=== PATIENT | female | born 1965 ===

== ENCOUNTER 2021-01-02 09:29 | Outpatient (REF) | payer OTHER, SELFPAY | END 2021-01-02 09:30 | disposition home or self-care (01) | LOC: HO.LAB 09:29 | PROVIDERS: Visit Provider Internal Medicine | DX: Z20.822 Contact with and (suspected) exposure to COVID-19 (principal) | CPT/HCPCS: C9803; U0003; U0005 ==

== ENCOUNTER 2021-01-15 16:17 | Emergency (ER) | payer OTHER, SELFPAY ==
--- NOTE | ~2021-01-15 | US_ITS ---
EXAMINATION: RIGHT LOWER EXTREMITY DEEP VENOUS ULTRASOUND CLINICAL INFORMATION: Right leg pain. History of Covid. COMPARISON: None. TECHNIQUE: Duplex Doppler imaging with compression maneuvers were performed of the right lower extremity deep venous system. FINDINGS: The visualized common femoral, femoral and popliteal veins demonstrate normal compressibility and color flow without evidence of venous thrombosis. Visualized portions of the calf veins demonstrate normal color fill-in suggesting patency. There is no evidence of a Baca's cyst. US/US venous duplex LE RT IMPRESSION: No evidence of deep venous thrombosis involving the right lower extremity.
[2021-01-15 17:09] VITALS: BP 140/71; PULSE 87; RESP 18; TEMP 37.5; O2SAT 100; BMI 26.2
[2021-01-15] MEDS: Ibuprofen 600 MG TABLET PO (18:35)
--- NOTE | 2021-01-15 19:45 | ED.GENADULT ---
HPI - General Adult General Chief complaint: General Medical Stated complaint: R/O blood clot Time Seen by Provider: 01/15/21 19:44 Source: patient Mode of arrival: ambulatory Limitations: language barrier History of Present Illness HPI narrative: 55 y/o female with recent COVID-19 infection on 01/02/21 presents to the ED from PCP's office with right knee pain and swelling. She states she was walking up and down stairs frequently to take care of her ill when she woke up with swelling and some pain today. She denies any specific incident of twisting or hearing any pops. No giving out sensation. She states the pain is mostly on the outside portion of the knee and behind the knee. She went to the PCP's today who advised her to come to the ED to r/o DVT given her recent COVID diagnosis. She denies calf pain, tenderness, erythema. No chest pain or SOB. MD complaint: right knee pain Onset (ago): day(s) (2) Location: right and lower extremity Radiation: non-radiation Severity: moderate Quality: aching Pain Consistency: intermittent Relieving factors: rest Exacerbating factors: movement Associated symptoms: denies other symptoms Treatments prior to arrival: none Related Data Previous Rx's Medication Instructions Recorded fluticasone 250 mcg-salmeterol 50 1 ea PO BID #180 cap 09/12/20 mcg/dose blistr powdr for inhalation ibuprofen 600 mg PO Q8H PRN #20 tab 01/15/21 Allergies Allergy/AdvReac Type Severity Reaction Status Date / Time amoxicillin [AMOXICILLIN] Allergy Intermediate DIZZINESS Unverified 06/13/20 16:59 morphine [MORPHINE] Allergy Unknown RASH Unverified 06/13/20 16:59 baclofen [BACLOFEN] AdvReac Intermediate NAUSEA & Unverified 06/13/20 16:59 VOMITING Review of Systems Review of Systems: Constitutional: No Fever, No Chills Cardiovascular: No Chest Pain, No SOB Respiratory: No Cough, No Sputum Gastrointestinal: No Nausea, No Vomiting, No Diarrhea, No abdominal Pain Genitourinary: No Dysuria, No Urinary Frequency, No Hematuria Musculoskeletal: + joint pain, No Myalgias Skin: No Skin Lesions, No rash Neuro: No Weakness, No Numbness Heme/Lymph: No Bruising PMFSH Past Medical History Attestation statement: The following information was validated with the patient. Medical History Asthma COVID-19 Migraines Social History Social History Alcohol intake: never Smoked in Last 30 Days: No Use of substances other than those prescribed or required for medical reasons: No Any prior treatment program specific to substance use: No Advance Directives: No Advance Directives Information Provided: Yes Physical Exam Vital Signs: Vital Signs: Last Vital Signs Temp 99.5 F 01/15/21 17:09 Pulse 87 01/15/21 17:09 Resp 18 01/15/21 17:09 BP 140/71 H 01/15/21 17:09 Pulse Ox 100 01/15/21 17:09 Body Mass Index 26.2 Appearance: Alert. Oriented X3. No acute distress. HEENT: normal inspection CVS: Normal heart rate and rhythm. Pulses normal. Respiratory: No respiratory distress. Skin: Skin warm and dry. Normal skin color. Normal skin turgor. No rashes. Extremities: right knee with mild swelling to lateral aspect, no erythema or warmth, normal ROM with some discomfort on full flexion. no joint laxity. tenderness along lateral joint line. no palpable mass in popliteal fossa. no lower extremity skin changes. NV intact distally. Neuro: Oriented X 3. No motor deficit. No sensory deficit. Ambulates with very slight limp. Course Course Course Narrative: 55 y/o female presenting with right knee pain after going up and down stairs. U/S negative for DVT. Pain is likely due to overuse vs sprain/strain. Will treat with supportive care - MAUREEN wrap and NSAIDs for now. LBAT and plan to follow up with PCP and Ortho if no improvement in 1 week. Patient agrees with plan. Stable for discharge. Critical Care Time Critical Care Time Critical Care Time: No Discharge Plan Discharge Clinical Impression: Knee sprain Qualifiers: Encounter type: initial encounter Involved ligament of knee: unspecified ligament Laterality: right Qualified Code(s): S83.91XA - Sprain of unspecified site of right knee, initial encounter Patient Disposition: Home, Self-Care Instructions: Knee Sprain (ED) Additional Instructions: Your ultrasound showed NO evidence of clot. Your swelling and pain is likely due to sprain or strain of ligaments in the knee. Recommend rest, elevation when possible and ice several times per day. Wear MAUREEN wrap to help with swelling and provide support. Take the prescribed medication as needed for pain and swelling. Take with food. If no improvement in 1 week recommend following up with Orthopedics for further evaluation. Follow up with your doctor this week. If you have worsening pain or swelling or develop any new or concerning symptoms come back to the ER for further evaluation. Wright ultrasonido NO mostr? evidencia de co?gulo. Es probable que wright hinchaz?n y dolor se deban a un esguince o distensi?n de los ligamentos de la rodilla. Recomiende reposo, elevaci?n cuando sea posible y hielo varias veces al d?a. Use angelito envoltura MAUREEN para ayudar con la hinchaz?n y brindar apoyo. [place] el medicamento recetado seg?n sea necesario para el dolor y la hinchaz?n. Casi con la comida. Si no mejora en 1 semana, recomiende hacer un seguimiento con [facility] para angelito evaluaci?n adicional. Naeem un seguimiento con wright m?dico esta semana. Si el dolor o la hinchaz?n empeoran o si presenta alg?n s?ntoma nuevo o preocupante, regrese a la molly de emergencias para angelito evaluaci?n adicional. Prescriptions: New ibuprofen 600 mg tablet 600 mg PO Q8H PRN (Reason: pain) Qty: 20 RF: 0 No Action fluticasone propion-salmeterol [Wixela Inhub] 250-50 mcg/dose blister with device 1 ea PO BID Qty: 180 RF: 2 Referrals: Harpal Bob MD [Physician] - 1 week (right knee pain)
== END 2021-01-15 21:08 | disposition home or self-care (01) ==
PROVIDERS: Emergency Provider Internal Medicine; PCP Internal Medicine Geriatric Medicine
DX: S83.91XA Sprain of unspecified site of right knee, initial encounter (principal); R60.0 Localized edema; M25.561 Pain in right knee; W10.9XXA Fall (on) (from) unspecified stairs and steps, initial encounter; Y93.9 Activity, unspecified; Y92.9 Unspecified place or not applicable; Y99.9 Unspecified external cause status; Z79.899 Other long term (current) drug therapy; Z86.16 Personal history of COVID-19
CPT/HCPCS: 93971; 99284

== ENCOUNTER 2021-01-24 07:35 | Outpatient (REF) | payer OTHER, SELFPAY ==
--- NOTE | ~2021-01-24 | XR_ITS ---
EXAMINATION: XR KNEE, RIGHT CLINICAL INFORMATION: Pain. COMPARISON: None TECHNIQUE: Two views of the right knee. AP bilateral knees one view. FINDINGS: RIGHT KNEE: Normal alignment. Joint spaces are maintained. No acute fracture or dislocation. Small effusion. LEFT KNEE: Normal alignment. Maintained joint space. XR/XR knee RT 3V IMPRESSION: Right knee: No acute findings. Small effusion.
== END 2021-01-24 07:36 | disposition home or self-care (01) ==
LOC: HO.HOSX 07:35
PROVIDERS: Visit Provider Physician Assistant
DX: M17.11 Unilateral primary osteoarthritis, right knee (principal); M17.10 Unilateral primary osteoarthritis, unspecified knee
CPT/HCPCS: 73562

== ENCOUNTER 2021-03-17 13:00 | Outpatient (RCR) | payer OTHER, SELFPAY ==
--- NOTE | 2021-02-12 09:21 | MHC.PT.EP ---
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 UPON EXAM IMPAIRMENTS INCLUDE DECREASED HIP AND KNEE STRENGTH, ALTERED GAIT PATTERN, INCREASED SOFT TISSUE CONGESTION AND PAIN. FUNCTIONAL LIMITATIONS INCLUDE DECREASED TOLERANCE TO STATIC STANDING, WALKING GREATER THAN 30 MINS AND STAIR NAVIGATION. SHE REPORTS SLIGHT IMPACT ON HOMEMAKING TASKS AND DISRUPTED SLEEP. Frequency and Duration: The patient will be seen 2 X WEEK FOR 5 WEEKS Short Term Goals: INITATE HEP AND PROMOTE SELF MANAGEMENT OF SYMPTOMS WITH EVIDENCE OF LEARNING IN 2 VISITS Penitentiary Goals: IN 5 WEEKS: TO DEMONSTRATE INDEPENDENT HEP AND SELF MANAGEMENT OF RESIDUAL SYMPTOMS TO DEMONSTRATE FULL LE STRENGTH, EQUAL FAITH TO ASCEND AND DESCEND STAIRS WITHOUT PAIN GREATER THAN 2/10 TO AMBULATE AB HAKAN ON LEVEL AND UNEVEN SURFACES FOR FITNESS WITHOUT PAIN GREATER THAN 2/10 TO PERFORM FULL FUNCTIONAL SQUAT WITHOUT SUBSTITUTION Treatment Plan: Modalities to reduce pain, spasms and effusion. Manual therapy to restore motion and function. Therapeutic exercise to improve strength and flexibility. Neuromuscular re-education for posture and balance. Therapeutic activities to return to functional activities of daily living. Electronically signed by: PRETTY SAL PT, DPT Please sign and return to therapist. Thank you for your referral.
--- NOTE | 2021-04-30 12:06 | MHC.PT.DC ---
[facility] [place] Office [place] Office [place] Office [address] Misael Lundberg [address] [phone] F: [phone] F: [phone] F: [phone] F: [phone] Physical Therapy Discharge Report Diagnosis: (KP) RIGHT KNEE PAIN Date of Surgery: NA Date of Evaluation: 02/11/21 Date of Discharge: 03/18/21 Treatments to Date: 9 Cancellations to Date: 0 No Shows to Date: 1 Discharge Status: Discharge Summary: Taryn progressed well in PT, she missed last scheduled visit so exact status is unknown. She had demonstrated improved ROM and strength and is independent with her current HEP. Electronically signed by: Denise Arciniega PT, DPT Please sign and return to therapist. Thank you for your referral.
--- NOTE | 2021-04-30 12:09 | MHC.PT.DC ---
[facility] [place] Office [place] Office [place] Office [address] Misael Lundberg [address] [phone] F: [phone] F: [phone] F: [phone] F: [phone] Physical Therapy Discharge Report Diagnosis: (KP) RIGHT KNEE PAIN Date of Surgery: NA Date of Evaluation: 02/11/21 Date of Discharge: 03/18/21 Treatments to Date: 9 Cancellations to Date: 0 No Shows to Date: 1 Discharge Status: Discharge Summary: Taryn progressed well in PT, she missed last scheduled visit so exact status is unknown. She had demonstrated improved ROM and strength and is independent with her current HEP. Electronically signed by: Denise Arciniega PT, DPT Please sign and return to therapist. Thank you for your referral.
== END 2021-04-30 12:10 | disposition home or self-care (01) ==
LOC: HO.PT 13:00
PROVIDERS: Visit Provider Physician Assistant
DX: M17.10 Unilateral primary osteoarthritis, unspecified knee (principal); M17.11 Unilateral primary osteoarthritis, right knee; M25.569 Pain in unspecified knee
CPT/HCPCS: 97110; 97140; 97161; 97530; 97535

== ENCOUNTER → 2021-05-27 09:13 | Outpatient (BNVA) | payer OTHER, SELFPAY | PROVIDERS: PCP Internal Medicine Geriatric Medicine; Visit Provider Internal Medicine | DX: R00.2 Palpitations (principal); B94.8 Sequelae of other specified infectious and parasitic diseases | CPT/HCPCS: 93005 ==

== ENCOUNTER → 2021-07-08 14:09 | Outpatient (REF) | payer OTHER, SELFPAY ==
--- NOTE | 2021-07-08 14:13 | CA_ITS ---
Transthoracic Echocardiogram Patient (Last, First, Middle): Taryn Thomas, Gender: Female Date of : 1965 Age: 55 Procedure Date: 07/08/2021 Procedure Type: Transthoracic Echocardiogram Location: OP Height: 154.94 cm Weight: 63.05 kg BSA: 1.62 m2 Heart Rate: bpm BP: 120 / 70 mmHg Blow Molder: AYE Referring MD: Alfred Serrato MD Symptoms: R00.2 - Palpitations Conclusions: - Essentially normal study Findings Left Ventricle Normal left ventricular size, thickness, and systolic function. The visually estimated ejection fraction is between 60-65%. Spectral Doppler is indicative of a normal filling pattern. Measured peak global longitudinal endocardial strain is -17.4%, within normal limits Right Ventricle Normal right ventricular cavity size and systolic function. Atria Both atria are normal in size. There is a mobile atrial septum noted. Interatrial shunt cannot be excluded. Aortic Valve Normal aortic valve structure and function. There is no aortic valve stenosis. There is no aortic valve regurgitation. Mitral Valve Normal mitral valve structure and function. There is trace mitral valve regurgitation. There is no mitral valve stenosis. Pulmonic Valve The pulmonic valve is likely normal. Tricuspid Valve Normal tricuspid valve structure. There is trace tricuspid valve regurgitation. The right ventricular systolic pressure is normal. The right ventricular systolic pressure is 20 mmHg. Normal right atrial pressure. There is no evidence of pulmonary hypertension. Great Vessels All visible segments of the aorta are normal in size. The pulmonary artery was not well visualized. Venous The inferior vena cava is normal in size and collapses greater than 50% with inspiration. Pericardium/Pleural There is no evidence of pericardial effusion. Prior Study Comparison No prior study available for comparison. Measurements 2D Linear Measurements IVSd: 0.78 0.6-0.9/0.6-1.0 cm LVIDd: 4.72 3.9-5.3/4.2-5.9 cm LVIDd Index: 2.91 2.4-3.2/2.2-3.1 cm/m2 LVIDs: 2.97 2.0-3.6 cm LVPWd: 0.56 0.7-1.1 cm Ao Root: 2.90 2.1-3.5 cm LA Diam: 3.10 2.7-3.8/3.0-4.0 cm LAIDs Index: 1.91 1.5-2.3 cm/m2 LV Mass: 121.74 67-162/88-224 g LV Mass Index: 75.15 43-95/49-115 g/m2 LVOT Diam: 1.80 3.0+(-)1.3 cm 2D Systolic Function EF 4C: 65.80 >55% EF 2C: 60.30 >55% EF BiP: 63.70 >55% Mitral Valve MV Pk E: 0.93 MV PK A: 0.77 MV Decel Time: 169.00 E/A: 1.20 E'Lateral: 12.50 E'Medial: 8.59 E/E' Med: 10.80 E/E' Lat: 7.40 PHT: 49.00 MVA PHT: 4.49 Decel [place]: 5.52 Aortic Valve AoV Pk Yoel: 1.22 AoV Pk Grad: 6.00 LVOT LVOT Pk Yoel: 0.92 LVOT Mn Yoel: 0.66 LVOT VTI: 0.21 LVOT Pk Grad: 3.00 LVOT Mn Grad: 2.00 LVOT Diam: 1.80 LVOT Area: 2.54 Diastolic Function MV Pk E: 0.93 MV Pk A: 0.77 E/A: 1.20 E'Medial: 8.59 E/E' Med: 10.80 E' Laterial: 12.50 E/E' Lat: 7.40 Right Ventricle TAPSE (mm): 2.20 Tricuspid Valve TR Pk Yoel: 2.04 TR Pk Grad: 17.00 RA Press: 3.00 RVSP: 20.00 Great Vessels Aorta Ao Root-2D: 2.90 2.0-3.7 cm Ao Asc: 3.20 2.1-3.4 cm Updated in Other Vendor System with Status of Final Bright Montenegro MD electronically signed on 07/10/2021 9:02:03 AM with status of Final
--- NOTE | 2021-07-08 14:13 | HM_ITS ---
Conclusion: 1. Patient was monitored for total period of 2 days and 19 hours 2. Baseline was normal sinus rhythm with average heart rate of 83 beats per minute 3. No significant pauses or bradycardia noted 4. No significant ectopy is noted 5. No patient reported symptoms MTDD
== END ==
LOC: HO.CARD 14:09
PROVIDERS: Visit Provider Internal Medicine
DX: R00.2 Palpitations (principal)
CPT/HCPCS: 93242; 93306

== ENCOUNTER 2021-08-26 14:10 | Outpatient (REF) | payer OTHER, SELFPAY ==
--- NOTE | ~2021-08-26 | CT_ITS ---
EXAMINATION: CT ABDOMEN AND PELVIS WITHOUT AND WITH CONTRAST CLINICAL INFORMATION: Cyst of kidney. Hematuria COMPARISON: Abdominal ultrasound 10/06/2019 TECHNIQUE: Noncontrast CT of the abdomen and pelvis is performed followed by split bolus contrast-enhanced images using 85mL Omnipaque 350 contrast.? Postcontrast imaging is performed during the combined nephrogram and excretion phase. Sagittal and coronal reformatted images were obtained on the technologist's workstation for both the precontrast and postcontrast phases. This CT examination was performed using dose optimization techniques as appropriate, variously including the following: *Automated exposure control *Adjustment of mA and/or kV according to patient size (this includes techniques or standardized protocols for targeted exams where dose is matched to indication/reason for exam; i.e. extremities or head) *Use of iterative reconstruction technique DLP: 1524 mGy-cm FINDINGS: LUNG BASES: The visualized lung bases are unremarkable. LIVER, GALLBLADDER, AND BILIARY TREE: The liver is normal in size but demonstrates decreased attenuation consistent with hepatic steatosis. No focal hepatic lesion or biliary ductal dilatation is present. The previously seen hypoechoic mass adjacent to the gallbladder on 10/06/2019 ultrasound is not identified. This probably represented focal fatty sparing, some of which can be appreciated on this study. The gallbladder is unremarkable with no evidence of radiopaque gallstones, gallbladder wall thickening, or obvious pericholecystic inflammatory changes. PANCREAS: Unremarkable. SPLEEN: Unremarkable. ADRENAL GLANDS: Unremarkable. KIDNEYS AND URETERS: The kidneys are normal in size, shape, and attenuation. No hydronephrosis, hydroureter, or calculi seen. No perinephric stranding. There is a 5 mm hypodensity seen in the mid left kidney along with an additional 3 mm hypodensity seen at the left lower pole. At least one of these most likely represents the cyst that was seen at the time of the prior ultrasound. BLADDER: Unremarkable. GASTROINTESTINAL TRACT: The small and large bowel are unremarkable. The appendix is unremarkable. ABDOMINAL WALL: No significant hernia is appreciated. Tiny periumbilical hernia seen containing only fat. LYMPH NODES: No retroperitoneal lymphadenopathy. VASCULAR: Unremarkable. PELVIC VISCERA: An anteverted uterus is present. An abnormal adnexal mass is not seen. No free intraperitoneal fluid is present. OSSEUS STRUCTURES: Unremarkable. CT/CT urogram IMPRESSION: 1. A cause for the patient's hematuria has not been found. 2. No worrisome pathologic mass is seen. Two small cysts noted in the left kidney. 3. Incidentally noted hepatic steatosis.
[2021-08-26] MEDS: iohexoL 350 MG/ML 100 ML INFUS..BTL IV (16:07)
== END 2021-08-26 14:11 | disposition home or self-care (01) ==
LOC: HO.CT 14:10
PROVIDERS: Visit Provider Emergency Medicine
DX: N28.1 Cyst of kidney, acquired (principal); R31.9 Hematuria, unspecified
CPT/HCPCS: 74178; Q9967

== ENCOUNTER 2021-09-09 08:41 | Outpatient (REF) | payer OTHER, SELFPAY ==
[2021-09-09 16:48] LABS: Urine Cytology See Pathology rpt
== END 2021-09-09 08:42 | disposition home or self-care (01) ==
LOC: HO.LAB 08:41
PROVIDERS: PCP Emergency Medicine
DX: R31.9 Hematuria, unspecified (principal); N28.1 Cyst of kidney, acquired
CPT/HCPCS: 88112

== ENCOUNTER → 2021-09-11 13:31 | Outpatient (BNVA) | payer OTHER, SELFPAY | PROVIDERS: PCP Internal Medicine Geriatric Medicine; Visit Provider Internal Medicine Pulmonary Disease ==

== ENCOUNTER 2022-02-19 16:19 | Outpatient (REF) | payer OTHER, SELFPAY ==
[2022-02-19 16:55] LABS: Appearance Urine HAZY; Glucose Urine UA NEG (NEG); PH 5.5 (5.0-8.0); Specific Gravity - Urine <= 1.005 (1.005-1.025); Urine Blood 3+ (NEG); Urine Protein 1+ MG/DL (NEG-TRACE)
[2022-02-19 16:56] LABS: Leukocyte Esterase Urine TRACE (NEG); Nitrite Urine NEG (NEG); Urine Ketones NEG (NEG)
[2022-02-19 16:57] LABS: Color Urine PINK
[2022-02-19 17:01] LABS: Squamous Epithelial Cell Urine 1+ /LPF
== END 2022-02-19 16:20 | disposition home or self-care (01) ==
LOC: HO.LAB 16:19
PROVIDERS: PCP Internal Medicine Geriatric Medicine
DX: R31.9 Hematuria, unspecified (principal)
CPT/HCPCS: 81001; 87086

== ENCOUNTER 2022-02-25 15:14 | Outpatient (REF) | payer OTHER, SELFPAY ==
[2022-02-25 15:45] LABS: COVID-19 Test Positive (Negative); IDNOW Serial# 55D5AD1C
== END 2022-02-25 15:15 | disposition home or self-care (01) ==
LOC: HO.LAB 15:14
PROVIDERS: Visit Provider Internal Medicine
DX: Z20.822 Contact with and (suspected) exposure to COVID-19 (principal)
CPT/HCPCS: 87635; C9803

== ENCOUNTER 2022-03-11 15:20 | Outpatient (REF) | payer OTHER, SELFPAY ==
[2022-03-11 15:57] LABS: Appearance Urine CLEAR; Color Urine STRAW; Glucose Urine UA NEG (NEG); Leukocyte Esterase Urine 1+ (NEG); Nitrite Urine NEG (NEG); PH 5.5 (5.0-8.0); Specific Gravity - Urine <= 1.005 (1.005-1.025); Urine Blood 3+ (NEG); Urine Ketones NEG (NEG); Urine Protein TRACE MG/DL (NEG-TRACE)
[2022-03-11 16:20] LABS: Bacteria Urine TRACE /LPF; Squamous Epithelial Cell Urine TRACE /LPF; WBC Clumps Urine NOTED
== END 2022-03-11 15:21 | disposition home or self-care (01) ==
LOC: HO.LAB 15:20
PROVIDERS: PCP Internal Medicine Geriatric Medicine; Visit Provider Urology
DX: R31.9 Hematuria, unspecified (principal)
CPT/HCPCS: 81001; 87086

== ENCOUNTER 2022-04-07 15:21 | Outpatient (REF) | payer OTHER, SELFPAY ==
--- NOTE | ~2022-04-07 | US_ITS ---
EXAMINATION: US RETROPERITONEAL LIMITED (RENAL ONLY) CLINICAL INFORMATION: Cyst of kidney, acquired. COMPARISON: CT urogram 08/26/2021. Ultrasound abdomen complete 10/06/2019. US retroperitoneal limited (renal only) 02/24/2018. TECHNIQUE: Real-time imaging of the kidneys. FINDINGS: RIGHT KIDNEY: 9.9 x 4.9 x 4.3 cm (SAG x AP x TRV). The kidney is normal in size, contour, and echogenicity. Renal cortical thickness is normal. No hydronephrosis. Echogenic foci likely nonobstructing stones measuring up to 3 mm, 3 mm and 3 mm. There is mildly complex hypoechoic cystic structure middle pole measures 1.2 cm. LEFT KIDNEY: 10.8 x 4.7 x 4.8 cm (SAG x AP x TRV). The kidney is normal in size, contour, and echogenicity. Renal cortical thickness is normal. No hydronephrosis. There are mildly complex hypoechoic cystic middle pole 1.2 cm, and 1.1 cm. Echogenic focus probably nonobstructing stone upper calyx 3 mm. US/US renal BI IMPRESSION: *Bilateral mildly complex hypoechoic cystic structures found probably complex cysts, one on the right and 2 on the left. One year follow-up recommended. *Nonobstructing stone left kidney. *No hydronephrosis.
== END 2022-04-07 15:22 | disposition home or self-care (01) ==
LOC: HO.US 15:21
DX: N28.1 Cyst of kidney, acquired (principal)
CPT/HCPCS: 76775

== ENCOUNTER 2022-08-24 12:58 | Outpatient (REF) | payer OTHER, SELFPAY | END 2022-08-24 12:59 | disposition home or self-care (01) | LOC: HO.US 12:58 | PROVIDERS: PCP Internal Medicine Geriatric Medicine; Visit Provider Advanced Practice Midwife | DX: Z13.89 Encounter for screening for other disorder (principal) ==

== ENCOUNTER 2022-09-14 14:41 | Outpatient (REF) | payer OTHER, SELFPAY ==
--- NOTE | ~2022-09-14 | US_ITS ---
EXAMINATION: US RETROPERITONEAL LIMITED (RENAL ONLY) CLINICAL INFORMATION: Hematuria, unspecified. COMPARISON: Renal ultrasound 04/07/2022 and 02/24/2018. CT urogram 08/26/2021. TECHNIQUE: Real-time imaging of the kidneys. FINDINGS: RIGHT KIDNEY: 9.5 x 5.0 x 5.2 cm (SAG x AP x TRV). The kidney is normal in size, contour, and echogenicity. Renal cortical thickness is normal. No calculi or focal parenchymal lesions. No hydronephrosis. Mild hydroureter. Echogenic appearance of the medullary pyramids. LEFT KIDNEY: 10.0 x 5.0 x 4.2 cm (SAG x AP x TRV). The kidney is normal in size, contour, and echogenicity. Renal cortical thickness is normal. No calculi or focal parenchymal lesions. No hydronephrosis. Echogenic appearance of the medullary pyramids. BLADDER: Bilateral ureteral jets are demonstrated. US/US renal BI IMPRESSION: 1. Mild right hydroureter. Ureteral jet is visualized. No definite calculi are seen. 2. Echogenic appearance of the medullary pyramids can be seen with medullary nephrocalcinosis. This appearance is a change from prior.
== END 2022-09-14 14:42 | disposition home or self-care (01) ==
LOC: HO.US 14:41
DX: R31.9 Hematuria, unspecified (principal)
CPT/HCPCS: 76775

== ENCOUNTER 2022-09-16 14:52 | Outpatient (REF) | payer OTHER, SELFPAY | END 2022-09-16 14:53 | disposition home or self-care (01) | LOC: HO.MAMMO 14:52 | PROVIDERS: Visit Provider Internal Medicine Geriatric Medicine | DX: Z12.31 Encounter for screening mammogram for malignant neoplasm of breast (principal) | CPT/HCPCS: 77063; 77067 ==

== ENCOUNTER 2022-09-23 15:09 | Outpatient (REF) | payer OTHER, SELFPAY ==
--- NOTE | ~2022-09-23 | US_ITS ---
EXAMINATION: US PELVIS CLINICAL INFORMATION: Pelvic pain. COMPARISON: CT urogram 08/26/2021, pelvic ultrasound 10/05/2018. TECHNIQUE: Ultrasound of the pelvis is performed using both transabdominal and transvaginal transducers along with Doppler. Transvaginal imaging is performed due to inadequate visualization transabdominally. FINDINGS: UTERUS: The uterus is anteverted and measures 9.0 x 3.3 x 4.7 cm. The double wall endometrial thickness is 0.5 mm. Three uterine fibroids are present with a fundal fibroid measuring 1.8 x 2.1 x 1.8 cm and two fibroids just to the left of this measuring 1.4 x 1.0 x 1.2 cm and 1.3 x 0.9 x 0.9 cm. The largest fundal fibroid appears to have decreased in size since the prior study. Nabothian cysts are present in the cervix. ADNEXA: Both ovaries are visualized. There is normal color flow to the adnexa. There is no ovarian torsion. There is no pelvic ascites or fluid collection. RIGHT OVARY MEASURES: 1.1 x 1.8 x 1.3 cm for a volume of 1.4 mL LEFT OVARY MEASURES: 1.5 x 1.3 x 1.3 cm for a volume of 1.3 mL. US/US pelvic and transvaginal IMPRESSION: Uterine fibroids.
== END 2022-09-23 15:10 | disposition home or self-care (01) ==
LOC: HO.US 15:09
PROVIDERS: PCP Internal Medicine Geriatric Medicine; Visit Provider Advanced Practice Midwife
DX: R10.2 Pelvic and perineal pain (principal)
CPT/HCPCS: 76830; 76856

== ENCOUNTER 2022-10-02 13:42 | Outpatient (REF) | payer OTHER, SELFPAY ==
--- NOTE | ~2022-10-02 | MM_ITS ---
EXAMINATION: MM DIAGNOSTIC DIGITAL BREAST TOMOSYNTHESIS, RIGHT US DIAGNOSTIC ULTRASOUND BREAST, RIGHT CLINICAL INFORMATION: Recall from screening for nodular asymmetric density medial right breast. TC score 6%. COMPARISON: Mammography: 09/16/2022, 07/21/2018, 05/25/2017 TECHNIQUE: Digital breast tomosynthesis is performed. 2D images are generated from the tomosynthesis. The following views are obtained: Spot CC, spot LM. Ultrasound right breast is targeted to the medial breast using grayscale imaging and color Doppler without and with harmonics. FINDINGS: There are scattered areas of fibroglandular density (ACR BI-RADS breast composition Category b). The additional views show a circumscribed nodule medial right breast corresponding to recent imaging. No architectural abnormality. Ultrasound demonstrates a circumscribed cyst 2:00-3:00 position 4 cm from nipple measuring approximately 0.7 x 0.4 cm. There is increased through-transmission of sound and no associated color flow. Ultrasound finding corresponds to the mammography. Results are discussed with the patient at time of visit, with assistance of an educational sign language interpreter. MM/MM tomosynthesis added views R IMPRESSION: Circumscribed simple cyst medial right breast corresponding to recent mammography. ASSESSMENT: BI-RADS 2: Benign RECOMMENDATION: Routine annual mammography screening. This patient's information was entered into a reminder system with a target due date for their next mammogram.
== END 2022-10-02 13:43 | disposition home or self-care (01) ==
LOC: HO.MAMMO 13:42
PROVIDERS: PCP Internal Medicine Geriatric Medicine; Visit Provider Internal Medicine Geriatric Medicine
DX: R92.2 Inconclusive mammogram (principal)
CPT/HCPCS: 76642; 77061; 77065

== ENCOUNTER → 2022-10-12 08:37 | Outpatient (BNVA) | payer OTHER, SELFPAY | PROVIDERS: PCP Internal Medicine Geriatric Medicine; Visit Provider Nurse Practitioner Family | DX: Z13.89 Encounter for screening for other disorder (principal) ==

== ENCOUNTER 2023-02-23 12:01 | Outpatient (REF) | payer OTHER, SELFPAY ==
[2023-02-23 13:09] LABS: MANUAL DIFF FLAG NO
[2023-02-23 14:06] LABS: Basophils Absolute Auto 0.1 X10*3/uL (0.0-0.2); Basophils Percent Auto 0.8 % (0-2); Eosinophils Absolute Auto 0.2 X10*3/uL (0.0-0.4); Eosinophils Percent Auto 2.6 % (0-4); Hematocrit 43.3 % (37.0-47.0); Hemoglobin 14.4 g/dl (12.0-16.0); Imm Gran Abs Auto 0.02 X10*3/uL (0.00-0.03); Imm Gran Pct Auto 0.3 % (0.0-0.4); Lymphocytes Absolute Auto 1.5 X10*3/uL (1.2-4.9); Lymphocytes Percent Auto 18.3 % (20-40); Mean Corpuscular HGB Conc 33.3 g/dl (31.0-35.0); Mean Corpuscular Hemoglobin 28.4 pg (27.0-33.0); Mean Corpuscular Volume 85.4 fL (80.0-98.0); Mean Platelet Volume 10.4 fL (9.4-12.3); Monocytes Absolute Auto 0.5 X10*3/uL (0.1-1.2); Monocytes Percent Auto 6.4 % (2-11); Neutrophils Absolute Auto 5.7 x10*3/uL (2.0-8.3); Neutrophils Percent Auto 71.6 % (45-73); Platelet Count 277 X10*3/uL (160-400); Red Blood Count 5.07 X10*6/uL (4.20-5.50); Red Cell Distribution Width 13.1 % (11.0-16.0)
[2023-02-23 14:34] LABS: Alanine Aminotransferase 21 U/L (0-31); Albumin Level 4.5 g/dL (3.5-5.0); Alkaline Phosphatase 101 U/L (39-117); Anion Gap 12 (12-20); Aspartate Amino Transferase 20 U/L (5-31); Bilirubin Total 0.6 mg/dL (0.0-1.0); Blood Urea Nitrogen 11 mg/dL (9-16); Calcium 9.9 mg/dL (8.4-10.2); Carbon Dioxide 30 mmol/L (22-29); Chloride 104 mmol/L (96-108); Estimated Glomerular Filt Rate > 60; Glucose Random 91 mg/dL (60-115); Potassium 4.4 mmol/L (3.3-5.1); Sodium 142 mmol/L (135-145); Total Protein 7.2 g/dL (6.5-8.0)
== END 2023-02-23 12:02 | disposition home or self-care (01) ==
LOC: HO.LAB 12:01
PROVIDERS: PCP Internal Medicine Geriatric Medicine; Referring Provider Internal Medicine Geriatric Medicine; Visit Provider Nurse Practitioner
DX: Z01.818 Encounter for other preprocedural examination (principal); R10.10 Upper abdominal pain, unspecified; R13.10 Dysphagia, unspecified; Z80.0 Family history of malignant neoplasm of digestive organs
CPT/HCPCS: 36415; 80053; 85025

== ENCOUNTER 2023-03-05 07:51 | Outpatient (REF) | payer OTHER, SELFPAY ==
--- NOTE | ~2023-03-05 | US_ITS ---
EXAMINATION: US ABDOMEN COMPLETE CLINICAL INFORMATION: Upper abdominal pain, unspecified. COMPARISON: Renal ultrasound 06/15/2022. CT urogram 08/26/2021. TECHNIQUE: Real-time imaging of the abdominal viscera.. FINDINGS: PANCREAS:Normal.. ABDOMINAL AORTA:The proximal, mid, and distal segments are normal in caliber.. INFERIOR VENA CAVA:Visualized portions are normal.. LIVER:Normal..The liver is normal in size..The liver contour is normal..Parenchymal echogenicity is normal..No focal hepatic lesion..There is no intrahepatic biliary duct dilatation seen.. GALLBLADDER:Normal..The gallbladder is physiologically distended without evidence of stones, sludge, polyps, wall thickening or pericholecystic fluid.. COMMON BILE DUCT: Normal in caliber measuring 0.3 cm in diameter. RIGHT KIDNEY: No hydronephrosis. No renal calculi or focal parenchymal lesions. The kidney measures 10.0 cm in maximum dimension. Few echogenic foci without shadowing or twinkle artifact may reflect vascular reflectors. LEFT KIDNEY: No hydronephrosis. No renal calculi or focal parenchymal lesions. The kidney measures 9.8 cm in maximum dimension. Few echogenic foci without shadowing or twinkle artifact may reflect vascular reflectors. SPLEEN:Normal.. The spleen measures 9.8 cm in maximum dimension. FREE FLUID:None.. US/US abdomen complete IMPRESSION: No acute findings to explain symptoms of abdominal pain.
== END 2023-03-05 07:52 | disposition home or self-care (01) ==
LOC: HO.US 07:51
PROVIDERS: PCP Internal Medicine Geriatric Medicine; Visit Provider Nurse Practitioner
DX: R10.10 Upper abdominal pain, unspecified (principal); R13.10 Dysphagia, unspecified
CPT/HCPCS: 76700

== ENCOUNTER → 2023-03-10 10:04 | Outpatient (BNVA) | payer OTHER, SELFPAY | PROVIDERS: PCP Internal Medicine Geriatric Medicine; Visit Provider Surgery ==

== ENCOUNTER 2023-03-31 14:36 | Outpatient (REF) | payer OTHER, SELFPAY | END 2023-03-31 14:37 | disposition home or self-care (01) | LOC: HO.LNP 14:36 | PROVIDERS: PCP Internal Medicine Geriatric Medicine; Visit Provider Surgery | DX: L72.0 Epidermal cyst (principal) | CPT/HCPCS: 11401; 11402; 88304 ==

== ENCOUNTER 2023-04-07 13:27 | Outpatient (AMB) | payer OTHER, SELFPAY ==
[2023-04-07 13:35] VITALS: BP 112/76; PULSE 66; O2SAT 98; BMI 23.7
--- NOTE | 2023-04-07 13:35 | A.OFFVIS_ITS ---
Intake Vital Signs 04/07/23 13:35 Height 5 ft 1 in Weight 125 lb 10.616 oz BMI 23.7 BP 112/76 Pulse 66 Pulse Oximetry (%) 98 Intake Visit Reasons: asthma Intake Note: pt needs refill on wixela. she is noticing that if he lays down flat on her bed she get short of breath with and without pillows. Allergies amoxicillin [AMOXICILLIN] Allergy (Intermediate, Verified 03/31/23 15:05) DIZZINESS morphine [MORPHINE] Allergy (Unknown, Verified 03/31/23 15:05) RASH baclofen [BACLOFEN] Adverse Reaction (Intermediate, Verified 03/31/23 15:05) NAUSEA & VOMITING HPI asthma HPI Details 57-year-old lady, former 10 pack year smoker, quit 2009, followed for?environmental allergies, mild persistent asthma.? She has been using Wixela 250 with good control of her underlying symptoms.? However, recently she has ran out of Wixela and her symptoms are not well controlled at this time. Patient also states that Claritin has not been controlling her environmental allergy symptoms and she switched to Zyrtec with improved control, but also with increased somnolence. [facility] Medical History (Updated 03/10/23 @ 10:33 by Cruz Lopez MD) Asthma COVID-19 Epidermal cyst Headache, migraine Hematuria Microscopic hematuria Migraines Renal cyst Surgical History (Updated 03/31/23 @ 15:06 by THERON Lyn) History of removal of cyst (~03/31/23) History of tubal ligation Family History Mother Colon cancer, Onset Age: 56 Social History Alcohol intake: never Patient Tobacco Use Status: Never used Tobacco Review of Systems Const Denies daytime sleepiness, Denies excessive sweating, Denies fatigue, Denies fever(s), Denies lethargy, Denies malaise, Denies night sweats, Denies snoring and Denies weight loss Eyes Denies blurry vision and Denies itchy eyes ENT Denies nasal congestion, Denies post nasal drip, Denies sinus pain, Denies sinus pressure and Denies other ( Thrush) Card Denies chest pain, Denies pedal edema, Denies dyspnea, Reports dyspnea on exertion, Denies orthopnea and Denies paroxysmal nocturnal dyspnea Resp Denies cough, Denies hemoptysis, Denies excessive phlegm production, Denies dyspnea, Reports dyspnea on exertion, Denies snoring and Denies wheezing GI Denies abdominal pain and Denies heartburn Musc Denies myalgias, Denies arthralgias and Denies joint swelling Skin/Breast Denies rash Neuro Denies memory loss and Denies seizure-like activity Psych Denies abnormal sleep pattern, Denies anxiety and Denies memory loss Endo Denies excessive sweating, Denies fatigue and Denies heat intolerance Andrew/Lymph Denies easy bruising Aller/Immun Denies itchy eyes, Denies seasonal rhinorrhea and Denies wheezing Physical Exam Vital Signs: Last Vital Signs Pulse 66 04/07/23 13:35 BP 112/76 04/07/23 13:35 Pulse Ox 98 04/07/23 13:35 BMI result Body Mass Index 23.7 Const General: no acute distress and alert Nutritional Appearance: not obese Orientation/consciousness: Other orientation findings ( oriented) HEENT Head: Yes atraumatic Eyes General: appearance normal, both eyes and all related structures Sclerae: sclerae normal EOM: EOMs intact bilaterally Neck Neck: Yes supple Lymphatic: no lymphadenopathy noted Resp Effort & Inspection: normal respiratory effort and no use of accessory muscles Auscultation: clear to auscultation bilaterally Cardio Rate: regular rate Rhythm: regular rhythm Heart sounds: no gallops, no murmurs and no rubs Skin General skin exam: other ( warm) Extrem General: No clubbing, No cyanosis and No edema Assessment & Plan Assessment & Plan (1) Asthma: Code(s): J45.909 - Unspecified asthma, uncomplicated Plan: Symptoms not as well controlled off Wixela. Restart Wixela. Continue albuterol MDI. (2) Environmental allergies: Code(s): Z91.09 - Other allergy status, other than to drugs and biological substances Plan: Better controlled on Zyrtec, however with significantly most somnolence. Patient has been advised to half her dose. Medications: Refilled Wixela Inhub 250-50 mcg/dose (fluticasone propion-salmeterol) 1 ea inhalation BID 180 ea 4RF NS Coding Level of Care Code Est Pt Level 4 (54824) Diagnoses Asthma J45.909 Environmental allergies Z91.09
== END 2023-04-07 14:06 | disposition home or self-care (01) ==
PROVIDERS: PCP Internal Medicine Geriatric Medicine; Visit Provider Internal Medicine Pulmonary Disease
DX: J45.909 Unspecified asthma, uncomplicated (principal); Z91.09 Other allergy status, other than to drugs and biological substances
CPT/HCPCS: 99214

== ENCOUNTER → 2023-04-07 13:27 | Outpatient (BNVA) | payer OTHER, SELFPAY | PROVIDERS: PCP Internal Medicine Geriatric Medicine; Visit Provider Internal Medicine Pulmonary Disease ==

== ENCOUNTER 2023-04-12 14:27 | Outpatient (AMB) | payer OTHER, SELFPAY ==
[2023-04-12 14:31] VITALS: BMI 23.8
--- NOTE | 2023-04-12 14:31 | A.OFFVIS_ITS ---
Intake Vital Signs 04/12/23 14:31 Height 5 ft 1 in Weight 126 lb BMI 23.8 Intake Visit Reasons: s/p excision of back cyst Intake Note: This patient presents for a post-op assessment status post excision of back cyst. Patient denies complaints at this time. Nuclear Criticality Safety Engineer Required: Yes Nuclear Criticality Safety Engineer Language: Lift Supervisor Name: Jorge Information Interpreted: non-clinical & clinical Accompanied by: Self / Same As Patient Allergies amoxicillin [AMOXICILLIN] Allergy (Intermediate, Verified 04/12/23 14:32) DIZZINESS morphine [MORPHINE] Allergy (Unknown, Verified 04/12/23 14:32) RASH baclofen [BACLOFEN] Adverse Reaction (Intermediate, Verified 04/12/23 14:32) NAUSEA & VOMITING HPI s/p excision of back cyst HPI Details She underwent excision and excision of an epidermal cyst from the back last March 31 under local anesthesia. She tolerated procedure well. She c urrently denies significant complaints. [facility] Medical History Asthma COVID-19 Epidermal cyst Headache, migraine Hematuria Microscopic hematuria Migraines Renal cyst Surgical History History of removal of cyst (~03/31/23) History of tubal ligation Family History Mother Colon cancer, Onset Age: 56 Social History Alcohol intake: never Patient Tobacco Use Status: Never used Tobacco Review of Systems Const Denies chills and Denies fever(s) Physical Exam Vital Signs: BMI result Body Mass Index 23.8 Const General: comfortable and no acute distress Back/Spine/Pelvis Other: Excision site is well healed, sutures intact, no redness or induration, no discharge or fluctuance Assessment & Plan Assessment & Plan (1) Epidermal cyst: Code(s): L72.0 - Epidermal cyst Plan: Status post excision. Her incision is well healed. Her sutures were removed. Her path report shows a benign epidermal cyst. She can follow up on a p.r.n. basis. Coding Level of Care Code Global (82078) Diagnoses Epidermal cyst L72.0
== END 2023-04-12 15:12 | disposition home or self-care (01) ==
PROVIDERS: PCP Internal Medicine Geriatric Medicine; Visit Provider Surgery
DX: L72.0 Epidermal cyst (principal)
CPT/HCPCS: 99024

== ENCOUNTER → 2023-04-12 14:27 | Outpatient (BNVA) | payer OTHER, SELFPAY | PROVIDERS: PCP Internal Medicine Geriatric Medicine; Visit Provider Surgery ==

== ENCOUNTER 2023-05-05 18:12 | Outpatient (REF) | payer OTHER, SELFPAY ==
[2023-05-06 05:30] LABS: CT PCR NOT DETECTED (Not Detect.); NG PCR NOT DETECTED (Not Detect.)
[2023-05-06 15:21] LABS: BV Int Neg Control Negative (Negative); BV Int Pos Control Positive (Positive)
== END 2023-05-05 18:13 | disposition home or self-care (01) ==
LOC: HO.HHCLNP 18:12
PROVIDERS: Visit Provider Registered Nurse
DX: Z20.2 Contact with and (suspected) exposure to infections with a predominantly sexual mode of transmission (principal); R30.0 Dysuria
CPT/HCPCS: 0353U; 87086; 87480; 87510; 87660

== ENCOUNTER 2023-07-24 06:40 | Emergency (ER) | payer OTHER, SELFPAY ==
--- NOTE | 2023-07-24 | ECG_ITS ---
Test Reason : CHEST PAIN Blood Pressure : / mmHG Vent. Rate : 084 BPM Atrial Rate : 084 BPM P-R Int : 130 ms QRS Dur : 100 ms QT Int : 386 ms P-R-T Axes : 071 062 062 degrees QTc Int : 456 ms Normal sinus rhythm Nonspecific ST abnormality Abnormal ECG No significant changes seen Referred By: Generic ED Physician Electronically Signed By:KAVON ORTEGA MD
[2023-07-24 06:45] VITALS: BP 133/62; PULSE 80; RESP 16; TEMP 37.2; O2SAT 97; BMI 23.2
[2023-07-24 07:25] LABS: MANUAL DIFF FLAG NO
--- NOTE | 2023-07-24 07:26 | ED_ITS ---
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 Patient denies any recent fever, chills, nausea, vomiting, GI or symptoms. Patient also has complaints about a posterior headache that radiates down bilateral paraspinal into the shoulder area and is not associated with any visual or speech difficulty and has a diagnosis of migraines at baseline. Related Data Home Medications Medication Instructions Recorded Confirmed albuterol sulfate 90 mcg/actuation 2 puff inhalation Q6H PRN 05/27/21 03/10/23 aerosol inhaler (ProAir HFA) ergocalciferol (vitamin D2) 1,250 1,250 mcg PO QWEEK 09/09/21 03/10/23 mcg (50,000 unit) capsule naproxen 500 mg tablet 500 mg PO BID PRN pain 04/10/22 03/10/23 loratadine 10 mg tablet (Claritin) 10 mg PO DAILY 02/23/23 03/10/23 cetirizine 10 mg tablet (Zyrtec) 10 mg PO DAILY PRN 03/10/23 03/10/23 Previous Rx's Medication Instructions Recorded ibuprofen 600 mg tablet 600 mg PO Q8H PRN pain #20 tabs 01/15/21 peg 3350-electrolytes 236 240 ml PO Q10M 1 day #4,000 mL 02/23/23 gram-22.74 gram-6.74 gram-5.86 gram solution (Golytely) Wixela Inhub 250 mcg-50 mcg/dose 1 ea inhalation BID #180 ea 04/07/23 powder for inhalation (fluticasone propion-salmeterol) Allergies Allergy/AdvReac Type Severity Reaction Status Date / Time amoxicillin [AMOXICILLIN] Allergy Intermediate DIZZINESS Verified 04/12/23 14:32 morphine [MORPHINE] Allergy Unknown RASH Verified 04/12/23 14:32 baclofen [BACLOFEN] AdvReac Intermediate NAUSEA & Verified 04/12/23 14:32 VOMITING Review of Systems 2 Review of Systems: Pertinent positives and negatives as stated in HPI PMFSH Past Medical History Source: nursing notes reviewed Medical History Epidermal cyst Renal cyst Hematuria Microscopic hematuria Headache, migraine Asthma Migraines COVID-19 Surgical History History of removal of cyst (~03/31/23) History of tubal ligation Family History Family History Mother Colon cancer, Onset Age: 56 Social History Social History Alcohol intake: never Patient Tobacco Use Status: Never used Tobacco Smoked in Last 30 Days: No Use of substances other than those prescribed or required for medical reasons: No Advance Directives: No Advance Directives Information Provided: No Patient : No Physical Exam 2 Vital Signs: Vital Signs: Last Vital Signs Temp 98.9 F 07/24/23 06:45 Pulse 80 07/24/23 06:45 Resp 16 07/24/23 06:45 BP 133/62 07/24/23 06:45 Pulse Ox 97 07/24/23 06:45 O2 Del Method Room Air 07/24/23 06:45 BMI result Body Mass Index 23.2 VITAL SIGNS: Reviewed. GENERAL: Well developed, well nourished, in no acute distress. HEAD: Normocephalic/atraumatic EYES: PERRLA, EOMI EARS: Ext canals without abnormality, TMs non-bulging and non-erythematous NOSE: Nares patent bilateral OROPHARYNX: no oral lesions noted, posterior pharynx clear and non-erythematous without noted tonsillar enlargement/erythema/exudates NECK: Supple, no adenopathy, pain on palpation bilaterally over the muscular area of the paraspinal region radiating on to bilateral trapezius out to the shoulders LUNGS: Normal breath sounds. No adventitious sounds or accessory muscle use. SpO2<97> CARDIOVASCULAR: Regular rate and rhythm without noted murmurs ABDOMEN: Soft, non-tender, non-distended with bowel sounds. MUSCULOSKELETAL: No tenderness, deformities, or effusions noted on gross inspection. EXTREMITIES: No cyanosis, clubbing or edema. SKIN: Inspection of the skin reveals no rashes NEUROLOGIC: Alert and oriented x 4. Strength and sensation to light touch were grossly intact x 4. Medications Administered Discontinued Medications Generic Name Dose Route Start Last Admin Trade Name Anne Marie PRN Reason Stop Dose Admin Acetaminophen 975 mg 07/24/23 08:35 07/24/23 08:43 Acetaminophen 325 Mg Tablet PO 07/24/23 08:36 975 mg ONCE ONE Administration Al Hydroxide/Mg Hydroxide 30 ml 07/24/23 08:18 07/24/23 08:43 Magnesium Hydrox/Alum Hydrox 30 Ml Oral.Susp PO 07/24/23 08:19 30 ml ONCE ONE Administration Lidocaine 1 patch 07/24/23 08:18 07/24/23 08:43 Lidocaine 4 % Patch Adh..Patch TRANSDERMA 07/24/23 08:19 1 patch ONCE ONE Administration Protocol Lidocaine HCl 10 ml 07/24/23 08:18 07/24/23 08:43 Lidocaine Hcl Viscous 2 % 15 Ml Solution MUCOUS MEM 07/24/23 08:19 10 ml ONCE ONE Administration Medical Decision Making Medical Decision Making MDM Narrative: 57-year-old female with history and clinical presentation, DDX: Musculoskeletal, tension headache, acid reflux, no clinical suspicion for meningitis or viral infection, no clinical suspicion for ACS or pneumonia. History and clinical presentation are inconsistent with a pancreatitis or cholecystitis. I reviewed all investigations and hematologic indices are grossly within normal limits without leukocytosis or left shift, no anemia or thrombocytopenia. Chemistry indices are grossly within normal limits without JESUS and there is no electrolyte or liver enzyme abnormalities and high sensitivity troponin is undetectable. Urinalysis negative UTI or hematuria. Patient was provided with lidocaine patch for the musculoskeletal pain, also given GI cocktail for high suspicion of acid reflux. Differential Diagnosis Differential Diagnoses: The differential diagnosis associated with the presentation includes Please see the discussion above Admission/Observation Consideration of admission/observation: Escalation of care including admission/observation considered Please see the discussion above Lab Data [facility] Lab Attestation statement: I reviewed the patient's lab results. Please see the discussion above 07/24/23 07:19 07/24/23 07:19 Labs: Lab Results 07/24/23 07/24/23 07/24/23 Range/Units 07:19 07:36 09:03 WBC 4.6 L (4.8-10.8) X10*3/uL RBC 4.83 (4.20-5.50) X10*6/uL Hgb 13.6 (12.0-16.0) g/dl Hct 39.3 (37.0-47.0) % MCV 81.4 (80.0-98.0) fL MCH 28.2 (27.0-33.0) pg MCHC 34.6 (31.0-35.0) g/dl RDW 12.4 (11.0-16.0) % Plt Count 216 (160-400) X10*3/uL MPV 9.9 (9.4-12.3) fL Immature Gran % (Auto) 0.2 (0.0-0.4) % Neut % (Auto) 59.2 (45-73) % Lymph % (Auto) 27.6 (20-40) % Person % (Auto) 8.8 (2-11) % Eos % (Auto) 3.1 (0-4) % Baso % (Auto) 1.1 (0-2) % Lymph # (Auto) 1.3 (1.2-4.9) X10*3/uL Person # (Auto) 0.4 (0.1-1.2) X10*3/uL Eos # (Auto) 0.1 (0.0-0.4) X10*3/uL Baso # (Auto) 0.1 (0.0-0.2) X10*3/uL Abs Immat Gran (auto) 0.01 (0.00-0.03) X10*3/uL Absolute Neuts (auto) 2.7 (2.0-8.3) x10*3/uL Absolute Nucleated RBC 0.000 (0.0-0.012) X10*3/uL Nucleated RBC % (auto) 0.0 (0.0-0.2) /100WBC Sodium 140 (135-145) mmol/L Potassium 3.4 D (3.3-5.1) mmol/L Chloride 107 (96-108) mmol/L Carbon Dioxide 23 (22-29) mmol/L Anion Gap 13 (12-20) BUN 16 (9-16) mg/dL Creatinine 0.73 (0.5-1.4) mg/dL Estim Creat Clear Calc 64.1 Estimated GFR > 60 Random Glucose 110 (60-115) mg/dL Calcium 9.5 (8.4-10.2) mg/dL Total Bilirubin 0.7 (0.0-1.0) mg/dL AST 16 (5-31) U/L ALT 15 (0-31) U/L Alkaline Phosphatase 85 (39-117) U/L Troponin I High Sens < 2.7 (<3.5-17.0) ng/L Total Protein 6.7 (6.5-8.0) g/dL Albumin 3.9 (3.5-5.0) g/dL Urine Color Yellow Urine Appearance Clear Urine pH 6.0 (5.0-9.0) Ur Specific [place] <= 1.005 (1.005-1.025) Urine Protein Negative (Neg-Trace) mg/dL Urine Glucose (UA) Negative (Negative) mg/dL Urine Ketones Negative (Negative) mg/dL Urine Blood Negative (Negative) Urine Nitrite Negative (Negative) Ur Leukocyte Esterase Negative (Negative) COVID-19 (ANN) Negative (Negative) COVID-19 Clin Com See Note Independent Interpretation I performed an independent interpretation of an: EKG Interpretation: Normal sinus rhythm, HR-84, no STEMI, NC/QRS/QTC is within normal limits. External Record Review External record reviewed: Outpatient record, Prior outpatient labs and Prior outpatient radiology Discharge Plan Discharge Clinical Impression: Tension headache, Acid reflux, Musculoskeletal pain Patient Disposition: Home, Self-Care Instructions: Tension Headache (ED), Diet for Stomach Ulcers and Gastritis (ED), Indigestion (ED), Musculoskeletal Pain (ED) Additional Instructions: 1. Reanudar todos los medicamentos caseros seg?n lo recetado. Recomiendo limitar la cantidad de ibuprofeno/Motrin/Naprosyn ya que esto puede irritar a?n m?s el est?gurdeep. 2. Recomiendo Pepcid/Zantac de venta judy para el reflujo ?cido. Recomiendo parches de Tylenol y lidoca?na para el dolor de wild y hombros. 3. Seguimiento con el proveedor de atenci?n primaria el lunes por la ma?daniel seg?n lo programado. Regrese a la molly de emergencias si los s?ntomas empeoran. 1. Resume all home medications as prescribed. I recommend limiting the amount of ibuprofen/Motrin/Naprosyn as this can further irritate your stomach. 2. I recommend [id number] Pepcid/Zantac for acid reflux. I recommend Tylenol and lidocaine patches for your neck and shoulder pain. 3. Follow-up with primary care provider on Wednesday morning as scheduled. Return to the ER for any worsening symptoms. Prescriptions: No Action ibuprofen 600 mg tablet 600 mg PO Q8H PRN (Reason: pain) Qty: 20 0RF albuterol sulfate [ProAir HFA] 90 mcg/actuation HFA aerosol inhaler 2 puff inhalation Q6H PRN ergocalciferol (vitamin D2) 1,250 mcg (50,000 unit) capsule 1,250 mcg PO QWEEK naproxen 500 mg tablet 500 mg PO BID PRN (Reason: pain) peg 3350-electrolytes [Golytely] 236-22.74-6.74 -5.86 gram recon soln 240 ml PO Q10M 1 Days Qty: 4000 0RF Rx Instructions: until fecal effluent is clear; do not exceed a total volume of 2,000 mL loratadine [Claritin] 10 mg tablet 10 mg PO DAILY cetirizine [Zyrtec] 10 mg tablet 10 mg PO DAILY PRN fluticasone propion-salmeterol [Wixela Inhub] 250-50 mcg/dose blister with device 1 ea inhalation BID Qty: 180 4RF Referrals: Name,MD Kevon [Primary Care Provider] - Print Language: Uzbek
[2023-07-24 07:30] LABS: Basophils Absolute Auto 0.1 X10*3/uL (0.0-0.2); Basophils Percent Auto 1.1 % (0-2); Eosinophils Absolute Auto 0.1 X10*3/uL (0.0-0.4); Eosinophils Percent Auto 3.1 % (0-4); Hematocrit 39.3 % (37.0-47.0); Hemoglobin 13.6 g/dl (12.0-16.0); Imm Gran Abs Auto 0.01 X10*3/uL (0.00-0.03); Imm Gran Pct Auto 0.2 % (0.0-0.4); Lymphocytes Absolute Auto 1.3 X10*3/uL (1.2-4.9); Lymphocytes Percent Auto 27.6 % (20-40); Mean Corpuscular HGB Conc 34.6 g/dl (31.0-35.0); Mean Corpuscular Hemoglobin 28.2 pg (27.0-33.0); Mean Corpuscular Volume 81.4 fL (80.0-98.0); Mean Platelet Volume 9.9 fL (9.4-12.3); Monocytes Absolute Auto 0.4 X10*3/uL (0.1-1.2); Monocytes Percent Auto 8.8 % (2-11); Neutrophils Absolute Auto 2.7 x10*3/uL (2.0-8.3); Neutrophils Percent Auto 59.2 % (45-73); Platelet Count 216 X10*3/uL (160-400); Red Blood Count 4.83 X10*6/uL (4.20-5.50); Red Cell Distribution Width 12.4 % (11.0-16.0); White Blood Count 4.6 X10*3/uL (4.8-10.8)
[2023-07-24 07:41] LABS: Alanine Aminotransferase 15 U/L (0-31); Albumin Level 3.9 g/dL (3.5-5.0); Alkaline Phosphatase 85 U/L (39-117); Anion Gap 13 (12-20); Aspartate Amino Transferase 16 U/L (5-31); Bilirubin Total 0.7 mg/dL (0.0-1.0); Blood Urea Nitrogen 16 mg/dL (9-16); Calcium 9.5 mg/dL (8.4-10.2); Carbon Dioxide 23 mmol/L (22-29); Chloride 107 mmol/L (96-108); Creatinine Clr Calc Pharmacy 64.1; Estimated Glomerular Filt Rate > 60; Glucose Random 110 mg/dL (60-115); Potassium 3.4 mmol/L (3.3-5.1); Sodium 140 mmol/L (135-145); Total Protein 6.7 g/dL (6.5-8.0)
[2023-07-24 07:48] LABS: Troponin-I High Sensitivity < 2.7 ng/L (<3.5-17.0)
[2023-07-24 07:57] LABS: COVID-19 Test Negative (Negative); IDNOW Serial# BCCEAD1C
[2023-07-24] MEDS: Lidocaine HCl Viscous 2 % 15 ML SOLUTION 10 ML MUCOUS MEM (08:43)
[2023-07-24] MEDS: Lidocaine 4 % Patch ADH..PATCH 1 PATCH TRANSDERMA (08:43)
[2023-07-24] MEDS: Magnesium Hydrox/Alum Hydrox 30 ML ORAL.SUSP PO (08:43)
[2023-07-24] MEDS: Acetaminophen 325 MG TABLET 975 MG PO (08:43)
[2023-07-24 09:09] LABS: Appearance Urine Clear; Color Urine Yellow; Glucose Urine UA Negative (Negative); Leukocyte Esterase Urine Negative (Negative); Nitrite Urine Negative (Negative); Specific Gravity - Urine <= 1.005 (1.005-1.025); Urine Blood Negative (Negative); Urine Ketones Negative (Negative); Urine Protein Negative (Neg-Trace)
== END 2023-07-24 09:47 | disposition home or self-care (01) ==
PROVIDERS: Emergency Provider Student in an Organized Health Care Education/Training Program; PCP Internal Medicine Geriatric Medicine
DX: G44.209 Tension-type headache, unspecified, not intractable (principal); K21.9 Gastro-esophageal reflux disease without esophagitis; M79.18 Myalgia, other site; Z11.52 Encounter for screening for COVID-19; Z87.891 Personal history of nicotine dependence; Z79.899 Other long term (current) drug therapy
CPT/HCPCS: 36415; 80053; 81003; 84484; 85025; 87635; 93005; 99283; 99284

== ENCOUNTER 2023-07-29 06:06 | Day surgery (SDC) | payer OTHER, SELFPAY ==
[2023-07-27 15:51] VITALS: BMI 23.6
--- NOTE | 2023-07-28 12:22 | HO.ANESPROP2 ---
Documented by User: Harriet Douglas NP 07/28/23 12:23 HPI - Anesthesia Eval Consult details Narrative: 57yo F for Upper Endoscopy and Colonoscopy PMF Active Problems Active Problems: All Active Problems (Updated 07/25/23 @ 00:01 by Stephania Krishnan) Epidermal cyst (Acute) Odynophagia (Acute) Upper abdominal pain (Acute) Pre-op examination (Acute) Family history of colon cancer (Acute) Environmental allergies (Acute) Asthma (Acute) Renal cyst (Acute) Hematuria (Acute) [id number] condition (Acute) Heart palpitations (Acute) Knee osteoarthritis (Acute) Patellofemoral arthritis of right knee (Acute) Knee pain (Acute) Past Medical History Medical History Thyroid nodule Epidermal cyst Renal cyst Hematuria Microscopic hematuria Headache, migraine Asthma Migraines COVID-19 Family History Family History Mother Colon cancer, Onset Age: 56 Surgical History Surgical History H/O colonoscopy History of surgery of uterus History of removal of cyst (~03/31/23) History of tubal ligation Social History Social History Alcohol intake: never Patient Tobacco Use Status: Former Tobacco user Quit Date: 2001 Tobacco use type: Cigarette Smoked in Last 30 Days: No Use of substances other than those prescribed or required for medical reasons: No Are you DNR?: No Advance Directives: No Advance Directives Information Provided: Yes Meds Allergies Allergy/AdvReac Type Severity Reaction Status Date / Time amoxicillin [AMOXICILLIN] Allergy Intermediate DIZZINESS Verified 07/29/23 06:27 morphine [MORPHINE] Allergy Unknown RASH Verified 07/29/23 06:27 baclofen [BACLOFEN] AdvReac Intermediate NAUSEA & Verified 07/29/23 06:27 VOMITING Home Medications Medication Instructions Recorded Confirmed Last Taken Type albuterol sulfate 90 mcg/actuation 2 puff inhalation Q6H PRN asthma 05/27/21 07/29/23 Unknown History aerosol inhaler (ProAir HFA) ergocalciferol (vitamin D2) 1,250 1,250 mcg PO QWEEK 09/09/21 07/29/23 Unknown History mcg (50,000 unit) capsule naproxen 500 mg tablet 500 mg PO BID PRN pain 04/10/22 07/29/23 04/28/23 History cetirizine 10 mg tablet (Zyrtec) 10 mg PO DAILY PRN allergies 03/10/23 07/29/23 Unknown History escitalopram oxalate 5 mg tablet 5 mg PO DAILY 07/29/23 07/29/23 Unknown History Exam Exam Date and Time: July 28, 2023 1222 Height,Weight and Vital Signs: Height 5 ft 1 in Weight 56.699 kg Pertinent Lab Results Pertinent Lab Results: Laboratory Tests 07/24/23 07:19 WBC 4.6 L Hgb 13.6 Hct 39.3 Plt Count 216 Sodium 140 Potassium 3.4 D Chloride 107 Carbon Dioxide 23 BUN 16 Creatinine 0.73 Narrative Narrative: EKG 06/2023 Vent. Rate : 084 BPM Atrial Rate : 084 BPM P-R Int : 130 ms QRS Dur : 100 ms QT Int : 386 ms P-R-T Axes : 071 062 062 degrees QTc Int : 456 ms Normal sinus rhythm Nonspecific ST abnormality Abnormal ECG No significant changes seen Assessment and Plan Assessment Anesthesia Assessment: Chart Reviewed Documented by User: Marsha Chou MD 07/29/23 07:36 [facility] Past Medical History Medical History Thyroid nodule Epidermal cyst Renal cyst Hematuria Microscopic hematuria Headache, migraine Asthma Migraines COVID-19 Family History Family History Mother Colon cancer, Onset Age: 56 Surgical History Surgical History H/O colonoscopy History of surgery of uterus History of removal of cyst (~03/31/23) History of tubal ligation History of Problems with Anesthesia: No Social History Social History Alcohol intake: never Patient Tobacco Use Status: Former Tobacco user Quit Date: 2001 Tobacco use type: Cigarette Smoked in Last 30 Days: No Use of substances other than those prescribed or required for medical reasons: No Are you DNR?: No Advance Directives: No Advance Directives Information Provided: Yes Meds Allergies Allergy/AdvReac Type Severity Reaction Status Date / Time amoxicillin [AMOXICILLIN] Allergy Intermediate DIZZINESS Verified 07/29/23 06:27 morphine [MORPHINE] Allergy Unknown RASH Verified 07/29/23 06:27 baclofen [BACLOFEN] AdvReac Intermediate NAUSEA & Verified 07/29/23 06:27 VOMITING Home Medications Medication Instructions Recorded Confirmed Last Taken Type albuterol sulfate 90 mcg/actuation 2 puff inhalation Q6H PRN asthma 05/27/21 07/29/23 Unknown History aerosol inhaler (ProAir HFA) ergocalciferol (vitamin D2) 1,250 1,250 mcg PO QWEEK 09/09/21 07/29/23 Unknown History mcg (50,000 unit) capsule naproxen 500 mg tablet 500 mg PO BID PRN pain 04/10/22 07/29/23 04/28/23 History cetirizine 10 mg tablet (Zyrtec) 10 mg PO DAILY PRN allergies 03/10/23 07/29/23 Unknown History escitalopram oxalate 5 mg tablet 5 mg PO DAILY 07/29/23 07/29/23 Unknown History Exam Airway Mallampati Class: II TM Dist: >3cm Neck ROM: Full Loose/Missing/Broken Teeth: No Heart: RRR Lungs: CTA Assessment and Plan Assessment Anesthesia Assessment: Anesthesia Plan Discussed Final Anesthetic Review History of Problems with Anesthesia: No NPO: Yes ASA Class: II Final Preanesthetic Review: Meds/Allgs Chart Reviewed, Consent Obtained/Reviewed and Anes Risks/Benef Reviewed Patient Risk: Low Procedure Risk: Intermediate Anesthetic Plan Anesthetic Plan: MAC: Disposition: Standard PACU
[2023-07-29 06:30] VITALS: BMI 23.0
[2023-07-29 06:40] VITALS: BP 150/69; PULSE 80; RESP 16; TEMP 36.9; O2SAT 98
[2023-07-29] MEDS: Lactated Ringers 1,000 ML 100 ML IVCONT (06:53)
--- NOTE | 2023-07-29 06:53 | MHC.SHP ---
Documented by User: Albert Perdue MD 07/29/23 08:44 Pre-Procedural Eval Section A Date of Service: 07/29/23 Section B Chief Complaint: Family history of malignant neoplasm of digestive Relevant Family History (Specify if Yes): No Relevant Social History: None Present Medications: see Short Stay Collaborative assessment Medical History: Significant History (Asthma/COPD Migraines Chronic low back pain Fatty liver Anxiety Multinodular goiter ) History of Previous Operations: Relevant previous surgery/procedure and date(s) (Tubal ligation COLONOSCOPY-2018 P[facility]AT) Allergies: Allergies Allergy/AdvReac Type Severity Reaction Status Date / Time amoxicillin [AMOXICILLIN] Allergy Intermediate DIZZINESS Verified 07/29/23 06:27 morphine [MORPHINE] Allergy Unknown RASH Verified 07/29/23 06:27 baclofen [BACLOFEN] AdvReac Intermediate NAUSEA & Verified 07/29/23 06:27 VOMITING Review of Systems Sugical H&P ROS: Negative: Constitution, Cardiovascular, Respiratory, Neurological, Psychiatric, Hem-Onc, Allergic/Immunologic, Gastrointestinal, Genitourinary, Musculoskeletal, Integumentary, Endocrine and Eyes/Ears/Nose/Throat Exam Surgical H&P Exam: Normal: HEENT, Normal: Heart, Normal: Lungs, Normal: Extremities, Normal: Abdomen, Normal: Skin and Normal: Neurological Plan Diagnosis/Plan: Unchanged I have reviewed the history and physical and performed a pertinent physical examination on my patient. No changes have occurred unless specified. Time Spent With Patient Time: Total time managing care of this patient today ____ minutes. Documented by User: Marsha Chou MD 07/29/23 07:39 Pre-Procedural Eval Section A Date of Service: 07/29/23 Section B Chief Complaint: Family history of malignant neoplasm of digestive
--- NOTE | 2023-07-29 08:10 | P.OP_ITS ---
Operative Note Operative Note Date of Service: 07/29/23 Narrative: Operative Information Procedure Description: EGD, Colonoscopy Indication: FH of CRC Anesthesia: MAC FLEXIBLE TRANSORAL UPPER GASTROINTESTINAL ENDOSCOPY AND COLONOSCOPY PROCEDURE NOTE UPPER ENDOSCOPY Consent: Indications for the procedure and potential complications of bleeding, perforation, reaction to medications and missed diagnosis were discussed with the patient and informed consent was obtained. Instrument: Olympus GIF H 190 J mid size upper endoscope Monitoring: Vital signs and clinical assessment, continuous EKG monitoring, Pulse oximetry, Carbon Dioxide monitoring and blood pressure monitoring were done throughout the procedure. Procedure: The patient was placed in the left lateral decubitis position and pre-procedure medications were administered and a bite block was placed. The endoscope was inserted into the mouth and advanced under direct vision to the third part of duodenum. A careful inspection was made as the upper endoscope was withdrawn including a retroflexed examination of the proximal stomach; Findings and interventions are described below. Findings: Larynx:normal Esophagus: GE junction at 32 cm, diaphragm hiatus at 34 cm, consistent with 2 cm sliding hiatal hernia, mild esophagitis noted, bx taken from GEJ , schatzki ring noted Stomach: patchy erythema. Biopsies were obtained. Grade 2 flap valve on retroflexed examination of the cardia. Duodenum: Normal bulb and descending duodenum, Intervention: Biopsies as noted above COLONOSCOPY Instrument: Olympus variable stiffness pediatric scope 190L Colonoscopy Monitoring: Vital signs and clinical assessment, continuous EKG monitoring, Pulse oximetry, Carbon Dioxide monitoring and blood pressure monitoring were done throughout the procedure. Colon withdrawal time was 8 minutes. Procedure: The patient was placed in the left lateral decubitis position and pre-procedure medications were administered. After a digital rectal examination of the ano-rectum, the video colonoscope was inserted into the rectum and advanced through the colon to the cecum/TI. The colonoscope was slowly withdrawn in a retrograde panoramic fashion and the colon mucosa was carefully examined including a retroflexed view of the rectum. Findings and interventions are described below. Procedure Difficulty:easy Findings: Terminal Ileum-normal Cecum:normal Ascending Colon: scattered tics Transverse Colon -normal Descending Colon:normal Sigmoid Colon: midl diverticulosis noted Rectum: Retroflexion with small internal hemorrhoids, grade I, 4-5 mm sessile polyp removed with cold forceps Anorectum - normal Colon preparation: [place] Bowel Preparation Scale Right colon; 3 Transverse colon: 3 Left colon; 3 (0 = Unprepared colon segment with mucosa not seen due to solid stool that cannot be cleared. 1 = Portion of mucosa of the colon segment seen, but other areas of the colon segment not well seen due to staining, residual stool and/or opaque liquid. 2 = Minor amount of residual staining, small fragments of stool and/or opaque liquid, but mucosa of colon segment seen well. 3 = Entire mucosa of colon segment seen well with no residual staining, small fragments of stool or opaque liquid) Impression and Post Procedure Diagnosis: Endoscopy Findings: hiatal hernia schatzki ring gastritis esophagitis Colonoscopy Findings: polyp internal hemorrhoids diverticular disease Plan: Await Pathology results Repeat Colonoscopy in 5 years due to FH of CRC or earlier if clinically indicated High fiber diet leaflet avoid straining at stool, epsom salts and sitz bath, anusol supps or cream GERD precautions Above findings were reviewed with the patient and relevant handouts were provided if indicated.
[2023-07-29 08:47] VITALS: BP 95/31; PULSE 105; RESP 16; TEMP 36.2; O2SAT 98
[2023-07-29 09:03] VITALS: BP 113/67; PULSE 85; RESP 18; TEMP 36.1; O2SAT 98
== END 2023-07-29 10:11 | disposition home or self-care (01) ==
PROVIDERS: PCP Internal Medicine Geriatric Medicine; Visit Provider Internal Medicine Gastroenterology
PROC: (CPT 43239; principal; 2023-07-29 08:20)
DX: K20.90 Esophagitis, unspecified without bleeding (principal); K29.70 Gastritis, unspecified, without bleeding; K22.2 Esophageal obstruction; K63.89 Other specified diseases of intestine; K44.9 Diaphragmatic hernia without obstruction or gangrene; Z12.11 Encounter for screening for malignant neoplasm of colon; K62.1 Rectal polyp; K57.30 Diverticulosis of large intestine without perforation or abscess without bleeding; K64.8 Other hemorrhoids; Z80.0 Family history of malignant neoplasm of digestive organs; J44.9 Chronic obstructive pulmonary disease, unspecified; K76.0 Fatty (change of) liver, not elsewhere classified; E04.2 Nontoxic multinodular goiter; Z79.899 Other long term (current) drug therapy
CPT/HCPCS: 43239; 45380; 88305; 88342

== ENCOUNTER → 2023-07-29 06:06 | Outpatient (BNV) | payer OTHER, SELFPAY | PROVIDERS: PCP Internal Medicine Geriatric Medicine; Visit Provider Internal Medicine Gastroenterology | DX: Z12.11 Encounter for screening for malignant neoplasm of colon (principal); Z80.0 Family history of malignant neoplasm of digestive organs; K22.2 Esophageal obstruction; K20.90 Esophagitis, unspecified without bleeding; K57.30 Diverticulosis of large intestine without perforation or abscess without bleeding; K64.0 First degree hemorrhoids; D12.8 Benign neoplasm of rectum | CPT/HCPCS: 43239; 45380 ==

== ENCOUNTER 2023-08-03 06:05 | Outpatient (REF) | payer OTHER, SELFPAY ==
[2023-08-03 08:05] LABS: Cholesterol 183 mg/dL (<200); HDL Cholesterol 55 mg/dL (>40); LDL Cholesterol Calculated 112 mg/dL (<100); Triglycerides 81 mg/dL (<150)
[2023-08-03 08:22] LABS: TSH reflex Free T4 3.84 uIU/mL (0.32-4.0)
== END 2023-08-03 06:06 | disposition home or self-care (01) ==
LOC: HO.LAB 06:05
PROVIDERS: PCP Internal Medicine Geriatric Medicine; Visit Provider Internal Medicine Geriatric Medicine
DX: Z13.220 Encounter for screening for lipoid disorders (principal); R63.4 Abnormal weight loss
CPT/HCPCS: 36415; 80061; 84443

== ENCOUNTER 2023-08-05 19:04 | Emergency (ER) | payer OTHER, SELFPAY ==
[2023-08-05 19:17] VITALS: BP 141/58; BP 143/72; PULSE 69; PULSE 77; RESP 18; TEMP 36.6; O2SAT 100; O2SAT 99; BMI 23.0
--- NOTE | 2023-08-05 19:25 | ECG_ITS ---
Test Reason : CHEST PAIN Blood Pressure : / mmHG Vent. Rate : 074 BPM Atrial Rate : 074 BPM P-R Int : 136 ms QRS Dur : 094 ms QT Int : 400 ms P-R-T Axes : 076 059 062 degrees QTc Int : 444 ms Normal sinus rhythm Normal ECG When compared with ECG of 24-JUL-2023 06:57, No significant change was found Referred By: Florentino Dee Electronically Signed By:KAVON ORTEGA MD
--- NOTE | 2023-08-05 19:27 | ED_ITS ---
HPI - General Adult General Chief complaint: Abdominal Pain Stated complaint: ABD PAIN Time Seen by Provider: 08/05/23 21:39 Related Data Home Medications Medication Instructions Recorded Confirmed albuterol sulfate 90 mcg/actuation 2 puff inhalation Q6H PRN asthma 05/27/21 07/29/23 aerosol inhaler (ProAir HFA) ergocalciferol (vitamin D2) 1,250 1,250 mcg PO QWEEK 09/09/21 07/29/23 mcg (50,000 unit) capsule naproxen 500 mg tablet 500 mg PO BID PRN pain 04/10/22 07/29/23 cetirizine 10 mg tablet (Zyrtec) 10 mg PO DAILY PRN allergies 03/10/23 07/29/23 escitalopram oxalate 5 mg tablet 5 mg PO DAILY 07/29/23 07/29/23 Previous Rx's Medication Instructions Recorded ibuprofen 600 mg tablet 600 mg PO Q8H PRN pain #20 tabs 01/15/21 Wixela Inhub 250 mcg-50 mcg/dose 1 ea inhalation BID #180 ea 04/07/23 powder for inhalation (fluticasone propion-salmeterol) pantoprazole 40 mg tablet,delayed 40 mg PO DAILY #14 tabs 08/05/23 release (Protonix) Allergies Allergy/AdvReac Type Severity Reaction Status Date / Time amoxicillin [AMOXICILLIN] Allergy Intermediate DIZZINESS Verified 08/05/23 19:17 morphine [MORPHINE] Allergy Unknown RASH Verified 08/05/23 19:17 baclofen [BACLOFEN] AdvReac Intermediate NAUSEA & Verified 08/05/23 19:17 VOMITING PMFSH Past Medical History Medical History Thyroid nodule Epidermal cyst Renal cyst Hematuria Microscopic hematuria Headache, migraine Asthma Migraines COVID-19 Surgical History H/O colonoscopy History of surgery of uterus History of removal of cyst (~03/31/23) History of tubal ligation Family History Family History Mother Colon cancer, Onset Age: 56 Social History Social History Alcohol intake: never Patient Tobacco Use Status: Former Tobacco user Quit Date: 2001 Tobacco use type: Cigarette Smoked in Last 30 Days: No Use of substances other than those prescribed or required for medical reasons: No Advance Directives: No Advance Directives Information Provided: Yes Patient : No Physical Exam ED Vital Signs: Vital Signs - 24 hr 08/05/23 19:17 08/05/23 21:43 Temperature 97.9 F 97.9 F Pulse Rate 69 72 Respiratory Rate 18 16 Blood Pressure 141/58 H 141/53 H Pulse Oximetry 99 99 Oxygen Delivery Method Room Air Room Air BMI result Body Mass Index 23.0 Course Course Course Narrative: RME: 57 yold female presents to the ED for epigastric pain acid burning sensation that occurred 7:00pm and than resolved. Due to age patient will have a cardiac evaluation. EKG and labs ordered. Medications Administered Discontinued Medications Generic Name Dose Route Start Last Admin Trade Name Freq PRN Reason Stop Dose Admin Al Hydroxide/Mg Hydroxide 30 ml 08/05/23 19:25 08/05/23 21:36 Magnesium Hydrox/Alum Hydrox 30 Ml Oral.Susp PO 08/05/23 19:26 30 ml ONCE ONE Administration Belladonna Alkaloids/Phenobarbital 10 ml 08/05/23 19:25 08/05/23 21:36 Phenobarb/Hyoscy/Atropine/Scop 10 Ml Elixir PO 08/05/23 19:26 10 ml ONCE ONE Administration Famotidine 20 mg 08/05/23 19:25 08/05/23 21:36 Famotidine 20 Mg Tablet PO 08/05/23 19:26 20 mg ONCE ONE Administration Omeprazole 40 mg 08/05/23 21:56 08/05/23 22:30 Omeprazole 40 Mg Capsule. PO 08/05/23 21:57 Not Given ONCE ONE Medical Decision Making Lab Data 08/05/23 19:44 08/05/23 19:44 Labs: Lab Results 08/05/23 Range/Units 19:44 WBC 9.5 (4.8-10.8) X10*3/uL RBC 5.02 (4.20-5.50) X10*6/uL Hgb 14.2 (12.0-16.0) g/dl Hct 41.5 (37.0-47.0) % MCV 82.7 (80.0-98.0) fL MCH 28.3 (27.0-33.0) pg MCHC 34.2 (31.0-35.0) g/dl RDW 12.5 (11.0-16.0) % Plt Count 255 (160-400) X10*3/uL MPV 10.0 (9.4-12.3) fL Immature Gran % (Auto) 0.3 (0.0-0.4) % Neut % (Auto) 73.1 H (45-73) % Lymph % (Auto) 18.7 L (20-40) % [place] % (Auto) 6.0 (2-11) % Eos % (Auto) 1.3 (0-4) % Baso % (Auto) 0.6 (0-2) % Lymph # (Auto) 1.8 (1.2-4.9) X10*3/uL [place] # (Auto) 0.6 (0.1-1.2) X10*3/uL Eos # (Auto) 0.1 (0.0-0.4) X10*3/uL Baso # (Auto) 0.1 (0.0-0.2) X10*3/uL Abs Immat Gran (auto) 0.03 (0.00-0.03) X10*3/uL Absolute Neuts (auto) 7.0 (2.0-8.3) x10*3/uL Absolute Nucleated RBC 0.000 (0.0-0.012) X10*3/uL Nucleated RBC % (auto) 0.0 (0.0-0.2) /100WBC PT 11.3 (11.1-13.3) SEC INR 0.9 (0.9-1.1) APTT 26.8 (26.0-36.4) SEC Sodium 141 (135-145) mmol/L Potassium 3.8 (3.3-5.1) mmol/L Chloride 107 (96-108) mmol/L Carbon Dioxide 24 (22-29) mmol/L Anion Gap 14 (12-20) BUN 15 (9-16) mg/dL Creatinine 0.74 (0.5-1.4) mg/dL Estim Creat Clear Calc 63.2 Estimated GFR > 60 Random Glucose 118 H (60-115) mg/dL Calcium 9.7 (8.4-10.2) mg/dL Total Bilirubin 0.4 (0.0-1.0) mg/dL AST 15 (5-31) U/L ALT 12 (0-31) U/L Alkaline Phosphatase 97 (39-117) U/L Total Protein 7.7 (6.5-8.0) g/dL Albumin 4.4 (3.5-5.0) g/dL Lipase 37 (8-78) U/L Discharge Plan Discharge Clinical Impression: Gastritis Patient Disposition: Home, Self-Care Instructions: Gastritis (ED) Prescriptions: New pantoprazole [Protonix] 40 mg tablet,delayed release (DR/EC) 40 mg PO DAILY Qty: 14 0RF No Action ibuprofen 600 mg tablet 600 mg PO Q8H PRN (Reason: pain) Qty: 20 0RF escitalopram oxalate 5 mg tablet 5 mg PO DAILY albuterol sulfate [ProAir HFA] 90 mcg/actuation HFA aerosol inhaler 2 puff inhalation Q6H PRN (Reason: asthma) ergocalciferol (vitamin D2) 1,250 mcg (50,000 unit) capsule 1,250 mcg PO QWEEK naproxen 500 mg tablet 500 mg PO BID PRN (Reason: pain) cetirizine [Zyrtec] 10 mg tablet 10 mg PO DAILY PRN (Reason: allergies) fluticasone propion-salmeterol [Wixela Inhub] 250-50 mcg/dose blister with device 1 ea inhalation BID Qty: 180 4RF Referrals: Albert Perdue MD [Physician] - 08/09/23 Interventions: ED Discharge Assessment Last Done: 08/05/23 22:30 Discharge Date/Time: 08/05/23 22:31
[2023-08-05 19:51] LABS: MANUAL DIFF FLAG NO
[2023-08-05 19:52] LABS: Basophils Absolute Auto 0.1 X10*3/uL (0.0-0.2); Basophils Percent Auto 0.6 % (0-2); Eosinophils Absolute Auto 0.1 X10*3/uL (0.0-0.4); Eosinophils Percent Auto 1.3 % (0-4); Hematocrit 41.5 % (37.0-47.0); Hemoglobin 14.2 g/dl (12.0-16.0); Imm Gran Abs Auto 0.03 X10*3/uL (0.00-0.03); Imm Gran Pct Auto 0.3 % (0.0-0.4); Lymphocytes Absolute Auto 1.8 X10*3/uL (1.2-4.9); Lymphocytes Percent Auto 18.7 % (20-40); Mean Corpuscular HGB Conc 34.2 g/dl (31.0-35.0); Mean Corpuscular Hemoglobin 28.3 pg (27.0-33.0); Mean Corpuscular Volume 82.7 fL (80.0-98.0); Monocytes Absolute Auto 0.6 X10*3/uL (0.1-1.2); Neutrophils Percent Auto 73.1 % (45-73); Platelet Count 255 X10*3/uL (160-400); Red Blood Count 5.02 X10*6/uL (4.20-5.50); Red Cell Distribution Width 12.5 % (11.0-16.0); White Blood Count 9.5 X10*3/uL (4.8-10.8)
[2023-08-05 20:03] LABS: INTERNATIONAL NORM RATIO 0.9 (0.9-1.1); Prothrombin Time 11.3 SEC (11.1-13.3)
[2023-08-05 20:06] LABS: Partial Thromboplastin Time 26.8 SEC (26.0-36.4)
[2023-08-05 20:08] LABS: Alanine Aminotransferase 12 U/L (0-31); Albumin Level 4.4 g/dL (3.5-5.0); Alkaline Phosphatase 97 U/L (39-117); Anion Gap 14 (12-20); Aspartate Amino Transferase 15 U/L (5-31); Bilirubin Total 0.4 mg/dL (0.0-1.0); Blood Urea Nitrogen 15 mg/dL (9-16); Calcium 9.7 mg/dL (8.4-10.2); Carbon Dioxide 24 mmol/L (22-29); Chloride 107 mmol/L (96-108); Creatinine Clr Calc Pharmacy 63.2; Estimated Glomerular Filt Rate > 60; Glucose Random 118 mg/dL (60-115); Lipase 37 U/L (8-78); Potassium 3.8 mmol/L (3.3-5.1); Sodium 141 mmol/L (135-145); Total Protein 7.7 g/dL (6.5-8.0)
[2023-08-05] MEDS: Famotidine 20 MG TABLET PO (21:36)
[2023-08-05] MEDS: PHENobarb/Hyoscy/Atropine/Scop 10 ML ELIXIR PO (21:36)
[2023-08-05] MEDS: Magnesium Hydrox/Alum Hydrox 30 ML ORAL.SUSP PO (21:36)
[2023-08-05 21:43] VITALS: BP 141/53; PULSE 72; RESP 16; TEMP 36.6; O2SAT 99
--- NOTE | 2023-08-05 21:57 | ED_ITS ---
HPI - Abdominal Pain General Chief Complaint: Abdominal Pain Stated Complaint: ABD PAIN Time Seen by Provider: 08/05/23 21:39 History of Present Illness HPI narrative: Patient is a 57-year-old female presents today with having abdominal pain in the epigastric area lasting approximately 15 minutes and then a gone away. Had had extensive workup for her abdomen in the past. She had an ultrasound done in February. Also had a colonoscopy and an endoscopy done last week. Patient denies any fever chills. No pain on urination. He is 57 years old postmenopausal no related issue no vaginal bleeding. Denies any constipation. She is from home. The pain has gone away. It is not related with fatty foods. She does not have any history of aneurysm. No history of hypertension. Patient from home. No recent travel. No bloody stool. Pain is Epigastric Related Data Home Medications Medication Instructions Recorded Confirmed albuterol sulfate 90 mcg/actuation 2 puff inhalation Q6H PRN asthma 05/27/21 07/29/23 aerosol inhaler (ProAir HFA) ergocalciferol (vitamin D2) 1,250 1,250 mcg PO QWEEK 09/09/21 07/29/23 mcg (50,000 unit) capsule naproxen 500 mg tablet 500 mg PO BID PRN pain 04/10/22 07/29/23 cetirizine 10 mg tablet (Zyrtec) 10 mg PO DAILY PRN allergies 03/10/23 07/29/23 escitalopram oxalate 5 mg tablet 5 mg PO DAILY 07/29/23 07/29/23 Previous Rx's Medication Instructions Recorded ibuprofen 600 mg tablet 600 mg PO Q8H PRN pain #20 tabs 01/15/21 Wixela Inhub 250 mcg-50 mcg/dose 1 ea inhalation BID #180 ea 04/07/23 powder for inhalation (fluticasone propion-salmeterol) pantoprazole 40 mg tablet,delayed 40 mg PO DAILY #14 tabs 08/05/23 release (Protonix) Allergies Allergy/AdvReac Type Severity Reaction Status Date / Time amoxicillin [AMOXICILLIN] Allergy Intermediate DIZZINESS Verified 08/05/23 19:17 morphine [MORPHINE] Allergy Unknown RASH Verified 08/05/23 19:17 baclofen [BACLOFEN] AdvReac Intermediate NAUSEA & Verified 08/05/23 19:17 VOMITING Review of Systems Review of Systems positive abdominal pain Yes all other systems are reviewed and are negative [facility] Past Medical History Attestation statement: The following information was validated with the patient. Medical History Thyroid nodule Epidermal cyst Renal cyst Hematuria Microscopic hematuria Headache, migraine Asthma Migraines COVID-19 Surgical History H/O colonoscopy History of surgery of uterus History of removal of cyst (~03/31/23) History of tubal ligation Family History Family History Mother Colon cancer, Onset Age: 56 Social History Social History Alcohol intake: never Patient Tobacco Use Status: Former Tobacco user Quit Date: 2001 Tobacco use type: Cigarette Smoked in Last 30 Days: No Use of substances other than those prescribed or required for medical reasons: No Advance Directives: No Advance Directives Information Provided: Yes Patient : No Physical Exam ED Vital Signs: Vital Signs - 24 hr 08/05/23 19:17 08/05/23 21:43 Temperature 97.9 F 97.9 F Pulse Rate 69 72 Respiratory Rate 18 16 Blood Pressure 141/58 H 141/53 H Pulse Oximetry 99 99 Oxygen Delivery Method Room Air Room Air BMI result Body Mass Index 23.0 Appearance: Alert. Oriented X3. No acute distress. Eyes: Pupils equal, round and reactive to light. ENT: Pharynx normal. Neck: Normal inspection. Neck supple. No lymph nodes noted. No crepitus CVS: Normal heart rate and rhythm. Pulses normal. Normal S1 and S2 Respiratory: No respiratory distress. Breath sounds normal. No Wheezing. No rales Abdomen: Soft and nontender. No rigidity. No distention. good BS x4 Skin: Skin warm and dry. Normal skin color. Normal skin turgor. Extremities: No lower extremity edema. Neurovascular intact to all extremities. No Lacerations. No Rash Neuro: Oriented X 3. No motor deficit. No sensory deficit. Moving all extermities. No slurred speech Medical Decision Making Medical Decision Making MDM Narrative: patient is a 57-year-old female presents today with having abdominal pain in the epigastric area. She denies having any chest pain no shortness of breath no diaphoresis. Does not have any significant cardiac risk factor. She had an endoscopy done last week along with a colonoscopy. I reviewed patient's old record including the report from colonoscopy and endoscopy. Patient endoscopy report shows gastritis. Colonoscopy has polyps and diverticulosis. Patient is not on any PPI or H2 blockers. Question if pain is secondary to gastritis. Her LFTs are normal her lipase is normal there is no evidence for any biliary disease. Patient had an ultrasound of the abdomen in February. At that time patient had a normal aorta normal gallbladder normal pancreas unlikely secondary to abdominal aortic aneurysm. Patient's urine showed no signs of infection. Differential Diagnosis Differential Diagnoses: The differential diagnosis associated with the presentation includes UTI, gallstones, ACS, gastritis, constipation, obstruction, abscess, perforation Admission/Observation Consideration of admission/observation: Escalation of care including admission/observation considered considered admission but patient's symptom has resolved normal white count well appearing patient does not need admission Lab Data MDM Lab Attestation statement: I reviewed the patient's lab results. 08/05/23 19:44 08/05/23 19:44 Labs: Lab Results 08/05/23 Range/Units 19:44 WBC 9.5 (4.8-10.8) X10*3/uL RBC 5.02 (4.20-5.50) X10*6/uL Hgb 14.2 (12.0-16.0) g/dl Hct 41.5 (37.0-47.0) % MCV 82.7 (80.0-98.0) fL MCH 28.3 (27.0-33.0) pg MCHC 34.2 (31.0-35.0) g/dl RDW 12.5 (11.0-16.0) % Plt Count 255 (160-400) X10*3/uL MPV 10.0 (9.4-12.3) fL Immature Gran % (Auto) 0.3 (0.0-0.4) % Neut % (Auto) 73.1 H (45-73) % Lymph % (Auto) 18.7 L (20-40) % Curry % (Auto) 6.0 (2-11) % Eos % (Auto) 1.3 (0-4) % Baso % (Auto) 0.6 (0-2) % Lymph # (Auto) 1.8 (1.2-4.9) X10*3/uL [place] # (Auto) 0.6 (0.1-1.2) X10*3/uL Eos # (Auto) 0.1 (0.0-0.4) X10*3/uL Baso # (Auto) 0.1 (0.0-0.2) X10*3/uL Abs Immat Gran (auto) 0.03 (0.00-0.03) X10*3/uL Absolute Neuts (auto) 7.0 (2.0-8.3) x10*3/uL Absolute Nucleated RBC 0.000 (0.0-0.012) X10*3/uL Nucleated RBC % (auto) 0.0 (0.0-0.2) /100WBC PT 11.3 (11.1-13.3) SEC INR 0.9 (0.9-1.1) APTT 26.8 (26.0-36.4) SEC Sodium 141 (135-145) mmol/L Potassium 3.8 (3.3-5.1) mmol/L Chloride 107 (96-108) mmol/L Carbon Dioxide 24 (22-29) mmol/L Anion Gap 14 (12-20) BUN 15 (9-16) mg/dL Creatinine 0.74 (0.5-1.4) mg/dL Estim Creat Clear Calc 63.2 Estimated GFR > 60 Random Glucose 118 H (60-115) mg/dL Calcium 9.7 (8.4-10.2) mg/dL Total Bilirubin 0.4 (0.0-1.0) mg/dL AST 15 (5-31) U/L ALT 12 (0-31) U/L Alkaline Phosphatase 97 (39-117) U/L Total Protein 7.7 (6.5-8.0) g/dL Albumin 4.4 (3.5-5.0) g/dL Lipase 37 (8-78) U/L Independent Interpretation I performed an independent interpretation of an: EKG Interpretation: patient's EKG showed a sinus rhythm heart rate is 75 MN QRS QTC within normal limits is no acute ST segment elevation noted. When compared to a previous EKG about a week and a half ago it is approximately the same. Independent Historian Clinical information obtained from an independent historian. History obtained from or confirmed by: Spouse External Record Review I reviewed patient's ultrasound done outpatient. I reviewed patient's GI record including previous colonoscopy endoscopy record Tests considered The following testing was considered but not selected: no need for CT scan of the abdomen as patient's labs are negative had recent ultrasound and had recent colonoscopy and endoscopy. The colonoscopy endoscopy was over 1week ago. There is no wrist for perforation Prescription Management will ask patient to stop taking Motrin NSAIDs. Will have patient start on PPI Chronic Conditions gastritis Medications Administered Discontinued Medications Generic Name Dose Route Start Last Admin Trade Name Freq PRN Reason Stop Dose Admin Al Hydroxide/Mg Hydroxide 30 ml 08/05/23 19:25 08/05/23 21:36 Magnesium Hydrox/Alum Hydrox 30 Ml Oral.Susp PO 08/05/23 19:26 30 ml ONCE ONE Administration Belladonna Alkaloids/Phenobarbital 10 ml 08/05/23 19:25 08/05/23 21:36 Phenobarb/Hyoscy/Atropine/Scop 10 Ml Elixir PO 08/05/23 19:26 10 ml ONCE ONE Administration Famotidine 20 mg 08/05/23 19:25 08/05/23 21:36 Famotidine 20 Mg Tablet PO 08/05/23 19:26 20 mg ONCE ONE Administration Discharge Plan Discharge Clinical Impression: Gastritis Patient Disposition: Home, Self-Care Instructions: Gastritis (ED) Prescriptions: New pantoprazole [Protonix] 40 mg tablet,delayed release (DR/EC) 40 mg PO DAILY Qty: 14 0RF No Action ibuprofen 600 mg tablet 600 mg PO Q8H PRN (Reason: pain) Qty: 20 0RF escitalopram oxalate 5 mg tablet 5 mg PO DAILY albuterol sulfate [ProAir HFA] 90 mcg/actuation HFA aerosol inhaler 2 puff inhalation Q6H PRN (Reason: asthma) ergocalciferol (vitamin D2) 1,250 mcg (50,000 unit) capsule 1,250 mcg PO QWEEK naproxen 500 mg tablet 500 mg PO BID PRN (Reason: pain) cetirizine [Zyrtec] 10 mg tablet 10 mg PO DAILY PRN (Reason: allergies) fluticasone propion-salmeterol [Wixela Inhub] 250-50 mcg/dose blister with device 1 ea inhalation BID Qty: 180 4RF Referrals: Albert Perdue MD [Physician] - 08/09/23
== END 2023-08-05 22:31 | disposition home or self-care (01) ==
PROVIDERS: Physician Assistant; Emergency Provider Emergency Medicine Emergency Medical Services; PCP Internal Medicine Geriatric Medicine
DX: K29.70 Gastritis, unspecified, without bleeding (principal); R10.13 Epigastric pain; J45.909 Unspecified asthma, uncomplicated; Z87.891 Personal history of nicotine dependence; Z79.899 Other long term (current) drug therapy
CPT/HCPCS: 36415; 80053; 83690; 85025; 85610; 85730; 93005; 99283; 99285

== ENCOUNTER 2023-08-12 09:44 | Outpatient (AMB) | payer OTHER, SELFPAY ==
--- NOTE | 2023-08-12 09:57 | A.OFFVIS_ITS ---
Intake Vital Signs 08/12/23 10:17 Height 5 ft 1 in Weight 120 lb 13.013 oz BMI 22.8 BP 140/63 H Blood Pressure Location Lt brachial Position Sitting Pulse 77 Pulse Source Pulse Oximeter Intake Visit Reasons: s/p DBL Perdue Intake Note: Patient presents to in office visit today in follow up of colonoscopy and EGD. Pt states she is overall feeling well. Pt states she does have nausea sometimes which comes and goes. Allergies amoxicillin [AMOXICILLIN] Allergy (Intermediate, Verified 08/12/23 10:20) DIZZINESS morphine [MORPHINE] Allergy (Unknown, Verified 08/12/23 10:20) RASH baclofen [BACLOFEN] Adverse Reaction (Intermediate, Verified 08/12/23 10:20) NAUSEA & VOMITING HPI s/p DBL Perdue HPI Details Assessment & Plan (1) Family history of colon cancer: Code(s): Z80.0 - Family history of malignant neoplasm of digestive organs Plan: [place] [employer] She had some nausea from the taste of the last prep. We discuss strategies to make it easier to drink. She was dx'ed with fatty liver and went on a diet and started taking care of herself and has lost weight. She has lost approximately 20 lbs over the past year. She is also c/o odyophagia in the am w/o dysphagia and upper abd pain. She has no known HX of GB disease int he family. She is requesting an EGD which is ok. I will add this and get and US. She denies any GERD or HB, and can not ID exacerbating or remitting factors or timing of the sx I have not been paying attention. She has occasional CIC but this usually resolved with diet. She had a problem with anesthesia in the past at age 25 after a miscarriage that triggered asthma. She has not had trouble with sedation in the past for her colonoscopies. Her asthma is well controlled and she denies cardiac problems. No ID problems. Her mother had CRC at age 56 and survived. He I will see her after the EGD and colonoscopy ordered today (2) Pre-op examination: Code(s): Z01.818 - Encounter for other preprocedural examination (3) Upper abdominal pain: Code(s): R10.10 - Upper abdominal pain, unspecified (4) Odynophagia: Code(s): R13.10 - Dysphagia, unspecified Orders: Orders Comprehensive Met. Panel 02/23/23 Z01.818 - Encounte r for other prepro cedural examinatio n, Z80.0 - Family history of maligna nt neoplasm of dig estive organs Complete Blood Cou nt Auto Diff 02/23/23 Z01.818 - Encounte r for other prepro cedural examinatio n, Z80.0 - Family history of maligna nt neoplasm of dig estive organs US abdomen complet e 02/23/23 R10.10 - Upper abd ominal pain, unspe cified, R13.10 - D ysphagia, unspecif ied Medications: New peg 3350-electroly ruy 236-22.74-6.74 -5.86 gram (Golyt naty) until feca l effluent is jacob r; do not exceed a total volume of 2 ,000 mL 240 mL PO Q10M 1 day 4,000 mL 0RF Z12.11 - Encounter for screening for malignant neoplas m of colon LABS Laboratory Tests 08/03/23 08/05/23 06:16 19:44 WBC 9.5 Hgb 14.2 Hct 41.5 Plt Count 255 Estimated GFR > 60 Total Bilirubin 0.4 AST 15 ALT 12 Alkaline Phosphata se 97 TSH 3.84 US ABD 03/08/23 FINDINGS: PANCREAS:Normal.. ABDOMINAL AORTA:The proximal, mid, and distal segments are normal in caliber.. INFERIOR VENA CAVA:Visualized portions are normal.. LIVER:Normal..The liver is normal in size..The liver contour is normal..Parenchymal echogenicity is normal..No focal hepatic lesion..There is no intrahepatic biliary duct dilatation seen.. GALLBLADDER:Normal..The gallbladder is physiologically distended without evidence of stones, sludge, polyps, wall thickening or pericholecystic fluid.. COMMON BILE DUCT: Normal in caliber measuring 0.3 cm in diameter. RIGHT KIDNEY: No hydronephrosis. No renal calculi or focal parenchymal lesions. The kidney measures 10.0 cm in maximum dimension. Few echogenic foci without shadowing or twinkle artifact may reflect vascular reflectors. LEFT KIDNEY: No hydronephrosis. No renal calculi or focal parenchymal lesions. The kidney measures 9.8 cm in maximum dimension. Few echogenic foci without shadowing or twinkle artifact may reflect vascular reflectors. SPLEEN:Normal.. The spleen measures 9.8 cm in maximum dimension. FREE FLUID:None.. US/US abdomen complete IMPRESSION: No acute findings to explain symptoms of abdominal pain. EGD/COLONOSCOPY 07/29/23 Findings: Larynx:normal Esophagus: GE junction at 32 cm, diaphragm hiatus at 34 cm, consistent with 2 cm sliding hiatal hernia, mild esophagitis noted, bx taken from GEJ , schatzki ring noted Stomach: patchy erythema. Biopsies were obtained. Grade 2 flap valve on retroflexed examination of the cardia. Duodenum: Normal bulb and descending duodenum, Findings: Terminal Ileum-normal Cecum:normal Ascending Colon: scattered tics Transverse Colon -normal Descending Colon:normal Sigmoid Colon: midl diverticulosis noted Rectum: Retroflexion with small internal hemorrhoids, grade I, 4-5 mm sessile polyp removed with cold forceps Anorectum - normal Impression and Post Procedure Diagnosis: Endoscopy Findings: hiatal hernia schatzki ring gastritis esophagitis Colonoscopy Findings: polyp internal hemorrhoids diverticular disease Plan: Await Pathology results Repeat Colonoscopy in 5 years due to FH of CRC or earlier if clinically indicated High fiber diet leaflet avoid straining at stool, epsom salts and sitz bath, anusol supps or cream BIOPSY Received: 07/29/23 Diagnosis A. Stomach, biopsy: Gastric body mucosa within normal limits; negative for Helicobacter pylori, intestinal metaplasia and dysplasia. B. Gastroesophageal junction, biopsy: Squamous and columnar junctional mucosa with mild chronic inflammation; negative for intestinal metaplasia and dysplasia. C. Rectum, polypectomy: Clinically polypoid colonic mucosa noted; negative for a hyperplastic or neoplastic process. TODAY'S VISIT Her mother had a history of colon cancer so the colonoscopy should be repeated in 5 years. The procedure was well tolerated. The results were explained and the patient is agreeable to the follow-up interval as stated. The bowel pattern has returned to normal. Education was provided to tell any 1st degree relatives about their findings to be sure that they are screened by age 45. Educated that they will be put on a recall list when it is time for their repeat scope but should they move out of state or away from the hospital they will need to remember along with their primary to repeat the procedure in a timely fashion to avoid any adverse complications. She presented to the ER and it appears she was put on an NSAID and they tried to rx protonix and famotidine.....but she never received these. She continues on o2o 40mg qd only, since this does not seem to be doing enough, will try to get bid dosing and in the interim add famotidine qhs. Her epigastric pain and nausea continues, so we need to do better. She is moving her bowels well. ROV 6 weeks to eval meds, GERD diet list printed. [facility] Medical History Thyroid nodule Epidermal cyst Renal cyst Hematuria Microscopic hematuria Headache, migraine Asthma Migraines COVID-19 Surgical History H/O colonoscopy History of surgery of uterus History of removal of cyst (~03/31/23) History of tubal ligation Family History Mother Colon cancer, Onset Age: 56 Social History Alcohol intake: never Patient Tobacco Use Status: Former Tobacco user Quit Date: 2001 Tobacco use type: Cigarette Review of Systems Const Denies fatigue, Denies fever(s), Denies night sweats, Denies poor appetite and Denies weight loss ENT Reports Normal hearing present, Denies dental pain, Denies dysphagia, Denies hearing loss, Denies mouth pain, Denies odynophagia, Denies throat swelling, Denies tongue swelling and Reports other (Dentition adequate) Card Reports no additional complaints Resp Reports no additional complaints GI Denies abdominal pain, Denies melena, Denies bloating, Denies hematochezia, Denies constipation, Denies GI cramping, Denies dysphagia, Denies excessive flatus, Denies early satiety, Reports heartburn, Denies diarrhea, Reports nausea, Denies odynophagia, Denies vomiting and Denies hematemesis Skin/Breast Denies pruritus, Denies lesions, Denies rash and Denies jaundice Neuro Reports Normal hearing present and Denies Abnormal speech present Endo Denies fatigue Aller/Immun Denies throat swelling and Denies tongue swelling Physical Exam Vital Signs: Last Vital Signs Pulse 77 08/12/23 10:17 BP 140/63 H 08/12/23 10:17 BMI result Body Mass Index 22.8 Const General: cooperative, no acute distress, well developed and well groomed Nutritional Appearance: average body habitus and well nourished Orientation/consciousness: oriented to person, oriented to place and oriented to time Limitations: language barrier HEENT Head: Yes normocephalic and Yes atraumatic Eyes General: appearance normal, both eyes and all related structures Pupils: Equal, round and reactive pupils present Neck Neck: Yes normal visual inspection and Yes no lymphadenopathy Thyroid: Thyroid normal Resp Effort & Inspection: normal respiratory effort and able to speak in complete sentences Auscultation: clear to auscultation bilaterally Cardio Rate: regular rate Rhythm: regular rhythm Heart sounds: Normal, physiologic split S2 sound present Peripheral pulses: radial pulses present and posterior tibial pulses present GI Inspection: No distended and No Abdominal panniculus present Palpation (GI): Soft to palpation, nontender, no guarding, not rigid and No hepatosplenomegaly present Percussion: Yes normal to percussion Auscultation: normal bowel sounds Rectal Exam - Female: deferred Skin General skin exam: no rashes or lesions noted, turgor normal, skin not dry, no jaundice, No spider nevi and no striae Rashes: no rashes Nails: normal Neuro General: oriented to person, oriented to place and oriented to time Cranial nerves: Yes Equal, round and reactive pupils present and Yes Normal hearing present Speech: No Abnormal speech present Extrem General: Yes normal to inspection, No clubbing, No cyanosis and No edema Psych Appearance: grossly normal and well kempt Mental Status: mental status grossly normal Speech and movement: Normal speech and movement present Affect: normal affect Attitude: cooperative Thought process: Normal thought process present and not confabulating Thought content: Normal thought content present Insight: Limited insight present (Psych) Judgement: Limited judgement present (Psych) Assessment & Plan Assessment & Plan (1) Family history of colon cancer: Comment: 2022 scope= hyperplastic polyp repeat in 5 years Code(s): Z80.0 - Family history of malignant neoplasm of digestive organs Plan: Her mother had a history of colon cancer so the colonoscopy should be repeated in 5 years. The procedure was well tolerated. The results were explained and the patient is agreeable to the follow-up interval as stated. The bowel pattern has returned to normal. Education was provided to tell any 1st degree relatives about their findings to be sure that they are screened by age 45. Educated that they will be put on a recall list when it is time for their repeat scope but should they move out of state or away from the hospital they will need to remember along with their primary to repeat the procedure in a timely fashion to avoid any adverse complications. She presented to the ER and it appears she was put on an NSAID and they tried to rx protonix and famotidine.....but she never received these. She continues on o2o 40mg qd only, since this does not seem to be doing enough, will try to get bid dosing and in the interim add famotidine qhs. Her epigastric pain and nausea continues, so we need to do better. She is moving her bowels well. ROV 6 weeks to [employer], GERD diet list printed. Medications: New omeprazole 40 mg PO BID 30 days 60 caps 6RF famotidine (Pepcid) 40 mg PO BEDTIME 30 tabs 0RF Discontinued pantoprazole (Protonix) Discontinued Reason: Insurance Denied 40 mg PO DAILY 14 tabs 0RF Coding Level of Care Code Est Pt Level 3 (20835) Diagnoses Family history of colon cancer Z80.0
[2023-08-12 10:17] VITALS: BP 140/63; PULSE 77; BMI 22.8
== END 2023-08-12 10:50 | disposition home or self-care (01) ==
PROVIDERS: PCP Internal Medicine Geriatric Medicine; Visit Provider Nurse Practitioner
DX: Z80.0 Family history of malignant neoplasm of digestive organs (principal)
CPT/HCPCS: 99213

== ENCOUNTER 2023-08-12 13:09 | Outpatient (REF) | payer OTHER, SELFPAY ==
--- NOTE | ~2023-08-12 | US_ITS ---
EXAMINATION: US THYROID CLINICAL INFORMATION: Thyroid nodule. COMPARISON: Ultrasound-guided thyroid biopsy dated 01/13/2018. Ultrasound soft tissue head/neck thyroid dated 11/04/2017. TECHNIQUE: Linear transducer grayscale and color Doppler examination with attention to the region of the thyroid. FINDINGS: SIZE: Measurements of the thyroid lobes and nodules are given in sagittal, anteroposterior and transverse dimensions respectively. Right Thyroid Lobe: 5.3 x 2.54 x 3.46 cm, volume 25.0 mL. Previously 4.8 x 2.5 x 2.9 cm, volume 19.0 mL. Parenchyma: The gland echotexture is heterogeneous. Thyroid vascularity is increased. Left Thyroid Lobe: 3.6 x 1.3 x 1.3 cm, volume 3.2 mL. Previously 3.5 x 1.4 x 1.4 cm, volume 3.6 mL. Parenchyma: The gland echotexture is homogeneous. Thyroid vascularity is normal. Isthmus: 0.3 cm in maximum AP dimension. Previously 0.3 cm. Estimated total number of nodules greater than or equal to 1 cm: 2. Tool Mechanic nodules are described as follows: 1. Location: Right. Size: 5.3 x 3.1 x 2.7 cm, volume 23.2 mL. Previously: 3.2 x 1.8 x 2.5 cm, volume 7.5 mL. Nodule characteristics: Composition: Solid (2). Echogenicity: Isoechoic (1). Shape: Not taller than wide (0). Margins: Smooth (0). Echogenic Foci: None (0). ACR TI-RADS total points: 3 ACR TI-RADS category: 3 Significant change in size (>/= 20% in 2 dimensions and minimal increase of 2 mm or 50% or greater increase in volume): Yes Change in features: No Change in ACR TI-RADS risk category: No 2. Location: Left mid. Size: 1.3 x 0.7 x 0.7 cm, volume 0.3 mL. Previously: 1.4 x 0.8 x 0.9 cm, volume 0.5 mL. Nodule characteristics: Composition: Solid (2). Echogenicity: Isoechoic (1). Shape: Not taller than wide (0). Margins: Smooth (0). Echogenic Foci: None (0). ACR TI-RADS total points: 4 ACR TI-RADS category: 4 Significant change in size (>/= 20% in 2 dimensions and minimal increase of 2 mm or 50% or greater increase in volume): No Change in features: No Change in ACR TI-RADS risk category: No 3. Location: Left superior. Size: 0.6 x 0.4 x 0.4 cm, volume 0.05 mL. Previously: 0.7 x 0.4 x 0.4 cm, volume 0.06 mL. Nodule characteristics: Composition: Solid (2). Echogenicity: Hypoechoic (2). Shape: Not taller than wide (0). Margins: Smooth (0). Echogenic Foci: None (0). ACR TI-RADS total points: 4 ACR TI-RADS category: 4 Significant change in size (>/= 20% in 2 dimensions and minimal increase of 2 mm or 50% or greater increase in volume): No Change in features: No Change in ACR TI-RADS risk category: No 4. Location: Left mid inferior. Size: 0.9 x 0.4 x 0.4 cm, volume 0.08 mL. Previously: 0.4 x 0.3 x 0.4 cm, volume 0.03 mL. Nodule characteristics: Composition: Solid (2). Echogenicity: Isoechoic (1). Shape: Not taller than wide (0). Margins: Smooth (0). Echogenic Foci: None (0). ACR TI-RADS total points: 3 ACR TI-RADS category: 3 Significant change in size (>/= 20% in 2 dimensions and minimal increase of 2 mm or 50% or greater increase in volume): Yes Change in features: No Change in ACR TI-RADS risk category: No 5. Location: Left inferior. Size: 0.9 x 0.6 x 0.7 cm, volume 0.2 mL. Previously: 0.5 x 0.5 x 0.4 cm, volume 0.05 mL. Nodule characteristics: Composition: Solid (2). Echogenicity: Hypoechoic (2). Shape: Not taller than wide (0). Margins: Smooth (0). Echogenic Foci: None (0). ACR TI-RADS total points: 4 ACR TI-RADS category: 4 Significant change in size (>/= 20% in 2 dimensions and minimal increase of 2 mm or 50% or greater increase in volume): Yes Change in features: No Change in ACR TI-RADS risk category: No NODES: No lymphadenopathy is seen in the tissue surrounding the thyroid gland. US/US thyroid IMPRESSION: 1. An increased 5.3 cm in maximal diameter right thyroid lobe TR 3 nodule, which occupies the majority of the right thyroid lobe, meets ACR biopsy criteria and is amenable to ultrasound-guided biopsy, if clinically indicated and not already performed. 2. There is an asymmetric goiter, right lobe greater than left. 3. There is heterogeneous thyroid echotexture and increase in vascularity, which can be associated with thyroiditis. ACR TI-RADS RECOMMENDATION REFERENCE: Ultrasound-guided fine-needle aspiration, follow up ultrasound, no further followup. * TR1 (0 point) and TR2 (2 points): No FNA or followup * TR3 (3 points): FNA if more than or equal to 2.5 cm in maximum dimension, follow up ultrasound in 1, 3 and 5 years if 1.5 to 2.4 cm in maximum dimension. * TR4 (4-6 points): FNA if more than or equal to 1.5 cm in maximum dimension, follow up ultrasound in 1, 2, 3 and 5 years if 1 to 1.4 cm in maximum dimension. * TR5 (more than or equal to 7 points): FNA if more than or equal to 1 cm in maximum dimension, follow up ultrasound every year for 5 years if 0.5 to 0.9 cm in maximum dimension. * TR3, TR4 or TR5 nodules that are below the size threshold for follow up receive no followup.
--- NOTE | ~2023-08-12 | US_ITS ---
EXAMINATION: US RETROPERITONEAL LIMITED (RENAL ONLY) CLINICAL INFORMATION: Cyst of kidney, acquired. COMPARISON: Ultrasound abdomen complete 03/05/2023. Ultrasound kidneys 09/14/2022. CT of abdomen and pelvis 07/02/2016. TECHNIQUE: Real-time imaging of the kidneys. Limited visualization due to bowel gas. FINDINGS: RIGHT KIDNEY: 9.5 x 4.1 x 5.4 cm (SAG x AP x TRV). Renal cortical thickness is normal. No renal calculi. Limited visualization. Mild prominence of the renal pyramids. Right renal medial 0.7 x 0.6 cm anechoic lesion may represent mild focal pelviectasis/prominence of renal pyramid versus less likely parapelvic cyst. LEFT KIDNEY: 9.1 x 4.8 x 6.0 cm (SAG x AP x TRV). Mild prominence of the renal pyramids. No hydronephrosis. No renal calculi. Renal cortical thickness is normal. Limited visualization. BLADDER: Partially distended. Bilateral ureteral jets are demonstrated. Prevoid bladder volume is 88 mL. Postvoid bladder volume was not obtained. US/US renal BI IMPRESSION: 1. No hydronephrosis. No renal calculi. Limited visualization. 2. Mild prominence of the bilateral renal pyramids. Right renal medial 0.7 x 0.6 cm anechoic lesion may represent mild focal pelviectasis/prominence of renal pyramid versus less likely parapelvic cyst. CT scan with intravenous contrast should be considered for further evaluation.
== END 2023-08-12 13:10 | disposition home or self-care (01) ==
LOC: HO.US 13:09
PROVIDERS: PCP Internal Medicine Geriatric Medicine; Visit Provider Nurse Practitioner Family
DX: N28.1 Cyst of kidney, acquired (principal)
CPT/HCPCS: 76536; 76775

== ENCOUNTER 2023-09-08 12:38 | Outpatient (REF) | payer OTHER, SELFPAY ==
--- NOTE | ~2023-09-08 | US_ITS ---
Ultrasound-guided thyroid nodule fine needle aspiration Indication: Right lobe thyroid nodule Procedure: Informed consent was obtained from the patient prior to the procedure. During this process, the procedure and potential alternatives were explained, along with the intended outcome and benefits. The risks of the procedure, as well as the risks of not doing the procedure, were discussed. The patient was given the opportunity to ask questions regarding the procedure and appeared competent to make medical decisions. A signed consent form which documents this discussion was placed in the medical record. A timeout was performed in the room. The patient was placed in a supine position with the neck extended. The right side of the neck and chest was prepped and draped in routine sterile fashion. 1% lidocaine was used as anesthetic. Under real-time ultrasound guidance, a 25-gauge needle was placed into the nodule and aspiration was performed. A total of 4 aspirations were performed. The specimens were placed in CytoLyt and and the Affirm bottle. Postprocedure images showed no hematoma. A Band-Aid was applied to the access site. The patient tolerated the procedure well with no immediate complications. Permanent ultrasound images were archived to the procedure. US/US guided fine needle asp Impression: Right thyroid nodule fine-needle aspiration This procedure was performed by Jah Cueva PA-C, and directly supervised by Dr. Rose
== END 2023-09-08 12:39 | disposition home or self-care (01) ==
LOC: HO.US 12:38
PROVIDERS: PCP Internal Medicine Geriatric Medicine; Visit Provider Internal Medicine Geriatric Medicine
DX: E04.1 Nontoxic single thyroid nodule (principal)
CPT/HCPCS: 10005; 88173; 88305

== ENCOUNTER → 2023-09-08 12:41 | Outpatient (BNV) | payer OTHER, SELFPAY | PROVIDERS: PCP Internal Medicine Geriatric Medicine; Visit Provider Student in an Organized Health Care Education/Training Program | DX: E04.1 Nontoxic single thyroid nodule (principal) | CPT/HCPCS: 10005 ==

== ENCOUNTER 2023-10-12 14:23 | Outpatient (REF) | payer OTHER, SELFPAY ==
[2023-10-12 16:49] LABS: Urine Cytology See Pathology rpt
== END 2023-10-12 14:24 | disposition home or self-care (01) ==
LOC: HO.LNP 14:23
PROVIDERS: Visit Provider Nurse Practitioner Family
DX: R31.29 Other microscopic hematuria (principal); N28.1 Cyst of kidney, acquired
CPT/HCPCS: 81003; 88112

== ENCOUNTER 2023-10-12 14:23 | Outpatient (AMB) | payer OTHER, SELFPAY ==
--- NOTE | 2023-10-12 14:31 | MHC.OFFVIS ---
Intake Intake Visit Reasons: 1yr follow up/US Intake Note: Patient presents for an anual visit follow up and u/s results Allergies : Amoxicillin Blood thinners: none Urologic medications: none Typing Bookkeeper Required: Yes Information Interpreted: non-clinical & clinical Accompanied by: Self / Same As Patient Allergies amoxicillin [AMOXICILLIN] Allergy (Intermediate, Verified 10/12/23 16:08) DIZZINESS morphine [MORPHINE] Allergy (Unknown, Verified 10/12/23 16:08) RASH baclofen [BACLOFEN] Adverse Reaction (Intermediate, Verified 10/12/23 16:08) NAUSEA & VOMITING Medication List - Last Reconciled 10/12/23 by ROGELIO Bahena-KOBI albuterol sulfate 90 mcg/actuation (ProAir HFA) 2 puffs inhalation Q6H PRN cetirizine (Zyrtec) 10 mg PO DAILY PRN ergocalciferol (vitamin D2) 1,250 mcg PO QWEEK escitalopram oxalate 5 mg PO DAILY famotidine (Pepcid) 40 mg PO BEDTIME ibuprofen 600 mg PO Q8H PRN omeprazole 40 mg PO BID 30 days Wixela Inhub 250-50 mcg/dose (fluticasone propion-salmeterol) 1 ea inhalation BID NS HPI HPI Comments History of Present Illness Details Taryn is a pleasant Romanian-speaking 57-year-old female patient of Dr. Sheffield. She has a past medical history of thyroid nodule, renal cysts, microscopic hematuria, and migraines, asthma, She presents to the office today for follow-up regarding her history of microscopic hematuria and bilateral renal cyst. Patient reports to be doing well. She denies any urological issues at this time. Recent ultrasound results reviewed with the patient today. Right renal medial 0.7 x 0.6 cm anechoic lesion may represent mild focal pelviectasis/prominence of renal pyramid versus less likely parapelvic cyst. Left kidney with no hydronephrosis or renal calculi. The bladder is partially distended. Discussed obtaining CT urogram for further assessment evaluation. In office urinalysis with microscopic hematuria. Discussed at length importance of drinking plenty of water daily as pH is low Discussed at length potential causes of microscopic hematuria as well as findings on retroperitoneal ultrasound. Discussed obtaining CT urogram for further assessment evaluation. When asked she denies any previous smoking history and or known chemical exposure. When asked she denies urinary urgency, urinary frequency, incontinence, nocturia, hematuria, dysuria, foul smelling urine, changes to urinary stream, flank pain, fever, and or chills. She is happy with her current voiding parameters. [facility] Medical History (Updated 10/12/23 @ 14:49 by JOSE [facility]LOC[facility]IN [facility] Thyroid nodule Epidermal cyst Renal cyst Hematuria Microscopic hematuria Headache, migraine Asthma Migraines COVID-19 Surgical History H/O colonoscopy History of surgery of uterus History of removal of cyst (~03/31/23) History of tubal ligation Family History Mother Colon cancer, Onset Age: 56 Social History Alcohol intake: never Patient Tobacco Use Status: Former Tobacco user Quit Date: 2001 Tobacco use type: Cigarette Review of Systems Const Reports no additional complaints Eyes Reports as per HPI ENT Reports no additional complaints Card Reports no additional complaints Resp Reports as per HPI GI Reports no additional complaints Reports as per HPI Musc Reports no additional complaints Neuro Reports as per HPI Psych Reports no additional complaints Endo Reports as per HPI Andrew/Lymph Reports no additional complaints Aller/Immun Reports no additional complaints Physical Exam Const General: cooperative, healthy appearing, comfortable, no acute distress, well developed, alert and awake Orientation/consciousness: patient oriented x3 Limitations: no limitations HEENT Head: Yes normal to inspection, Yes normocephalic and Yes atraumatic Ears: hearing grossly normal bilaterally Eyes General: appearance normal, both eyes and all related structures Neck Neck: Yes normal visual inspection and Yes trachea midline Chest Chest palpation & inspection: normal inspection of the chest Resp Effort & Inspection: normal respiratory effort and able to speak in complete sentences Cardio Rate: regular rate GI Inspection: Yes normal to inspection General: Yes no CVA tenderness Back/Spine/Pelvis Back: no CVA tenderness Skin General skin exam: no rashes or lesions noted Neuro General: patient oriented x3 Extrem General: Yes normal to inspection Psych Appearance: grossly normal and well kempt Mental Status: mental status grossly normal Speech and movement: Normal speech and movement present and Clear speech present Affect: normal affect Attitude: cooperative Thought process: Normal thought process present Thought content: Normal thought content present Insight: Fair insight present (Psych) Judgement: Fair judgement present (Psych) Results AMB Urinalysis, Automated UA Leukoctes 0 Rigo/uL Last Edit by Lyn Little [facility] on 10/12/23 14:44 UA Nitrite Negative [facility], [facility] on 10/12/23 14:44 UA Urobilinogen 0.2 mg/dL Last Edit by Lyn Littleanthony Little, [facility] on 10/12/23 14:44 UA Protein 15 mg/dL [facility], [facility] on 10/12/23 14:44 UA pH 5.5 Last Edit by [facility], [facility] on 10/12/23 14:44 UA Blood 80 Jossue/uL Last Edit by Lyn Littleanthony Little, [facility] on 10/12/23 14:44 UA Specific Ethridge 1.030 Last Edit by Lyn Littleanthony Lathama, [facility] on 10/12/23 14:44 UA Ketone Negative Last Edit by Lyn Littleanthony Little, [facility] on 10/12/23 14:44 UA Bilirubin 1 mg/dL [facility] Edit [facility], [facility] on 10/12/23 14:44 UA Glucose 0 mg/dL Last Edit by [facility], [facility] on 10/12/23 14:44 Results Reviewed Results Reviewed: Laboratory Last Values Urine pH (Auto) 5.5 10/12/23 14:31 Specific Ethridge (Auto) 1.030 10/12/23 14:31 Urine Protein (Auto) 15 mg/dL 10/12/23 14:31 Glucose (UA)(Auto) 0 mg/dL 10/12/23 14:31 Urine Ketones (Auto) Negative 10/12/23 14:31 Urine Blood (Auto) 80 Jossue/uL 10/12/23 14:31 Urine Nitrite (Auto) Negative 10/12/23 14:31 Urine Bilirubin (Auto) 1 mg/dL 10/12/23 14:31 Urine Urobilinogen (Auto) 0.2 mg/dL 10/12/23 14:31 Leukocyte Esterase (Auto) 0 Rigo/uL 10/12/23 14:31 Date of Service: 08/12/23 EXAMINATION: US RETROPERITONEAL LIMITED (RENAL ONLY) FINDINGS: RIGHT KIDNEY: 9.5 x 4.1 x 5.4 cm (SAG x AP x TRV). Renal cortical thickness is normal. No renal calculi. Limited visualization. Mild prominence of the renal pyramids. Right renal medial 0.7 x 0.6 cm anechoic lesion may represent mild focal pelviectasis/prominence of renal pyramid versus less likely parapelvic cyst. LEFT KIDNEY: 9.1 x 4.8 x 6.0 cm (SAG x AP x TRV). Mild prominence of the renal pyramids. No hydronephrosis. No renal calculi. Renal cortical thickness is normal. Limited visualization. BLADDER: Partially distended. Bilateral ureteral jets are demonstrated. Prevoid bladder volume is 88 mL. Postvoid bladder volume was not obtained. IMPRESSION: 1. No hydronephrosis. No renal calculi. Limited visualization. 2. Mild prominence of the bilateral renal pyramids. Right renal medial 0.7 x 0.6 cm anechoic lesion may represent mild focal pelviectasis/prominence of renal pyramid versus less likely parapelvic cyst. CT scan with intravenous contrast should be considered for further evaluation. Assessment & Plan Assessment & Plan (1) Renal cyst: Code(s): N28.1 - Cyst of kidney, acquired (2) Microscopic hematuria: Code(s): R31.29 - Other microscopic hematuria Plan In office urinalysis results reviewed with the patient today; as noted above; will send for urine cytology. Discussed at length potential causes for microscopic hematuria. Discussed further microscopic hematuria workup with urine cytology, CT urogram, and in office cystoscopy; discussed risks and benefits of further workup versus surveillance monitoring Recent retroperitoneal ultrasound results reviewed with the patient today; as noted above. Will obtain CT urogram for further assessment evaluation. BUN current ordered for imaging. Patient denies any bothersome urinary issues or concerns at this time. She reports be happy with current voiding parameters. Discussed, educated, and stressed the importance of drinking plenty of water daily. Follow-up in 1 year with imaging to be completed prior; or sooner with any issues, concerns, and or questions. Orders: Orders AMB Urinalysis Automated Today R33.9 - Retention of urine, unspecified Creatinine 364 Days N28.1 - Cyst of kidney, acquired, R31.29 - Other microscopic hematuria CT urogram 364 Days N28.1 - Cyst of kidney, acquired, R31.29 - Other microscopic hematuria Urine Cytology Today R31.29 - Other microscopic hematuria Blood Urea Nitrogen 364 Days N28.1 - Cyst of kidney, acquired, R31.29 - Other microscopic hematuria Patient Instructions: The patient had an opportunity to ask questions regarding the treatment plan. All questions were answered. Physical exam, labs, and imaging were discussed and reviewed in detail. As well as risks, benefits, and discussion of treatment choices. No major barriers to understanding were identified. The patient expressed understanding and agreement with the above treatment plan. The patient was made aware they should contact our office by phone for worsening of their current condition, the appearance of new symptoms, or with any questions or concerns. Compliance is encouraged with any medications and follow up testing that is ordered. It is a privilege to be allowed the opportunity to participate in? your urological care.? Again, if you have any questions or concerns If you have any questions or concerns please do not hesitate to contact me. The office is [phone]. This note is constructed using voice recognition software. While every effort has been made to ensure accuracy bakery worker conveyor line errors may have been included. Yours sincerely, OSMAN Bahena Coding Level of Care Code Est Pt Level 3 (43733) Diagnoses Renal cyst N28.1 Microscopic hematuria R31.29
== END 2023-10-12 14:52 | disposition home or self-care (01) ==
PROVIDERS: Visit Provider Nurse Practitioner Family
DX: N28.1 Cyst of kidney, acquired (principal); R31.29 Other microscopic hematuria
CPT/HCPCS: 99213

== ENCOUNTER 2023-10-22 14:06 | Outpatient (REF) | payer OTHER, SELFPAY | END 2023-10-22 14:07 | disposition home or self-care (01) | LOC: HO.MAMMO 14:06 | PROVIDERS: PCP Internal Medicine Geriatric Medicine; Visit Provider Internal Medicine Geriatric Medicine | DX: Z12.31 Encounter for screening mammogram for malignant neoplasm of breast (principal) | CPT/HCPCS: 77063; 77067 ==

== ENCOUNTER → 2023-10-22 14:15 | Outpatient (BNV) | payer OTHER, SELFPAY | PROVIDERS: PCP Internal Medicine Geriatric Medicine; Visit Provider Radiology Diagnostic Radiology | DX: Z12.31 Encounter for screening mammogram for malignant neoplasm of breast (principal) | CPT/HCPCS: 77063; 77067 ==

== ENCOUNTER 2023-11-22 15:58 | Outpatient (REF) | payer OTHER, SELFPAY ==
[2023-11-22 18:17] LABS: Vitamin D 25-OH Total 24.1 ng/mL (>30)
== END 2023-11-22 15:59 | disposition home or self-care (01) ==
LOC: HO.HHCL 15:58
PROVIDERS: Visit Provider Internal Medicine Geriatric Medicine
DX: E55.9 Vitamin D deficiency, unspecified (principal)
CPT/HCPCS: 36415; 82306

== ENCOUNTER 2023-11-23 08:07 | Outpatient (AMB) | payer OTHER, SELFPAY ==
--- NOTE | 2023-11-23 08:07 | A.OFFVIS_ITS ---
Intake Vital Signs 11/23/23 08:22 Height 5 ft 1 in Weight 119 lb 0.794 oz BMI 22.5 BP 116/59 L Blood Pressure Location Lt brachial Position Sitting Pulse 78 Intake Visit Reasons: 6 week follow up Intake Note: Taryn presents in the office as a 6 week follow up. CC: She states she stopped taking omeprazole and the pepcid due to constipation. Home Lighting Adviser Required: Yes Home Lighting Adviser Name: [id number] Shabelle Allergies amoxicillin [AMOXICILLIN] Allergy (Intermediate, Verified 11/23/23 08:23) DIZZINESS morphine [MORPHINE] Allergy (Unknown, Verified 11/23/23 08:23) RASH baclofen [BACLOFEN] Adverse Reaction (Intermediate, Verified 11/23/23 08:23) NAUSEA & VOMITING Medication List - Last Reconciled 11/23/23 by MARIA DEL ROSARIO Mckeon albuterol sulfate 90 mcg/actuation (ProAir HFA) 2 puffs inhalation Q6H PRN celecoxib (Celebrex) 100 mg PO BID cetirizine (Zyrtec) 10 mg PO DAILY PRN ergocalciferol (vitamin D2) 1,250 mcg PO QWEEK escitalopram oxalate 5 mg PO DAILY ibuprofen 600 mg PO Q8H PRN omeprazole 40 mg PO BID 30 days Wixela Inhub 250-50 mcg/dose (fluticasone propion-salmeterol) 1 ea inhalation BID NS HPI 6 week follow up HPI Details Assessment & Plan (1) Family history of colon cancer: Comment: 2022 scope= hyperplastic polyp repeat in 5 years Code(s): Z80.0 - Family history of malignant neoplasm of digestive organs Plan: Her mother had a history of colon cancer so the colonoscopy should be repeated in 5 years. The procedure was well tolerated. The results were explained and the patient is agreeable to the follow-up interval as stated. The bowel pattern has returned to normal. Education was provided to tell any 1st degree relatives about their findings to be sure that they are screened by age 45. Educated that they will be put on a recall list when it is time for their repeat scope but should they move out of state or away from the hospital they will need to remember along with their primary to repeat the procedure in a timely fashion to avoid any adverse complications. She presented to the ER and it appears she was put on an NSAID and they tried to rx protonix and famotidine.....but she never received these. She continues on o2o 40mg qd only, since this does not seem to be doing enough, will try to get bid dosing and in the interim add famotidine qhs. Her epigastric pain and nausea continues, so we need to do better. She is moving her bowels well. [facility] [address] [facility], GERD diet list printed. Medications: New omeprazole 40 mg PO BID 30 d ays 60 caps 6RF famotidine (Pepcid ) 40 mg PO BEDTIME 30 tabs 0RF Discontinued pantoprazole (Prot abdiaziz) Discontin ued Reason: Insur ance Denied 40 mg PO DAILY 14 tabs 0RF TODAY'S VISIT American #Chelsy Baumann She did have relief from the epi pain and nausea with the o2o bid and famotidine , but she had given up coffee which helped move her bowels and she became constipated so she stopped both. She asks which pill may cause this, but certainly not hte o2o as it usually is associated with diarrhea. I advise that she go back on her coffee and take o2o bid. Stop the famotidine. She also says that her urologist told her that her urine was a low pH. She asks if this is r/t the o2o. I do not think so, This could pre dispose her to renal stones and I recommend that she try to squeeze a small ambler into her water to offset this (I believe this would be ok with her GERD). She asks how long she needs to take the pills, and given that she is not obese and she is good with her diet, this is likely genetic and she would likely have trouble controlling this w/o medicines. SHe has a brother who has SSBE, so that confirms the genetic component. 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 She was just started on Celebrex for sciatica by her PCP, another good reason to protect her stomach. She has an appointment to see a air conditioner installer helper soon because she continues to lose too much weight. She seems to be uncertain whether the weight loss was from her nausea and epigastric pain, but this likely is a good idea overall. ROV 3 mos. [facility] Medical History (Updated 11/23/23 @ 08:57 by MARIA DEL ROSARIO Mckeon) Thyroid nodule Epidermal cyst Renal cyst Hematuria Microscopic hematuria Headache, migraine Asthma Migraines COVID-19 Surgical History H/O colonoscopy History of surgery of uterus History of removal of cyst (~03/31/23) History of tubal ligation Family History Mother Colon cancer, Onset Age: 56 Social History Alcohol intake: never Patient Tobacco Use Status: Former Tobacco user Quit Date: 2001 Tobacco use type: Cigarette Review of Systems Const Denies fatigue, Denies fever(s), Denies night sweats, Denies poor appetite and Reports weight loss ENT Reports Normal hearing present, Denies dental pain, Denies dysphagia, Denies hearing loss, Denies mouth pain, Denies odynophagia, Denies throat swelling, Denies tongue swelling and Reports other (Dentition adequate) Card Reports no additional complaints Resp Reports no additional complaints GI Details: Denies abdominal pain, Denies melena, Denies bloating, Denies hematochezia, Reports constipation, Denies GI cramping, Denies dysphagia, Denies excessive flatus, Denies early satiety, Reports heartburn, Denies diarrhea, Denies nausea, Denies odynophagia, Denies vomiting and Denies hematemesis Skin/Breast Denies pruritus, Denies lesions, Denies rash and Denies jaundice Neuro Reports Normal hearing present and Denies Abnormal speech present Endo Denies fatigue Aller/Immun Denies throat swelling and Denies tongue swelling Physical Exam Vital Signs: Last Vital Signs Pulse 78 11/23/23 08:22 BP 116/59 L 11/23/23 08:22 BMI result Body Mass Index 22.5 Const General: cooperative, no acute distress, well developed and well groomed Nutritional Appearance: average body habitus and well nourished Orientation/consciousness: oriented to person, oriented to place and oriented to time Limitations: language barrier HEENT Head: Yes normocephalic and Yes atraumatic Eyes General: appearance normal, both eyes and all related structures Pupils: Equal, round and reactive pupils present Neck Neck: Yes normal visual inspection and Yes no lymphadenopathy Thyroid: Thyroid normal Resp Effort & Inspection: normal respiratory effort and able to speak in complete sentences Auscultation: clear to auscultation bilaterally Cardio Rate: regular rate Rhythm: regular rhythm Heart sounds: Normal, physiologic split S2 sound present Peripheral pulses: radial pulses present and posterior tibial pulses present GI Inspection: No distended and No Abdominal panniculus present Palpation (GI): Soft to palpation, nontender, no guarding, not rigid and No hepatosplenomegaly present Percussion: Yes normal to percussion Auscultation: normal bowel sounds Rectal Exam - Female: deferred Skin General skin exam: no rashes or lesions noted, turgor normal, skin not dry, no jaundice, No spider nevi and no striae Rashes: no rashes Nails: normal Neuro General: oriented to person, oriented to place and oriented to time Cranial nerves: Yes Equal, round and reactive pupils present and Yes Normal hearing present Speech: No Abnormal speech present Extrem General: Yes normal to inspection, No clubbing, No cyanosis and No edema Psych Appearance: grossly normal and well kempt Mental Status: mental status grossly normal Speech and movement: Normal speech and movement present Affect: normal affect Attitude: cooperative Thought process: Normal thought process present and not confabulating Thought content: Normal thought content present Insight: Limited insight present (Psych) Judgement: Limited judgement present (Psych) Assessment & Plan Assessment & Plan (1) Upper abdominal pain: Code(s): R10.10 - Upper abdominal pain, unspecified (2) Family history of Hernandez's esophagus: Comment: Brother Code(s): Z83.79 - Family history of other diseases of the digestive system Plan American #Chelsy Live She did have relief from the epi pain and nausea with the o2o bid and famotidine, but she had given up coffee which helped move her bowels and she became constipated so she stopped both. She asks which pill may cause this, but certainly not hte o2o as it usually is associated with diarrhea. I advise that she go back on her coffee and take o2o bid. Stop the famotidine. She also says that her urologist told her that her urine was a low pH. She asks if this is r/t the o2o. I do not think so, This could pre dispose her to renal stones and I recommend that she try to squeeze a small ambler into her water to offset this (I believe this would be ok with her GERD). She asks how long she needs to take the pills, and given that she is not obese and she is good with her diet, this is likely genetic and she would likely have trouble controlling this w/o medicines. SHe has a brother who has SSBE, so that confirms the genetic component. 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 She was just started on Celebrex for sciatica by her PCP, another good reason to protect her stomach. She has an appointment to see a air conditioner installer helper soon because she continues to lose too much weight. She seems to be uncertain whether the weight loss was from her nausea and epigastric pain, but this likely is a good idea overall. ROV 3 mos. Medications: Refilled omeprazole 40 mg PO BID 30 days 60 caps 6RF Discontinued famotidine (Pepcid) Discontinued Reason: Doctor's Order 40 mg PO BEDTIME 30 tabs 0RF Coding Level of Care Code Est Pt Level 3 (02771) Diagnoses Upper abdominal pain R10.10 Family history of Hernandez's esophagus Z83.79
[2023-11-23 08:22] VITALS: BP 116/59; PULSE 78; BMI 22.5
== END 2023-11-23 09:30 | disposition home or self-care (01) ==
PROVIDERS: PCP Internal Medicine Geriatric Medicine; Visit Provider Nurse Practitioner
DX: R10.10 Upper abdominal pain, unspecified (principal); Z83.79 Family history of other diseases of the digestive system
CPT/HCPCS: 99213

== ENCOUNTER → 2023-11-23 08:07 | Outpatient (BNVA) | payer OTHER, SELFPAY | PROVIDERS: PCP Internal Medicine Geriatric Medicine; Visit Provider Nurse Practitioner ==

== ENCOUNTER 2024-01-21 15:57 | Outpatient (REF) | payer OTHER, SELFPAY ==
[2024-01-21 18:16] LABS: Alanine Aminotransferase 13 U/L (0-31); Albumin Level 4.2 g/dL (3.5-5.0); Alkaline Phosphatase 93 U/L (39-117); Anion Gap 11 (12-20); Aspartate Amino Transferase 16 U/L (5-31); Bilirubin Total 0.4 mg/dL (0.0-1.0); Blood Urea Nitrogen 19 mg/dL (9-16); Calcium 9.4 mg/dL (8.4-10.2); Carbon Dioxide 28 mmol/L (22-29); Chloride 103 mmol/L (96-108); Estimated Glomerular Filt Rate 52; Glucose Random 140 mg/dL (60-115); Potassium 3.7 mmol/L (3.3-5.1); Sodium 138 mmol/L (135-145); Total Protein 7.1 g/dL (6.5-8.0)
== END 2024-01-21 15:58 | disposition home or self-care (01) ==
LOC: HO.HHCL 15:57
PROVIDERS: Visit Provider Internal Medicine Geriatric Medicine
DX: K76.0 Fatty (change of) liver, not elsewhere classified (principal)
CPT/HCPCS: 36415; 80053

== ENCOUNTER 2024-02-03 07:33 | Outpatient (REF) | payer OTHER, SELFPAY ==
--- NOTE | ~2024-02-03 | US_ITS ---
EXAMINATION: US COMPLETE ABDOMEN WITH LIVER ELASTOGRAPHY CLINICAL INFORMATION: Fatty liver and right upper quadrant pain. COMPARISON: Abdominal ultrasound dated 03/05/2023. TECHNIQUE: Real-time imaging of the abdominal viscera. Noninvasive ultrasound liver fibrosis assessment is performed using Sury ElastPQ point quantification shear wave elastography (2D-SWE) with a C5-2 MHz transducer. Multiple elastography samples are obtained. FINDINGS: PANCREAS: Normal. The visualized pancreatic head and body are normal in appearance. The remainder of the pancreas is obscured from visualization by the overlying bowel gas. ABDOMINAL AORTA: The proximal, middle, and distal aortic segments are normal in caliber. INFERIOR VENA CAVA: Visualized portions are normal. LIVER: Normal. The liver demonstrates normal size, contour and echogenicity. No focal lesion or intrahepatic biliary duct dilatation. The right lobe measures 15.1 cm in length. The left lobe measures 11.2 cm in length. Portal flow is towards the liver (hepatopetal). Shear wave liver elastography median stiffness is 1.26 m/s (reference: normal median stiffness is 1.3 m/s or less). IQR/median stiffness to assess sampling precision is 0.21 (reference: good quality data set is IQR/median stiffness of 0.15 or less). GALLBLADDER: Normal. The gallbladder is physiologically distended without evidence of stones, sludge, polyps, wall thickening or pericholecystic fluid. COMMON BILE DUCT: Normal in caliber measuring 0.2 cm in diameter. RIGHT KIDNEY: Normal. No hydronephrosis. No renal calculi or focal parenchymal lesions. The kidney measures 9.5 cm in maximum dimension. LEFT KIDNEY: Normal. No hydronephrosis. No renal calculi or focal parenchymal lesions. The kidney measures 10.5 cm in maximum dimension. SPLEEN: Normal. The spleen measures 10.0 cm in maximum dimension. FREE FLUID: None. US/US abdomen comp w elastography IMPRESSION: Liver elastography: In the absence of other known clinical signs, measurements rule out compensated advanced chronic liver disease. If there are known clinical signs, further testing may be needed for confirmation. REFERENCE: Society of Radiologists in Ultrasound Liver Stiffness Thresholds (2020): LIVER STIFFNESS THRESHOLDS: *Liver Stiffness equal or less than 1.3 m/s: High probability of being normal. *Liver Stiffness less than 1.7 m/s: In the absence of other known clinical signs, rules out compensated advanced chronic liver disease. *Liver Stiffness 1.7-2.1 m/s: Suggestive of compensated advanced chronic liver disease but need further test for confirmation. *Liver Stiffness over 2.1 m/s: Rules in compensated advanced chronic liver disease. *Liver Stiffness over 2.4 m/s: Suggestive of clinically significant portal hypertension. QUALITY OF DATA SET: *IQR/Median value equal or less than 0.15 implies a quality data set. *IQR/Median value over 0.15 implies a poor quality data set. SIGNIFICANT CHANGE FROM PRIOR EXAM: Significant change if liver stiffness measurement is 10% or greater from prior exam. OTHER CONSIDERATIONS: The stage of liver fibrosis may be overestimated in the setting of acute hepatitis, liver inflammation, elevated liver function tests, hepatic vascular congestion, obstructive cholestasis, non-fasting state, and infiltrative diseases such as amyloidosis and lymphoma. In some patients with NAFLD, the liver stiffness thresholds for compensated advanced chronic liver disease may be lower. In causes other than viral hepatitis and NAFLD, liver stiffness thresholds are not well established.
== END 2024-02-03 07:34 | disposition home or self-care (01) ==
LOC: HO.US 07:33
PROVIDERS: PCP Internal Medicine Geriatric Medicine; Visit Provider Internal Medicine Geriatric Medicine
DX: K76.0 Fatty (change of) liver, not elsewhere classified (principal)
CPT/HCPCS: 76700; 76981

== ENCOUNTER 2024-02-15 09:50 | Outpatient (AMB) | payer OTHER, SELFPAY ==
[2024-02-15 09:52] VITALS: BP 120/66; PULSE 75; BMI 22.2
--- NOTE | 2024-02-15 09:52 | A.OFFVIS_ITS ---
Vital Signs 02/15/24 09:52 Height 5 ft 1 in Weight 117 lb 4.575 oz BMI 22.2 BP 120/66 Blood Pressure Location Rt brachial Position Sitting Pulse 75 Intake Visit Reasons: 3 month follow up Intake Note: Taryn returns to in office 3 months follow up of abdominal pain. CC: Patient c/o upper abdominal pain, and nausea sometimes usually in the morning. Manager Winter Required: Yes Accompanied by: Self / Same As Patient Allergies amoxicillin [AMOXICILLIN] Allergy (Intermediate, Verified 02/15/24 09:57) DIZZINESS morphine [MORPHINE] Allergy (Unknown, Verified 02/15/24 09:57) RASH baclofen [BACLOFEN] Adverse Reaction (Intermediate, Verified 02/15/24 09:57) NAUSEA & VOMITING HPI HPI 3 month follow up: Details: Assessment & Plan (1) Upper abdominal pain: Code(s): R10.10 - Upper abdominal pain, unspecified (2) Family history of Hernandez's esophagus: Comment: Brother Code(s): Z83.79 - Family history of other diseases of the digestive system Plan [place] #Chelsy Live She did have relief from the epi pain and nausea with the o2o bid and famotidine, but she had given up coffee which helped move her bowels and she became constipated so she stopped both. She asks which pill may cause this, but certainly not hte o2o as it usually is associated with diarrhea. I advise that she go back on her coffee and take o2o bid. Stop the famotidine. She also says that her urologist told her that her urine was a low pH. She asks if this is r/t the o2o. I do not think so, This could pre dispose her to renal stones and I recommend that she try to squeeze a small yurok into her water to offset this (I believe this would be ok with her GERD). She asks how long she needs to take the pills, and given that she is not obese and she is good with her diet, this is likely genetic and she would likely have trouble controlling this w/o medicines. SHe has a brother who has SSBE, so that confirms the genetic component. 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 She was just started on Celebrex for sciatica by her PCP, another good reason to protect her stomach. She has an appointment to see a certified detention deputy soon because she continues to lose too much weight. She seems to be uncertain whether the weight loss was from her nausea and epigastric pain, but this likely is a good idea overall. ROV 3 mos. Medications: Refilled omeprazole 40 mg PO BID 30 days 60 caps 6RF Discontinued famotidine (Pepcid) Discontinued Reason: Doctor's Order 40 mg PO BEDTIME 30 tabs 0RF TODAY'S VISIT [place] # Chelsy Live Her mother had a history of colon cancer She received the omeprazole and is taking it consistently in the am but frequently forgets the pm dose. She has intermittent pain not r/t eating or BM's occurring 2 fingers above the belly button and to the left of the BB. It is described as intense and stabbing that lasts for minutes, sometimes it will last for 20 minutes. It is not colicky but steady. She can not describe and remitting or exacerbating factors. IT happens almost every day, no specific time of day, about twice a day. She feels her nausea is somewhat improved (this may take time). The epigastric pain was occurring only 1-2 times a week, so she is unsure if it is improved with the omeprazole. She restarted her coffee and it tolerating it and her CIC has resolved. At this point, she wants to keep a log of her pain when it happens and what it might be set off by. I think this is a good idea and I think it is also good idea to continue the omeprazole and try to take it consistently twice a day to promote healing. We could consider something like dicyclomine or Creon depending on her response going forward. Remember she also has chronic back problems that could be radiating to the belly. Return office visit in 6 weeks. [facility] Medical History Thyroid nodule Epidermal cyst Renal cyst Hematuria Microscopic hematuria Headache, migraine Asthma Migraines COVID-19 Surgical History H/O colonoscopy History of surgery of uterus History of removal of cyst (~03/31/23) History of tubal ligation Family History Mother Colon cancer, Onset Age: 56 Social History Alcohol intake: never Patient Tobacco Use Status: Former Tobacco user Quit Date: 2001 Tobacco use type: Cigarette Review of Systems Const Denies fatigue, Denies fever(s), Denies night sweats, Denies poor appetite and Denies weight loss ENT Reports Normal hearing present, Denies dental pain, Denies dysphagia, Denies hearing loss, Denies mouth pain, Denies odynophagia, Denies throat swelling, Denies tongue swelling and Reports other (Dentition adequate) Card Reports no additional complaints Resp Reports no additional complaints GI Details: Reports abdominal pain, Denies melena, Denies bloating, Denies hematochezia, Denies constipation, Denies GI cramping, Denies dysphagia, Denies excessive flatus, Denies early satiety, Reports heartburn, Denies diarrhea, Denies nausea, Denies odynophagia, Denies vomiting and Denies hematemesis Skin/Breast Denies pruritus, Denies lesions, Denies rash and Denies jaundice Neuro Reports Normal hearing present and Denies Abnormal speech present Endo Denies fatigue Aller/Immun Denies throat swelling and Denies tongue swelling Physical Exam Vital Signs: Last Vital Signs Pulse 75 02/15/24 09:52 BP 120/66 02/15/24 09:52 BMI result Body Mass Index 22.2 Const General: cooperative, no acute distress, well developed and well groomed Nutritional Appearance: average body habitus and well nourished Orientation/consciousness: oriented to person, oriented to place and oriented to time Limitations: language barrier HEENT Head: Yes normocephalic and Yes atraumatic Eyes General: appearance normal, both eyes and all related structures Pupils: Equal, round and reactive pupils present Neck Neck: Yes normal visual inspection and Yes no lymphadenopathy Thyroid: Thyroid normal Resp Effort & Inspection: normal respiratory effort and able to speak in complete sentences Auscultation: clear to auscultation bilaterally Cardio Rate: regular rate Rhythm: regular rhythm Heart sounds: Normal, physiologic split S2 sound present Peripheral pulses: radial pulses present and posterior tibial pulses present GI Inspection: No distended and No Abdominal panniculus present Palpation (GI): Soft to palpation, nontender, no guarding, not rigid and No hepatosplenomegaly present Percussion: Yes normal to percussion Auscultation: normal bowel sounds Rectal Exam - Female: deferred Skin General skin exam: no rashes or lesions noted, turgor normal, skin not dry, no jaundice, No spider nevi and no striae Rashes: no rashes Nails: normal Neuro General: oriented to person, oriented to place and oriented to time Cranial nerves: Yes Equal, round and reactive pupils present and Yes Normal hearing present Speech: No Abnormal speech present Extrem General: Yes normal to inspection, No clubbing, No cyanosis and No edema Psych Appearance: grossly normal and well kempt Mental Status: mental status grossly normal Speech and movement: Normal speech and movement present Affect: normal affect Attitude: cooperative Thought process: Normal thought process present and not confabulating Thought content: Normal thought content present Insight: Limited insight present (Psych) Judgement: Limited judgement present (Psych) Assessment & Plan Assessment & Plan (1) Family history of Hernandez's esophagus: Comment: Brother Code(s): Z83.79 - Family history of other diseases of the digestive system Category: Medical (2) Upper abdominal pain: Code(s): R10.10 - Upper abdominal pain, unspecified Category: Medical (3) Odynophagia: Code(s): R13.10 - Dysphagia, unspecified Category: Medical Plan [place] # Chelsy Live Her mother had a history of colon cancer She received the omeprazole and is taking it consistently in the am but frequently forgets the pm dose. She has intermittent pain not r/t eating or BM's occurring 2 fingers above the belly button and to the left of the BB. It is described as intense and stabbing that lasts for minutes, sometimes it will last for 20 minutes. It is not colicky but steady. She can not describe and remitting or exacerbating factors. IT happens almost every day, no specific time of day, about twice a day. She feels her nausea is somewhat improved (this may take time). The epigastric pain was occurring only 1-2 times a week, so she is unsure if it is improved with the omeprazole. She restarted her coffee and it tolerating it and her CIC has resolved. At this point, she wants to keep a log of her pain when it happens and what it might be set off by. I think this is a good idea and I think it is also good idea to continue the omeprazole and try to take it consistently twice a day to promote healing. We could consider something like dicyclomine or Creon depending on her response going forward. (? Consider dicyclomine) Remember she also has chronic back problems that could be radiating to the belly. Return office visit in 6 weeks. Medications: Refilled omeprazole 40 mg PO BID 60 caps 6RF 30 days Coding Level of Care Code Est Pt Level 3 (79846) Diagnoses Family history of Hernandez's esophagus Z83.79 Upper abdominal pain R10.10 Odynophagia R13.10
== END 2024-02-15 10:19 | disposition home or self-care (01) ==
PROVIDERS: PCP Internal Medicine Geriatric Medicine; Visit Provider Nurse Practitioner
DX: Z83.79 Family history of other diseases of the digestive system (principal); R10.10 Upper abdominal pain, unspecified; R13.10 Dysphagia, unspecified
CPT/HCPCS: 99213

== ENCOUNTER → 2024-02-15 09:50 | Outpatient (BNVA) | payer OTHER, SELFPAY | PROVIDERS: PCP Internal Medicine Geriatric Medicine; Visit Provider Nurse Practitioner ==

== ENCOUNTER 2024-03-22 13:06 | Outpatient (AMB) | payer MEDICAID, SELFPAY ==
--- NOTE | 2024-03-22 13:09 | A.OFFVIS_ITS ---
Vital Signs 03/22/24 13:10 Height 5 ft 1 in Weight 119 lb 0.794 oz BMI 22.5 BP 122/64 Blood Pressure Location Rt brachial Position Sitting Pulse 85 Pulse Source Doppler Pulse Oximetry (%) 97 Oxygen Delivery Method Room Air Intake Visit Reasons: asthma Dairy Inspector Required: Yes Dairy Inspector Name: Deedee Rafa Waite Allergies amoxicillin [AMOXICILLIN] Allergy (Intermediate, Verified 03/22/24 13:15) DIZZINESS morphine [MORPHINE] Allergy (Unknown, Verified 03/22/24 13:15) RASH baclofen [BACLOFEN] Adverse Reaction (Intermediate, Verified 03/22/24 13:15) NAUSEA & VOMITING HPI HPI asthma: Details: 58-year-old lady, former 10 pack year smoker, quit 2009, followed for?environmental allergies and asthma.? She has been using Wixela 250 infrequently with good baseline control of her underlying symptoms.? She has been using Zyrtec more often as her allergy symptoms are getting worse. She denies acute exacerbations. COUNT INCLUDES THE [facility] Medical History Thyroid nodule Epidermal cyst Renal cyst Hematuria Microscopic hematuria Headache, migraine Asthma Migraines COVID-19 Surgical History H/O colonoscopy History of surgery of uterus History of removal of cyst (~03/31/23) History of tubal ligation Family History Mother Colon cancer, Onset Age: 56 Social History Alcohol intake: never Patient Tobacco Use Status: Former Tobacco user Tobacco use type: Cigarette Review of Systems Const Denies daytime sleepiness, Denies excessive sweating, Denies fatigue, Denies fever(s), Denies lethargy, Denies malaise, Denies night sweats, Denies snoring and Denies weight loss Eyes Denies blurry vision and Denies itchy eyes ENT Denies nasal congestion, Denies post nasal drip, Denies sinus pain, Denies sinus pressure and Denies other ( Thrush) Card Denies chest pain, Denies pedal edema, Denies dyspnea, Denies orthopnea and Denies paroxysmal nocturnal dyspnea Resp Denies cough, Denies hemoptysis, Denies excessive phlegm production, Denies dyspnea, Denies snoring and Denies wheezing GI Denies abdominal pain and Denies heartburn Musc Denies myalgias, Denies arthralgias and Denies joint swelling Skin/Breast Denies rash Neuro Denies memory loss and Denies seizure-like activity Psych Denies abnormal sleep pattern, Denies anxiety and Denies memory loss Endo Denies excessive sweating, Denies fatigue and Denies heat intolerance Andrew/Lymph Denies easy bruising Aller/Immun Denies itchy eyes, Denies seasonal rhinorrhea and Denies wheezing Physical Exam Vital Signs: Last Vital Signs Pulse 85 03/22/24 13:10 BP 122/64 03/22/24 13:10 Pulse Ox 97 03/22/24 13:10 Oxygen Delivery Method Room Air 03/22/24 13:10 BMI result Body Mass Index 22.5 Const General: no acute distress and alert Nutritional Appearance: not obese Orientation/consciousness: Other orientation findings ( oriented) HEENT Head: Yes atraumatic Eyes General: appearance normal, both eyes and all related structures Sclerae: sclerae normal EOM: EOMs intact bilaterally Neck Neck: Yes supple Lymphatic: no lymphadenopathy noted Resp Effort & Inspection: normal respiratory effort and no use of accessory muscles Auscultation: clear to auscultation bilaterally Cardio Rate: regular rate Rhythm: regular rhythm Heart sounds: no gallops, no murmurs and no rubs Skin General skin exam: other ( warm) Extrem General: No clubbing, No cyanosis and No edema Assessment & Plan Assessment & Plan (1) Asthma: Code(s): J45.909 - Unspecified asthma, uncomplicated Category: Medical Plan: Baseline controlled on Wixela and albuterol MDI. Patient advised on using her Wixela twice a day consistent for better symptomatic control. (2) Environmental allergies: Code(s): Z91.09 - Other allergy status, other than to drugs and biological substances Category: Medical Plan: And now with worsening symptoms. Patient continues on Zyrtec. Patient is not interested in immunologic therapy at this time. Coding Level of Care Code Est Pt Level 4 (83090) Diagnoses Asthma J45.909 Environmental allergies Z91.09
[2024-03-22 13:10] VITALS: BP 122/64; PULSE 85; O2SAT 97; BMI 22.5
== END 2024-03-22 13:30 | disposition home or self-care (01) ==
PROVIDERS: PCP Internal Medicine Geriatric Medicine; Visit Provider Internal Medicine Pulmonary Disease
DX: J45.909 Unspecified asthma, uncomplicated (principal); Z91.09 Other allergy status, other than to drugs and biological substances
CPT/HCPCS: 99214

== ENCOUNTER → 2024-03-22 13:06 | Outpatient (BNVA) | payer MEDICAID, SELFPAY | PROVIDERS: PCP Internal Medicine Geriatric Medicine; Visit Provider Internal Medicine Pulmonary Disease | DX: J45.909 Unspecified asthma, uncomplicated (principal); Z91.09 Other allergy status, other than to drugs and biological substances | CPT/HCPCS: 99212 ==

== ENCOUNTER 2024-03-28 09:13 | Outpatient (AMB) | payer OTHER, SELFPAY ==
--- NOTE | 2024-03-28 09:17 | A.OFFVIS_ITS ---
Vital Signs 03/28/24 09:18 Height 5 ft 1 in Weight 120 lb 13.013 oz BMI 22.8 BP 111/55 L Blood Pressure Location Lt brachial Position Sitting Pulse 75 Intake Visit Reasons: 6 month follow up Intake Note: Taryn presents to in office visit in 6 months follow up of abdominal pain. CC: Patient states that she is doing very well and she stopped taking the medications. She reports 2 episodes of nausea, weakness, feeling faint, and cold. Per patient she was told that it was vasovagal . Aesthetics Instructor Required: Yes Accompanied by: Self / Same As Patient Allergies amoxicillin [AMOXICILLIN] Allergy (Intermediate, Verified 03/28/24 09:19) DIZZINESS morphine [MORPHINE] Allergy (Unknown, Verified 03/28/24 09:19) RASH baclofen [BACLOFEN] Adverse Reaction (Intermediate, Verified 03/28/24 09:19) NAUSEA & VOMITING HPI HPI 6 month follow up: Details: Assessment & Plan (1) Family history of Hernandez's esophagus: Comment: Brother Code(s): Z83.79 - Family history of other diseases of the digestive system Category: Medical (2) Upper abdominal pain: Code(s): R10.10 - Upper abdominal pain, unspecified Category: Medical (3) Odynophagia: Code(s): R13.10 - Dysphagia, unspecified Category: Medical Plan [place] # Chelsy Live Her mother had a history of colon cancer She received the omeprazole and is taking it consistently in the am but frequently forgets the pm dose. She has intermittent pain not r/t eating or BM's occurring 2 fingers above the belly button and to the left of the BB. It is described as intense and stabbing that lasts for minutes, sometimes it will last for 20 minutes. It is not colicky but steady. She can not describe and remitting or exacerbating factors. IT happens almost every day, no specific time of day, about twice a day. She feels her nausea is somewhat improved (this may take time). The epigastric pain was occurring only 1-2 times a week, so she is unsure if it is improved with the omeprazole. She restarted her coffee and it tolerating it and her CIC has resolved. At this point, she wants to keep a log of her pain when it happens and what it might be set off by. I think this is a good idea and I think it is also good idea to continue the omeprazole and try to take it consistently twice a day to promote healing. We could consider something like dicyclomine or Creon depending on her response going forward. (? Consider dicyclomine) Remember she also has chronic back problems that could be radiating to the belly. Return office visit in 6 weeks. Medications: Refilled omeprazole 40 mg PO BID 60 caps 6RF 30 days TODAY'S VISIT [place] #[id number], Moe Her mother had a history of colon cancer She says her sx have resolved, her PCP said is was r/t vasovagal episodes. She has simply been advised to drink more water to help keep this at [place]. Since no longer treating her since she has not taking the omeprazole I tell her she is welcome to return to our service if she feels she needs our help. ABE mujican. [facility] Medical History Thyroid nodule Epidermal cyst Renal cyst Hematuria Microscopic hematuria Headache, migraine Asthma Migraines COVID-19 Surgical History H/O colonoscopy History of surgery of uterus History of removal of cyst (~03/31/23) History of tubal ligation Family History Mother Colon cancer, Onset Age: 56 Social History Alcohol intake: never Patient Tobacco Use Status: Former Tobacco user Tobacco use type: Cigarette Review of Systems Const Denies fatigue, Denies fever(s), Denies night sweats, Denies poor appetite and Denies weight loss ENT Reports Normal hearing present, Denies dental pain, Denies dysphagia, Reports dizziness, Denies hearing loss, Denies mouth pain, Denies odynophagia, Denies throat swelling, Denies tongue swelling and Reports other (Dentition adequate) Card Reports syncope Resp Reports no additional complaints GI Details: Reports abdominal pain, Denies melena, Denies bloating, Denies hematochezia, Denies constipation, Denies GI cramping, Denies dysphagia, Denies excessive flatus, Denies early satiety, Denies heartburn, Denies diarrhea, Reports nausea, Denies odynophagia, Reports vomiting and Denies hematemesis Skin/Breast Denies pruritus, Denies lesions, Denies rash and Denies jaundice Neuro Reports Normal hearing present, Denies Abnormal speech present, Reports dizziness and Reports syncope Endo Denies fatigue Aller/Immun Denies throat swelling and Denies tongue swelling Physical Exam Vital Signs: Last Vital Signs Pulse 75 03/28/24 09:18 BP 111/55 L 03/28/24 09:18 BMI result Body Mass Index 22.8 Const General: cooperative, no acute distress, well developed and well groomed Nutritional Appearance: average body habitus and well nourished Orientation/consciousness: oriented to person, oriented to place and oriented to time Limitations: language barrier HEENT Head: Yes normocephalic and Yes atraumatic Eyes General: appearance normal, both eyes and all related structures Pupils: Equal, round and reactive pupils present Neck Neck: Yes normal visual inspection and Yes no lymphadenopathy Thyroid: Thyroid normal Resp Effort & Inspection: normal respiratory effort and able to speak in complete sentences Auscultation: clear to auscultation bilaterally Cardio Rate: regular rate Rhythm: regular rhythm Heart sounds: Normal, physiologic split S2 sound present Peripheral pulses: radial pulses present and posterior tibial pulses present GI Inspection: No distended and No Abdominal panniculus present Palpation (GI): Soft to palpation, nontender, no guarding, not rigid and No hepatosplenomegaly present Percussion: Yes normal to percussion Auscultation: normal bowel sounds Rectal Exam - Female: deferred Skin General skin exam: no rashes or lesions noted, turgor normal, skin not dry, no jaundice, No spider nevi and no striae Rashes: no rashes Nails: normal Neuro General: oriented to person, oriented to place and oriented to time Cranial nerves: Yes Equal, round and reactive pupils present and Yes Normal hearing present Speech: No Abnormal speech present Extrem General: Yes normal to inspection, No clubbing, No cyanosis and No edema Psych Appearance: grossly normal and well kempt Mental Status: mental status grossly normal Speech and movement: Normal speech and movement present Affect: normal affect Attitude: cooperative Thought process: Normal thought process present and not confabulating Thought content: Normal thought content present Insight: Limited insight present (Psych) Judgement: Limited judgement present (Psych) Assessment & Plan Assessment & Plan (1) Family history of colon cancer: Comment: 2022 scope= hyperplastic polyp repeat in 5 years Code(s): Z80.0 - Family history of malignant neoplasm of digestive organs Category: Medical (2) Pre-op examination: Code(s): Z01.818 - Encounter for other preprocedural examination Category: Medical (3) Upper abdominal pain: Code(s): R10.10 - Upper abdominal pain, unspecified Category: Medical (4) Odynophagia: Code(s): R13.10 - Dysphagia, unspecified Category: Medical Plan [place] #[id number], Moe Her mother had a history of colon cancer She says her sx have resolved, her PCP said is was r/t vasovagal episodes. She has simply been advised to drink more water to help keep this at [place]. Since no longer treating her since she has not taking the omeprazole I tell her she is welcome to return to our service if she feels she needs our help. ABE mujican. Coding Level of Care Code Est Pt Level 3 (10626) Diagnoses Family history of colon cancer Z80.0 Pre-op examination Z01.818 Upper abdominal pain R10.10 Odynophagia R13.10
[2024-03-28 09:18] VITALS: BP 111/55; PULSE 75; BMI 22.8
== END 2024-03-28 10:09 | disposition home or self-care (01) ==
PROVIDERS: PCP Internal Medicine Geriatric Medicine; Visit Provider Nurse Practitioner
DX: Z80.0 Family history of malignant neoplasm of digestive organs (principal); Z01.818 Encounter for other preprocedural examination; R10.10 Upper abdominal pain, unspecified; R13.10 Dysphagia, unspecified
CPT/HCPCS: 99213

== ENCOUNTER → 2024-03-28 09:13 | Outpatient (BNVA) | payer OTHER, SELFPAY | PROVIDERS: PCP Internal Medicine Geriatric Medicine; Visit Provider Nurse Practitioner | DX: Z01.818 Encounter for other preprocedural examination (principal); R10.10 Upper abdominal pain, unspecified; R13.10 Dysphagia, unspecified; Z80.0 Family history of malignant neoplasm of digestive organs | CPT/HCPCS: 99212 ==

== ENCOUNTER 2024-05-24 14:48 | Outpatient (REF) | payer MEDICAID, SELFPAY ==
[2024-05-24 16:30] LABS: Anion Gap 11 (12-20); Blood Urea Nitrogen 16 mg/dL (9-16); Calcium 9.7 mg/dL (8.4-10.2); Carbon Dioxide 29 mmol/L (22-29); Chloride 105 mmol/L (96-108); Estimated Glomerular Filt Rate > 60; Glucose Random 87 mg/dL (60-115); Magnesium 2.2 mg/dL (1.6-2.6); Sodium 141 mmol/L (135-145)
== END 2024-05-24 14:49 | disposition home or self-care (01) ==
LOC: HO.HHCL 14:48
PROVIDERS: Visit Provider Nurse Practitioner
DX: M79.605 Pain in left leg (principal)
CPT/HCPCS: 36415; 80048; 83735

== ENCOUNTER 2024-07-25 14:50 | Outpatient (REF) | payer MEDICAID, SELFPAY ==
[2024-07-25 16:34] LABS: MANUAL DIFF FLAG NO
[2024-07-25 16:48] LABS: Basophils Absolute Auto 0.1 X10*3/uL (0.0-0.2); Basophils Percent Auto 0.8 % (0-2); Eosinophils Absolute Auto 0.2 X10*3/uL (0.0-0.4); Hematocrit 42.1 % (37.0-47.0); Hemoglobin 14.3 g/dl (12.0-16.0); Imm Gran Abs Auto 0.01 X10*3/uL (0.00-0.03); Imm Gran Pct Auto 0.1 % (0.0-0.4); Lymphocytes Absolute Auto 1.6 X10*3/uL (1.2-4.9); Mean Corpuscular Hemoglobin 28.3 pg (27.0-33.0); Mean Corpuscular Volume 83.2 fL (80.0-98.0); Mean Platelet Volume 10.4 fL (9.4-12.3); Monocytes Absolute Auto 0.5 X10*3/uL (0.1-1.2); Monocytes Percent Auto 6.7 % (2-11); Neutrophils Absolute Auto 5.3 x10*3/uL (2.0-8.3); Neutrophils Percent Auto 69.4 % (45-73); Platelet Count 287 X10*3/uL (160-400); Red Blood Count 5.06 X10*6/uL (4.20-5.50); White Blood Count 7.7 X10*3/uL (4.8-10.8)
[2024-07-25 17:10] LABS: Alanine Aminotransferase 18 U/L (0-31); Albumin Level 4.3 g/dL (3.5-5.0); Alkaline Phosphatase 95 U/L (39-117); Anion Gap 13 (12-20); Aspartate Amino Transferase 23 U/L (5-31); Bilirubin Total 0.4 mg/dL (0.0-1.0); Blood Urea Nitrogen 14 mg/dL (9-16); C Reactive Protein < 0.10 mg/dL (< or = 0.50); Calcium 9.7 mg/dL (8.4-10.2); Carbon Dioxide 25 mmol/L (22-29); Chloride 106 mmol/L (96-108); Estimated Glomerular Filt Rate > 60; Glucose Random 85 mg/dL (60-115); Potassium 4.1 mmol/L (3.3-5.1); Sodium 140 mmol/L (135-145); Total Protein 7.2 g/dL (6.5-8.0)
[2024-07-25 17:12] LABS: Rheumatoid Factor < 13.0 IU/mL (<15.0)
[2024-07-25 17:30] LABS: TSH reflex Free T4 1.83 uIU/mL (0.32-4.0); Vitamin D 25-OH Total 41.1 ng/mL (>30)
[2024-07-25 20:19] LABS: Erythrocyte Sedimentation Rate 9 MM/HR (0-20)
[2024-07-27 01:27] LABS: Follicle Stimulating Hormone 128.4 mIU/mL; Lutenizing Hormone 50.8 mIU/mL
[2024-07-31 14:13] LABS: Anti Nuclear Antibody Screen NEGATIVE (NEGATIVE)
== END 2024-07-25 14:51 | disposition home or self-care (01) ==
LOC: HO.HHCL 14:50
PROVIDERS: Visit Provider Internal Medicine Geriatric Medicine
DX: N95.1 Menopausal and female climacteric states (principal); R23.2 Flushing; R52 Pain, unspecified; R25.1 Tremor, unspecified
CPT/HCPCS: 36415; 80053; 82306; 83001; 83002; 84443; 85025; 85652; 86038; 86140; 86431

== ENCOUNTER 2024-08-13 12:57 | Emergency (ER) | payer OTHER, SELFPAY ==
--- NOTE | ~2024-08-13 | CT_ITS ---
EXAMINATION: CT HEAD WITHOUT CONTRAST CLINICAL INFORMATION: Headache. COMPARISON: None available. TECHNIQUE: Contiguous axial imaging was performed from the skull base to vertex without intravenous administration of contrast. This CT examination was performed using dose optimization techniques as appropriate, variously including the following: *Automated exposure control *Adjustment of mA and/or kV according to patient size (this includes techniques or standardized protocols for targeted exams where dose is matched to indication/reason for exam; i.e. extremities or head) *Use of iterative reconstruction technique DLP: 560 mGy-cm FINDINGS: No acute intracranial hemorrhage. No mass effect or midline shift. No parenchymal lesion. The arriaga-white differentiation is maintained. No extra-axial fluid collection. The ventricles and sulci are unremarkable. The basal cisterns are patent. The calvarium is intact. The visualized paranasal sinuses and mastoid air cells are clear. CT/CT head/brain wo IV con IMPRESSION: No acute intracranial hemorrhage or mass effect. Electronically signed by: Emile Verduzco MD 08/13/2024 02:47 PM [facility]
[2024-08-13 13:15] VITALS: BP 116/78; PULSE 90; RESP 19; TEMP 37; O2SAT 98; BMI 23.4
--- NOTE | 2024-08-13 13:18 | ED.GENADULT ---
HPI - General Adult General Chief complaint: Headache Stated complaint: Headache 2 weeks Time Seen by Provider: 08/13/24 15:13 Source: patient, RN notes reviewed and old records reviewed Mode of arrival: ambulatory Limitations: no limitations History of Present Illness ED Provider: TERRY JOHNSON PA-C HPI narrative: 58 year old female with pmhx significant for migraines and asthma presents to the ED today for evaluation of headache x2 weeks. Reports headache is primarily located to occipital region. She has trialed naproxen, Excedrin and Tylenol which seem to temporarily relief her headache however it returns. Reports associated photophobia. Denies dizziness, vision changes, N/V, scalp tenderness, jaw claudication. Denies head trauma/ injury. Denies any red flag symptoms. Also reports left flank pain which began today. No urinary symptoms however reports chills. No fever. Related Data Home Medications ?Medication ?Instructions ?Recorded ?Confirmed albuterol sulfate 90 mcg/actuation 2 puff inhalation Q6H PRN asthma 05/27/21 11/23/23 aerosol inhaler (ProAir HFA) cetirizine 10 mg tablet (Zyrtec) 10 mg PO DAILY PRN allergies 03/10/23 11/23/23 cholecalciferol (vitamin D3) 50 50 mcg PO QAM 02/15/24 mcg (2,000 unit) capsule (Vitamin D3) escitalopram oxalate 10 mg tablet 10 mg PO DAILY 02/15/24 Previous Rx's ?Medication ?Instructions ?Recorded Wixela Inhub 250 mcg-50 mcg/dose 1 ea inhalation BID #180 ea 04/07/23 powder for inhalation (fluticasone propion-salmeterol) omeprazole 40 mg capsule,delayed 40 mg PO BID 30 days #60 caps 02/15/24 release vqyebkpcxo-eibpwnjhqwarq-euxyrdyr 1 cap PO Q4-6H PRN pain (scale 08/13/24 50 mg-300 mg-40 mg capsule score 4-6) #10 caps (Fioricet) Allergies Allergy/AdvReac Type Severity Reaction Status Date / Time amoxicillin [AMOXICILLIN] Allergy Intermediate DIZZINESS Verified 08/13/24 13:18 morphine [MORPHINE] Allergy Unknown RASH Verified 08/13/24 13:18 baclofen [BACLOFEN] AdvReac Intermediate NAUSEA & Verified 08/13/24 13:18 VOMITING Review of Systems Review of Systems: Constitutional: No fever, chills, fatigue, night sweats, weight changes ENT/Mouth: No ear pain, hearing loss, nasal congestion, sinus pain, rhinorrhea, sore throat Eyes: No eye pain, swelling, redness, vision changes, discharge, photophobia Cardio: No chest pain, palpitations, BLACK, orthopnea, peripheral edema Pulm: No SOB, cough, sputum, wheezing, dyspnea, hemoptysis GI: No nausea, vomiting, hematemesis, abdominal pain, diarrhea, constipation, hematochezia, melena : No irregular bleeding, dysuria, frequency, urgency, hesitancy, hematuria, flank pain, urinary flow changes, urinary incontinence or retention MSK: No back pain, neck pain, joint pain, myalgias Skin: No lesions, rashes Neuro: No weakness, numbness, paresthesias, LOC, dizziness, +headache Psych: No anxiety/panic, depression, SI/HI, AH/VH All other systems reviewed and are negative. [facility] [place] Past Medical History Attestation statement: The following information was validated with the patient. Source: old records reviewed and nursing notes reviewed Medical History Thyroid nodule Epidermal cyst Renal cyst Hematuria Microscopic hematuria Headache, migraine Asthma Migraines COVID-19 Surgical History H/O colonoscopy History of surgery of uterus History of removal of cyst (~03/31/23) History of tubal ligation Family History Family History Mother Colon cancer, Onset Age: 56 Social History Social History Alcohol intake: never Patient Tobacco Use Status: Former Tobacco user Tobacco use type: Cigarette Advance Directives: No Advance Directives Information Provided: Yes Do you have a plan to hurt others: No Plan Physical Exam ED Vital Signs: Vital Signs - 24 hr 08/13/24 13:15 08/13/24 16:02 08/13/24 17:04 Temperature 98.6 F 97.4 F 97.4 F Pulse Rate 90 110 H 88 Respiratory Rate 19 16 16 Blood Pressure 116/78 148/86 H 137/74 Pulse Oximetry 98 100 100 Oxygen Delivery Method Room Air Room Air BMI result Body Mass Index 23.4 vital signs stable General: Well appearing, in no acute distress. Skin: Warm, dry, intact. No rashes or lesions. Head: Normocephalic, atraumatic. No scalp tenderness. No palpable temporal artery. EENT: Hearing is intact b/l. Conjunctiva clear. Sclera is anicteric. PERRLA. EOM intact. Moist mucous membranes.? Neck: Supple without LAD Cardiac: Chest wall symmetric. RRR. Lungs: Normal respiratory effort without accessory muscle use. CTA bilaterally Abd: soft, ND/NT. no rebound or guarding. no cvat. Ext: Upper and lower extremities atraumatic, without tenderness, deformity, swelling or erythema. Full ROM throughout. Neuro: AOx3. Normal speech. No focal neuro deficits. Normal muvduw-tf-qmci, heel to dumont. Ambulating with steady gait. Psych: Appropriate mood and affect. Responds appropriately to questions. Course Course Course Narrative: RME: 58 yold female with pmh of migraines presents to the ED for headache for the past two weeks. Patient denies any new trauma. Patient denies any chest pain or shortness of breath. Negative for any neuro deficits. NIH score is 0. Patient states headache relieved with Excedrin but then returns. Reevaluation(s) Reevaluation #1: Dione Sims PA-C have accepted care of the patient and signed out pending reassessment. Patient was receiving medication for a headache, which included Reglan, she became subtly tachycardic, . Likely dystonic reaction. Time: 16:00 Reevaluation #2: Patient improved, feels well eager for discharge Time: 17:00 Medications Administered Discontinued Medications Generic Name Dose Route Start Last Admin Trade Name Freq PRN Reason Stop Dose Admin Diphenhydramine HCl 50 mg 08/13/24 15:26 08/13/24 15:39 Diphenhydramine Hcl 50 Mg/Ml Vial IVPUSH 08/13/24 15:27 50 mg ONCE ONE Administration Ketorolac Tromethamine 30 mg 08/13/24 15:26 08/13/24 15:38 Ketorolac Tromethamine 30 Mg/Ml Vial IVPUSH 08/13/24 15:27 30 mg ONCE ONE Administration Metoclopramide HCl 10 mg 08/13/24 15:26 08/13/24 15:38 Metoclopramide Hcl 10 Mg/2 Ml Vial IVPUSH 08/13/24 15:27 10 mg ONCE ONE Administration Medical Decision Making Medical Decision Making [facility] Narrative: 58 year old female with pmhx significant for migraines and asthma presents to the ED today for evaluation of headache x2 weeks. Vital signs stable. Afebrile. Not hypoxic. Not tachycardic. She is nontoxic appearing in no acute distress. Lying comfortably on exam bed, lights dimmed. No scalp tenderness. No palpable temporal artery. Noted photophobia. PERRLA. Exam nonfocal. Cerebellum intact. Ambulating with steady gait. NIH 0. Differential diagnosis includes viral syndrome, migraine vs tension type headache. No headache red flags. Neurologic exam without evidence of meningismus. No focal neurologic findings. Presentation not consistent with acute intracranial bleed including SAH (lack of risk factors, headache history). Presentation not consistent with acute SHOCHET infection including meningitis or brain abscess. Temporal arteritis unlikely, as is acute angle closure glaucoma given history and physical findings. Presentation not consistent with other acute, emergent causes of headache at this time. Plan for imaging, viral serology, UA, pain control, re-evaluation. Differential Diagnosis Differential Diagnoses: The differential diagnosis associated with the presentation includes As above Admission/Observation Not indicated Lab Data [facility] Lab Attestation statement: I reviewed the patient's lab results. As above Labs: Lab Results 08/13/24 08/13/24 Range/Units 13:35 15:41 Urine Color Yellow Urine Appearance Clear Urine pH 5.5 (5.0-9.0) Ur Specific [place] 1.010 (1.005-1.025) Urine Protein Negative (Neg-Trace) mg/dL Urine Glucose (UA) Negative (Negative) mg/dL Urine Ketones Negative (Negative) mg/dL Urine Blood Negative (Negative) Urine Nitrite Negative (Negative) Ur Leukocyte Esterase Negative (Negative) Influenza Type A (PCR) NEGATIVE (Negative) Influenza Type B (PCR) NEGATIVE (Negative) RSV RNA Qual (PCR) NEGATIVE (Negative) SARS-CoV-2 RNA (RT-PCR) NEGATIVE (Negative) S. pyogenes GrpA [place] Negative (Negative) Independent Interpretation I performed an independent interpretation of an: CT Scan Interpretation: CT head/ brain without bleed or mass. Radiology Impression Discussion of test interpretation with radiology: I have reviewed the radiologist's reading. Radiologist Impression: EXAMINATION: CT HEAD WITHOUT CONTRAST CLINICAL INFORMATION: Headache. COMPARISON: None available. TECHNIQUE: Contiguous axial imaging was performed from the skull base to vertex without intravenous administration of contrast. This CT examination was performed using dose optimization techniques as appropriate, variously including the following: *Automated exposure control *Adjustment of mA and/or kV according to patient size (this includes techniques or standardized protocols for targeted exams where dose is matched to indication/reason for exam; i.e. extremities or head) *Use of iterative reconstruction technique DLP: 560 mGy-cm FINDINGS: No acute intracranial hemorrhage. No mass effect or midline shift. No parenchymal lesion. The arriaga-white differentiation is maintained. No extra-axial fluid collection. The ventricles and sulci are unremarkable. The basal cisterns are patent. The calvarium is intact. The visualized paranasal sinuses and mastoid air cells are clear. CT/CT head/brain wo IV con IMPRESSION: No acute intracranial hemorrhage or mass effect. Electronically signed by: Emile Verduzco MD 08/13/2024 02:47 PM [facility] External Record Review External record reviewed: Inpatient record, Office record, Outpatient record, Prior outpatient labs, Prior outpatient radiology, Primary care record and Outside ED record Prescription Management I considered prescription management with: Pain Medication (fioricet) Chronic Conditions Patient?s care impacted by: Other (migraines) Social Determinants Patient?s care significantly limited by Social Determinants of Health including: Other Social Determinant of Health Critical Care Time Critical Care Time Critical Care Time: No Discharge Plan Discharge Clinical Impression: Headache Patient Disposition: Home, Self-Care Instructions: General Headache (ED) Additional Instructions: You have been evaluated in the Emergency Department today for headache. Your evaluation did not show evidence of medical conditions requiring emergent intervention at this time, and your pain improved with medication in the ED. Your blood work, viral swabs, urine, and head imaging are all normal. Sometimes it is difficult to explain the cause of headache but the negative workup today is reassuring. Fioricet has been sent to your pharmacy for you to take as needed for headache. Do not use this more than 3 days in a row as this can cause rebound headache. After you take this medication lie down in a dark quiet room and try to fall asleep. Please follow up with your primary care physician within two days. Return to the Emergency Department if you experience worsening or uncontrolled pain, vision changes, recurrent vomiting, difficulty with normal activities, abnormal behavior, difficulty walking, numbness, weakness, or any other concerning symptoms. Prescriptions: New cqrkalmmtq-pracmeuhsxadb-hvjj [Fioricet] 50-300-40 mg capsule 1 cap PO Q4-6H PRN (Reason: pain (scale score 4-6)) Qty: 10 0RF No Action albuterol sulfate [ProAir HFA] 90 mcg/actuation HFA aerosol inhaler 2 puff inhalation Q6H PRN (Reason: asthma) cetirizine [Zyrtec] 10 mg tablet 10 mg PO DAILY PRN (Reason: allergies) fluticasone propion-salmeterol [Wixela Inhub] 250-50 mcg/dose blister with device 1 ea inhalation BID Qty: 180 4RF cholecalciferol (vitamin D3) [Vitamin D3] 50 mcg (2,000 unit) capsule 50 mcg PO QAM escitalopram oxalate 10 mg tablet 10 mg PO DAILY omeprazole 40 mg capsule,delayed release(DR/EC) 40 mg PO BID 30 Days Qty: 60 6RF Referrals: Name,MD Kevon [Primary Care Provider] - Stand Alone Forms: Work/School Release Interventions: ED Discharge Assessment Last Done: 08/13/24 17:04 Discharge Date/Time: 08/13/24 17:10 Print Language: Singaporean
[2024-08-13 13:51] LABS: IDNOW Serial# 08D9AD1C; Strep A Nucleic Acid Negative (Negative)
[2024-08-13 15:00] LABS: Influenza A PCR NEGATIVE (Negative); Influenza B PCR NEGATIVE (Negative); Resp Syncy Virus RNA Qual PCR NEGATIVE (Negative); SARS COV2 PCR INHOUSE NEGATIVE (Negative)
[2024-08-13] MEDS: Metoclopramide HCl 10 MG/2 ML VIAL IVPUSH (15:38)
[2024-08-13] MEDS: Ketorolac Tromethamine 30 MG/ML VIAL IVPUSH (15:38)
[2024-08-13] MEDS: diphenhydrAMINE HCL 50 MG/ML VIAL IVPUSH (15:39)
[2024-08-13 15:49] LABS: Appearance Urine Clear; Color Urine Yellow; Glucose Urine UA Negative (Negative); Leukocyte Esterase Urine Negative (Negative); Nitrite Urine Negative (Negative); PH 5.5 (5.0-9.0); Urine Blood Negative (Negative); Urine Ketones Negative (Negative); Urine Protein Negative (Neg-Trace)
[2024-08-13 16:02] VITALS: BP 148/86; PULSE 110; RESP 16; TEMP 36.3; O2SAT 100
[2024-08-13 17:04] VITALS: BP 137/74; PULSE 88; RESP 16; TEMP 36.3; O2SAT 100
== END 2024-08-13 17:10 | disposition home or self-care (01) ==
PROVIDERS: Physician Assistant; Physician Assistant Medical; Emergency Provider Emergency Medicine; PCP Internal Medicine Geriatric Medicine
DX: R51.9 Headache, unspecified (principal); Z87.891 Personal history of nicotine dependence; Z79.899 Other long term (current) drug therapy; Z03.818 Encounter for observation for suspected exposure to other biological agents ruled out
CPT/HCPCS: 0241U; 70450; 81003; 87651; 96374; 96375; 99283; 99284; J1200; J1885; J2765

== ENCOUNTER 2024-10-02 10:41 | Outpatient (REF) | payer OTHER, SELFPAY ==
--- NOTE | ~2024-10-02 | CT_ITS ---
EXAMINATION: CT ABDOMEN AND PELVIS WITHOUT AND WITH CONTRAST CLINICAL INFORMATION: Microscopic hematuria. COMPARISON: None available. TECHNIQUE: Noncontrast CT of the abdomen and pelvis is performed followed by split bolus contrast-enhanced images using 85 mL Omnipaque 350 contrast. Postcontrast imaging is performed during the combined nephrogram and excretion phase. Sagittal and coronal reformatted images were obtained on the technologist's workstation for both the precontrast and postcontrast phases. This CT examination was performed using dose optimization techniques as appropriate, variously including the following: *Automated exposure control *Adjustment of mA and/or kV according to patient size (this includes techniques or standardized protocols for targeted exams where dose is matched to indication/reason for exam; i.e. extremities or head) *Use of iterative reconstruction technique. Total dose: 470 mGy centimeters. FINDINGS: LIVER, GALLBLADDER, AND BILIARY TREE: Liver measures 15 cm. No focal mass. Portal veins and hepatic veins are patent. Intrahepatic portion of the IVC is patent. No pericholecystic fluid collection or gallbladder wall thickening. No intrahepatic or extrahepatic biliary ductal dilatation. PANCREAS: No focal mass. No peripancreatic fluid collection. No main pancreatic ductal dilatation. SPLEEN: 9 cm. No focal mass. ADRENAL GLANDS: No nodular lesions. KIDNEYS AND URETERS: No hydronephrosis. No nephrolithiasis. No renal mass. Normal enhancement pattern and urinary excretion of the IV contrast by the kidneys. BLADDER: Fluid-filled. GASTROINTESTINAL TRACT: Numerous diverticula, throughout the large intestine. Abundant stool. No intestinal obstruction pattern. Appendix is normal. No pneumatosis intestinalis. No ascites. No pneumoperitoneum. ABDOMINAL WALL: Small fat-containing umbilical hernia and diastases abdominal rectus muscles. LYMPH NODES: No gross lymphadenopathy. Mild mesenteric edema pattern. VASCULAR: No aneurysm or dissection, abdominal aorta. PELVIC VISCERA: 2 cm partially calcified nodular lesion and in the anterior body of the uterus. OSSEUS STRUCTURES: Multilevel spondylosis. Broad-based disc bulging versus broad-based disc herniation at L4-5. CT/CT urogram IMPRESSION: No renal mass. No nephrolithiasis. Electronically signed by: Leon Marquez MD 10/03/2024 11:28 AM EST
[2024-10-02] MEDS: iohexoL 350 MG/ML 75 ML INFUS..BTL 85 ML IV (11:25)
[2024-10-03 16:18] LABS: Creatinine POC 0.8 mg/dL (0.5-1.4); GFR POC > 60
== END 2024-10-02 10:42 | disposition home or self-care (01) ==
LOC: HO.CT 10:41
PROVIDERS: PCP Internal Medicine Geriatric Medicine; Visit Provider Nurse Practitioner Family
DX: R31.29 Other microscopic hematuria (principal); N28.1 Cyst of kidney, acquired
CPT/HCPCS: 74178; 82565; Q9967

== ENCOUNTER → 2024-10-02 10:44 | Outpatient (BNV) | payer OTHER, SELFPAY | PROVIDERS: PCP Internal Medicine Geriatric Medicine; Visit Provider Radiology Diagnostic Radiology | DX: R31.29 Other microscopic hematuria (principal) | CPT/HCPCS: 74178 ==

== ENCOUNTER 2024-10-12 14:07 | Outpatient (AMB) | payer OTHER, MEDICAID, SELFPAY ==
--- NOTE | 2024-10-12 14:38 | MHC.OFFVIS ---
Intake Visit Reasons: 1y/CT/labs(set) Intake Note: Patient is Present for Follow Up Urogram Urology Medication: None Antibiotic Allergies: Amoxicillin Blood Thinners: None Biodiesel Product Development Manager Required: Yes Biodiesel Product Development Manager Language: Design Transferrer Services: Biodiesel Product Development Manager Present Biodiesel Product Development Manager Name: [id number] BRYAN Allergies amoxicillin [AMOXICILLIN] Allergy (Intermediate, Verified 10/12/24 15:13) DIZZINESS morphine [MORPHINE] Allergy (Unknown, Verified 10/12/24 15:13) RASH baclofen [BACLOFEN] Adverse Reaction (Intermediate, Verified 10/12/24 15:13) NAUSEA & VOMITING Medication List - Last Reconciled 10/12/24 by JOSE BahenaP-BC albuterol sulfate 90 mcg/actuation (ProAir HFA) 2 puffs inhalation Q6H PRN bnwjohaduf-oblmwjoqrlsez-qgbc 50-300-40 mg (Fioricet) 1 cap PO Q4-6H PRN cetirizine (Zyrtec) 10 mg PO DAILY PRN cholecalciferol (vitamin D3) (Vitamin D3) 50 mcg PO QAM escitalopram oxalate 10 mg PO DAILY omeprazole 40 mg PO BID 30 days Wixela Inhub 250-50 mcg/dose (fluticasone propion-salmeterol) 1 ea inhalation BID NS HPI Comments Details: Taryn is a Macedonian-speaking 58-year-old female patient of Dr. Sheffield who was accompanied by his significant other at today's office visit. She has a past medical history of thyroid nodule, renal cysts, microscopic hematuria, and migraines, asthma, She presents to the office today for follow-up regarding her history of microscopic hematuria and bilateral renal cyst. Patient reports to be doing well. She denies any urological issues at this time. Recent CT results reviewed with the patient today. 10/21 bilateral kidneys with no hydronephrosis, nephrolithiasis, and or renal masses. Normal enhancement pattern in urinary excretion of the IV contrast by the kidneys. The bladder is fluid-filled. Urine cytologies 09/16 and 10/20 Negative for high grade urothelial carcinoma. Patient with a previous history of in office cystoscopy that noted no abnormalities per patient. In office urinalysis results reviewed with the patient today. Microscopic hematuria noted. We discussed at length potential causes of microscopic hematuria and further workup to include repeat in office cystoscopy. She denies any previous history of workplace chemical exposure and or nicotine dependence. She currently denies any bothersome lower urinary tract symptoms. She denies urinary urgency, urinary frequency, incontinence, nocturia, hematuria, dysuria, foul smelling urine, changes to urinary stream, flank pain, fever, and or chills. She is happy with her current voiding parameters. [facility] Medical History Thyroid nodule Epidermal cyst Renal cyst Hematuria Microscopic hematuria Headache, migraine Asthma Migraines COVID-19 Surgical History H/O colonoscopy History of surgery of uterus History of removal of cyst (~03/31/23) History of tubal ligation Family History Mother Colon cancer, Onset Age: 56 Social History Alcohol intake: never Patient Tobacco Use Status: Former Tobacco user Tobacco use type: Cigarette Review of Systems Const All systems reviewed & are unremarkable except as noted in HPI and below Physical Exam Const General: cooperative, healthy appearing, comfortable, no acute distress, well developed, alert and awake Orientation/consciousness: patient oriented x3 Limitations: no limitations HEENT Head: Yes normal to inspection, Yes normocephalic and Yes atraumatic Ears: hearing grossly normal bilaterally Eyes General: appearance normal, both eyes and all related structures Neck Neck: Yes normal visual inspection and Yes trachea midline Chest Chest palpation & inspection: normal inspection of the chest Resp Effort & Inspection: normal respiratory effort and able to speak in complete sentences Cardio Rate: regular rate GI Inspection: Yes normal to inspection General: Yes no CVA tenderness Back/Spine/Pelvis Back: no CVA tenderness Skin General skin exam: no rashes or lesions noted Neuro General: patient oriented x3 Extrem General: Yes normal to inspection Psych Appearance: grossly normal and well kempt Mental Status: mental status grossly normal Speech and movement: Normal speech and movement present and Clear speech present Affect: normal affect Attitude: cooperative Thought process: Normal thought process present Thought content: Normal thought content present Insight: Fair insight present (Psych) Judgement: Fair judgement present (Psych) Results AMB Urinalysis, Automated UA Leukoctes 0 Rigo/uL Last Edit by Deedee Turpin, A on 10/12/24 14:50 UA Nitrite Negative Last Edit by Deedee Turpin, A on 10/12/24 14:50 UA Urobilinogen 0.2 mg/dL Last Edit by Deedee Turpin, RMA on 10/12/24 14:50 UA Protein 0 mg/dL Last Edit by Deedee Turpin, A on 10/12/24 14:50 UA pH 5.0 Last Edit by Deedee Turpin, RMA on 10/12/24 14:50 UA Blood 80 Jossue/uL Last Edit by Deedee Turpin, RMA on 10/12/24 14:50 UA Specific [place] 1.020 Last Edit by Deedee Turpin, A on 10/12/24 14:50 UA Ketone Negative Last Edit by Deedee Turpin, A on 10/12/24 14:50 UA Bilirubin 0 mg/dL Last Edit by Deedee Turpin, A on 10/12/24 14:50 UA Glucose 0 mg/dL Last Edit by Deedee Turpin, A on 10/12/24 14:50 Results Reviewed Results Reviewed: Laboratory Last Values Urine pH (Auto) 5.0 10/12/24 14:41 Specific [place] (Auto) 1.020 10/12/24 14:41 Urine Protein (Auto) 0 mg/dL 10/12/24 14:41 Glucose (UA)(Auto) 0 mg/dL 10/12/24 14:41 Urine Ketones (Auto) Negative 10/12/24 14:41 Urine Blood (Auto) 80 Jossue/uL 10/12/24 14:41 Urine Nitrite (Auto) Negative 10/12/24 14:41 Urine Bilirubin (Auto) 0 mg/dL 10/12/24 14:41 Urine Urobilinogen (Auto) 0.2 mg/dL 10/12/24 14:41 Leukocyte Esterase (Auto) 0 Rigo/uL 10/12/24 14:41 Date of Service: 10/02/24 Procedure(s): CT urogram FINDINGS: LIVER, GALLBLADDER, AND BILIARY TREE: Liver measures 15 cm. No focal mass. Portal veins and hepatic veins are patent. Intrahepatic portion of the IVC is patent. No pericholecystic fluid collection or gallbladder wall thickening. No intrahepatic or extrahepatic biliary ductal dilatation. PANCREAS: No focal mass. No peripancreatic fluid collection. No main pancreatic ductal dilatation. SPLEEN: 9 cm. No focal mass. ADRENAL GLANDS: No nodular lesions. KIDNEYS AND URETERS: No hydronephrosis. No nephrolithiasis. No renal mass. Normal enhancement pattern and urinary excretion of the IV contrast by the kidneys. BLADDER: Fluid-filled. GASTROINTESTINAL TRACT: Numerous diverticula, throughout the large intestine. Abundant stool. No intestinal obstruction pattern. Appendix is normal. No pneumatosis intestinalis. No ascites. No pneumoperitoneum. ABDOMINAL WALL: Small fat-containing umbilical hernia and diastases abdominal rectus muscles. LYMPH NODES: No gross lymphadenopathy. Mild mesenteric edema pattern. VASCULAR: No aneurysm or dissection, abdominal aorta. PELVIC VISCERA: 2 cm partially calcified nodular lesion and in the anterior body of the uterus. OSSEUS STRUCTURES: Multilevel spondylosis. Broad-based disc bulging versus broad-based disc herniation at L4-5. IMPRESSION: No renal mass. No nephrolithiasis. Assessment & Plan Assessment & Plan (1) Microscopic hematuria: Code(s): R31.29 - Other microscopic hematuria Category: Medical Plan In office urinalysis results reviewed with the patient today; as noted above; will send for urine cytology. We discussed at length potential causes persistent microscopic hematuria. Recent CT results reviewed with the patient today; as noted above. We discussed further workup to include repeat in office cystoscopy; however patient would like to continue with surveillance monitoring. She currently denies any bothersome urinary issues or concerns. She reports be happy with current voiding parameters. Discussed follow up with [facility] regarding; 2 cm partially calcified nodular lesion and in the anterior body of the uterus. Follow-up in 1 year; or sooner with any issues, concerns, and or questions. Orders: Orders AMB Urinalysis Automated 10/12/24 Z13.9 - Encounter for screening, unspecified Urine Cytology 10/12/24 R31.9 - Hematuria, unspecified Patient Instructions: The patient had an opportunity to ask questions regarding the treatment plan. All questions were answered. Physical exam, labs, and imaging were discussed and reviewed in detail. As well as risks, benefits, and discussion of treatment choices. No major barriers to understanding were identified. The patient expressed understanding and agreement with the above treatment plan. The patient was made aware they should contact our office by phone for worsening of their current condition, the appearance of new symptoms, or with any questions or concerns. Compliance is encouraged with any medications and follow up testing that is ordered. It is a privilege to be allowed the opportunity to participate in? your urological care.? Again, if you have any questions or concerns If you have any questions or concerns please do not hesitate to contact me. The office is [phone]. This note is constructed using voice recognition software. While every effort has been made to ensure accuracy guillotine trimmer errors may have been included. Yours sincerely, OSMAN Bahena Coding Level of Care Code Est Pt Level 3 (93871) Diagnoses Microscopic hematuria R31.29
== END 2024-10-12 15:13 | disposition home or self-care (01) ==
PROVIDERS: PCP Internal Medicine Geriatric Medicine; Visit Provider Nurse Practitioner Family
DX: Z13.9 Encounter for screening, unspecified (principal)

== ENCOUNTER 2024-10-27 13:59 | Outpatient (REF) | payer OTHER, MEDICAID, SELFPAY ==
--- OUTSIDE RECORDS SUMMARY | 2024-10-27 14:02 | XMS_ITS | Encounter Summary ---
Author Organization [employer] Address [address] [place] [address] [address] [place] [address] Care Team Providers Care Contract Implementation Analyst Name Role Phone Name, Kevon MICHAELS Primary Care Provider [phone] Maurizio Roberts Unavailable Unavailable Encounter Details Date Type Department Care Team (Late st Contact Info) Description 05/26/2023 Telephone [facility] [address] [place] [address] [phone] Kevon Sheffield MD [address] [place] [address] [phone] Social History Tobacco Use Types Packs/Day Years Used Date Smoking Tobacco: Former Cigarettes Q uit: 09/27/2002 Passive Smoke Exposure: Past Smokeless Tobacco: Never Comments Unknown Sex and Gender Information Value Date Recorded Sex Assigned at Female 07/27/2022 10:29 AM EDT Legal Sex Female 10:29 AM EDT Gender Identity Female 07/27/2022 10:29 AM EDT Sexual Orientation Straight 07/27/2022 10 :29 AM EDT documented as of this encounter Plan of Treatment Upcoming Encounters Date Type Department Care Team (Late st Contact Info) Description 12/22/2024 3:15 PM EDT Office Visit [facility] [address] [place] [address] [phone] Kevon Sheffield MD [address] [place] [address] [phone] documented as of this encounter Visit Diagnoses Not on filedocumented in this encounter Care Teams Contract Implementation Analyst Relationship Specialty Start Date End Date Kevon Sheffield MD [address] [place] [address] PCP - General Family Medicine 09/27/18 Maurizio Roberts FNP [address] [place] [address] Nurse Practitioner Family Medicine 08/31/23 documented as of this encounter
--- OUTSIDE RECORDS SUMMARY | 2024-10-27 14:02 | XMS_ITS | Clinical Summary ---
Author Organization [employer] Address [address] [place] [address] 7 [place] [address] Care Team Providers Care Feature Writer Name Role Phone Name, Kevon MICHAELS Primary Care Provider Maurizio Roberts Unavailable Unavailable Allergies Active Allergy Reactions Criticality Noted Date Comments Amoxicillin Rash Low 09/08/2016 Morphine Rash Low 03/20/2016 Medications * This document contains information received from the source organization and may not represent a complete record from that organization. albuterol (ProAir HFA) 108 (90 Base) MCG/ACT inhaler Inhale 2 puffs every 4 (four) hours. 12/30/2020 Active Fluticasone-Salm eterol (Advair Diskus) 250-50 MCG/ACT aerosol powder Inhale 1 puff every 12 (twelve) hours. Active loratadine (Claritin) 10 MG tablet Take 1 tablet by mouth 1 (one) time each day. 03/18/2020 Active fluticasone (Flonase) 50 MCG/ACT nasal sprayIndications :Seasonal allergic rhinitis due to other allergic trigger TAKE 1 SPRAY IN EACH NOSTRIL TWICE A DAY NEEDED 48 g 12/04/2022 Active omeprazole (PriLOSEC) [address] capsuleIndicatio ns:Nausea Take 1 capsule (20 mg) by mouth before evening meal. 30 capsule 1 07/02/2023 Active escitalopram (Lexapro) 10 MG tablet Take 1 tablet (10 mg) by mouth Once daily. 90 tablet 3 02/24/2024 Active fexofenadine ([place]) 180 MG tabletIndication s:Rhinitis, unspecified type,Non-seasona l allergic rhinitis due to other allergic trigger Take 1 tablet (180 mg) by mouth if needed each day (Allergies). 90 tablet 03/13/2024 Active Active Problems Problem Noted Date Diagnosed Date Family history of colon cancer 07/27/2023 Overview (07/27/2023): Mother Mild chronic obstructive pulmonary disease 09/23 Mild intermittent asthma 09/23/2022 Photophobia 09/23/2022 Pleuritic pain 09/23/2022 Renal cyst 09/23/2022 Steatosis of liver 09/23/2022 Upper abdominal pain 09/23/2022 Anxiety 12/20/2018 Assessment & Plan (02/24/2024 3:02 PM EDT): Lifetime history of anxiety, especially social anxiety but also worry about safety of her family. No depressive symptoms, mood swings, hallucinations. No substance use, no alcohol. Former cigarette smoker, quit >20 yrs ago. Lives with , supportive relationship and has other social supports. Doing very well with Lexapro 10 mg daily. Not interested in counseling at this time. Since this provider will be retiring, patient is now transitioned back to her PCP for further medication management. Any issues or concerns, contact [facility]. All her questions were answered and I have wished her well. She agrees with the plan. Assessment & Plan (11/29/2023 10:01 AM EST): Lifetime history of anxiety, especially social anxiety but also worry about safety of her family. No depressive symptoms, mood swings, hallucinations. No substance use, no alcohol. Former cigarette smoker, quit >20 yrs ago. Lives with , supportive relationship and has other social supports. Doing very well with Lexapro 10 mg daily. Not interested in counseling at this time. On 07/19/2023 provider informed pt that I would be retiring within the next year, but we would make every effort to ensure smooth transition of care. F/U with me in 2-3 months. She agrees with the plan. Assessment & Plan (09/13/2023 9:46 AM EST): Lifetime history of anxiety, especially social anxiety but also worry about safety of her family. No depressive symptoms, mood swings, hallucinations. No substance use, no alcohol. Former cigarette smoker, quit >20 yrs ago. Lives with , supportive relationship and has other social supports. Doing very well with Lexapro 10 mg daily. Not interested in counseling at this time. On 07/19/2023 provider informed pt that I would be retiring within the next year, but we would make every effort to ensure smooth transition of care. F/U with me in 2-3 months. She agrees with the plan. Assessment & Plan (07/19/2023 10:31 AM EDT): Lifetime history of anxiety, especially social anxiety but also worry about safety of her family. No depressive symptoms, mood swings, hallucinations. No substance use, no alcohol. Former cigarette smoker, quit >20 yrs ago. Lives with , supportive relationship and has other social supports. Not interested in counseling at this time. Will increase to Lexapro 10 mg daily. Today 07/19/2023 provider informed pt that I would be retiring within the next year, but we would make every effort to ensure smooth transition of care. F/U with me in 6-8 weeks. She agrees with the plan. Assessment & Plan (06/07/2023 10:55 AM EDT): Lifetime history of anxiety, especially social anxiety but also worry about safety of her family. No depressive symptoms, mood swings, hallucinations. No substance use, no alcohol. Former cigarette smoker, quit >20 yrs ago. Lives with , supportive relationship and has other social supports. Not interested in counseling at this time. Prefers to avoid medications when possible, and limit to low milligrams. Would like to try medication for anxiety. Will start Lexapro 5 mg once daily. Reviewed possible S/E's including sexual dysfunction. Explained that effect would be gradual and not noticed immediately so be patient and take every day. F/U with me in 4-6 weeks. She agrees with the plan. Assessment & Plan (02/09/2023 8:38 AM EDT): Progress Note: Taryn is a 57-year-old, Romansh speaking female that was referred for a behavioral health consult by his PCP Dr Sheffield due to anxiety sxs. Taryn reported sxs such as sweaty hands and feet, chest tight, racing thoughts, avoidance of going out by herself, feeling timid, forgetfulness, migraine exacerbated when feeling anxious. She denies SI, HI, LATIF or self-harm. Symptoms do not appear to be due to substance use. Per DSM-5 diagnostic criteria, and given the above information,Taryn has been provisionally diagnosed with Anxiety Disorder due to report of experiencing the above mentioned sxs. Assessment and Plan: Taryn was engaged with active reflective listening and open-ended questions. Assessed symptoms, risks, and social supports with direct questions. Discussed current symptoms intensity and frequency. Emotions were normalized and validated. Taryn identified drinking chamomile tea as coping mechanisms. Provided psychoeducation around relaxation techniques to manage sxs. Discussed OP therapy and medication management, Taryn reported that she has no interest in engaging with a therapist, but she agreed to referral for medication Management. Provided education around integrated medicine and the options of follow up BE's as needed. Provided contact information should questions or concerns arise. Plan: Taryn will continue to engage in effective coping mechanisms that better fit her. She will be referred to [facility] psychopharmacology Clinic for Med. Management. I provide her my contact information and encouraged her to reach out for support as needed, she agreed. Microscopic hematuria 09/08/2018 Overview (05/05/2023): ?? History of hematuria and bilateral renal cyst followed by [facility]. Last consult appt Sep 2022, with plan for follow up in 1 year Assessment & Plan (05/05/2023 5:50 PM EDT): -UA in office +hematuria +trace leuks. Negative for nitrites -Given pt description of similar to previous UTI, will tx empirically with Bactrim BID x 3 days -Send out urine culture. Plan to DC abx if UC WNL -Include testing for BV panel and chlamydia/gonorrhea. Call with results Suprapubic pain 09/08/2018 Vitamin D deficiency 07/13/2018 Acute low back pain 11/12/2017 Thyroid nodule 11/08/2017 Multinodular goiter 10/28/2017 Asthma 03/20/2016 Migraine 03/20/2016 Seasonal allergic rhinitis 03/20/2016 Resolved Problems Problem Noted Date Diagnosed Date Resolved Date Blood in urine 04/07/2016 05/05/2023 Encounters Date Type Department Care Team Description 10/12/2024 Orders Only GENERIC EXTERNAL DATA DEPARTMENT Provider, Generic External Data 10/02/2024 Orders Only [facility] External Provider, [facility] 08/13/2024 Orders Only GENERIC EXTERNAL DATA DEPARTMENT Provider, Generic External Data 08/10/2024 10:00 AM EST Office Visit [facility] [address] [address] Jason Ly MD Acute nonintractable headache, unspecified headache type (Primary Dx) from Last 3 Months Immunizations Name Administration Dates Next Due Hep B, adult 09/22/2018,05/31/2009,05/03/2009 Influenza injectable quadriv alent preservative free 07/20/2022,07/09/2021 Tdap 09/08/2016 Social History Tobacco Use Types Packs/Day Years Used Date Smoking Tobacco: Former Cigarettes Q uit: 09/27/2002 Passive Smoke Exposure: Past Smokeless Tobacco: Never Tobacco Cessation:Counseling Given: Not Answered Alcohol Use Standard Drinks/Week Comments Never 0 (1 standard drink = 0.6 oz pur e alcohol) Alcohol Answer Date Recorded Frequency of Alcohol Consumption Not on file 03/21/2024 Average Number of Drinks Not on file 024 Frequency of Binge Drinking Not on file 02/26 Score 0 03/21/2024 Depression Answer Date Recorded Patient Health Questionnaire-9 Score 2 02/24/2024 Patient Health Questionnaire-9 Score 2 02/24/2024 Last PHQ-9: Questionnaire Data Not on file 0 02/24/2024 Housing Stability Answer Date Recorded What is your housing situation today? I have juliettemaxi jose 07/26/[address] you li ve. Do you have problems with any of the following? None of the above 07/26/2023 Food Insecurity Answer Date Recorded Within the past 12 months, y ou worried that your food would run out before you got money to buy more: Never True 07/26/2023 Within the past 12 months,th e food you bought just didn't last and you didn't have enough money to get more: Never True Transportation Answer Date Recorded In the past 12 months, has l ack of transportation kept you from medical appts, meetings, work or from getting things needed for daily living? No 07/26/2023 Utilities Answer Date Recorded In the past 12 months, has t he electric, gas, oil or water company threatened to shut off services in your home? No 07/26/2023 Depression Answer Date Recorded Patient Health Questionnaire-2 Score 0 02/24/2024 Internet Access Answer Date Recorded Internet Access Q1 Yes 07/18/2024 Internet Access Q2 Not on file 07/18/2024 Comments Unknown Sex and Gender Information Value Date Recorded Sex Assigned at Female 07/27/2022 10:29 AM EDT Legal Sex Female 10:29 AM EDT Gender Identity Female 07/27/2022 10:29 AM EDT Sexual Orientation Straight 07/27/2022 10 :29 AM EDT Last Filed Vital Signs Vital Sign Reading Time Taken Comments Blood Pressure 122/72 08/10/2024 9:58 AM EST Pulse 75 08/10/2024 9:58 AM EST Temperature 36.9 ??C (98.5 ??F) 08/10/2024 9:58 AM ES T Respiratory Rate 17 08/10/2024 9:58 AM EST Oxygen Saturation 98% 08/10/2024 9:58 AM EST Inhaled Oxygen Concentration - - Weight 58.7 kg (129 lb 6.4 oz) 08/10/2024 9:58 A M EST Height 154.9 cm (5' 1 ) 07/25/2024 2:14 PM EDT Body Mass Index 24.45 07/25/2024 2:14 PM EDT Plan of Treatment Upcoming Encounters Date Type Department Care Team (Late st Contact Info) Description 12/22/2024 3:15 PM EDT Office Visit [facility] [address] [place] [address] Name, MD Kevon [address] [place] [address] Health Maintenance Due Date Last Done Comments CT Colonography 1965 FIT DNA/Cologuard 1965 FIT 1965 FOBT 1965 HIV Screening 1965 Sigmoidoscopy 1965 Pneumococcal Vaccine: Pediatrics (0 to 5 Years) and At-Risk Patients (6 to 49) Years) (1 of 2 - PCV) 12/18/1971 Hepatitis A Vaccines (1 of 2 - Risk 2-dose series) 1984 Pneumococcal Vaccine: 50+ Years (1 of 2 - PCV) 1984 Zoster Vaccines (1 of 2) 12/18/2015 COVID-19 Vaccine ( - season) 2024 Influenza Vaccine (#1) 2024 07/20/2022, 2020 Pap Smear 07/09/2024 07/09/2021 Mammogram 10/22/2024 10/22/2023, 09/28, 10/02/2022, Additional history exists Depression Screening 02/23/2025 02/24/2024, 02/24/20 Alcohol/Substance Use Screening 03/21/2025 03/21/2024 SDOH Screening 07/18/2025 07/18/2024 Tobacco Screening 07/25/2025 07/25/2024 Cervical Cancer Screening 07/09/2026 HPV/Cotest 07/09/2026 07/09/2021, 09/22/2018 DTaP/Tdap/Td Vaccines (2 - Td or Tdap) 09/08/2026 09/08/2016 Colonoscopy 07/29/2028 07/29/2023 Colorectal Cancer Screening 07/29/2028 RSV Patients and Patients Aged 60 years or older (1 - 1-dose 75+ series) 2040 Hepatitis B Vaccines Completed 09/22/2018, 05/31/2009, 05/03/2009 Hepatitis C Screening Completed 05/01/2022 , 12/22/2021, 10/31/2019 HIB Vaccines Aged Out No longer eligi ble based on patient's age to complete this topic HPV Vaccines Aged Out No longer eligi ble based on patient's age to complete this topic IPV Vaccines Aged Out No longer eligi ble based on patient's age to complete this topic Meningococcal Vaccine Aged Out No chuy tanya eligible based on patient's age to complete this topic RSV under 20 months Aged Out No longe r eligible based on patient's age to complete this topic Rotavirus Vaccines Aged Out No longer eligible based on patient's age to complete this topic Procedures Procedure Name Priority Date/Time Associated Diagnosis Comments CYTOPATH-CELL ENHANCED Routine 4:24 PM EST POCT CREATININE GFR Routine 10/02/2024 1 0:[address] UROGRAM WO CONTRAST Routine 10:48 AM EST URINALYSIS WITH REFLEX MICROSCOPIC Routine 08/13/2024 3:[address] HEAD WO CONTRAST Routine 08/13/2024 1 :45 PM EST SARS COV2/INFLUENZA A/B AND RSV RNA QL NAAT Routine 08/13/2024 1:35 PM EST STREP A NUCLEIC ACID Routine 08/13/2024 1:35 PM EST BI MAMMOGRAM SCREENING TOMOSYNTHESIS BILATERAL Routine 10/22/2023 2:25 PM EST HM COLONOSCOPY Routine 07/29/2023 ZZZ HISTORICAL HEPATITIS C AB W/REFL TO HCV RNA, QN, PCR Routine 05/01/2022 10:36 AM EDT HPV MRNA E6/E7 Routine 07/09/2021 10:08 AM EDT THINPREP PAP Routine 07/09/2021 10:08 AM EDT from Last 3 Months or Most Recently Relevant to Health Maintenance Results * Cytopath-cell enhanced (10/12/2024 4:24 PM EST) 10/12/2024 4:24 PM EST 10/13/2024 10:20 AM EST [facility] - 10/17/2024 2:34 PM EST ----- ------- Name: William HernándezTaryn ?Age/Sex: 58/F ? : 1965 Unit#: [id number] ?? Attend Dr: Jannette Cantu ?Re10/12/24 ?Status: DEP REF ? Location: .LAB ?Disch: ? ----- ------- SPEC : [id number] ?RECD: 10/13/24-1020 ? STATUS: ??SOUT ? REQ NUM: [id number] ? DOUG: 10/12/24-1624 ? SUBM DR: Jannette Cantu ? ENTERED: ??10/13/24-1105 ?SP TYPE: Cytology ? OTHR DR: Name,Kevon MICHAELS ? ORDERED: ??Cyto-enhanced ? Diagnosis ?? Urine, cytology: ??Negative for high-grade urothelial carcinoma. ? COMMENT: ??Review of the cytology preparation demonstrates a cellular specimen composed of ?? benign squames and urothelial cells. There is no significant atypia seen. ?Clinical History Hematuria, unspecified ? Material Received ?? Urine ? Gross Description Received is 40 cc of clear yellow fluid from which a ThinPrep slide is prepared. Copies To: ?? Jannette Cantu FLY FRAME TENDER-BC ?? [facility] ?? [address] [place] [address] Dr. Kang [address] ?? [place] [address] ?? [phone] ?? [email or web address] ?? Name,Kevon MICHAELS ?? [address] [facility] ?? [place] [address] ?? [phone] ----- ------- Signed (signature on file) Lizzie Whitaker MD 10/17/24 7794 ? ----- ------- ? END OF REPORT ? Generic External Data Provider LAB CYTOLOGY ORDE RABLES Final Result Performing Organization Address [facility] de Phone Number [facility] [address] [place] [address] [phone] * POCT Creatinine GFR (10/02/2024 10:51 AM EST) POCT Creatinine 0.8 0.5 - 1.4 mg/dL [facility] GFR POC >60 [facility] Comment:Chronic Kidney Disea se: Estimated GFR < 60 mL/min/1.33u1Ctokfe Kidney Disease: Estimated GFR < 15 mL/min/1.73m2 10/02/2024 10:5 1 AM EST 10/03/2024 4:16 PM EST Narrative [facility] - 10/03/2024 4:18 PM EST [id number] Generic External Data Provider LAB POINT OF CARE TEST DOCKED DEVICE ORDERABLES Final Result Performing Organization Address [facility] Phone Number [facility] [address] [place] [address] [phone] * CT Urogram w/o Contrast (10/02/2024 10:48 AM EST) Anatomical Region Laterality Modality Ureter, Upper urinary tract Comp uted Tomography 10/02/2024 10:4 8 AM EST Narrative 10/03/2024 11:31 AM EST ? [facility] ?[address] ?[place] [address] ? CT Scan Report ? Signed ? Patient: Thomas Edgar,Taryn ?MR#: [id number] ?? [id number] ? : 1965 ?Acct:[id number] ? Age/Sex: 58 / F ?ADM Date: 10/02/ ? Loc: HO.CT ? Attending Dr: Jannette BREWER ? Ordering Physician: Jannette Cantu ?? Date of Service: 10/02/24 ?? Procedure(s): CT urogram ?? Accession Number(s): [id number] ? cc: Jannette Cantu; Name,Kevon MICHAELS ? Report Number: ?? [id number]: Total DLP = ??470.00 mGy-cm ?? EXAMINATION: ?? CT ABDOMEN AND PELVIS WITHOUT AND WITH CONTRAST ? CLINICAL INFORMATION: ?? Microscopic hematuria. ? COMPARISON: ?? None available. ? TECHNIQUE: ?? Noncontrast CT of the abdomen and pelvis is performed followed by split ?? bolus contrast-enhanced images using 85 mL Omnipaque 350 contrast. ? Postcontrast imaging is performed during the combined nephrogram and ?? excretion phase. Sagittal and coronal reformatted images were obtained ?? on the technologist's workstation for both the precontrast and ?? postcontrast phases. ? This CT examination was performed using dose optimization techniques as ?? appropriate, variously including the following: ?? *Automated exposure control ?? *Adjustment of mA and/or kV according to patient size (this includes ?? techniques or standardized protocols for targeted exams where dose is ?? matched to indication/reason for exam; i.e. extremities or head) ?? *Use of iterative reconstruction technique. ? Total dose: 470 mGy centimeters. ? FINDINGS: ? LIVER, GALLBLADDER, AND BILIARY TREE: ?? Liver measures 15 cm. No focal mass. Portal veins and hepatic veins are ?? patent. Intrahepatic portion of the IVC is patent. ?? No pericholecystic fluid collection or gallbladder wall thickening. ?? No intrahepatic or extrahepatic biliary ductal dilatation. ? PANCREAS: No focal mass. No peripancreatic fluid collection. No main ?? pancreatic ductal dilatation. ? SPLEEN: 9 cm. No focal mass. ? ADRENAL GLANDS: No nodular lesions. ? KIDNEYS AND URETERS: ? No hydronephrosis. ?? No nephrolithiasis. ?? No renal mass. ?? Normal enhancement pattern and urinary excretion of the IV contrast by ?? the kidneys. ? BLADDER: Fluid-filled. ? GASTROINTESTINAL TRACT: ? Numerous diverticula, throughout the large intestine. ?? Abundant stool. ?? No intestinal obstruction pattern. ?? Appendix is normal. ?? No pneumatosis intestinalis. ?? No ascites. ?? No pneumoperitoneum. ? ABDOMINAL WALL: Small fat-containing umbilical hernia and diastases ?? abdominal rectus muscles. ? LYMPH NODES: No gross lymphadenopathy. Mild mesenteric edema pattern. ? VASCULAR: No aneurysm or dissection, abdominal aorta. ? PELVIC VISCERA: 2 cm partially calcified nodular lesion and in the ?? anterior body of the uterus. ? OSSEUS STRUCTURES: Multilevel spondylosis. Broad-based disc bulging ?? versus broad-based disc herniation at L4-5. ? CT/CT urogram ?? IMPRESSION: ?? No renal mass. ?? No nephrolithiasis. ? Electronically signed by: ??Leon Marquez MD ??10/03/2024 11:28 AM ?? EST RP ? Dictated By: ?Leon Lim MD ? Signed By: ?<Electronically signed by Leon Garrett MD in OV> ? 10/03/24 1128 ? DD/ 1048 ? TD/TT: 10/02/24 1100 ? Assurance Associate: ? Procedure Note Aly, Aileen - 10/03/[address] [address] [address] Scan Report Signed Patient: Vangie PetitnMMarya#: [id number] : 1965Acct:[id number] Age/Sex: 58 / FADM Date: 10/02/24 Loc: HO.CT Attending Dr: Jannette BREWER Ordering Physician: Jannette Cantu Date of Service: 10/02/24 Procedure(s): CT urogram Accession Number(s): [id number] cc: Jannette Cantu; Name,Kevon MICHAELS Report Number: [id number]: Total DLP = 470.00 mGy-cm EXAMINATION: CT ABDOMEN AND PELVIS WITHOUT AND WITH CONTRAST CLINICAL INFORMATION: Microscopic hematuria. COMPARISON: None available. TECHNIQUE: Noncontrast CT of the abdomen and pelvis is performed followed by split bolus contrast-enhanced images using 85 mL Omnipaque 350 contrast. Postcontrast imaging is performed during the combined nephrogram and excretion phase. Sagittal and coronal reformatted images were obtained on the technologist's workstation for both the precontrast and postcontrast phases. This CT examination was performed using dose optimization techniques as appropriate, variously including the following: *Automated exposure control *Adjustment of mA and/or kV according to patient size (this includes techniques or standardized protocols for targeted exams where dose is matched to indication/reason for exam; i.e. extremities or head) *Use of iterative reconstruction technique. Total dose: 470 mGy centimeters. FINDINGS: LIVER, GALLBLADDER, AND BILIARY TREE: Liver measures 15 cm. No focal mass. Portal veins and hepatic veins are patent. Intrahepatic portion of the IVC is patent. No pericholecystic fluid collection or gallbladder wall thickening. No intrahepatic or extrahepatic biliary ductal dilatation. PANCREAS: No focal mass. No peripancreatic fluid collection. No main pancreatic ductal dilatation. SPLEEN: 9 cm. No focal mass. ADRENAL GLANDS: No nodular lesions. KIDNEYS AND URETERS: No hydronephrosis. No nephrolithiasis. No renal mass. Normal enhancement pattern and urinary excretion of the IV contrast by the kidneys. BLADDER: Fluid-filled. GASTROINTESTINAL TRACT: Numerous diverticula, throughout the large intestine. Abundant stool. No intestinal obstruction pattern. Appendix is normal. No pneumatosis intestinalis. No ascites. No pneumoperitoneum. ABDOMINAL WALL: Small fat-containing umbilical hernia and diastases abdominal rectus muscles. LYMPH NODES: No gross lymphadenopathy. Mild mesenteric edema pattern. VASCULAR: No aneurysm or dissection, abdominal aorta. PELVIC VISCERA: 2 cm partially calcified nodular lesion and in the anterior body of the uterus. OSSEUS STRUCTURES: Multilevel spondylosis. Broad-based disc bulging versus broad-based disc herniation at L4-5. CT/CT urogram IMPRESSION: No renal mass. No nephrolithiasis. Electronically signed by: Leon Marquez MD 10/03/2024 11:28 AM EST RP Dictated By: Leon Lim MD Signed By: <Electronically signed by Leon Garrett MDin OV> 10/03/24 1128 DD/ 1048 TD/TT: 10/02/24 1100 Assurance Associate: us [facility] External Provider IMG CT PROCEDURES Edited Result - Final * Urinalysis w/reflex microscopic (08/13/2024 3:41 PM EST) Color Urine Yellow [facility] Appearance Urine Clear [facility] PH 5.5 5.0 - 9.0 [facility] Glucose Urine UA Negative Negative mg/dL [facility] Urine Blood Negative Negative [facility] Specific [place] - Urine 1.010 1.005 - 1.025 [facility] Urine Protein Negative Neg-Trace mg/dL [facility] Urine Ketones Negative Negative mg/dL [facility] Nitrite Urine Negative Negative [facility] Leukocyte Esterase Urine Negative Negative [facility] 08/13/2024 3:41 PM EST 08/13/2024 3:44 PM EST Narrative [facility] - 08/13/2024 3:50 PM EST Urine, Clean Catch Generic External Data Provider LAB URINE ORDERAB LES Final Result Performing Organization Address [facility] de Phone Number [facility] [address] [place] [phone] * CT Head w/o Contrast (08/13/2024 1:45 PM EST) Anatomical Region Laterality Modality Head, Neck Computed Tomogra phy 08/13/2024 1:45 PM EST Narrative 08/13/2024 2:51 PM EST ? [facility] ?[address] ?[place] [address] ? CT Scan Report ? Signed ? Patient: Thomas Edgar,Taryn ?MR#: [id number] ?? [id number] ? : 1965 ?Acct:[id number] ? Age/Sex: 58 / F ?ADM Date: 08/13/24 ? Loc: HO.ED ? Attending Dr: ? Ordering Physician: Florentino Dee ?? Date of Service: 08/13/24 ?? Procedure(s): CT head/brain wo IV con ?? Accession Number(s): [id number] ? cc: Florentino Dee; Name,Kevon MICHAELS ? EXAMINATION: ?? CT HEAD WITHOUT CONTRAST ? CLINICAL INFORMATION: ?? Headache. ? COMPARISON: ?? None available. ? TECHNIQUE: ?? Contiguous axial imaging was performed from the skull base to vertex ?? without intravenous administration of contrast. ? This CT examination was performed using dose optimization techniques as ?? appropriate, variously including the following: ?? *Automated exposure control ?? *Adjustment of mA and/or kV according to patient size (this includes ?? techniques or standardized protocols for targeted exams where dose is ?? matched to indication/reason for exam; i.e. extremities or head) ?? *Use of iterative reconstruction technique ? DLP: ?? 560 mGy-cm ? FINDINGS: ?? No acute intracranial hemorrhage. No mass effect or midline shift. No ?? parenchymal lesion. The arriaga-white differentiation is maintained. No ?? extra-axial fluid collection. ? The ventricles and sulci are unremarkable. The basal cisterns are ?? patent. ? The calvarium is intact. The visualized paranasal sinuses and mastoid ?? air cells are clear. ? CT/CT head/brain wo IV con ?? IMPRESSION: ?? No acute intracranial hemorrhage or mass effect. ? Electronically signed by: ??Emile Verduzco MD ??08/13/2024 02:47 PM EST ?? RP ? Dictated By: ?Emile Verduzco MD ? Signed By: ?<Electronically signed by Emile Verduzco MD in OV> ?08/13/24 1447 ? DD/ 1345 ? TD/TT: 08/13/24 1402 ? Assurance Associate: SR ? Procedure Note Aly, Aileen - 08/13/[address] [address] [address] Scan Report Signed Patient: Giselle Petit#: [id number] : 1965Acct:[id number] Age/Sex: 58 / FADM Date: 08/13/24 Loc: HO.ED Attending Dr: Ordering Physician: Florentino Dee Date of Service: 08/13/24 Procedure(s): CT head/brain wo IV con Accession Number(s): [id number] cc: Florentino Dee; Name,Kevon MICHAELS EXAMINATION: CT HEAD WITHOUT CONTRAST CLINICAL INFORMATION: Headache. COMPARISON: None available. TECHNIQUE: Contiguous axial imaging was performed from the skull base to vertex without intravenous administration of contrast. This CT examination was performed using dose optimization techniques as appropriate, variously including the following: *Automated exposure control *Adjustment of mA and/or kV according to patient size (this includes techniques or standardized protocols for targeted exams where dose is matched to indication/reason for exam; i.e. extremities or head) *Use of iterative reconstruction technique DLP: 560 mGy-cm FINDINGS: No acute intracranial hemorrhage. No mass effect or midline shift. No parenchymal lesion. The arriaga-white differentiation is maintained. No extra-axial fluid collection. The ventricles and sulci are unremarkable. The basal cisterns are patent. The calvarium is intact. The visualized paranasal sinuses and mastoid air cells are clear. CT/CT head/brain wo IV con IMPRESSION: No acute intracranial hemorrhage or mass effect. Electronically signed by: Emile Verduzco MD 08/13/2024 02:47 PM EST Dictated By: Emile Verduzco MD Signed By: <Electronically signed by Emile Verduzco MD in OV> 08/13/24 1447 DD/ 1345 TD/TT: 08/13/24 1402 Assurance Associate: [facility] External Provider IMG CT PROCEDURES Edited Result - Final * Strep A Nucleic Acid (08/13/2024 1:35 PM EST) IDNOW SERIAL# [id number] [facility] Strep A Nucleic Acid Negative Negative [facility] Comment:All test results mus t be correlated with clinical findings.This test has not been evaluated for monitoring treatment ofinfection.Additional follow-up testing using the culture method isrequired if the result is negative and clinical symptomspersist, or in the event of an acute rheumatic feveroutbreak. 08/13/2024 1:35 PM EST 08/13/2024 1:37 PM EST Generic External Data Provider LAB MICROBIOLOGY - GENERAL ORDERABLES Final Result Performing Organization Address [facility] Co de Phone Number [facility] [address] [place] [phone] * SARS-CoV-2 RNA, Influenza A/B, and RSV RNA, Ql NAAT (08/13/2024 1:35 PM EST) Influenza A PCR NEGATIVE Negative [facility] Influenza B PCR NEGATIVE Negative [facility] Resp Syncy Virus RNA Qual PCR NEGATIVE Negative [facility] SARS COV2 PCR NEGATIVE Negative [facility] Comment:All test results mus t be correlated with clinical findings.Negative results do not preclude SARS-CoV2, influenza Avirus, influenza B virus and/or RSV infectionand should not be used as the sole basis for treatment orother patient management decisions. Negative results must becombined with clinical observations, patient history, andepidemiological information.This test has not been evaluated for monitoring treatment ofinfection.This test has been authorized by the FDA under an EmergencyUse Authorization (EUA) for use by authorized laboratories.Testing performed on the [facility] GeneXpert utilizingreal-time RT-PCR.All SARS CoV2 and positive influenza A/B results arereported to [facility]. 08/13/2024 1:35 PM EST 08/13/2024 1:37 PM EST Generic External Data Provider LAB MICROBIOLOGY - GENERAL ORDERABLES Final Result Performing Organization Address [facility] Co de Phone Number [facility] [address] [place] [phone] * BI Mammogram Screening Tomosynthesis Bilateral (10/22/2023 2:25 PM EST) Anatomical Region Laterality Modality Breast Bilateral Mammography 10/22/2023 2:25 PM EST Narrative 11/02/2023 6:09 AM EST ? [facility] ? [address] [place] [address] ? Mammography Report ? Signed ? Patient: William Hernández,Taryn ?MR#: [id number] ?? [id number] ? : 1965 ?Acct:[id number] ? Age/Sex: 57 / F ?ADM Date: 10/22/23 ? Loc: HO.MAMMO ? Attending Dr: Kevon Name MD ? Ordering Physician: Name,Kevon MD ?Results: 1Negative ? Date of Service: 10/22/23 ?Follow Up: 1 Year From Orig ?? inal Mammogram ? Procedure(s): MM tomosynthesis screening BI ?? Accession Number(s): [id number] ? cc: Name,Kevon MICHAELS ? EXAMINATION: ?? MM SCREENING DIGITAL BREAST TOMOSYNTHESIS, BILATERAL ? CLINICAL INFORMATION: ? Screening. Asymptomatic. ? COMPARISON: ?? Mammography: This study is compared with prior exams dating back to ?? 2018. ? TECHNIQUE: ?? Digital breast tomosynthesis is performed in both the craniocaudal and ?? mediolateral oblique views along with computer-aided detection (CAD). ?? Synthesized 2D images are generated from the tomosynthesis. ? FINDINGS: ?? There are scattered areas of fibroglandular density (ACR BI-RADS breast ?? composition Category b). ? There are no significant masses, abnormal calcifications, or other ?? abnormalities. ? MM/MM tomosynthesis screening BI ?? IMPRESSION: ?? No mammographic evidence of malignancy. ? ASSESSMENT: ? BI-RADS BI-RADS 1 - Negative ? RECOMMENDATION: ?? Routine annual mammography screening. ? 1 year F/U ? This examination should not preclude the clinical evaluation of a ?? suspicious palpable abnormality. ? This patient's information was entered into a reminder system with a ?? target due date for their next mammogram. ? Dictated By: ?Betty Garcia MD ? Signed By: ?<Electronically signed by Betty Garcia MD in OV> ? 11/02/23 06 ? DD/ 1425 ? TD/TT: ? Assurance Associate: ? Procedure Note Aly, Image - 11/02/2023 [facility] [address] [place] [address] Mammography Report Signed Patient: Giselle Petit#: [id number] : 1965Acct:[id number] Age/Sex: 57 / FADM Date: 10/22/23 Loc: KELLY Attending Dr: Kevon Sheffield MD Ordering Physician: Kevon Sheffieldesults: 1Negative Date of Service: 10/22/23Follow Up: 1 Year From Orig inal Mammogram Procedure(s): MM tomosynthesis screening BI Accession Number(s): [id number] cc: Kevon Sheffield MD EXAMINATION: MM SCREENING DIGITAL BREAST TOMOSYNTHESIS, BILATERAL CLINICAL INFORMATION: Screening. Asymptomatic. COMPARISON: Mammography: This study is compared with prior exams dating back to 2018. TECHNIQUE: Digital breast tomosynthesis is performed in both the craniocaudal and mediolateral oblique views along with computer-aided detection (CAD). Synthesized 2D images are generated from the tomosynthesis. FINDINGS: There are scattered areas of fibroglandular density (ACR BI-RADS breast composition Category b). There are no significant masses, abnormal calcifications, or other abnormalities. MM/MM tomosynthesis screening BI IMPRESSION: No mammographic evidence of malignancy. ASSESSMENT: BI-RADS BI-RADS 1 - Negative RECOMMENDATION: Routine annual mammography screening. 1 year F/U This examination should not preclude the clinical evaluation of a suspicious palpable abnormality. This patient's information was entered into a reminder system with a target due date for their next mammogram. Dictated By: Betty Garcia MD Signed By: <Electronically signed by Betty Garcia MD in OV> 11/02/23 0605 DD/ 1425 TD/TT: Assurance Associate: us Kevon Sheffield MD IMG BI PROCEDURES Edited Result - Final * (ABNORMAL) Hm Colonoscopy (07/29/2023) Colonoscopy Abnormal(A ) Normal us Kevon Sheffield MD HEALTH MAINTENANCE Final Result * HEPATITIS C AB W/REFL TO HCV RNA, QN, PCR (05/01/2022 10:36 AM EDT) HEPATITIS C ANTIBODY NON-REACT OSIEL NON-REACT OSIEL [facility] INDEX 0.10 <1.00 [facility] Comment: ?? HCV antibody was non-reactive. There is no laboratory ?? evidence of HCV infection. ?? In most cases, no further action is required. However, if recent HCV exposure is suspected, a test for HCV RNA (test code 82861) is suggested. ?? For additional information please refer to http://education.NICE/faq/BZK50h9 (This link is being provided for informational/ educational purposes only.) ?? 05/01/2022 10:3 6 AM EDT us Rossy [facility] HISTORICAL/NON ORDERABLE LABS Final Result [facility] [address] * THINPREP PAP (07/09/2021 10:08 AM EDT) Clinical Information: Postmenopausal [facility] COMMENT SEE COMMENT [facility] Comment: EXPLANATORY NOTE: ? The Pap is a screening test for cervical cancer. It is ?? not a diagnostic test and is subject to false negative ?? and false positive results. It is most reliable when a ?? satisfactory sample, regularly obtained, is submitted ?? with relevant clinical findings and history, and when ?? the Pap result is evaluated along with historic and ?? current clinical information. ?? Hr Payroll Coordinator : SEE COMMENT [facility] Comment: KF, CT(ASCP) CT screening location: [address] ??[address] Interpretation/R esult: Negative for intraepithelial lesion or malignancy. [facility] LMP: NONE GIVEN [facility] Prev. BX: NONE GIVEN [facility] Prev. PAP: NIL/NEG 08/2018 [facility] SOURCE: None given [facility] Statement Of Adequacy: SEE COMMENT [facility] Comment: Satisfactory for evaluation. Endocervical/transformation zone component present. 07/09/2021 10:0 8 AM EDT Cher Gannon [facility] LAB PATHOLOGY ORDERABLES Final Result [facility] [address] [place] [address], * HPV mRNA E6/E7 (07/09/2021 10:08 AM EDT) HPV nRNA E6/E7 Not Detected Not Detected [facility] Comment: Methodology: Tripe Washer-Mediated Amplification This assay detects E6/E7 viral messenger RNA (mRNA) from 14 high-risk HPV types (16,18,31,33,35,39,45,51,52,56,58,59,66,68). ? The analytical performance characteristics of this assay have been determined by [employer]. The modifications have not been cleared or approved by the FDA. This assay has been validated pursuant to the CLIA regulations and is used for clinical purposes. ?? For additional information, please refer to http://education.Twyxt.[employer]/faq/LFS288w9 (This link if provided for information/ educational purposes only.) 07/09/2021 10:0 8 AM EDT us Cher Jagdeep CNM LAB BLOOD ORDERABLES Ava l Result [facility] [address] from Last 3 Months or Most Recently Relevant to Health Maintenance Insurance , [facility] [address] [address] Care Teams Feature Writer Relationship Specialty Start Date End Date Name, MD Kevon [address] [place], [place] [phone] PCP - General Family Medicine 09/27/18 Maurizio Roberts FNP [address] [place] [address] Nurse Practitioner Family Medicine 08/31/23
--- OUTSIDE RECORDS SUMMARY | 2024-10-27 14:02 | XMS_ITS | Encounter Summary ---
Author Organization [employer] Address [address] [facility] 7t [place] [address] Care Team Providers Care Customer Energy Specialist Name Role Phone Name, Kevon MICHAELS Primary Care Provider [phone] Maurizio Roberts Unavailable Unavailable Encounter Details Date Type Department Care Team ([facility] st Contact Info) Description 11/02/[address] [facility] [address] [place], [place] [phone] Name, MD Kevon [address] [place] [address] Social History Tobacco Use Types Packs/Day Years Used Date Smoking Tobacco: Former Cigarettes Q uit: 09/27/2002 Passive Smoke Exposure: Past Smokeless Tobacco: Never Alcohol Use Standard Drinks/Week Comments Never 0 (1 standard drink = 0.6 oz pur e alcohol) Depression Answer Date Recorded Patient Health Questionnaire-9 Score 1 09/13/2023 Patient Health Questionnaire-9 Score 1 09/13/2023 Last PHQ-9: Questionnaire Data Not on file 1 11/14/2022 Housing Stability Answer Date Recorded What is your housing situation today? I have juliette jose 07/26/[address] you [...] Date Recorded Patient Health Questionnaire-2 Score 0 09/13/2023 Comments Unknown Sex and Gender Information Value [...] Description 12/22/2024 3:15 PM EDT Office Visit [facility] [address] [place] [address] Name, MD Kevon [address] [place] [address] documented as of this encounter Procedures Procedure Name Priority Date/Time Associated Diagnosis Comments MAMMOGRAPHY Routine 10/22/2023 documented in this encounter Results * Mammography (10/22/2023) Mammogram Negative Comment:Bi-rads 1 Negative Anatomical Region Laterality Modality Other Kevon Sheffield MD HEALTH MAINTENANCE Final Result documented in this encounter Visit Diagnoses Not on filedocumented in this encounter Additional Health Concerns Assessment Noted Time PHQ-9 Depression Total Score: 1 09/13/20 23 9:19 AM EST documented as of this encounter Care Teams Customer Energy Specialist Relationship Specialty Start Date End Date Name, MD Kevon [address] [place] [address] PCP - General Family Medicine 09/27/18 Maurizio Roberts FNP [address] [place] [address] Nurse Practitioner Family Medicine 08/31/23 documented as of this encounter
--- OUTSIDE RECORDS SUMMARY | 2024-10-27 14:02 | XMS_ITS | Encounter Summary ---
Author Organization [employer] Address [address] [facility] 7t [place] [address] Care Team Providers Care Blood Bank Specialist Name Role Phone Name, Kevon MICHAELS Primary Care Provider [phone] Maurizio Roberts Unavailable Unavailable Encounter Details Date Type Department Care Team (Late st Contact Info) Description 10/02/2024 Orders Only [facility] External Provider, [facility] Social History Tobacco Use Types Packs/Day Years [...] Description 12/22/2024 3:15 PM EDT Office Visit [facility] [address] [place] [phone] Name, MD Kevon [address] [place] [address] documented as of this encounter Procedures Procedure Name Priority Date/Time Associated Diagnosis Comments POCT CREATININE GFR Routine 10/02/2024 1 0:[address] UROGRAM WO CONTRAST Routine 10/02/2024 10:48 AM EST documented in this encounter Results * POCT Creatinine GFR (10/02/2024 10:51 AM EST) POCT Creatinine 0.8 0.5 - 1.4 mg/dL [facility] GFR POC >60 [facility] Comment:Chronic Kidney Disea se: Estimated GFR < 60 mL/min/1.77v0Rsdbhl Kidney Disease: Estimated GFR < 15 mL/min/1.73m2 10/02/2024 10:5 1 AM EST 10/03/2024 4:16 PM EST Narrative [facility] - 10/03/2024 4:18 PM EST [id number] us Generic External Data Provider LAB POINT OF CARE TEST DOCKED DEVICE ORDERABLES Final Result [facility] [address] [place] [place] [address] [phone] * CT Urogram w/o Contrast (10/02/2024 10:48 AM EST) Anatomical Region Laterality Modality Ureter, Upper urinary tract Comp uted Tomography 10/02/2024 10:4 8 AM EST Narrative 10/03/2024 11:31 AM EST ? [facility] ?[address] ?[place] [address] ? CT Scan Report ? Signed ? Patient: Taryn Petit ?MR#: [id number] ?? [id number] ? : 1965 ?Acct:[id number] ? Age/Sex: 58 / F ?ADM Date: 10/02/24 ? Loc: HO.CT ? Attending Dr: Jannette BREWER ? Ordering Physician: Jannette Cantu ?? Date of Service: 10/02/24 ?? Procedure(s): CT urogram ?? Accession Number(s): [id number] ? cc: Jannette Cantu; Name,Kevon MICHAELS ? Report Number: ?? [id number]: Total DLP = ??470.00 mGy-cm ?? EXAMINATION: [...] DD/ 1048 ? TD/TT: 10/02/24 1100 ? Medical Biller: ? Procedure Note Donderrick, Image - 10/03/[address] [address] [address] Scan Report Signed Patient: Vangie PetitnMR#: [id number] : 1965Acct:[id number] Age/Sex: 58 / FADM Date: 10/02/24 Loc: HO.CT Attending Dr: Jannette BREWER Ordering Physician: Jannette Cantu Date of Service: 10/02/24 Procedure(s): CT urogram Accession Number(s): [id number] cc: Jannette Cantu; Name,Kevon MICHAELS Report Number: [id number]: Total DLP = 470.00 mGy-cm EXAMINATION: CT [...] Leon Marquez MD 10/03/2024 11:28 AM EST Dictated By: Leon Lim MD Signed By: <Electronically signed by Leon Garrett MDin OV> 10/03/24 1128 DD/ 1048 TD/TT: 10/02/24 1100 Medical Biller: [facility] External Provider IMG CT PROCEDURES Edited Result - Final documented in this encounter Visit Diagnoses Not on filedocumented in this encounter Additional Health Concerns Assessment Noted Time PHQ-9 Depression Total Score: 2 02/24/20 24 2:32 PM EDT documented as of this encounter Care Teams Blood Bank Specialist Relationship Specialty Start Date End Date Name, MD Kevon [address] [place] [address] PCP - General Family Medicine 09/27/18 Maurizio Roberts FNP [address] [place] [address] Nurse Practitioner Family Medicine 08/31/23 documented as of this encounter
--- OUTSIDE RECORDS SUMMARY | 2024-10-27 14:02 | XMS_ITS | Encounter Summary ---
Author Organization [employer] [facility] Address [address] [place] [address] [address] [address] Care Team Providers Care Milk House Worker Name Role Phone NameKevon MD Primary Care Provider [phone] Maurizio Roberts Unavailable Unavailable Encounter Details Date Type Department Care Team (Late st Contact Info) Description 10/01/2022 Orders Only [facility] [address] [place] [address] Kevon Sheffield MD [address] [place] [address] Social History Tobacco Use Types Packs/Day Years Used Date Smoking Tobacco: Never Assessed Comments Unknown Sex and Gender Information Value [...] Description 12/22/2024 3:15 PM EDT Office Visit [facility] [address] [place] [address] Kevon Sheffield MD [address] [place], [place] [phone] documented as of this encounter Visit Diagnoses Not on filedocumented in this encounter Care Teams Milk House Worker Relationship Specialty Start Date End Date Kevon Sheffield MD [address] [place] [phone] PCP - General Family Medicine 09/27/18 Maurizio Roberts FNP [address] [place] [address] [place] [address] Nurse Practitioner Family Medicine 08/31/23 documented as of this encounter
--- OUTSIDE RECORDS SUMMARY | 2024-10-27 14:02 | XMS_ITS | Encounter Summary ---
Author Organization [employer] Address [address] [facility] 7t [place] [address] Care Team Providers Care Barrel Maker Name Role Phone Name, Kevon MICHAELS Primary Care Provider [phone] Maurizio Roberts Unavailable Unavailable Encounter Details Date Type Department Care Team (Late st Contact Info) Description 10/12/2024 Orders Only GENERIC EXTERNAL DATA DEPARTMENT Provider, Generic External Data Social History Tobacco Use Types Packs/Day Years [...] Description 12/22/2024 3:15 PM EDT Office Visit [facility] [address] [place] [phone] Name, MD Kevon [address] [place] [address] documented as of this encounter Procedures Procedure Name Priority Date/Time Associated Diagnosis Comments CYTOPATH-CELL ENHANCED Routine 10/12/2024 4:24 PM EST documented in this encounter Results * Cytopath-cell enhanced (10/12/2024 4:24 PM EST) 10/12/2024 4:24 PM EST 10/13/2024 10:20 AM EST [facility] - 10/17/2024 2:34 PM EST ----- ------- Name: William HernándezTaryn ?Age/Sex: 58/F ? : 1965 Unit#: [id number] ?? Attend Dr: Jannette CantuP-BC ?Re10/12/24 ?Status: DEP REF ? Location: HO.LAB ?Disch: ? ----- ------- SPEC : [id number] ?RECD: 10/13/24-1020 ? STATUS: ??SOUT ? REQ NUM: [id number] ? DOUG: 10/12/24-4 ? SUBM DR: Jannette Cantu [facility] ? ENTERED: ??10/13/24-6 ?SP TYPE: Cytology ? OTHR DR: Name,Kevon [...] is prepared. Copies To: ?? Jannette Cantu [facility] ?? [facility] ?? [address] ?? [place] [address] ?? [phone] ?? [email or web address] ?? Name,Kevon MICHAELS ?? [address] [facility] ?? [place] [address] ?? [phone] ----- ------- Signed (signature on file) Lizzie Whitaker MD 10/17/24 0824 ? ----- ------- ? END OF REPORT ? us Generic External Data Provider LAB CYTOLOGY DORIAN DIETRICH Final Result [facility] [address] [place] [address] [phone] documented in this encounter Visit Diagnoses Not on filedocumented in this encounter Additional Health Concerns Assessment Noted Time PHQ-9 Depression Total Score: 2 02/24/20 24 2:32 PM EDT documented as of this encounter Care Teams Barrel Maker Relationship Specialty Start Date End Date Name, MD Kevon [address] [place] [address] PCP - General Family Medicine 09/27/18 Maurizio Roberts FNP [address] [place] [address] Nurse Practitioner Family Medicine 08/31/23 documented as of this encounter
--- OUTSIDE RECORDS SUMMARY | 2024-10-27 14:02 | XMS_ITS | Encounter Summary ---
Author Organization [employer] Address [address] [place] [address] 7 [place] [address] Care Team Providers Care Residential Builder Name Role Phone Name, Kevon MICHAELS Primary Care Provider [phone] Maurizio Roberts Unavailable Unavailable Reason for Visit * Reason Onset Date Comments Nurse Triage 02/16/2024 Encounter Details Date Type Department Care Team ([facility] st Contact Info) Description 02/16/2024 Telephone [facility] MED[facility] [address] [place] [address] Name, MD Kevon [address] [place] [address] Nurse Triage Social History Tobacco Use Types Packs/Day Years Used Date Smoking Tobacco: Former Cigarettes Q uit: 09/27/2002 Passive Smoke Exposure: Past Smokeless Tobacco: Never Alcohol Use Standard Drinks/Week Comments Never 0 (1 standard drink = 0.6 oz pur e alcohol) Depression Answer Date Recorded Patient Health Questionnaire-9 Score 2 11/29/2023 Patient Health Questionnaire-9 Score 2 11/29/2023 Last PHQ-9: Questionnaire Data Not on file 0 11/29/2023 Housing Stability Answer Date Recorded What is your housing situation today? I have ujliette jose 07/26/[address] you [...] Date Recorded Patient Health Questionnaire-2 Score 0 11/29/2023 Comments Unknown Sex and Gender Information Value Date Recorded Sex Assigned at Female 07/27/2022 10:29 AM EDT Legal Sex Female 10:29 AM EDT Gender Identity Female 07/27/2022 10:29 AM EDT Sexual Orientation Straight 07/27/2022 10 :29 AM EDT documented as of this encounter Miscellaneous Notes * Telephone Encounter - Yady Johnson RN - 02/16/2024 11:23 AM EDT See previous triage note . Will route to the Provider for review as the pt was given a new medication at GI yesterday . * Telephone Encounter - Tiffanie Andrade LPN - 02/16/2024 11:04 AM EDT Triage call to patient with [employer] [phone]. Patient reporting onset of nausea yesterdayafternoon and then again at 330am today. patient without vomiting no fever. Had BM today no blood noted. Reports cramping pain that is worse laying down 2 fingers above umbilicus and to the left. No acid reflux. Seen yesterday by GI specialist. Advised to restart Omeprazole that she had stopped dueto concerns with constipation. Did not take anything for nausea. Encouraged light diet clear liquids at time of call. Per report never has been on any medication in the past for nausea. Disposition reviewed and patient in agreement with plan.Team tasked to update PCP and follow with patient as indic ated. Protocol Used: Nausea (Adult) Protocol-Based Disposition: See in Office or Video Visit Today or Tomorrow Override (Final) Disposition: Discuss with PCP and Callback by Nurse Today Override Reason: Already seen and questions Override Notes: Patient seen by GI yesterday and restarted on Omeprazole after stopping it independently. Note in chart Video visit not offered Positive Triage Question: * Patient wants to be seen * All higher-acuity triage questions were negative Care Advice Discussed: * Clear Fluids * Solid Foods * Reasons To Call Back - Nausea lasts over 1 week - You become worse * Telephone Encounter - Rula Huang - 02/16/2024 10:26 AM EDT Symptom: Abdominal Pain - Female - Not Outcome: Schedule an urgent appointment (within 4 hours) or talk to a nurse or provider soon Reason: Getting worse The caller accepted this outcome Please contact pt at [phone] (educational sign language interpreter) documented in this encounter Plan of Treatment Upcoming Encounters Date Type Department Care Team (Late st Contact Info) Description 12/22/2024 3:15 PM EDT Office Visit [facility] MED[facility]INE [address] [place] [address] Name, MD Kevon [address] [place] [address] documented as of this encounter Visit Diagnoses Not on filedocumented in this encounter Additional Health Concerns Assessment Noted Time PHQ-9 Depression Total Score: 2 11/29/19 24 9:37 AM EST documented as of this encounter Care Teams Residential Builder Relationship Specialty Start Date End Date Name, MD Kevon [address] [place] [address] PCP - General Family Medicine 09/27/18 Maurizio Roberts FNP [address] [place] [address] Nurse Practitioner Family Medicine 08/31/23 documented as of this encounter
--- OUTSIDE RECORDS SUMMARY | 2024-10-27 14:02 | XMS_ITS | Encounter Summary ---
Author Organization [employer] Address [address] [place] [address] 7 [place] [address] Care Team Providers Care Informix Developer Name Role Phone Name, Kevon MICHAELS Primary Care Provider [phone] Maurizio Roberts Unavailable Unavailable Reason for Visit * Reason Onset Date Comments Appointment Request 03/17/2024 Encounter Details Date Type Department Care Team ([facility] st Contact Info) Description 03/17/2024 Telephone [facility] MEDICINE [address] [place] [address] Name, MD Kevon [address] [place] [address] Appointment Request Social History Tobacco Use Types Packs/Day Years [...] the past 12 months, has t he [email or web address], gas, oil or water [employer] threatened to shut off services in your home? No 07/26/2023 Depression Answer Date Recorded Patient Health Questionnaire-2 Score 0 02/24/2024 Comments Unknown Sex and Gender Information Value Date Recorded Sex Assigned at Female 07/27/2022 10:29 AM EDT Legal Sex Female 10:29 AM EDT Gender Identity Female 07/27/2022 10:29 AM EDT Sexual Orientation Straight 07/27/2022 10 :29 AM EDT documented as of this encounter Miscellaneous Notes * Telephone Encounter - Rula Huang - 03/17/2024 9:37 AM EDT Tc from pt requesting a follow up with PCP in regards to 03/13 walk in. Pt states was advised will receive a call from [place] to schedule a f/u with PCP. Please contact pt at [phone] documented in this encounter Plan of Treatment Upcoming Encounters Date Type Department Care Team (Late st Contact Info) Description 12/22/2024 3:15 PM EDT Office Visit [facility] MED[facility] [address] [place] [address] Name, MD Kevon [address] [place] [address] documented as of this encounter Visit Diagnoses Not on filedocumented in this encounter Additional Health Concerns Assessment Noted Time PHQ-9 Depression Total Score: 2 02/24/20 24 2:32 PM EDT documented as of this encounter Care Teams Informix Developer Relationship Specialty Start Date End Date Name, MD Kevon [address] [place] [address] PCP - General Family Medicine 09/27/18 Maurizio Roberts FNP [address] [place] [address] Nurse Practitioner Family Medicine 08/31/23 documented as of this encounter
== END 2024-10-27 14:00 | disposition home or self-care (01) ==
LOC: HO.MAMMO 13:59
PROVIDERS: PCP Internal Medicine Geriatric Medicine; Visit Provider Internal Medicine Geriatric Medicine
DX: Z12.31 Encounter for screening mammogram for malignant neoplasm of breast (principal)
CPT/HCPCS: 77063; 77067

== ENCOUNTER → 2024-10-27 14:15 | Outpatient (BNV) | payer OTHER, MEDICAID, SELFPAY | PROVIDERS: PCP Internal Medicine Geriatric Medicine; Visit Provider Internal Medicine | DX: Z12.31 Encounter for screening mammogram for malignant neoplasm of breast (principal) | CPT/HCPCS: 77063; 77067 ==

== ENCOUNTER 2025-02-13 11:50 | Outpatient (REF) | payer BC, MEDICAID, SELFPAY ==
--- NOTE | ~2025-02-13 | MM_ITS ---
EXAMINATION: MM DIAGNOSTIC DIGITAL BREAST TOMOSYNTHESIS, LEFT Limited left breast ultrasound. CLINICAL INFORMATION: Left breast pain. COMPARISON: Mammography: Priors on PACS. TECHNIQUE: Digital breast tomosynthesis is performed in both the craniocaudal and mediolateral oblique views along with computer-aided detection (CAD). Synthesized 2D images are generated from the tomosynthesis. FINDINGS: There are scattered areas of fibroglandular density (ACR BI-RADS breast composition Category b). [place] marker in the upper central left breast anterior depth without underlying abnormality at the site of patient's pain. There are no significant masses, abnormal calcifications, or other abnormalities. Targeted color Doppler ultrasound scanning in the area the patient's pain in the left breast from 90 3:00 demonstrates normal fibronodular breast tissue. There is no sonographic abnormality. MM/MM tomosynthesis diagnostic LT IMPRESSION: No mammographic or sonographic abnormality to account for the patient's left breast pain. Recommend clinical evaluation and follow-up. ASSESSMENT: BI-RADS BI-RADS 1 - Negative RECOMMENDATION: 1 year F/U Results were provided to the patient at time of visit by the technologist. This patient's information was entered into a reminder system with a target due date for their next mammogram. Electronically signed by: Leyda Bailey DO 02/13/2025 12:57 PM EDT
--- OUTSIDE RECORDS SUMMARY | 2025-02-13 13:02 | XMS_ITS | Encounter Summary ---
Author Organization [employer] Address [address] [place] [address] 7 [place] [address] Care Team Providers Care Vice President Network Development Name Role Phone Name, Kevon MICHAELS Primary Care Provider [phone] Maurizio Roberts Unavailable Unavailable Reason for Visit * Reason Onset Date Comments Appointment Request 03/17/2024 Encounter Details Date Type Department Care Team ([facility] st Contact Info) Description 03/17/2024 Telephone [facility] MEDICINE [address] [place] [address] Name, MD Kevon [address] [place] [address] Appointment Request Social History Tobacco Use Types [...] the past 12 months, has t he [employer], gas, oil or water [employer] threatened to shut off services in your [...] was advised will receive a call from [place] to schedule a f/u with PCP. Please contact pt at [phone] documented in this encounter Plan of Treatment Not on file documented as of this encounter Visit Diagnoses Not on filedocumented in this encounter Additional Health Concerns Assessment Noted Time PHQ-9 Depression Total Score: 2 02/24/20 24 2:32 PM EDT documented as of this encounter Care Teams Vice President Network Development Relationship Specialty Start Date End Date Name, MD Kevno [address] [place] [address] PCP - General Family Medicine 09/27/18 aMurizio Roberts FNP [address] [place] [address] Nurse Practitioner Family Medicine 08/31/23 documented as of this encounter
--- OUTSIDE RECORDS SUMMARY | 2025-02-13 13:02 | XMS_ITS | Encounter Summary ---
Author Organization [email or web address] Address [address] [place] [address] 7 [place] [address] Care Team Providers Care Supervisor Vegetable Farming Name Role Phone Name, Kevon MICHAELS Primary Care Provider [phone] Maurizio Roberts Unavailable Unavailable Reason for Visit * Reason Onset Date Comments Nurse Triage 02/16/2024 Encounter Details Date Type Department Care Team ([facility] st Contact Info) Description 02/16/2024 Telephone [facility] MEDICINE [address] [place] [address] Name, MD Kevon [address] [place] [address] Nurse Triage Social History Tobacco Use Types [...] AM EDT Triage call to patient with [facility] [id number]. Patient reporting onset of nausea yesterdayafternoon and [...] accepted this outcome Please contact pt at [phone] (supervisor tubing) documented in this encounter Plan of Treatment Not on file documented as of this encounter Visit Diagnoses Not on filedocumented in this encounter Additional Health Concerns Assessment Noted Time PHQ-9 Depression Total Score: 2 11/29/19 24 9:37 AM EST documented as of this encounter Care Teams Supervisor Vegetable Farming Relationship Specialty Start Date End Date Name, MD Kevon [address] [place] [address] PCP - General Family Medicine 09/27/18 Maurizio Roberts FNP [address] [place] [address] Nurse Practitioner Family Medicine 08/31/23 documented as of this encounter
--- OUTSIDE RECORDS SUMMARY | 2025-02-13 13:02 | XMS_ITS | Encounter Summary ---
Author Organization [employer] Address [address] [place] [address] [place] [address] Care Team Providers Care Digital Commentator Name Role Phone Name, Kevon MICHAELS Primary Care Provider [phone] Maurizio Roberts Unavailable Unavailable Encounter Details Date Type Department Care Team (Late st Contact Info) Description 10/01/2022 Orders Only [facility] [address] [place] [address] Name, MD Kevon [address] [place] [address] Social History Tobacco Use Types Packs/Day Years Used Date Smoking Tobacco: Never Assessed Comments Unknown Sex and Gender Information Value Date Recorded Sex Assigned at Female 07/27/2022 10:29 AM EDT Legal Sex Female 10:29 AM EDT Gender Identity Female 07/27/2022 10:29 AM EDT Sexual Orientation Straight 07/27/2022 10 :29 AM EDT documented as of this encounter Plan of Treatment Not on file documented as of this encounter Visit Diagnoses Not on filedocumented in this encounter Care Teams Digital Commentator Relationship Specialty Start Date End Date Name, MD Kevon [address] [place] [address] PCP - General Family Medicine 09/27/18 Maurizio Roberts FNP [address] [place] [address] Nurse Practitioner Family Medicine 08/31/23 documented as of this encounter
--- OUTSIDE RECORDS SUMMARY | 2025-02-13 13:02 | XMS_ITS | Encounter Summary ---
Author Organization [employer] Address [address] [place] [address] [address], [place] [address] Care Team Providers Care Marketing Analytics Manager Name Role Phone Name, Kevon MICHAELS Primary Care Provider [phone] Maurizio Roberts Unavailable Unavailable Encounter Details Date Type Department Care Team ([facility] st Contact Info) Description 05/26/2023 Telephone [facility] MEDICINE [address] [place] [address] Name, MD Kevon [address] [place] [address] Social History Tobacco Use Types Packs/Day Years [...] on filedocumented in this encounter Care Teams Marketing Analytics Manager Relationship Specialty Start Date End Date NameKevon MD [address] [place] [address] PCP - General Family Medicine 09/27/18 Maurizio Roberts FNP [address] [place] [address] Nurse Practitioner Family Medicine 08/31/23 documented as of this encounter
--- OUTSIDE RECORDS SUMMARY | 2025-02-13 13:02 | XMS_ITS | Encounter Summary ---
Author Organization [employer] Address [address] [facility] [address] [place] [address] Care Team Providers Care Recoil Spring Winder Name Role Phone Name, Kevon MICHAELS Primary Care Provider [phone] Maurizio Roberts Unavailable Unavailable Encounter Details Date Type Department Care Team ([facility] st Contact Info) Description 11/02/2023 Abstract [facility] [address] [place] [address] Name, MD Kevon [address] [place] [address] Social History Tobacco Use Types Packs/Day Years [...] on file documented as of this encounter Procedures Procedure [...] documented as of this encounter Care Teams Recoil Spring Winder Relationship Specialty Start Date End Date Name, MD Kevon [address] [place] [address] PCP - General Family Medicine 09/27/18 Maurizio Roberts FNP [address] [place] [address] Nurse Practitioner Family Medicine 08/31/23 documented as of this encounter
--- OUTSIDE RECORDS SUMMARY | 2025-02-13 13:02 | XMS_ITS | Clinical Summary ---
Author Organization [employer] Address [address] [place] [address] 7 [place] [address] Care Team Providers Care Nickel Plant Operator Name Role Phone Name, Kevon MICHAELS Primary Care Provider [phone] Maurizio Roberts Unavailable Unavailable Allergies Active Allergy [...] each day (Allergies). 90 tablet 03/13/2024 Active Riboflavin 400 MG capsule Take 400 mg by mouth Once per day. 30 capsule 11 12/22/2024 12/23/19 26 Active Active Problems Problem Noted Date Diagnosed Date Family history of colon cancer 07/27/2023 Overview (07/27/2023): Mother Mild chronic obstructive pulmonary disease 09/23 Mild intermittent asthma 09/23/2022 Renal cyst 09/23/2022 Steatosis of liver 09/23/2022 Anxiety 12/20/2018 Assessment & Plan (02/24/2024 [...] medication management. Any issues or concerns, contact [facility]. All her questions were answered and I [...] Plan (02/09/2023 8:38 AM EDT): Progress Note: Carina is a 57-year-old, Citizen Of [place] speaking female that was referred for a behavioral health consult by his PCP Dr Sheffield due to anxiety sxs. Carina reported sxs such as sweaty hands and feet, chest tight, racing thoughts, avoidance of going out by herself, feeling timid, forgetfulness, migraine exacerbated when feeling anxious. She denies SI, HI, LATIF or self-harm. Symptoms do not appear to be due to substance use. Per DSM-5 diagnostic criteria, and given the above information,Carina has been provisionally diagnosed with Anxiety Disorder due to report of experiencing the above mentioned sxs. Assessment and Plan: Carina was engaged with active reflective listening and open-ended questions. Assessed symptoms, risks, and social supports with direct questions. Discussed current symptoms intensity and frequency. Emotions were normalized and validated. Carina identified drinking chamomile tea as coping mechanisms. Provided psychoeducation around relaxation techniques to manage sxs. Discussed OP therapy and medication management, Carina reported that she has no interest in engaging with a therapist, but she agreed to referral for medication Management. Provided education around integrated medicine and the options of follow up BE's as needed. Provided contact information should questions or concerns arise. Plan: Carina will continue to engage in effective coping mechanisms that better fit her. She will be referred to [facility] psychopharmacology Clinic for Med. Management. I provide her my contact information and encouraged her to reach out for support as needed, she agreed. Microscopic hematuria 09/08/2018 Overview (05/05/2023): ?? History of hematuria and bilateral renal cyst followed by [facility]. Last consult appt Sep 2022, with [...] BV panel and chlamydia/gonorrhea. Call with results Vitamin D deficiency 07/13/2018 Acute low back pain 11/12/2017 Multinodular goiter 10/28/2017 Migraine 03/20/2016 Seasonal allergic rhinitis 03/20/2016 Resolved Problems Problem Noted Date Diagnosed Date Resolved Date Photophobia 09/23/2022 12/22/2024 Pleuritic pain 09/23/2022 12/22/2024 Upper abdominal pain 09/23/2022 025 Suprapubic pain 09/08/2018 12/22/2024 Thyroid nodule 11/08/2017 12/22/2024 Blood in urine 04/07/2016 05/05/2023 Asthma 03/20/2016 12/22/2024 Encounters Date Type Department Care Team Description 01/11/2025 Telephone [facility] [address] [place] [phone] Kevon Sheffield MD 12/25/2024 1:00 PM EDT Office Visit [facility] [address] [place] [address] [phone] Kevon Sheffield MD Breast pain, left (Primary Dx) 12/22/2024 3:15 PM EDT Telemedicine [facility] MEDICINE [address] [place] [address] [phone] Kevon Sheffield MD Migraine without aura and without status migrainosus, not intractable (Primary Dx); Breast pain, left 12/22/2024 Travel 12/22/2024 Telephone [facility] MEDICINE [address], [place] [phone] Jesenia Siu [place] appt change to telehealth from Last 3 Months Immunizations Immunization Administration Dates Next Due Hep B, adult [...] Sign Reading Time Taken Comments Blood Pressure 144/74 12/25/2024 12:50 PM EDT Pulse 69 12/25/2024 12:50 PM EDT Temperature 37.3 ??C (99.1 ??F) 12/25/2024 12:50 PM E DT Respiratory Rate 16 12/25/2024 12:50 PM EDT Oxygen Saturation 98% 08/10/2024 9:58 AM EST Inhaled Oxygen Concentration - - Weight 60.8 kg (134 lb) 12/25/2024 12:50 PM EDT Height 154.9 cm (5' 1 ) 12/25/2024 12:50 PM EDT Body Mass Index 25.32 12/25/2024 12:50 PM EDT Plan of Treatment Health Maintenance Due Date Last Done Comments CT Colonography 1965 FIT DNA/Cologuard 1965 FIT 1965 FOBT 1965 HIV Screening 1965 Sigmoidoscopy 1965 Disability Screening 1965 Hepatitis A Vaccines (1 of 2 - Risk 2-dose series) 1984 Pneumococcal Vaccine: 50+ Years (1 of 2 - PCV) 1984 Zoster Vaccines (1 of 2) 12/18/2015 COVID-19 Vaccine ( - season) 2024 Influenza Vaccine (#1) 2024 07/20/2022, 2020 Pap Smear 07/09/2024 07/09/2021 Depression Screening 02/23/2025 02/24/2024, 02/24/20 Alcohol/Substance Use Screening 03/21/2025 03/21/2024 SDOH Screening 07/18/2025 07/18/2024 Mammogram 10/27/2025 02/13/2025, 09/29, 10/22/2023, Additional history exists Tobacco Screening 12/25/2025 12/25/2024 Cervical Cancer Screening 07/09/2026 HPV/Cotest 07/09/2026 07/09/2021, [...] patient's age to complete this topic Meningococcal B Vaccine Aged Out No l onger eligible based on patient's age to complete [...] Procedure Name Priority Date/Time Associated Diagnosis Comments BI MAMMOGRAM DIAGNOSTIC TOMOSYNTHESIS LEFT Routine 02/13/2025 12:00 PM EDT HM COLONOSCOPY Routine 07/29/2023 ZZZ HISTORICAL HEPATITIS C AB W/REFL TO HCV RNA, QN, PCR Routine 05/01/2022 10:36 AM EDT HPV MRNA E6/E7 Routine 07/09/2021 10:08 AM EDT THINPREP PAP Routine 07/09/2021 10:08 AM EDT from Last 3 Months or Most Recently Relevant to Health Maintenance Results * BI Mammogram Diagnostic Tomosynthesis Left (02/13/2025 12:00 PM EDT) Anatomical Region Laterality Modality Breast Left Mammography 02/13/2025 12:0 0 PM EDT Narrative 02/13/2025 1:00 PM EDT ? [facility] [place] ? [address] [facility] ?[place] [address] ?[phone] ? Mammography Report ? Signed ? Patient: Thomas Edgar,Carina ?MR#: [id number] ?? [id number] ? : 1965 ?Acct:[id number] ? Age/Sex: 59 / F ?ADM Date: 05/20/25 ? Loc: HO.MAMMO ? Attending : Kevon Name MD ? Ordering Physician: Name,Kevon MICHAELS ?Results: 1Negative ? Date of Service: 02/13/25 ?Follow Up: 1 Year From Orig ?? inal Mammogram ? Procedure(s): MM tomosynthesis diagnostic LT ?? Accession Number(s): [id number] ? cc: Name,Kevon MICHAELS ? EXAMINATION: ?? MM DIAGNOSTIC DIGITAL BREAST TOMOSYNTHESIS, LEFT ?? Limited left breast ultrasound. ? CLINICAL INFORMATION: ? Left breast pain. ? COMPARISON: ?? Mammography: Priors on PACS. ? TECHNIQUE: ?? Digital breast tomosynthesis is performed in both the craniocaudal and ?? mediolateral oblique views along with computer-aided detection (CAD). ?? Synthesized 2D images are generated from the tomosynthesis. ? FINDINGS: ?? There are scattered areas of fibroglandular density (ACR BI-RADS breast ?? composition Category b). ?? [place] marker in the upper central left breast anterior depth without ?? underlying abnormality at the site of patient's pain. ?? There are no significant masses, abnormal calcifications, or other ?? abnormalities. ? Targeted color Doppler ultrasound scanning in the area the patient's ?? pain in the left breast from 90 3:00 demonstrates normal fibronodular ?? breast tissue. There is no sonographic abnormality. ? MM/MM tomosynthesis diagnostic LT ?? IMPRESSION: ?? No mammographic or sonographic abnormality to account for the patient's ?? left breast pain. Recommend clinical evaluation and follow-up. ? ASSESSMENT: ? BI-RADS BI-RADS 1 - Negative ? RECOMMENDATION: ?? 1 year F/U ? Results were provided to the patient at time of visit by the ?? technologist. ? This patient's information was entered into a reminder system with a ?? target due date for their next mammogram. ? Electronically signed by: ??Leyda Bailey DO ??02/13/2025 12:57 PM EDT ? Dictated By: ?Leyda Bailey DO ? Signed By: ?<Electronically signed by Leyda Bailey, DO in OV> ? 02/13/25 1257 ? DD/ 1200 ? TD/TT: 02/13/25 1221 ? Clinical Laboratory Aide: ? Procedure Note Donotuseinterpreter, Image - 02/13/2025 [facility] [address] [place] [address] Mammography Report Signed Patient: Vangie PetitnMMarya#: [id number] : 1965Acct:[id number] Age/Sex: 59 / FADM Date: 02/13/25 Loc: HO.MAMMO Attending Dr: Kevon Sheffield MD Ordering Physician: Kevon Sheffieldesults: 1Negative Date of Service: 02/13/25Follow Up: 1 Year From Orig inal Mammogram Procedure(s): MM tomosynthesis diagnostic LT Accession Number(s): [id number] cc: Kevon Sheffield MD EXAMINATION: MM DIAGNOSTIC DIGITAL BREAST TOMOSYNTHESIS, LEFT Limited left breast ultrasound. CLINICAL INFORMATION: Left breast pain. COMPARISON: Mammography: Priors on PACS. TECHNIQUE: Digital breast tomosynthesis is performed in both the craniocaudal and mediolateral oblique views along with computer-aided detection (CAD). Synthesized 2D images are generated from the tomosynthesis. FINDINGS: There are scattered areas of fibroglandular density (ACR BI-RADS breast composition Category b). [place] marker in the upper central left breast anterior depth without underlying abnormality at the site of patient's pain. There are no significant masses, abnormal calcifications, or other abnormalities. Targeted color Doppler ultrasound scanning in the area the patient's pain in the left breast from 90 3:00 demonstrates normal fibronodular breast tissue. There is no sonographic abnormality. MM/MM tomosynthesis diagnostic LT IMPRESSION: No mammographic or sonographic abnormality to account for the patient's left breast pain. Recommend clinical evaluation and follow-up. ASSESSMENT: BI-RADS BI-RADS 1 - Negative RECOMMENDATION: 1 year F/U Results were provided to the patient at time of visit by the technologist. This patient's information was entered into a reminder system with a target due date for their next mammogram. Electronically signed by: Leyda Bailey DO 02/13/2025 12:57 PM EDT Dictated By: Leyda Bailey DO Signed By: <Electronically signed by Leyda Bailey DO in OV> 02/13/25 1257 DD/ 1200 TD/TT: 02/13/25 1221 Clinical Laboratory Aide: us Kevon Sheffield MD IMG BI PROCEDURES Final Result * (ABNORMAL) Hm Colonoscopy (07/29/2023) Colonoscopy Abnormal(A [...] a test for HCV RNA (test code 01993) is suggested. ?? For additional information please refer to http://education.[employer]/faq/GXJ13b3 (This link is being provided for informational/ educational purposes only.) ?? 05/01/2022 10:3 6 AM EDT us Rossy MERCADO HISTORICAL/NON ORDERABLE LABS Final Result [facility] [address] * THINPREP PAP (07/09/2021 10:08 AM [...] historic and ?? current clinical information. ?? Press Operator Automatic : SEE COMMENT [facility] Comment: KF, CT(ASCP) CT screening location: [address] ??[id number] Interpretation/R esult: Negative for intraepithelial lesion or malignancy. [facility] LMP: NONE GIVEN [facility] Prev. BX: NONE GIVEN [facility] Prev. PAP: NIL/NEG 08/2018 [facility] SOURCE: None given [facility] Statement Of Adequacy: SEE COMMENT [facility] Comment: Satisfactory for evaluation. Endocervical/transformation zone component present. 07/09/2021 10:0 8 AM EDT Cher JASON LAB PATHOLOGY ORDERABLES Final Result [facility] [address] * HPV mRNA E6/E7 (07/09/2021 10:08 AM EDT) HPV nRNA E6/E7 Not Detected Not Detected [facility] Comment: Methodology: Washing Machine Operator-Mediated Amplification This assay detects E6/E7 viral messenger RNA (mRNA) from 14 high-risk HPV types (16,18,31,33,35,39,45,51,52,56,58,59,66,68). ? The analytical performance characteristics of this assay have been determined by [employer]. The modifications have not been cleared or approved by the FDA. This assay has been validated pursuant to the CLIA regulations and is used for clinical purposes. ?? For additional information, please refer to http://education.[employer]/faq/AXJ900x4 (This link if provided for information/ educational purposes only.) 07/09/2021 10:0 8 AM EDT us Cher Gannon CNM LAB BLOOD ORDERABLES Ava l Result [facility] [address] from Last 3 Months or Most Recently Relevant to Health Maintenance Insurance HMO Care Teams Nickel Plant Operator Relationship Specialty Start Date End Date Name, MD Kevon [address] [place] [id number] PCP - General Family Medicine 09/27/18 Maurizio Roberts FNP [address] [place] [id number] Nurse Practitioner Family Medicine 08/31/23
== END 2025-02-13 11:51 | disposition home or self-care (01) ==
LOC: HO.MAMMO 11:50
PROVIDERS: PCP Internal Medicine Geriatric Medicine; Visit Provider Internal Medicine Geriatric Medicine
DX: N64.4 Mastodynia (principal)
CPT/HCPCS: 76642; 77061; 77065

== ENCOUNTER → 2025-02-13 12:00 | Outpatient (BNV) | payer BC, MEDICAID, SELFPAY | PROVIDERS: PCP Internal Medicine Geriatric Medicine; Visit Provider Internal Medicine | DX: N64.4 Mastodynia (principal) | CPT/HCPCS: 76642; 77061; 77065 ==

== ENCOUNTER 2025-03-21 16:06 | Outpatient (REF) | payer BC, MEDICAID, SELFPAY ==
--- OUTSIDE RECORDS SUMMARY | 2025-03-21 15:20 | XMS_ITS | Encounter Summary ---
Author Organization [employer] Address [address] [place] [address] [address] [address] Care Team Providers Care Obiee Lead Developer Name Role Phone Name, Kevon MICHAELS Primary Care Provider Maurizio Roberts Unavailable Unavailable Reason for Referral * Consultation (Routine) - Pending Review Specialty Diagnoses / Procedures Referred By Contac t Referred To Contact Orthopaedic Surgery Diagnoses Bilateral leg pain Right hand pain Right forearm pain Bhanu Briones MD [address] [place] [phone] Phone: tel: fax: Referral ID Status Reason Start Date Expiration Date Visits Requested Visits Authorized [id number] Pending Review Specialty Services Required 03/21/2025 03/21/2026 1 1 Reason for Visit * Reason Comments Leg Pain Encounter Details Date Type Department Care Team (Late st Contact Info) Description 03/21/2025 3:20 PM EDT Office Visit [facility] [address] [place] [phone] Bhanu Briones MD [address] [place] [address] [phone] Bilateral leg pain (Primary Dx); Right hand pain; Right forearm pain; Elevated blood pressure reading in office without diagnosis of hypertension; Vitamin D deficiency Social History Tobacco Use Types Packs/Day Years [...] AM EDT documented as of this encounter Last Filed Vital Signs Vital Sign Reading Time Taken Comments Blood Pressure 153/77 03/21/2025 3:12 PM EDT Pulse 76 03/21/2025 3:12 PM EDT Temperature 36.8 C (98.3 F) 03/21/2025 3:12 PM EDT Respiratory Rate 17 03/21/2025 3:12 PM EDT Oxygen Saturation 97% 03/21/2025 3:12 PM EDT Inhaled Oxygen Concentration - - Weight 60.6 kg (133 lb 9.6 oz) 03/21/2025 3:12 P M EDT Height - - Body Mass Index 25.24 12/25/2024 12:50 PM EDT documented in this encounter Progress Notes * Bhanu Briones MD - 03/21/2025 3:20 PM EDT Subjective Patient ID: Taryn Thomas is a 59 y.o. female. Installations Inspector: Carlie SALDANA Taryn has had bilat atraumatic ankle and leg pain since she had Covid in 2020 comes and goes, described as sharp from bilat ankles to knees, worse when laying down, Tylenol helps but she doesn't like to take meds. Pain was present last night, not today. She wants Vit D level checked, states she finished taking Vit D 1 year ago. Also has intermittent atraumatic sharp pain in extensor surface of right hand and forearm stating 1month ago, nothing makes it better or worse. Pain is not present now, occurs daily, lasts about 3 minutes. Labs done 07/25/2024, all normal: CBC, CMP. ISIAH, RF, CRP, Vit D. Lives with . LMP=6 years ago. Former smoker. Not employed. Patient Active Problem List Diagnosis Date Noted Family history of colon cancer 07/27/2023 Mild chronic obstructive pulmonary disease (CMS/HCC) 09/23/2022 Mild intermittent asthma 09/23/2022 Renal cyst 09/23/2022 Steatosis of liver 09/23/2022 Anxiety 12/20/2018 Microscopic hematuria 09/08/2018 Vitamin D deficiency 07/13/2018 Acute low back pain 11/12/2017 Multinodular goiter 10/28/2017 Migraine 03/20/2016 Seasonal allergic rhinitis 03/20/2016 The following portions of the chart were reviewed this encounter and updated as appropriate: Tobacco Allergies Meds Problems Med Hx Surg Hx Fam Hx Review of Systems Constitutional: Negative for fever. Respiratory: Negative for shortness of breath. Cardiovascular: Negative for chest pain. Gastrointestinal: Negative for abdominal pain. Musculoskeletal: Positive for arthralgias. Skin: Negative for rash. Neurological: Negative for headaches. Objective Physical Exam Constitutional: Appearance: Normal appearance. HENT: Nose: Nose normal. Eyes: Conjunctiva/sclera: Conjunctivae normal. Pupils: Pupils are equal, round, and reactive to light. Cardiovascular: Rate and Rhythm: Normal rate and regular rhythm. Pulses: Radial pulses are 2+ on the right side. Dorsalis pedis pulses are 2+ on the right side and 2+ on the left side. Heart sounds: No murmur heard. Pulmonary: Effort: Pulmonary effort is normal. Breath sounds: Normal breath sounds. Musculoskeletal: General: Normal range of motion. Cervical back: No tenderness. Comments: Bilateral legs, knees, and ankles: Full range of motion, no swelling or tenderness. Right hand and forearm: Full range of motion of hand and elbow with no swelling or tenderness. Skin: Findings: No rash. Neurological: Mental Status: She is alert. Motor: Motor function is intact. Coordination: Coordination is intact. Gait: Gait is intact. Psychiatric: Mood and Affect: Mood normal. Behavior: Behavior normal. Procedures Assessment/Plan Diagnoses and all orders for this visit: Bilateral leg pain ?etiology Continue Tylenol prn. Repeat vitamin D level ordered. Will call patient with results Referred to orthopedic surgery. Right hand pain As above Right forearm pain As above Elevated blood pressure reading in office without diagnosis of hypertension Has home BP monitor. Reviewed BP parameters, given written BP log that includes BP parameters, to keep daily. Call if BP readings are elevated. documented in this encounter Plan of Treatment Upcoming Encounters Date Type Department Care Team (Late st Contact Info) Description 06/13/2025 3:45 PM EDT Office Visit [facility] [address] [place] [address] Name, MD Kevon [address] [place] [address] Scheduled Orders Name Type Priority Associated Diagnoses Orde r Schedule Vitamin B12 Lab Routine Elevated blood pressure reading in office without diagnosis of hypertension Vitamin D deficiency Expected: 03/21/2025 (Approximate), Expires: 03/21/2026 Vitamin D, 25-Hydroxy, Total, Immunoassay Lab Routine Vitamin D deficiency Expected: 03/21/2025 (Approximate), Expires: 03/21/2026 Scheduled Referrals Name Type Priority Associated Diagnoses Order Schedule Referral to Orthopaedic Surgery Outpatient Referral Routine Bilateral leg pain Right hand pain Right forearm pain Expected: 03/21/2025 (Approximate), Expires: 03/21/2026 documented as of this encounter Visit Diagnoses Diagnosis Bilateral leg pain- Primary Pain in soft tissues of limb Right hand pain Pain in soft tissues of limb Right forearm pain Elevated blood pressure reading in office without diagnosis of hypertension Vitamin D deficiency documented in this encounter Additional Health Concerns Assessment Noted Time PHQ-9 Depression Total Score: 2 02/24/20 24 2:32 PM EDT documented as of this encounter Care Teams Obiee Lead Developer Relationship Specialty Start Date End Date Name, MD Kevon [address] [place] [address] PCP - General Family Medicine 09/27/18 Maurizio Roberts FNP [address] [place] [address] Nurse Practitioner Family Medicine 08/31/23 documented as of this encounter
[2025-03-21 18:46] LABS: Vitamin D 25-OH Total 31.8 ng/mL (>30)
[2025-03-21 19:07] LABS: Vitamin B12 303 pg/mL (200-900)
== END 2025-03-21 16:07 | disposition home or self-care (01) ==
LOC: HO.HHCL 16:06
PROVIDERS: PCP Internal Medicine Geriatric Medicine; Visit Provider Emergency Medicine
DX: R03.0 Elevated blood-pressure reading, without diagnosis of hypertension (principal); E55.9 Vitamin D deficiency, unspecified
CPT/HCPCS: 36415; 82306; 82607

== ENCOUNTER 2025-04-12 14:33 | Outpatient (AMB) | payer BC, MEDICAID, SELFPAY ==
[2025-04-12 14:38] VITALS: BP 122/77; PULSE 87; O2SAT 97; BMI 25.6
--- NOTE | 2025-04-12 14:38 | A.OFFVIS_ITS ---
Vital Signs 04/12/25 14:38 Height 5 ft Weight 131 lb BMI 25.6 BP 122/77 Blood Pressure Location Lt brachial Position Sitting Pulse 87 Pulse Source Pulse Oximeter Pulse Oximetry (%) 97 Oxygen Delivery Method Room Air Intake Visit Reasons: Asthma Pulp And Paper Tester Required: Yes Pulp And Paper Tester Name: Deedee Waite Allergies amoxicillin (AMOXICILLIN) Allergy (Intermediate, Verified 04/12/25 14:42) DIZZINESS morphine (MORPHINE) Allergy (Unknown, Verified 04/12/25 14:42) RASH baclofen (BACLOFEN) Adverse Reaction (Intermediate, Verified 04/12/25 14:42) NAUSEA & VOMITING HPI HPI Asthma: Details: 59-year-old lady, former 10 pack year smoker, quit 2009, followed for?environmental allergies and asthma.? She has been using Wixela 250 and albuterol MDI with reasonable control of her underlying symptoms. She does get seasonal exacerbations when the weather is hot. She does have underlying environmental allergies, however they have been well controlled on as needed Zyrtec. She denies recent exacerbations. [facility] Medical History Thyroid nodule Epidermal cyst Renal cyst Hematuria Microscopic hematuria Headache, migraine Asthma Migraines COVID-19 Surgical History H/O colonoscopy History of surgery of uterus History of removal of cyst (~03/31/23) History of tubal ligation Family History Mother Colon cancer, Onset Age: 56 Social History Alcohol intake: never Patient Tobacco Use Status: Former Tobacco user Tobacco use type: Cigarette Review of Systems Const Denies daytime sleepiness, Denies excessive sweating, Denies fatigue, Denies fever(s), Denies lethargy, Denies malaise, Denies night sweats, Denies snoring and Denies weight loss Eyes Denies blurry vision and Denies itchy eyes ENT Denies nasal congestion, Denies post nasal drip, Denies sinus pain, Denies sinus pressure and Denies other ( Thrush) Card Denies chest pain, Denies pedal edema, Denies dyspnea, Denies orthopnea and Denies paroxysmal nocturnal dyspnea Resp Denies cough, Denies hemoptysis, Denies excessive phlegm production, Denies dyspnea, Denies snoring and Denies wheezing GI Denies abdominal pain and Denies heartburn Musc Denies myalgias, Denies arthralgias and Denies joint swelling Skin/Breast Denies rash Neuro Denies memory loss and Denies seizure-like activity Psych Denies abnormal sleep pattern, Denies anxiety and Denies memory loss Endo Denies excessive sweating, Denies fatigue and Denies heat intolerance Andrew/Lymph Denies easy bruising Aller/Immun Denies itchy eyes, Denies seasonal rhinorrhea and Denies wheezing Physical Exam Vital Signs: Last Vital Signs Pulse 87 04/12/25 14:38 BP 122/77 04/12/25 14:38 Pulse Ox 97 04/12/25 14:38 Oxygen Delivery Method Room Air 04/12/25 14:38 BMI result Body Mass Index 25.6 Const General: no acute distress and alert Nutritional Appearance: not obese Orientation/consciousness: Other orientation findings ( oriented) HEENT Head: Yes atraumatic Eyes General: appearance normal, both eyes and all related structures Sclerae: sclerae normal EOM: EOMs intact bilaterally Neck Neck: Yes supple Lymphatic: no lymphadenopathy noted Resp Effort & Inspection: normal respiratory effort and no use of accessory muscles Auscultation: clear to auscultation bilaterally Cardio Rate: regular rate Rhythm: regular rhythm Heart sounds: no gallops, no murmurs and no rubs Skin General skin exam: other ( warm) Extrem General: No clubbing, No cyanosis and No edema Assessment & Plan Assessment & Plan (1) Asthma: Code(s): J45.909 - Unspecified asthma, uncomplicated Category: Medical Plan: Suboptimal control as patient has ran out of Wixela. Restart Wixela and albuterol MDI. (2) Environmental allergies: Code(s): Z91.09 - Other allergy status, other than to drugs and biological substances Category: Medical Plan: Reasonable control on Zyrtec as needed. Continue current regimen. Medications: Refilled Wixela Inhub 250-50 mcg/dose (fluticasone propion-salmeterol) 1 ea inhalation BID 180 ea 4RF NS Coding Level of Care Code Est Pt Level 4 (38889) Diagnoses Asthma J45.909 Environmental allergies Z91.09
--- OUTSIDE RECORDS SUMMARY | 2025-04-12 15:20 | XMS_ITS | Encounter Summary ---
Author Organization [employer] Address [address] [facility] [address] [place] [address] Care Team Providers Care Superintendent Fish Hatchery Name Role Phone Name, Kevon MICHAELS Primary Care Provider [phone] Maurizio Roberts Unavailable Unavailable Encounter Details Date Type Department Care Team ([facility] st Contact Info) Description 11/02/2023 Abstract [facility] [address] [place] [address] Name, MD Kevon [address] [place] [address] Social History Tobacco Use Types Packs/Day Years [...] Description 06/13/2025 3:45 PM EDT Office Visit [facility] [address] [place] [id number] Name, MD Kevon [address] [place] [address] documented as of this encounter Procedures Procedure [...] documented as of this encounter Care Teams Superintendent Fish Hatchery Relationship Specialty Start Date End Date NameKevon MD [address] [place] [id number] PCP - General Family Medicine 09/27/18 Maurizio Roberts FNP [address] [place] [address] Nurse Practitioner Family Medicine 08/31/23 documented as of this encounter
== END 2025-04-12 14:54 | disposition home or self-care (01) ==
PROVIDERS: PCP Internal Medicine Geriatric Medicine; Visit Provider Internal Medicine Pulmonary Disease
DX: J45.909 Unspecified asthma, uncomplicated (principal); Z91.09 Other allergy status, other than to drugs and biological substances
CPT/HCPCS: 99214

== ENCOUNTER 2025-04-20 08:52 | Outpatient (REF) | payer BC, MEDICAID, SELFPAY | END 2025-04-20 08:53 | disposition home or self-care (01) | LOC: HO.LNP 08:52 | PROVIDERS: PCP Internal Medicine Geriatric Medicine; Visit Provider Nurse Practitioner | DX: Z01.818 Encounter for other preprocedural examination (principal); R10.33 Periumbilical pain; R13.10 Dysphagia, unspecified; Z80.0 Family history of malignant neoplasm of digestive organs | CPT/HCPCS: 83013 ==

== ENCOUNTER 2025-04-20 08:52 | Outpatient (AMB) | payer BC, MEDICAID, SELFPAY ==
[2025-04-20 08:53] VITALS: BP 131/60; PULSE 90; BMI 25.1
--- NOTE | 2025-04-20 08:53 | A.OFFVIS_ITS ---
Vital Signs 04/20/25 08:53 Height 5 ft Weight 128 lb 4.944 oz BMI 25.1 BP 131/60 Blood Pressure Location Lt brachial Position Sitting Pulse 90 Intake Visit Reasons: Follow up abd pain/ED [facility] Intake Note: Taryn presents in office today in follow up of abdominal pain. CC: Patient reports that she was having a lot pain above her navel and nausea when she went to the ED on 04/14/25. Per patient she changed her diet and has been doing well for the last days. Assistant Professor Of Spanish Required: Yes Assistant Professor Of Spanish Language: Lead Consultant Services: Assistant Professor Of Spanish Offered & Declined Accompanied by: Self / Same As Patient Allergies amoxicillin (AMOXICILLIN) Allergy (Intermediate, Verified 04/20/25 09:23) DIZZINESS morphine (MORPHINE) Allergy (Unknown, Verified 04/20/25 09:23) RASH baclofen (BACLOFEN) Adverse Reaction (Intermediate, Verified 04/20/25 09:23) NAUSEA & VOMITING HPI HPI Follow up abd pain/ED [facility]: Details: Assessment & Plan (1) Family history of colon cancer: Comment: 2022 scope= hyperplastic polyp repeat in 5 years Code(s): Z80.0 - Family history of malignant neoplasm of digestive organs Category: Medical (2) Pre-op examination: Code(s): Z01.818 - Encounter for other preprocedural examination Category: Medical (3) Upper abdominal pain: Code(s): R10.10 - Upper abdominal pain, unspecified Category: Medical (4) Odynophagia: Code(s): R13.10 - Dysphagia, unspecified Category: Medical Plan [place] #[id number], Moe Her mother had a history of colon cancer She says her sx have resolved, her PCP said is was r/t vasovagal episodes. She has simply been advised to drink more water to help keep this at [place]. Since no longer treating her since she has not taking the omeprazole I tell her she is welcome to return to our service if she feels she needs our help. ABE mujican. Review of [facility] ER notes and findings 04/14/2025 Patient's exam was without any abdominal tenderness and laboratory results were reassuring. As the patient is afebrile with a normal WBC, lipase, and LFT I am reassured that colitis, appendicitis, pancreatitis, and cholecysitis are less likely. Absent symptoms, suprapubic tenderness, and normal urinalysis reassure this is not a UTI. ECG showing a sinus rhythm without any concerning ST changes or ectopy. Will acquire a RUQ ultrasound to rule out cholelithiasis or other hepatobiliary cause of symtoms. Based on results, will consider PO challange and discharge with plan for PCP follow up. Documents reviewed: Prior records. Orders RUQ Ultrasound. Electrocardiogram: Time 04/14/2025 08:15:00, rate 82, normal sinus rhythm, No ST-T changes, no ectopy, normal AZ & QRS intervals, Results 04/14/2025 1:48 EDT ECG 12-Lead [id number] (Preliminary) . Results review: Lab results : Results 04/14/2025 2:36 EDT Glucose, Urine NEGATIVE Ketones, Urine NEGATIVE Bilirubin, Urine NEGATIVE Nitrite, Urine NEGATIVE Leukocyte, Urine NEGATIVE 04/14/2025 1:42 EDT WBC 6.6 k/mm3 RBC 4.98 m/mm3 Hgb 14.0 Gm/dL Hct 41.0 % MCV 82.3 femtoliters Sodium 141 mmol/L Potassium 4.1 mmol/L Chloride 105 mmol/L Bicarbonate Level 26 mmol/L Anion Gap 10 mmol/L Glucose Level 92 mg/dL BUN 13 mg/dL Creatinine-Blood 0.76 mg/dL Alkaline Phosphatase 103 units/L Lipase, Serum/Plasma 34 units/L AST (SGOT) 15 units/L ALT (SGPT) 14 units/L Bilirubin, Total 0.5 mg/dL Lactate 0.9 mmol/L . Radiology results: Ultrasound, reviewed radiologist's report, Reviewed Results: Radiologist's interpretation: : (Date Range: 04/12/2025 0:00 EDT - 04/14/2025 12:19 EDT), Radiologist Dr. Murdock reports normal RUQ ultrasound. . TODAY'S VISIT MONGOLIAN #James LiVe She had returned today because she has had a return of her periumbilical abdominal pain. Apparently she was seen at [facility] within unrevealing workup.She changed her diet to root veggies and this seems to have alleviated the pain. When the stools are soft is when this tends to happen, and she will have nausea. I think the nause is a response to the small bowel dysfunction. I explain the physiology of this to her. She wants to be tested for HP and since she is not on o2o anymore this is reasonable. BUT I think thi sis cramping of the small bowel, and a trial of bentyl would be the best approach. ROV [facility] mos. [facility] Medical History Thyroid nodule Epidermal cyst Renal cyst Hematuria Microscopic hematuria Headache, migraine Asthma Migraines COVID-19 Surgical History H/O colonoscopy History of surgery of uterus History of removal of cyst (~03/31/23) History of tubal ligation Family History Mother Colon cancer, Onset Age: 56 Social History Alcohol intake: never Patient Tobacco Use Status: Former Tobacco user Tobacco use type: Cigarette Review of Systems Const Denies fatigue, Denies fever(s), Denies night sweats, Denies poor appetite and Denies weight loss ENT Reports Normal hearing present, Denies dental pain, Denies dysphagia, Denies hearing loss, Denies mouth pain, Denies odynophagia, Denies throat swelling, Denies tongue swelling and Reports other (Dentition adequate) Card Reports no additional complaints Resp Reports no additional complaints GI Details: Reports abdominal pain, Denies melena, Denies bloating, Denies hematochezia, Reports constipation, Reports GI cramping, Denies dysphagia, Denies excessive flatus, Denies early satiety, Denies heartburn, Denies diarrhea, Denies nausea, Denies odynophagia, Denies vomiting and Denies hematemesis Skin/Breast Denies pruritus, Denies lesions, Denies rash and Denies jaundice Neuro Reports Normal hearing present and Denies Abnormal speech present Endo Denies fatigue Aller/Immun Denies throat swelling and Denies tongue swelling Physical Exam Vital Signs: Last Vital Signs Pulse 90 04/20/25 08:53 BP 131/60 04/20/25 08:53 BMI result Body Mass Index 25.1 Const General: cooperative, no acute distress, well developed and well groomed Nutritional Appearance: average body habitus and well nourished Orientation/consciousness: oriented to person, oriented to place and oriented to time Limitations: language barrier HEENT Head: Yes normocephalic and Yes atraumatic Eyes General: appearance normal, both eyes and all related structures Pupils: Equal, round and reactive pupils present Neck Neck: Yes normal visual inspection and Yes no lymphadenopathy Thyroid: Thyroid normal Resp Effort & Inspection: normal respiratory effort and able to speak in complete sentences Auscultation: clear to auscultation bilaterally Cardio Rate: regular rate Rhythm: regular rhythm Heart sounds: Normal, physiologic split S2 sound present Peripheral pulses: radial pulses present and posterior tibial pulses present GI Inspection: No distended and No Abdominal panniculus present Palpation (GI): Soft to palpation, nontender, no guarding, not rigid, No hepatosplenomegaly present and Hepatosplenomegaly present Percussion: Yes normal to percussion Auscultation: normal bowel sounds Rectal Exam - Female: deferred Skin General skin exam: no rashes or lesions noted, turgor normal, skin not dry, no jaundice, No spider nevi and no striae Rashes: no rashes Nails: normal Neuro General: oriented to person, oriented to place and oriented to time Cranial nerves: Yes Equal, round and reactive pupils present and Yes Normal hearing present Speech: No Abnormal speech present Extrem General: Yes normal to inspection, No clubbing, No cyanosis and No edema Psych Appearance: grossly normal and well kempt Mental Status: mental status grossly normal Speech and movement: Normal speech and movement present Affect: normal affect Attitude: cooperative Thought process: Normal thought process present and not confabulating Thought content: Normal thought content present Insight: Limited insight present (Psych) Judgement: Limited judgement present (Psych) Results Reviewed Results Reviewed: Review of [facility] ER notes and findings 04/14/2025 Patient's exam was without any abdominal tenderness and laboratory results were reassuring. As the patient is afebrile with a normal WBC, lipase, and LFT I am reassured that colitis, appendicitis, pancreatitis, and cholecysitis are less likely. Absent symptoms, suprapubic tenderness, and normal urinalysis reassure this is not a UTI. ECG showing a sinus rhythm without any concerning ST changes or ectopy. Will acquire a RUQ ultrasound to rule out cholelithiasis or other hepatobiliary cause of symtoms. Based on results, will consider PO challange and discharge with plan for PCP follow up. Documents reviewed: Prior records. Orders RUQ Ultrasound. Electrocardiogram: Time 04/14/2025 08:15:00, rate 82, normal sinus rhythm, No ST-T changes, no ectopy, normal AZ & QRS intervals, Results 04/14/2025 1:48 EDT ECG 12-Lead [id number] (Preliminary) . Results review: Lab results : Results 04/14/2025 2:36 EDT Glucose, Urine NEGATIVE Ketones, Urine NEGATIVE Bilirubin, Urine NEGATIVE Nitrite, Urine NEGATIVE Leukocyte, Urine NEGATIVE 04/14/2025 1:42 EDT WBC 6.6 k/mm3 RBC 4.98 m/mm3 Hgb 14.0 Gm/dL Hct 41.0 % MCV 82.3 femtoliters Sodium 141 mmol/L Potassium 4.1 mmol/L Chloride 105 mmol/L Bicarbonate Level 26 mmol/L Anion Gap 10 mmol/L Glucose Level 92 mg/dL BUN 13 mg/dL Creatinine-Blood 0.76 mg/dL Alkaline Phosphatase 103 units/L Lipase, Serum/Plasma 34 units/L AST (SGOT) 15 units/L ALT (SGPT) 14 units/L Bilirubin, Total 0.5 mg/dL Lactate 0.9 mmol/L . Radiology results: Ultrasound, reviewed radiologist's report, Reviewed Results: Radiologist's interpretation: : (Date Range: 04/12/2025 0:00 EDT - 04/14/2025 12:19 EDT), Radiologist Dr. Murdock reports normal RUQ ultrasound. . Assessment & Plan Assessment & Plan (1) Periumbilical abdominal pain: Code(s): R10.33 - Periumbilical pain Category: Medical (2) Upper abdominal pain: Code(s): R10.10 - Upper abdominal pain, unspecified Category: Medical Plan MONGOLIAN #Tachira LiVe She had returned today because she has had a return of her periumbilical abdominal pain. Apparently she was seen at [facility] within unrevealing workup.She changed her diet to root veggies and this seems to have alleviated the pain. When the stools are soft is when this tends to happen, and she will have nausea. I think the nause is a response to the small bowel dysfunction. I explain the physiology of this to her. She wants to be tested for HP and since she is not on o2o anymore this is reasonable. BUT I think thi sis cramping of the small bowel, and a trial of bentyl would be the best approach. ROV 3 mos. Orders: Orders H Pylori Breath Test Today R10.10 - Upper abdominal pain, unspecified Medications: New dicyclomine 10 mg PO TID PRN 90 caps 3RF abdominal pain Discontinued omeprazole Discontinued Reason: Doctor's Order 40 mg PO BID 30 days 60 caps 6RF Coding Level of Care Code Est Pt Level 3 (02957) Diagnoses Periumbilical abdominal pain R10.33 Upper abdominal pain R10.10
--- OUTSIDE RECORDS SUMMARY | 2025-04-20 09:06 | XMS_ITS | Encounter Summary ---
Author Organization [employer] Address [address] [facility] 7[address] [place] [address] Care Team Providers Care Applications Developer Name Role Phone Name, Kevon MICHAELS Primary Care Provider [phone] Maurizio Roberts Unavailable Unavailable Encounter Details Date Type Department Care Team ([facility] st Contact Info) Description 11/02/2023 Abstract [facility] [address] [place] [address] Name, MD Kevon [address] [place] [address] Social History Tobacco Use Types Packs/Day Years [...] Description 06/13/2025 3:45 PM EDT Office Visit [facility] [address] [place] [address] Name, MD Kevon [address] [place] [address] documented as of this encounter Procedures Procedure [...] documented as of this encounter Care Teams Applications Developer Relationship Specialty Start Date End Date NameKevon MD [address] [place] [id number] PCP - General Family Medicine 09/27/18 Maurizio Roberts FNP [address] [place] [address] Nurse Practitioner Family Medicine 08/31/23 documented as of this encounter
== END 2025-04-20 10:21 | disposition home or self-care (01) ==
LOC: HO.HGI 08:52
PROVIDERS: PCP Internal Medicine Geriatric Medicine; Visit Provider Nurse Practitioner
DX: R10.33 Periumbilical pain (principal); R10.10 Upper abdominal pain, unspecified
CPT/HCPCS: 99213

== ENCOUNTER 2025-06-07 15:33 | Outpatient (REF) | payer BC, MEDICAID, SELFPAY ==
--- NOTE | ~2025-06-07 | XR_ITS ---
EXAMINATION: XR LUMBAR SPINE CLINICAL INFORMATION: worsening LBP COMPARISON: None available. TECHNIQUE: Five views of the lumbosacral spine. FINDINGS: Lumbar lordosis is maintained. Minimal grade 1 retrolisthesis of L3 on L4. No compression fracture. Small marginal osteophytes. Mild narrowing of L4-L5 and L5-S1 disc spaces. Mild facet arthropathy at L4-L5 and L5-S1. XR/XR lumbar spine 4V min IMPRESSION: Mild degenerative changes in the lower lumbar spine. Electronically signed by: Ayesha Pina MD 06/07/2025 05:00 PM EDT
--- OUTSIDE RECORDS SUMMARY | 2025-06-07 14:40 | XMS_ITS | Encounter Summary ---
Author Organization [employer] Address [address] [place] [address] [place], [place] [address] Care Team Providers Care Spud Driller Name Role Phone Name, Kevon MICHAELS Primary Care Provider [phone] Maurizio Roberts Unavailable Unavailable Reason for Referral * Medications - Closed Specialty Diagnoses / Procedures Referred By Contac t Referred To Contact Diagnoses Chronic bilateral low back pain with sciatica, sciatica laterality unspecified Deedee Templeton DO [address] [place] [address] Phone: tel: fax: Referral ID Status Reason Start Date Expiration Date Visits Re quested Visits Authorized [id number] Closed 1 1 Encounter Details Date Type Department Care Team (Late st Contact Info) Description 06/07/2025 2:40 PM EDT Office Visit [facility] [address] [place] [address] Chronic bilateral low back pain with sciatica, sciatica laterality unspecified (Primary Dx) Social History Tobacco Use Types Packs/Day Years [...] Access Q2 Not on file 07/18/2024 Comments No Sex and Gender Information Value Date Recorded Sex Assigned at Female 07/27/2022 10:29 AM EDT Legal Sex Female 10:29 AM EDT Gender Identity Female 07/27/2022 10:29 AM EDT Sexual Orientation Straight 07/27/2022 10 :29 AM EDT documented as of this encounter Last Filed Vital Signs Vital Sign Reading Time Taken Comments Blood Pressure 131/71 06/07/2025 2:58 PM EDT Pulse 64 06/07/2025 2:58 PM EDT Temperature 36.6 C (97.9 F) 06/07/2025 2:58 PM EDT Respiratory Rate 21 06/07/2025 2:58 PM EDT Oxygen Saturation 99% 06/07/2025 2:58 PM EDT Inhaled Oxygen Concentration - - Weight 58.7 kg (129 lb 6 oz) 06/07/2025 2:58 PM EDT Height 154.9 cm (5' 1 ) 06/07/2025 2:58 PM EDT Body Mass Index 24.45 06/07/2025 2:58 PM EDT documented in this encounter Plan of Treatment Upcoming Encounters Date Type Department Care Team (Late st Contact Info) Description 06/13/2025 3:45 PM EDT Office Visit [facility] [address] [place] [phone] Name, MD Kevon [address] [place] [address] documented as of this encounter Procedures Procedure Name Priority Date/Time Associated Diagnosis Comments XR LUMBAR SPINE COMPLETE 4+ VIEWS Routine 06/07/2025 4:25 PM EDT documented in this encounter Results * XR Lumbar Spine Complete 4+ Views (06/07/2025 4:25 PM EDT) Anatomical Region Laterality Modality Spine, L-spine Radiographic Breanna ging 06/07/2025 4:25 PM EDT Narrative 06/07/2025 5:03 PM EDT [address] [address] XRay Report Signed Patient: Taryn Petit MR#: [id number] : 1965 Acct:[id number] Age/Sex: 59 / F ADM Date: 06/07/25 Loc: [facility] Attending Dr: Deedee Templeton DO Ordering Physician: Deedee Templeton DO Date of Service: 06/07/25 Procedure(s): XR lumbar spine 4V min Accession Number(s): [id number] cc: Deedee Templeton DO Reason for Exam: worsening LBP EXAMINATION: XR LUMBAR SPINE CLINICAL INFORMATION: worsening LBP COMPARISON: None available. TECHNIQUE: Five views of the lumbosacral spine. FINDINGS: Lumbar lordosis is maintained. Minimal grade 1 retrolisthesis of L3 on L4. No compression fracture. Small marginal osteophytes. Mild narrowing of L4-L5 and L5-S1 disc spaces. Mild facet arthropathy at L4-L5 and L5-S1. XR/XR lumbar spine 4V min IMPRESSION: Mild degenerative changes in the lower lumbar spine. Electronically signed by: Ayesha Pina MD 06/07/2025 05:00 PM EDT RP Dictated By: Ayesha Pina MD Signed By: <Electronically signed by Ayesha Pina MD in OV> 06/07/25 1700 DD/ 1625 TD/TT: 06/07/25 1630 Senior Contract Specialist: Procedure Note Donotuseinterpreter, Image - 06/07/[address] [address] XRay Report Signed Patient: Giselle Petit#: [id number] : 1965Acct:[id number] Age/Sex: 59 / FADM Date: 06/07/25 Loc: .[facility] Attending Dr: Deedee Templeton DO Ordering Physician: Deedee Templeton DO Date of Service: 06/07/25 Procedure(s): XR lumbar spine 4V min Accession Number(s): [id number] cc: Deedee Templeton DO Reason for Exam: worsening LBP EXAMINATION: XR LUMBAR SPINE CLINICAL INFORMATION: worsening LBP COMPARISON: None available. TECHNIQUE: Five views of the lumbosacral spine. FINDINGS: Lumbar lordosis is maintained. Minimal grade 1 retrolisthesis of L3 on L4. No compression fracture. Small marginal osteophytes. Mild narrowing of L4-L5 and L5-S1 disc spaces. Mild facet arthropathy at L4-L5 and L5-S1. XR/XR lumbar spine 4V min IMPRESSION: Mild degenerative changes in the lower lumbar spine. Electronically signed by: Ayesha Pina MD 06/07/2025 05:00 PM EDT RP Dictated By: Ayesha Pina MD Signed By: <Electronically signed by Ayesha Pina MD in OV> 06/07/25 1700 DD/ 1625 TD/TT: 06/07/25 1630 Senior Contract Specialist: us Deedee Prabhakarak DO IMG XR PROCEDURES Final Resu lt documented in this encounter Visit Diagnoses Diagnosis Chronic bilateral low back pain with sciatica, sciatica laterality unspecified- Primary documented in this encounter Additional Health Concerns Assessment Noted Time PHQ-9 Depression Total Score: 2 02/24/20 24 2:32 PM EDT documented as of this encounter Care Teams Spud Driller Relationship Specialty Start Date End Date Name, MD Kevon [address] [place] [address] PCP - General Family Medicine 09/27/18 Maurizio Roberts FNP [address] [place] [address] Nurse Practitioner Family Medicine 08/31/23 documented as of this encounter
--- OUTSIDE RECORDS SUMMARY | 2025-06-07 18:41 | XMS_ITS | Encounter Summary ---
Author Organization [employer] Address [address] [place] [address] [place] [address] Care Team Providers Care Keyboard Operator Name Role Phone Name, Kevon MICHAELS Primary Care Provider [phone] Maurizio Roberts Unavailable Unavailable Encounter Details Date Type Department Care Team ([facility] Contact Info) Description 05/26/2023 Telephone [facility] MEDICINE [address] [place] [address] [phone] Kevon Sheffield MD [address] [place] [phone] Social History Tobacco Use Types Packs/Day Years [...] Description 06/13/2025 3:45 PM EDT Office Visit [facility] MEDICINE [address] [place] [address] [phone] Kevon Sheffield MD [address] [place] [address] [phone] documented as of this encounter Visit Diagnoses Not on filedocumented in this encounter Care Teams Keyboard Operator Relationship Specialty Start Date End Date Kevon Sheffield MD [address] [place] [address] PCP - General Family Medicine 09/27/18 Maurizio Roberts FNP [address] [place] [address] Nurse Practitioner Family Medicine 08/31/23 documented as of this encounter
--- OUTSIDE RECORDS SUMMARY | 2025-06-07 18:41 | XMS_ITS | Encounter Summary ---
Author Organization [employer] Address [address] [place] [address] Care Team Providers Care Property Adjuster Name Role Phone NameKevon MD Primary Care Provider [phone] Maurizio Roberts Unavailable Unavailable Encounter Details Date Type Department Care Team (Late st Contact Info) Description 10/01/2022 Orders Only [facility] [address] [place] [address] Kevon Sheffield MD [address] [place] [address] Social History Tobacco Use Types Packs/Day Years [...] 3:45 PM EDT Office Visit [facility] MEDICINE [address] [place] [address] Kevon Sheffield MD [address] [place] [address] [phone] documented as of this encounter Visit Diagnoses Not on filedocumented in this encounter Care Teams Property Adjuster Relationship Specialty Start Date End Date Kevon Sheffield MD [address] [place] [phone] PCP - General Family Medicine 09/27/18 Maurizio Roberts FNP [address] [place] [address] [place] [address] Nurse Practitioner Family Medicine 08/31/23 documented as of this encounter
--- OUTSIDE RECORDS SUMMARY | 2025-06-07 18:41 | XMS_ITS | Encounter Summary ---
Author Organization [employer] Address [address] [place] [address] 7 [place] [address] Care Team Providers Care Golf Coach Name Role Phone Name, Kevon MICHAELS Primary Care Provider [phone] Maurizio Roberts Unavailable Unavailable Reason for Visit * Reason Onset Date Comments Nurse Triage 02/16/2024 Encounter Details Date Type Department Care Team ([facility] st Contact Info) Description 02/16/2024 Telephone [facility] MEDICINE [address] [place] [address] Name, MD Kevon [address] [place] [address] Nurse Triage Social History Tobacco Use Types [...] yesterday . * Telephone Encounter - Tiffanie Anrdade LPN - 02/16/2024 11:04 AM EDT Triage call to patient with [facility] [phone]. Patient reporting onset of nausea yesterdayafternoon and [...] accepted this outcome Please contact pt at [phone] (health communications specialist) documented in this encounter Plan of Treatment Upcoming Encounters Date Type Department Care Team (Late st Contact Info) Description 06/13/2025 3:45 PM EDT Office Visit [facility] MEDICINE [address] [place] [address] Name, MD Kevon [address] [place] [phone] documented as of this encounter Visit Diagnoses Not on filedocumented in this encounter Additional Health Concerns Assessment Noted Time PHQ-9 Depression Total Score: 2 11/29/19 24 9:37 AM EST documented as of this encounter Care Teams Golf Coach Relationship Specialty Start Date End Date Name, MD Kevon [address] [place] [address] PCP - General Family Medicine 09/27/18 Maurizio Roberts FNP [address] [place] [address] Nurse Practitioner Family Medicine 08/31/23 documented as of this encounter
--- OUTSIDE RECORDS SUMMARY | 2025-06-07 18:41 | XMS_ITS | Encounter Summary ---
Author Organization [employer] Address [address] [facility] 7t [place] [address] Care Team Providers Care Communications Specialist Name Role Phone Name, Kevon MICHAELS Primary Care Provider [phone] Maurizio Roberts Unavailable Unavailable Encounter Details Date Type Department Care Team ([facility] st Contact Info) Description 11/02/2023 Abstract [facility] MEDICINE [address] [place] [address] Name, MD Kevno [address] [place] [address] Social History Tobacco Use Types Packs/Day Years [...] Description 06/13/2025 3:45 PM EDT Office Visit [facility] MEDICINE [address] [place] [phone] Name, MD Kevon [address] [place] [phone] documented as of this encounter Procedures Procedure [...] documented as of this encounter Care Teams Communications Specialist Relationship Specialty Start Date End Date NameKevon MD [address] [place] [address] PCP - General Family Medicine 09/27/18 Maurizio Roberts FNP [address] [place] [address] Nurse Practitioner Family Medicine 08/31/23 documented as of this encounter
--- OUTSIDE RECORDS SUMMARY | 2025-06-07 18:41 | XMS_ITS | Clinical Summary ---
Author Organization [employer] Address [address] [place] [address] 7t [place] [address] Care Team Providers Care Material Analyst Name Role Phone Name, Kevon MICHAELS Primary Care Provider [phone] Maurizio Roberts Unavailable Unavailable Allergies Active Allergy Reactions Criticality Noted Date Comments Amoxicillin Rash,Dizziness High 09/08/2016 Baclofen High 08/13/2024 Other Reaction(s): NAUSEA & VOMITING Morphine Rash Low 03/20/2016 Medications * This document contains information received from the source organization and may not represent a complete record from that organization. albuterol (ProAir HFA) 108 (90 Base) MCG/ACT inhaler Inhale 2 puffs every 4 (four) hours. 1 Active Fluticasone-Anthony meterol (Advair Diskus) 250-50 MCG/ACT aerosol powder Inhale 1 puff every 12 (twelve) hours. Active loratadine (Claritin) 10 MG tablet Take 1 tablet by mouth 1 (one) time each day. 0 Active fluticasone (Flonase) 50 MCG/ACT nasal sprayIndication s:Seasonal allergic rhinitis due to other allergic trigger TAKE 1 SPRAY IN EACH NOSTRIL TWICE A DAY NEEDED 48 g 3 Active omeprazole (PriLOSEC) [address] capsuleIndicati ons:Nausea Take 1 capsule (20 mg) by mouth before evening meal. 30 capsule 1 3 Active escitalopram (Lexapro) 10 MG tablet Take 1 tablet (10 mg) by mouth Once daily. 90 tablet 3 4 Active fexofenadine (America) 180 MG tabletIndicatio ns:Rhinitis, unspecified type,Non-season al allergic rhinitis due to other allergic trigger Take 1 tablet (180 mg) by mouth if needed each day (Allergies). 90 tablet 4 Active Riboflavin 400 MG capsule Take 400 mg by mouth Once per day. 30 capsule 11 5 12/23/19 26 Active methylPREDNISol one (Medrol Dospak) 4 MG tablets Follow schedule on package instructions 21 tablet 5 06/14/20 25 Active celecoxib (CeleBREX) 200 MG capsuleIndicati ons:Chronic bilateral low back pain with sciatica, sciatica laterality unspecified Take 1 capsule (200 mg) by mouth if needed each day for mild pain. 30 capsule 3 5 06/07/20 26 Active Diclofenac Sodium 1 % gel Apply 2 g topically if needed in the morning, at noon, in the evening, and at bedtime (pain). 150 g 3 5 Active acetaminophen (Tylenol 8 Hour) 650 MG ER tablet Take 1 tablet (650 mg) by mouth every 8 (eight) hours if needed for mild pain. Do not crush, chew, or split. 40 tablet 1 5 07/07/20 25 Active methocarbamol (Robaxin) 500 MG tablet Take 1 tablet (500 mg) by mouth every 8 (eight) hours if needed for muscle spasms. 40 tablet 1 5 06/07/20 26 Active Active Problems Problem Noted Date [...] medication management. Any issues or concerns, contact [facility]. All her questions were answered and I [...] EDT): Progress Note: Carina is a 57-year-old, Czech speaking female that was referred for a [...] fit her. She will be referred to [facility] psychopharmacology Clinic for Med. Management. I provide her my contact information and encouraged her to reach out for support as needed, she agreed. Microscopic hematuria 09/08/2018 Overview (05/05/2023): History of hematuria and bilateral renal cyst followed by [facility]. Last consult appt Sep 2022, with [...] Encounters Date Type Department Care Team Description 06/07/2025 2:40 PM EDT Office Visit [facility] [address] [place] [address] Chronic bilateral low back pain with sciatica, sciatica laterality unspecified (Primary Dx) 06/07/2025 Travel 04/20/2025 Orders Only GENERIC EXTERNAL DATA DEPARTMENT Provider, Generic External Data 03/23/2025 Results Follow-Up [facility] [address] [place] [address] Bhanu Briones MD Vitamin B12, Vitamin D, 25-Hydroxy, Total, Immunoassay 03/21/2025 3:20 PM EDT Office Visit [facility] [address] [place] [address] Bhanu Briones MD Bilateral leg pain (Primary Dx); Right hand pain; Right forearm pain; Elevated blood pressure reading in office without diagnosis of hypertension; Vitamin D deficiency 03/21/2025 Travel 03/07/2025 Telephone [facility] MEDICINE [address] [place] [address] Jesenia Siu [place] april recalls from Last 3 Months Immunizations Immunization Administration [...] Mass Index 24.45 06/07/2025 2:58 PM EDT Plan of Treatment Upcoming Encounters Date Type Department Care Team (Late st Contact Info) Description 06/13/2025 3:45 PM EDT Office Visit [facility] MEDICINE [address] [place] [address] Name, MD Kevon [address] [place] [address] Health Maintenance Due Date Last Done Comments CT Colonography 1965 FIT DNA/Cologuard 1965 FIT 1965 FOBT 1965 HIV Screening 1965 Sigmoidoscopy 1965 Disability Screening 1965 Alcohol/Substance Use Screening 1977 Hepatitis A Vaccines (1 of 2 - Risk 2-dose series) 1984 Pneumococcal Vaccine: 50+ Years (1 of 2 - PCV) 1984 Zoster Vaccines (1 of 2) 12/18/2015 Depression Screening 02/23/2025 02/24/2024, 02/24/20 COVID-19 Vaccine (1 - season) 2025 Influenza Vaccine (#1) 2025 07/20/2022, 2020 SDOH Screening 07/18/2025 07/18/2024 Mammogram 02/13/2026 02/13/2025, 01/26, 10/27/2024, Additional history exists Tobacco Screening 06/07/2026 06/07/2025 Cervical Cancer Screening 07/09/2026 HPV/Cotest 07/09/2026 07/09/2021, 09/22/2018 Pap Smear 07/09/2026 07/09/2021 DTaP/Tdap/Td Vaccines (2 - Td or Tdap) [...] 4+ VIEWS Routine 06/07/2025 4:25 PM EDT HELICOBACTER PYLORI, UREA BREATH TEST Routine 04/20/2025 10:15 AM EDT VITAMIN D,25-OH,TOTAL,IA Routine 03/21/2025 4:11 PM EDT Vitamin D deficiency VITAMIN B12 Routine 03/21/2025 4:11 PM EDT Elevated blood pressure reading in office without diagnosis of hypertension Vitamin D deficiency BI MAMMOGRAM DIAGNOSTIC TOMOSYNTHESIS LEFT Routine 02/13/2025 12:00 PM EDT HM COLONOSCOPY Routine 07/29/2023 ZZZ HISTORICAL HEPATITIS C AB W/REFL TO HCV RNA, QN, PCR Routine 05/01/2022 10:36 AM EDT HPV MRNA E6/E7 Routine 07/09/2021 10:08 AM EDT THINPREP PAP Routine 07/09/2021 10:08 AM EDT from Last 3 Months or Most Recently Relevant to Health Maintenance Results * XR Lumbar Spine Complete 4+ Views (06/07/2025 4:25 PM EDT) Anatomical Region Laterality Modality Spine, L-spine Radiographic Breanna ging 06/07/2025 4:25 PM EDT Narrative 06/07/2025 5:03 PM EDT [address] [address] XRay Report Signed Patient: Carina Petit MR#: [id number] : 1965 Acct:[id number] Age/Sex: 59 / F ADM Date: 06/07/25 Loc: HO.HHCX Attending Dr: Deedee Templeton DO Ordering Physician: Deedee Templeton DO Date of Service: 06/07/25 Procedure(s): XR lumbar spine 4V min Accession Number(s): [id number] cc: Deedee Templeton DO Reason for Exam: [...] 06/07/25 1700 DD/ 1625 TD/TT: 06/07/25 1630 Aircraft Mechanic Armament: Procedure Note Donotuseinterpreter, Image - 06/07/[address] [address] XRay Report Signed Patient: Vangie PetitnMR#: [id number] : 1965Acct:[id number] Age/Sex: 59 / FADM Date: 06/07/25 Loc: HO.HHCX Attending Dr: Deedee Templeton DO Ordering Physician: Deedee Templeton DO Date of Service: 06/07/25 Procedure(s): XR lumbar spine 4V min Accession Number(s): [id number] cc: Deedee Templeton DO Reason for Exam: [...] 06/07/25 1700 DD/ 1625 TD/TT: 06/07/25 1630 Aircraft Mechanic Armament: us Deedee Templeton DO IMG XR PROCEDURES Final Resu lt * Helicobacter pylori, Urea Breath Test (04/20/2025 10:15 AM EDT) H. pylori Breath Test Negative Negative [facility] Comment:Antimicrobials, prot on pump inhibitors and bismuthpreparations are known to suppress H. pylori. Ingestingthese medications within two weeks prior to performing thebreath test may produce negative test results. A positiveresult is still clinically valid. 04/20/2025 10:1 5 AM EDT 04/20/2025 3:45 PM EDT us Generic External Data Provider LAB BODY FLUIDS A ND STOOLS ORDERABLES Final Result [facility] [address] [place] [phone] * Vitamin D, 25-Hydroxy, Total, Immunoassay (03/21/2025 4:11 PM EDT) Vitamin D 25-OH Total 31.8 >30 ng/mL [facility] Comment: Health Based Reference Values*< 20 ng/mL Jdosdayhc44-33 ng/mL Insufficient> 30 ng/mL Sufficient*Betty CHINO. N Engl J Med. 2007;357:266-280There is no well-established upper level of normal vitamin Dlevels. Some laboratories use 50 ng/mL as an upper limit ofnormal. However, toxicity is patient-dependent and may occurat any level. Careful correlation with the patient'spresentation is necessary and, if there is concern forvitamin D toxicity, treatment should be consideredirrespective of the serum level.Care must be taken in interpreting Vitamin D results fromdifferent laboratories and methodologies. Published datademonstrated that results from patients undergoinghemodialysis may show a negative bias when tested withvarious automated 25-OH vitamin D assays when compared toLC-MS/MS.When testing samples from patients whose predominant form ofVitamin D is Vitamin D2, such as patients receiving VitaminD2 supplementation, results that are subtherapeutic shouldbe confirmed with another method such as LC-MS/MS. Blood 03/21/2025 4:11 PM EDT 03/21/2025 6:00 PM EDT us Bhanu Briones MD LAB BLOOD ORDERABLES Final Resul t Performing Organization Address [facility] Co de Phone Number [facility] [address] [place] [phone] * Vitamin B12 (03/21/2025 4:11 PM EDT) Vitamin B12 303 200 - 900 pg/mL [facility] Comment:NORMAL 200-900 PG/ML INDETERMINATE 160-199 PG/ML DEFICIENT < 160 PG/ML Blood Venous blood specimen / Unknown 03/21/2025 4:11 PM EDT 03/21/2025 6:00 PM EDT us Bhanu Briones MD LAB BLOOD ORDERABLES Final Resul t Performing Organization Address [facility] Co de Phone Number [facility] [address] [place] [phone] * BI Mammogram Diagnostic Tomosynthesis Left (02/13/2025 12:00 PM EDT) Anatomical Region Laterality Modality Breast Left Mammography 02/13/2025 12:0 0 PM EDT Narrative 02/13/2025 1:00 PM EDT [facility] [address] [place] [address] Mammography Report Signed Patient: Carina Petit MR#: [id number] : 1965 Acct:[id number] Age/Sex: 59 / F ADM Date: 02/13/25 Loc: HO.MAMMO Attending Dr: Kevon Sheffield MD Ordering Physician: Kevon Sheffield MD Results: 1Negative Date of Service: 02/13/25 Follow Up: 1 Year From Orig inal Mammogram Procedure(s): MM tomosynthesis diagnostic LT Accession Number(s): [id number] cc: Name,Kevon MICHAELS EXAMINATION: MM DIAGNOSTIC DIGITAL BREAST TOMOSYNTHESIS, LEFT Limited left breast ultrasound. CLINICAL INFORMATION: Left breast pain. COMPARISON: Mammography: Priors on PACS. TECHNIQUE: Digital breast tomosynthesis is performed in both the craniocaudal and mediolateral oblique views along with computer-aided detection (CAD). Synthesized 2D images are generated from the tomosynthesis. FINDINGS: There are scattered areas of fibroglandular density (ACR BI-RADS breast composition Category b). [place] marker in the upper central left breast [...] 02/13/25 1257 DD/ 1200 TD/TT: 02/13/25 1221 Aircraft Mechanic Armament: Procedure Note Donotuseinterpreter, Image - 02/13/2025 [facility] [address] [place] [address] [place] [address] Mammography Report Signed Patient: Giselle Petit#: [id number] : 1965Acct:[id number] Age/Sex: 59 / FADM Date: 02/13/25 Loc: HO.MAMMO Attending Dr: Kevon Sheffield MD Ordering Physician: Kevon Sheffield MDResults: 1Negative Date of Service: 02/13/25Follow Up: 1 Year From Orig inal Mammogram Procedure(s): MM tomosynthesis diagnostic LT Accession Number(s): [id number] cc: Kevon Sheffield MD EXAMINATION: MM DIAGNOSTIC [...] density (ACR BI-RADS breast composition Category b). [place] marker in the upper central left breast [...] 02/13/25 1257 DD/ 1200 TD/TT: 02/13/25 1221 Aircraft Mechanic Armament: us Lund Name IMG BI PROCEDURES Final Result * (ABNORMAL) Colonoscopy (07/29/2023) Pathologist [facility] Colonoscopy Abnormal(A ) Normal us Kevon Sheffield MD HEALTH MAINTENANCE Final Result * HEPATITIS C AB W/REFL TO HCV RNA, QN, PCR (05/01/2022 10:36 AM EDT) Pathologist [facility] HEPATITIS C ANTIBODY NON-REACT OSIEL NON-REACT OSIEL [facility] INDEX 0.10 <1.00 [facility] Comment: HCV antibody was non-reactive. There is no laboratory evidence of HCV infection. In most cases, no further action is required. However, if recent HCV exposure is suspected, a test for HCV RNA (test code 19245) is suggested. For additional information please refer to http://education.Stumpedia/faq/EOO64r1 (This link is being provided for informational/ educational purposes only.) 05/01/2022 10:3 6 AM EDT Rossy [place] HISTORICAL/NON ORDERABLE LABS Final Result [facility] [address] * THINPREP PAP (07/09/2021 10:08 AM EDT) Pathologist [facility] Clinical Information: Postmenopausal [facility] COMMENT SEE COMMENT [facility] Comment: EXPLANATORY NOTE: The Pap is a screening test for cervical cancer. It is not a diagnostic test and is subject to false negative and false positive results. It is most reliable when a satisfactory sample, regularly obtained, is submitted with relevant clinical findings and history, and when the Pap result is evaluated along with historic and current clinical information. Facility Supervisor : SEE COMMENT [facility] Comment: KF, CT(ASCP) CT screening location: [place] [address] Interpretation/R esult: Negative for intraepithelial lesion or malignancy. [facility] LMP: NONE [facility]IVEN [facility] Prev. BX: NONE GIVEN [facility] Prev. PAP: NIL/NEG 08/2018 [facility] SOURCE: None given [facility] Statement Of Adequacy: SEE COMMENT [facility] Comment: Satisfactory for evaluation. Endocervical/transformation zone component present. 07/09/2021 10:0 8 AM EDT Cher Gannon [facility] LAB PATHOLOGY ORDERABLES Final Result Performing Organization Address [facility] Co de Phone Number [facility] [address] * HPV mRNA E6/E7 (07/09/2021 10:08 AM EDT) HPV nRNA E6/E7 Not Detected Not Detected [facility] Comment: Methodology: Mink Slicer-Mediated Amplification This assay detects E6/E7 viral messenger RNA (mRNA) from 14 high-risk HPV types (16,18,31,33,35,39,45,51,52,56,58,59,66,68). The analytical performance characteristics of this assay have been determined by [employer]. The modifications have not been cleared or approved by the FDA. This assay has been validated pursuant to the CLIA regulations and is used for clinical purposes. For additional information, please refer to http://education.Exo Protein Bars.MetaJure/faq/WLV990z6 (This link if provided for information/ educational purposes only.) 07/09/2021 10:0 8 AM EDT Cher Gannon [facility] LAB BLOOD ORDERABLES Ava l Result Performing Organization Address [facility]/ZIP Co de Phone Number [facility] [address] from Last 3 Months or Most Recently Relevant to Health Maintenance Insurance [employer] H[employer] Care Teams Material Analyst Relationship Specialty Start Date End Date Name, MD Kevon [address] [place] [address] PCP - General Family Medicine 09/27/18 Maurizio Roberts FNP [address] [place] [address] Nurse Practitioner Family Medicine 08/31/23
--- OUTSIDE RECORDS SUMMARY | 2025-06-07 18:41 | XMS_ITS | Encounter Summary ---
Author Organization [employer] Address [address] [place] [address] [address] [address] Care Team Providers Care Hospital Carrier Name Role Phone Name, Kevon MICHAELS Primary Care Provider [phone] Maurizio Roberts Unavailable Unavailable Reason for Visit * Reason Onset Date Comments Appointment Request 03/17/2024 Encounter Details Date Type Department Care Team ([facility] st Contact Info) Description 03/17/2024 Telephone [facility] MEDICINE [address] [place] [address] Name, MD Kevon [address] [place] [address] Appointment Request Social History Tobacco Use Types [...] the past 12 months, has t he [facility], gas, oil or water [employer] threatened to shut off services in your [...] was advised will receive a call from [place] to schedule a f/u with PCP. Please contact pt at [phone] documented in this encounter Plan of Treatment Upcoming Encounters Date Type Department Care Team (Late st Contact Info) Description 06/13/2025 3:45 PM EDT Office Visit [facility] MEDICINE [address] [place] [address] Name, MD Kevon [address] [place] [address] documented as of this encounter Visit Diagnoses Not on filedocumented in this encounter Additional Health Concerns Assessment Noted Time PHQ-9 Depression Total Score: 2 02/24/20 24 2:32 PM EDT documented as of this encounter Care Teams Hospital Carrier Relationship Specialty Start Date End Date Name, MD Kevon [address] [place] [address] PCP - General Family Medicine 09/27/18 Maurizio Roberts FNP [address] [place] [address] Nurse Practitioner Family Medicine 08/31/23 documented as of this encounter
--- OUTSIDE RECORDS SUMMARY | 2025-06-07 18:41 | XMS_ITS | Encounter Summary ---
Author Organization [employer] Address [address] [facility] [address] [place] [address] Care Team Providers Care Hr Assistant Name Role Phone Name, Kevon MICHAELS Primary Care Provider [phone] Maurizio Roberts Unavailable Unavailable Encounter Details Date Type Department Care Team (Latest Contact Info) Description 06/07/2025 Travel Social History Tobacco Use Types Packs/Day Years [...] Description 06/13/2025 3:45 PM EDT Office Visit [facility] [address] [place] [address] Name, MD Kevon [address] [place] [address] documented as of this encounter Visit Diagnoses Not on filedocumented in this encounter Additional Health Concerns Assessment Noted Time PHQ-9 Depression Total Score: 2 02/24/20 24 2:32 PM EDT documented as of this encounter Care Teams Hr Assistant Relationship Specialty Start Date End Date Name, MD Kevon [address] [place] [id number] PCP - General Family Medicine 09/27/18 Maurizio Roberts FNP [address] [place] [id number] Nurse Practitioner Family Medicine 08/31/23 documented as of this encounter
== END 2025-06-07 15:34 | disposition home or self-care (01) ==
LOC: HO.HHCX 15:33
PROVIDERS: Visit Provider Family Medicine
DX: M54.41 Lumbago with sciatica, right side (principal); M54.42 Lumbago with sciatica, left side; G89.29 Other chronic pain
CPT/HCPCS: 72110

== ENCOUNTER → 2025-06-07 15:34 | Outpatient (BNV) | payer BC, MEDICAID, SELFPAY | PROVIDERS: Visit Provider Radiology Body Imaging | DX: M51.360 Other intervertebral disc degeneration, lumbar region with discogenic back pain only (principal) | CPT/HCPCS: 72110 ==

== ENCOUNTER 2025-07-27 10:08 | Outpatient (AMB) | payer BC, MEDICAID, SELFPAY ==
--- NOTE | 2025-07-27 10:22 | MHC.OFFVIS ---
Vital Signs 07/27/25 10:32 Height 5 ft Weight 122 lb BMI 23.8 Intake Visit Reasons: New Pt - B/L leg pain, pain starts at the knee Intake Note: Taryn is a 59 year old female who presents today for a new patient visit to evaluate her bilateral leg pain. Patient was referred by [facility], per her referral she as had bilateral atraumatic ankle and leg pain since 2020 that comes and goes. She describes these pain as sharp. Tylenol helps however she does not favor taking medication. At today's visit she states that about two years ago is when the bilateral leg pain started to flair up at night time. She noted that the pain starts in both thighs and radiates into her ankles. She states that she has not tried physical therapy, at home exercises or injections to help relieve the pain. Gasateria Attendant Required: Yes Gasateria Attendant Services: Gasateria Attendant Present Gasateria Attendant Name: [id number] TalishaRodrigue Allergies amoxicillin (AMOXICILLIN) Allergy (Intermediate, Verified 04/20/25 09:23) DIZZINESS morphine (MORPHINE) Allergy (Unknown, Verified 04/20/25 09:23) RASH baclofen (BACLOFEN) Adverse Reaction (Intermediate, Verified 04/20/25 09:23) NAUSEA & VOMITING Medication List - Last Reconciled 07/27/25 by Margie Muñoz MD albuterol sulfate 90 mcg/actuation (ProAir HFA) 2 puffs inhalation Q6H PRN ashwagandha extract mg PO cetirizine (Zyrtec) 10 mg PO DAILY PRN dicyclomine 10 mg PO TID PRN Wixela Inhub 250-50 mcg/dose (fluticasone propion-salmeterol) 1 ea inhalation BID NS HPI Comments Details: She confirms that pain is from thigh to ankles. Denies lower back pain. Mostly bilateral. Usually occurs when she is laying down supine. It does not wake her up aDenies groin pain. Denies numbness but can feel like cramps. Denies weakness. She did have sciatica many years ago, and this was a different type of pain from today. Symptoms started after she had COVID twice in 09/2021. [facility] Medical History Thyroid nodule Epidermal cyst Renal cyst Hematuria Microscopic hematuria Headache, migraine Asthma Migraines COVID-19 Surgical History H/O colonoscopy History of surgery of uterus History of removal of cyst (~03/31/23) History of tubal ligation Family History Mother Colon cancer, Onset Age: 56 Social History (Updated 07/27/25 @ 10:33 by Jina Jung) Alcohol intake: never Patient Tobacco Use Status: Former Tobacco user Tobacco use type: Cigarette Current occupational status: unemployed Review of Systems Const All systems reviewed & are unremarkable except as noted in HPI and below Physical Exam Exam Exam: Constitutional: Patient appears to be in no acute distress, well nourished and well developed. Patient was appropriately conversant and oriented. Good historian. MSK: Inspection reveals appropriate head and neck positioning. No specific abnormalities found on inspection of the spine and all extremities. No pain with palpation over the lumbar area. Lumbar ROM was full. Bilateral hip, knee and ankle ROM WNL. No ligamentous laxity or crepitance. No increased effusion. Straight-leg raising test negative. FABERE test negative. Strength is 5/5 in all muscle groups tested. No increased tone noted. Neurological: Mood appears normal, good affect, and appropriate for the circumstances. Neurologic examination of the upper and lower extremities was nonfocal with intact sensation, muscle stretch reflexes and without focal motor deficits. Peterson?s negative bilaterally. Babinski was down going bilaterally. Clonus was negative. Gait is non-antalgic without loss of balance. Vital Signs: BMI result Body Mass Index 23.8 Results Reviewed Results Reviewed: Ordering Physician: Deedee Templeton DO Date of Service: 06/07/25 Procedure(s): XR lumbar spine 4V min Accession Number(s): [id number] cc: Deedee Templeton DO~ Reason for Exam: worsening LBP EXAMINATION: XR LUMBAR SPINE CLINICAL INFORMATION: worsening LBP COMPARISON: None available. TECHNIQUE: Five views of the lumbosacral spine. FINDINGS: Lumbar lordosis is maintained. Minimal grade 1 retrolisthesis of L3 on L4. No compression fracture. Small marginal osteophytes. Mild narrowing of L4-L5 and L5-S1 disc spaces. Mild facet arthropathy at L4-L5 and L5-S1. XR/XR lumbar spine 4V min IMPRESSION: Mild degenerative changes in the lower lumbar spine. Electronically signed by: Ayesha Pina MD 06/07/2025 05:00 PM EDT RP I reviewed records from the following: PCP Assessment & Plan Assessment & Plan (1) Leg pain, bilateral: Code(s): M79.604 - Pain in right leg; M79.605 - Pain in left leg Category: Medical (2) Post-COVID chronic muscle pain: Code(s): M79.10 - Myalgia, unspecified site; U09.9 - Post COVID-19 condition, unspecified; G89.29 - Other chronic pain Category: Medical Plan Bilateral leg pain, without signs of lumbar radiculopathy or any low back pain at all. Possible post COVID syndrome? Send him for femur x-rays today. We will check for vitamin B12 and vitamin-D levels. Assessment and plan discussed with patient, and patient was agreeable. All questions were answered thoroughly. Follow up after results. Margie Muñoz MD, ROSANNA Board Certified, [place] [employer] and [employer] (ABPMR) Board Certified, [place] [employer] (ABEM) Orders: Orders Vitamin B12 and Folate Today G89.29 - Other chronic pain, M79.10 - Myalgia, unspecified site, M79.604 - Pain in right leg, M79.605 - Pain in left leg, U09.9 - Post COVID-19 condition, unspecified Vitamin D 25-OH Total Today G89.29 - Other chronic pain, M79.10 - Myalgia, unspecified site, M79.604 - Pain in right leg, M79.605 - Pain in left leg, U09.9 - Post COVID-19 condition, unspecified XR femur LT 2V Today M79.604 - Pain in right leg, M79.605 - Pain in left leg XR femur RT 2V Today M79.604 - Pain in right leg, M79.605 - Pain in left leg Coding Level of Care Code New Pt Level 4 (15842) Diagnoses Leg pain, bilateral M79.604; M79.605 Post-COVID chronic muscle pain M79.10; U09.9; G89.29
[2025-07-27 10:32] VITALS: BMI 23.8
--- OUTSIDE RECORDS SUMMARY | 2025-07-27 11:25 | XMS_ITS | Clinical Summary ---
Author Organization [employer] Address [address] [place] [address] 7 [place] [address] Care Team Providers Care Computer Applications Instructor Name Role Phone Name, Kevon MICHAELS Primary Care Provider [phone] Maurizio Roberts Unavailable Unavailable Allergies Active Allergy [...] puffs every 4 (four) hours. 1 Active Fluticasone-Salme terol (Advair Diskus) 250-50 MCG/ACT aerosol powder Inhale 1 puff every 12 (twelve) hours. Active loratadine (Claritin) 10 MG tablet Take 1 tablet by mouth 1 (one) time each day. 0 Active fluticasone (Flonase) 50 MCG/ACT nasal sprayIndications: Seasonal allergic rhinitis due to other allergic trigger TAKE 1 SPRAY IN EACH NOSTRIL TWICE A DAY NEEDED 48 g 3 Active fexofenadine ([place]) 180 MG tabletIndications :Rhinitis, unspecified type,Non-seasonal allergic rhinitis due to other allergic trigger Take 1 tablet (180 mg) by mouth if needed each day (Allergies). 90 tablet 4 Active Riboflavin 400 MG capsule Take 400 mg by mouth Once per day. 30 capsule 11 5 12/23/19 26 Active celecoxib (CeleBREX) 200 MG capsuleIndication s:Chronic bilateral low back pain with sciatica, sciatica laterality unspecified Take 1 capsule (200 mg) by mouth if needed each day for mild pain. 30 capsule 3 5 06/07/20 26 Active Diclofenac Sodium 1 % gel Apply 2 g topically if needed in the morning, at noon, in the evening, and at bedtime (pain). 150 g 3 5 Active methocarbamol (Robaxin) 500 MG tablet Take 1 tablet (500 mg) by mouth every 8 (eight) hours if needed for muscle spasms. 40 tablet 1 5 06/07/20 26 Active amitriptyline (Elavil) 10 MG tabletIndications :Epigastric abdominal pain Take 1 tablet (10 mg) by mouth at bedtime. 30 tablet 2 5 09/11/20 25 Active omeprazole (PriLOSEC) [address] capsuleIndication s:Epigastric abdominal pain Take 1 capsule (20 mg) by mouth before evening meal. 30 capsule 1 5 08/12/20 25 Active acetaminophen (Tylenol 8 Hour) 650 MG ER tablet Take 1 tablet (650 mg) by mouth every 8 (eight) hours if needed for mild pain. Do not crush, chew, or split. 40 tablet 1 5 07/07/20 25 polyethylene glycol, PEG, 3350 (MiraLax) 17 GM/SCOOP powderIndications :Epigastric abdominal pain,Constipation , unspecified constipation type Take 17 g by mouth Once per day. 527 g 2 5 07/13/20 25 Active Problems Problem Noted Date Diagnosed Date Family history of colon cancer 07/27/2023 Overview (07/27/2023): Mother Mild chronic obstructive pulmonary disease (CMS/ HCC) 09/23/2022 Mild intermittent asthma 09/23/2022 Renal cyst [...] medication management. Any issues or concerns, contact [facility]. All her questions were answered and [...] EDT): Progress Note: Carina is a 57-year-old, Kosovan speaking female that was referred for a [...] fit her. She will be referred to [facility] psychopharmacology Clinic for Med. Management. I provide her my contact information and encouraged her to reach out for support as needed, she agreed. Microscopic hematuria 09/08/2018 Overview (05/05/2023): History of hematuria and bilateral renal cyst followed by [facility]. Last consult appt Sep 2022, with [...] Encounters Date Type Department Care Team Description 07/27/2025 Orders Only [facility] External Provider, [facility] 06/13/2025 3:45 PM EDT Office Visit [facility] MEDICINE [address] [place] [address] Name, MD Kevon Epigastric abdominal pain (Primary Dx); Constipation, unspecified constipation type 06/13/2025 Travel 06/12/2025 Telephone [facility] MEDICINE [address] [place] [address] Jesenia Siu MA CHART PREP 06/07/2025 2:40 PM EDT Office Visit [facility] W[facility] [address] [place] [address] Deedee Templeton DO Chronic bilateral low back pain with sciatica, sciatica laterality unspecified (Primary Dx) 06/07/2025 Travel from Last 3 Months Immunizations Immunization Administration [...] Date Recorded Patient Health Questionnaire-9 Score 2 06/13/2025 Patient Health Questionnaire-9 Score 2 06/13/2025 Last PHQ-9: Questionnaire Data Not on file 0 06/13/2025 Housing Stability Answer Date Recorded What is [...] Date Recorded Patient Health Questionnaire-2 Score 0 06/13/2025 Internet Access Answer Date Recorded Internet Access [...] Sign Reading Time Taken Comments Blood Pressure 134/72 06/13/2025 3:47 PM EDT Pulse 87 06/13/2025 3:47 PM EDT Temperature 36.7 C (98 F) 06/13/2025 3:47 PM EDT Respiratory Rate 16 06/13/2025 3:47 PM EDT Oxygen Saturation 97% 06/13/2025 3:47 PM EDT Inhaled Oxygen Concentration - - Weight 57.2 kg (126 lb) 06/13/2025 3:47 PM EDT Height 154.9 cm (5' 1 ) 06/13/2025 3:47 PM EDT Body Mass Index 23.81 06/13/2025 3:47 PM EDT Plan of Treatment Health Maintenance Due Date Last Done Comments CT Colonography 1965 FIT DNA/Cologuard 1965 FIT 1965 FOBT 1965 HIV Screening 1965 Sigmoidoscopy 1965 Hepatitis A Vaccines (1 of 2 - Risk 2-dose series) 1984 Pneumococcal Vaccine: 50+ Years (1 of 2 - PCV) 1984 Zoster Vaccines (1 of 2) 12/18/2015 COVID-19 Vaccine (1 - season) 2025 Influenza Vaccine (#1) 2025 07/20/2022, 2020 Mammogram 02/13/2026 02/13/2025, 05/2 , 10/27/2024, Additional history exists Alcohol/Substance Use Screening 06/13/2026 06/13/2025 Depression Screening 06/13/2026 06/13/2025, 06/13/20 Disability Screening 06/13/2026 06/13/2025 SDOH Screening 06/13/2026 06/13/2025 Tobacco Screening 06/13/2026 06/13/2025 Cervical Cancer Screening 07/09/2026 HPV/Cotest 07/09/2026 07/09/2021, [...] Name Priority Date/Time Associated Diagnosis Comments XR FEMUR 2+ VIEWS LEFT Routine 10:57 AM EDT XR FEMUR 2+ VIEWS RIGHT Routine 07/27/2025 10:57 AM EDT XR LUMBAR SPINE COMPLETE 4+ VIEWS Routine 06/07/2025 4:25 PM EDT BI MAMMOGRAM DIAGNOSTIC TOMOSYNTHESIS LEFT Routine 02/13/2025 12:00 PM EDT HM COLONOSCOPY Routine 07/29/2023 ZZZ HISTORICAL HEPATITIS C AB W/REFL TO HCV RNA, QN, PCR Routine 05/01/2022 10:36 AM EDT HPV MRNA E6/E7 Routine 07/09/2021 10:08 AM EDT THINPREP PAP Routine 07/09/2021 10:08 AM EDT from Last 3 Months or Most Recently Relevant to Health Maintenance Results * XR Femur 2+ Views Right (07/27/2025 10:57 AM EDT) Anatomical Region Laterality Modality Lower Extremities, Femur Right Radiogr aphic Imaging 07/27/2025 10:5 7 AM EDT Narrative 07/27/2025 11:16 AM EDT [facility] [address] [place] [address] [place] [address] XRay Report Signed Patient: Carina Petit MR#: [id number] : 1965 Acct:[id number] Age/Sex: 59 / F ADM Date: 07/27/25 Loc: HO.HOSX Attending Dr: Margie Muñoz MD Ordering Physician: Margie Anderson Date of Service: 07/27/25 Procedure(s): XR femur RT 2V Accession Number(s): [id number] cc: Name,Kevon MICHAELS; Margie Anderson Reason for Exam: M79.604 - Pain in right leg EXAMINATION: XR FEMUR 2 VIEWS RIGHT HISTORY: M79.604 - Pain in right leg COMPARISON: There are no prior studies available for comparison. FINDINGS: AP and lateral views of the right femur are submitted. Osseous mineralization is normal. There is no fracture or dislocation. There is mild narrowing of the hip joint. The visualized knee joint spaces are maintained. The soft tissues are unremarkable. XR/XR femur RT 2V IMPRESSION: Mild narrowing of the right hip joint. Otherwise unremarkable examination of the right femur. Electronically signed by: Korey Quintero MD 07/27/2025 11:13 AM EDT RP Dictated By: Korey Quintero MD Signed By: <Electronically signed by Korey Quintero MD in OV> 07/27/25 1113 DD/ 1057 TD/TT: 07/27/25 1106 Mechanism Inspector: Procedure Note Donotuseinterpreter, Image - 07/27/2025 [facility] [address] [place] [address] Drive [address] [place] [address] XRay Report Signed Patient: Giselle Petit#: [id number] : 1965Acct:[id number] Age/Sex: 59 / FADM Date: 07/27/25 Loc: HOMAYEX Attending Dr: Margie Muñoz MD Ordering Physician: Margie Anderson Date of Service: 07/27/25 Procedure(s): XR femur RT 2V Accession Number(s): [id number] cc: Name,Kevon MICHAELS; Margie Anderson Reason for Exam: M79.604 - Pain in right leg EXAMINATION: XR FEMUR 2 VIEWS RIGHT HISTORY: M79.604 - Pain in right leg COMPARISON: There are no prior studies available for comparison. FINDINGS: AP and lateral views of the right femur are submitted. Osseous mineralization is normal. There is no fracture or dislocation. There is mild narrowing of the hip joint. The visualized knee joint spaces are maintained. The soft tissues are unremarkable. XR/XR femur RT 2V IMPRESSION: Mild narrowing of the right hip joint. Otherwise unremarkable examination of the right femur. Electronically signed by: Korey Quintero MD 07/27/2025 11:13 AM EDT RP Dictated By: Korey Quintero MD Signed By: <Electronically signed by Korey Quintero MD in OV> 07/27/25 1113 DD/ 1057 TD/TT: 07/27/25 1106 Mechanism Inspector: [facility] External Provider IMG XR PROCEDURES Final Result * XR Femur 2+ Views Left (07/27/2025 10:57 AM EDT) Anatomical Region Laterality Modality Lower Extremities, Femur Left Radiogr aphic Imaging 07/27/2025 10:5 7 AM EDT Narrative 07/27/2025 11:16 AM EDT [facility] [address] [place] [address] XRay Report Signed Patient: Carina Petit MR#: [id number] : 1965 Acct:[id number] Age/Sex: 59 / F ADM Date: 07/27/25 Loc: HO.BRIEX Attending Dr: Margie Muñoz MD Ordering Physician: Margie Anderson Date of Service: 07/27/25 Procedure(s): XR femur LT 2V Accession Number(s): [id number] cc: Name,Kevon MICHAELS; Margie Anderson Reason for Exam: M79.604 - Pain in right leg EXAMINATION: XR FEMUR 2 VIEWS LEFT HISTORY: M79.604 - Pain in right leg COMPARISON: There are no prior studies available for comparison. FINDINGS: AP and lateral views of the left femur are submitted. Osseous mineralization is normal. There is no fracture or dislocation. The visualized hip and knee joint spaces are preserved. The soft tissues are unremarkable. XR/XR femur LT 2V IMPRESSION: Unremarkable examination of the left femur. Electronically signed by: Korey Quintero MD 07/27/2025 11:14 AM EDT Dictated By: Korey Quintero MD Signed By: <Electronically signed by Korey Quintero MD in OV> 07/27/25 1114 DD/ 1057 TD/TT: 07/27/25 1106 Mechanism Inspector: Procedure Note Donotuseinterpreter, Image - 07/27/2025 [facility] [address] [place] [address] XRay Report Signed Patient: Bladimir PetitnMR#: [id number] : 1965Acct:[id number] Age/Sex: 59 / FADM Date: 07/27/25 Loc: HO.BRIEX Attending Dr: Margie Muñoz MD Ordering Physician: Margie Anderson Date of Service: 07/27/25 Procedure(s): XR femur LT 2V Accession Number(s): [id number] cc: Kevon Sheffield MD; Margie Anderson Reason for Exam: M79.604 - Pain in right leg EXAMINATION: XR FEMUR 2 VIEWS LEFT HISTORY: M79.604 - Pain in right leg COMPARISON: There are no prior studies available for comparison. FINDINGS: AP and lateral views of the left femur are submitted. Osseous mineralization is normal. There is no fracture or dislocation. The visualized hip and knee joint spaces are preserved. The soft tissues are unremarkable. XR/XR femur LT 2V IMPRESSION: Unremarkable examination of the left femur. Electronically signed by: Korey Quintero MD 07/27/2025 11:14 AM EDT Dictated By: Korey Quintero MD Signed By: <Electronically signed by Korey Quintero MD in OV> 07/27/25 1114 DD/ 1057 TD/TT: 07/27/25 1106 Mechanism Inspector: [facility] External Provider IMG XR PROCEDURES Final Result * XR Lumbar Spine Complete 4+ Views (06/07/2025 4:25 PM EDT) Anatomical Region Laterality Modality Spine, L-spine Radiographic Breanna ging 06/07/2025 4:25 PM EDT Narrative 06/07/2025 5:03 PM EDT [address] [address] XRay Report Signed Patient: Carina Petit MR#: [id number] : 1965 Acct:[id number] Age/Sex: 59 / F ADM Date: 06/07/25 Loc: HHCX Attending Dr: Deedee Templeton DO Ordering Physician: Deedee Templeton DO Date of Service: 06/07/25 Procedure(s): XR lumbar spine 4V min Accession Number(s): [id number] cc: Deedee Templeton DO Reason for Exam: [...] 06/07/25 1700 DD/ 1625 TD/TT: 06/07/25 1630 Mechanism Inspector: Procedure Note Donotuseinterpreter, Image - 06/07/2025 [place] [address] XRay Report Signed Patient: Giselle Pteit#: [id number] : 1965Acct:[id number] Age/Sex: 59 / FADM Date: 06/07/25 Loc: HO.HHCX Attending Dr: Deedee Templeton DO Ordering Physician: Deedee Templeton DO Date of Service: 06/07/25 Procedure(s): XR lumbar spine 4V min Accession Number(s): [id number] cc: Deedee Templeton DO Reason for Exam: [...] 06/07/25 1700 DD/ 1625 TD/TT: 06/07/25 1630 Mechanism Inspector: us Deedee Jareth DO IMG XR PROCEDURES Final Resu lt * BI Mammogram Diagnostic Tomosynthesis Left (02/13/2025 12:00 PM EDT) Anatomical Region Laterality Modality Breast Left Mammography 02/13/2025 12:0 0 PM EDT Narrative 02/13/2025 1:00 PM EDT [facility] [address] [place] [address] Mammography Report Signed Patient: Carina Petit MR#: [id number] : 1965 Acct:[id number] Age/Sex: 59 / F ADM Date: 02/13/25 Loc: DONALDO Attending Dr: Kevon Sheffield MD Ordering Physician: Kevon Sheffield MD Results: 1Negative Date of Service: 02/13/25 Follow Up: 1 Year From [facility] Mammogram Procedure(s): MM tomosynthesis diagnostic LT Accession Number(s): [id number] cc: Kevon Sheffield MD EXAMINATION: MM DIAGNOSTIC [...] density (ACR BI-RADS breast composition Category b). [place] marker in the upper central left breast [...] Leyda Bailey DO 02/13/2025 12:57 PM EDT RP Dictated By: Leyda Bailey DO Signed By: <Electronically signed by Leyda Bailey DO in OV> 02/13/25 1257 DD/ 1200 TD/TT: 02/13/25 1221 Mechanism Inspector: Procedure Note Donotuseinterpreter, Image - 02/13/2025 [place] [facility] [address] [place] [address] Mammography Report Signed Patient: Giselle Petit#: [id number] : 1965Acct:[id number] Age/Sex: 59 / FADM Date: 02/13/25 Loc: HO.MAMMO Attending Dr: Kevon Sheffield MD Ordering Physician: Kevon Sheffield MDResults: 1Negative Date of Service: 02/13/25Follow Up: 1 Year From Orig inal Mammogram Procedure(s): MM tomosynthesis diagnostic LT Accession Number(s): [id number] cc: Kevon Sheffield MD EXAMINATION: MM DIAGNOSTIC [...] density (ACR BI-RADS breast composition Category b). [place] marker in the upper central left breast [...] Leyda Bailey DO 02/13/2025 12:57 PM EDT RP Dictated By: Leyda Bailey DO Signed By: <Electronically signed by Leyda Bailey DO in OV> 02/13/25 1257 DD/ 1200 TD/TT: 02/13/25 1221 Mechanism Inspector: us Kevon Sheffield MD IMG BI PROCEDURES Final Result * (ABNORMAL) Hm Colonoscopy (07/29/2023) Pathologist [facility] Colonoscopy Abnormal(A ) Normal us Kevon Sheffield MD HEALTH MAINTENANCE Final Result * HEPATITIS C AB W/REFL TO HCV RNA, QN, PCR (05/01/2022 10:36 AM EDT) HEPATITIS C ANTIBODY NON-REACT OSIEL NON-REACT OSIEL [facility] INDEX 0.10 <1.00 [facility] Comment: HCV antibody was non-reactive. There is no laboratory evidence of HCV infection. In most cases, no further action is required. However, if recent HCV exposure is suspected, a test for HCV RNA (test code 97429) is suggested. For additional information please refer to http://education.[employer]/faq/GLM87r2 (This link is being provided for informational/ educational purposes only.) 05/01/2022 10:3 6 AM EDT Rossy Alarcon BUSINESS OFFICE ASSOCIATE HISTORICAL/NON ORDERABLE LABS Final Result Performing Organization Address [facility] de Phone Number [facility] [address] * THINPREP PAP (07/09/2021 10:08 AM [...] along with historic and current clinical information. Snow Removing Supervisor : SEE COMMENT [facility] Comment: KF, CT(ASCP) CT screening location: [place] [address] Interpretation/R esult: Negative for intraepithelial lesion or [...] present. 07/09/2021 10:0 8 AM EDT Cher JASONM LAB PATHOLOGY ORDERABLES Final Result Performing Organization Address [facility] Co de Phone Number [facility] [address] [place] [address], * HPV mRNA E6/E7 (07/09/2021 10:08 AM EDT) HPV nRNA E6/E7 Not Detected Not Detected [facility] Comment: Methodology: Trombone Slide Assembler-Mediated Amplification This assay detects E6/E7 viral messenger RNA (mRNA) from 14 high-risk HPV types (16,18,31,33,35,39,45,51,52,56,58,59,66,68). The analytical performance characteristics of this assay have been determined by [employer]. The modifications have not been cleared or approved by the FDA. This assay has been validated pursuant to the CLIA regulations and is used for clinical purposes. For additional information, please refer to http://education.[employer]/faq/GKM627v8 (This link if provided for information/ educational purposes only.) 07/09/2021 10:0 8 AM EDT us Cher Gannon [facility] LAB BLOOD ORDERABLES Ava truong Result [facility] [address] from Last 3 Months or Most Recently Relevant to Health Maintenance Insurance [facility] HMO Care Teams Computer Applications Instructor Relationship Specialty Start Date End Date Name, MD Kevon [address] [place] [address] PCP - General Family Medicine 09/27/18 Maurizio Roberts FNP [address] [place] [address] Nurse Practitioner Family Medicine 08/31/23
--- OUTSIDE RECORDS SUMMARY | 2025-07-27 11:25 | XMS_ITS | Encounter Summary ---
Author Organization [employer] Address [address] [place] [address] [place], [place] [address] Care Team Providers Care Manager Finance Name Role Phone Name, Kevon MICHAELS Primary Care Provider [phone] Maurizio Roberts Unavailable Unavailable Encounter Details Date Type Department Care Team (Late st Contact Info) Description 10/01/2022 Orders Only [facility] [address] [place] [address] Name, MD Kevon [address] [place] [address] Social History Tobacco Use Types Packs/Day Years [...] on filedocumented in this encounter Care Teams Manager Finance Relationship Specialty Start Date End Date Name, MD Kevon [address] [place] [address] PCP - General Family Medicine 09/27/18 Maurizio Roberts FNP [address] [place] [address] Nurse Practitioner Family Medicine 08/31/23 documented as of this encounter
--- OUTSIDE RECORDS SUMMARY | 2025-07-27 11:25 | XMS_ITS | Encounter Summary ---
Author Organization [employer] Address [address] [place] [address] [place] [address] Care Team Providers Care Prior Authorization Nurse Name Role Phone Name, Kevon MICHAELS Primary Care Provider [phone] Maurizio Roberts Unavailable Unavailable Reason for Visit * Reason Onset Date Comments Appointment Request 03/17/2024 Encounter Details Date Type Department Care Team ([facility] st Contact Info) Description 03/17/2024 Telephone [facility] MEDICINE [address] [place] [address] Name, MD Kevon [address] [place] [address] Appointment Request Social History Tobacco Use Types [...] the past 12 months, has t he [place], gas, oil or water [employer] threatened to shut off services in your [...] was advised will receive a call from [place] to schedule a f/u with PCP. Please contact pt at [phone] documented in this encounter Plan of Treatment Not on file documented as of this encounter Visit Diagnoses Not on filedocumented in this encounter Additional Health Concerns Assessment Noted Time PHQ-9 Depression Total Score: 2 02/24/20 24 2:32 PM EDT documented as of this encounter Care Teams Prior Authorization Nurse Relationship Specialty Start Date End Date Name, MD Kevon [address] [place] [address] PCP - General Family Medicine 09/27/18 Maurizio Roberts FNP [address] [place] [address] Nurse Practitioner Family Medicine 08/31/23 documented as of this encounter
--- OUTSIDE RECORDS SUMMARY | 2025-07-27 11:25 | XMS_ITS | Encounter Summary ---
Author Organization [employer] Address [address] [facility] [address] [place] [address] Care Team Providers Care Group Segment Consultant Name Role Phone Name, Kevon MICHAELS Primary Care Provider [phone] Maurizio Roberts Unavailable Unavailable Encounter Details Date Type Department Care Team ([facility] st Contact Info) Description 11/02/2023 Abstract [facility] MEDICINE [address] [place] [address] Name, MD Kevon [address] [place] [address] Social History Tobacco Use Types Packs/Day Years [...] documented as of this encounter Care Teams Group Segment Consultant Relationship Specialty Start Date End Date Name, MD Kevon [address] [place] [address] PCP - General Family Medicine 09/27/18 Maurizio Roberts FNP [address] [place] [address] Nurse Practitioner Family Medicine 08/31/23 documented as of this encounter
--- OUTSIDE RECORDS SUMMARY | 2025-07-27 11:25 | XMS_ITS | Encounter Summary ---
Author Organization [employer] Address [address] [place] [address] Care Team Providers Care Cable Armorer Operator Name Role Phone Name, Kevon MICHAELS Primary Care Provider [phone] Maurizio Roberts Unavailable Unavailable Encounter Details Date Type Department Care Team (Late st Contact Info) Description 07/27/2025 Orders Only [facility] External Provider, [facility] Social History Tobacco Use Types Packs/Day Years [...] Associated Diagnosis Comments XR FEMUR 2+ VIEWS RIGHT Routine 07/27/2025 10:57 AM EDT XR FEMUR 2+ VIEWS LEFT Routine 07/27/2025 10:57 AM EDT documented in this encounter Results * XR Femur 2+ Views Left (07/27/2025 10:57 AM EDT) Anatomical Region Laterality Modality Lower Extremities, Femur Left Radiogr aphic Imaging 07/27/2025 10:5 7 AM EDT Narrative 07/27/2025 11:16 AM EDT [facility] [address] [place] [address] Drive [address] [place] [address] XRay Report Signed Patient: Taryn Petit MR#: [id number] : 1965 Acct:[id number] Age/Sex: 59 / F ADM Date: 07/27/25 Loc: HO.HOSX Attending Dr: Margie Muñoz MD Ordering Physician: Margie Anderson Date of Service: 07/27/25 Procedure(s): XR femur LT 2V Accession Number(s): [id number] cc: Kevon Sheffield MD; Margie Anderson Reason [...] Korey Quintero MD 07/27/2025 11:14 AM EDT RP Dictated By: Korey Quintero MD Signed By: <Electronically signed by Korey Quintero MD in OV> 07/27/25 1114 DD/ 1057 TD/TT: 07/27/25 1106 Food Product Inspector: Procedure Note Donotuseinterpreter, Image - 07/27/2025 [facility] [address] [place] [address] [place] [address] XRay Report Signed Patient: Giselle Petit#: [id number] : 1965Acct:[id number] Age/Sex: 59 / FADM Date: 07/27/25 Loc: HO.HOSX Attending Dr: Margie Muñoz MD Ordering Physician: Margie Anderson Date of Service: 07/27/25 Procedure(s): XR femur LT 2V Accession Number(s): [id number] cc: Kevon Sheffield MD; Margie Anderson Reason [...] Korey Quintero MD 07/27/2025 11:14 AM EDT RP Dictated By: Korey Quintero MD Signed By: <Electronically signed by Korey Quintero MD in OV> 07/27/25 1114 DD/ TD/TT: 07/27/25 1106 Food Product Inspector: us [facility] External Provider IMG XR PROCEDURES Final Result * XR Femur 2+ Views Right (07/27/2025 10:57 AM EDT) Anatomical Region Laterality Modality Lower Extremities, Femur Right Radiogr aphic Imaging 07/27/2025 10:5 7 AM EDT Narrative 07/27/2025 11:16 AM EDT [facility] [address] [place] [address] Drive [address] [place] [address] XRay Report Signed Patient: Taryn Petit MR#: [id number] : 1965 Acct:[id number] Age/Sex: 59 / F ADM Date: 07/27/25 Loc: AP Attending Dr: Margie Muñoz MD Ordering Physician: Margie Anderson Date of Service: 07/27/25 Procedure(s): XR femur RT 2V Accession Number(s): [id number] cc: Name,Kevon MICHAELS; Margie Anderson Reason for [...] 07/27/25 1113 DD/ 1057 TD/TT: 07/27/25 1106 Food Product Inspector: Procedure Note Donotuseinterpreter, Image - 07/27/2025 [facility] [address] [place] [address] Drive [address] [place] [address] XRay Report Signed Patient: Giselle Petit#: [id number] : 1965Acct:[id number] Age/Sex: 59 / FADM Date: 07/27/25 Loc: HO.HOSX Attending Dr: Margie Muñoz MD Ordering Physician: Margie Anderson Date of Service: 07/27/25 Procedure(s): XR femur RT 2V Accession Number(s): [id number] cc: Name,Kevon MICHAELS; Margie Anderson Reason for [...] Korey Quintero MD 07/27/2025 11:13 AM EDT Dictated By: Korey Quintero MD Signed By: <Electronically signed by Korey Quintero MD in OV> 07/27/25 1113 DD/ 1057 TD/TT: 07/27/25 1106 Food Product Inspector: [facility] External Provider IMG XR PROCEDURES Final Result documented in this encounter Visit Diagnoses Not on filedocumented in this encounter Additional Health Concerns Assessment Noted Time PHQ-9 Depression Total Score: 2 06/13/20 25 4:20 PM EDT documented as of this encounter Care Teams Cable Armorer Operator Relationship Specialty Start Date End Date Name, MD Kevon [address] [place] [id number] PCP - General Family Medicine 09/27/18 Maurizio Roberts FNP [address] [place] [id number] Nurse Practitioner Family Medicine 08/31/23 documented as of this encounter
--- OUTSIDE RECORDS SUMMARY | 2025-07-27 11:25 | XMS_ITS | Encounter Summary ---
Author Organization [employer] Address [address] [place] [address] [address] [place] [address] Care Team Providers Care Thread Inspector Name Role Phone Name, Kevon MICHAELS Primary Care Provider [phone] Maurizio Roberts Unavailable Unavailable Reason for Visit * Reason Onset Date Comments Nurse Triage 02/16/2024 Encounter Details Date Type Department Care Team ([facility] st Contact Info) Description 02/16/2024 Telephone [facility] [address] [place] [address] Name, MD Kevon [address] [place] [address] Nurse Triage Social History Tobacco Use Types [...] AM EDT Triage call to patient with [employer] [id number]. Patient reporting onset of nausea yesterdayafternoon and [...] accepted this outcome Please contact pt at [phone] (fermenter champagne) documented in this encounter Plan of Treatment Not on file documented as of this encounter Visit Diagnoses Not on filedocumented in this encounter Additional Health Concerns Assessment Noted Time PHQ-9 Depression Total Score: 2 11/29/19 24 9:37 AM EST documented as of this encounter Care Teams Thread Inspector Relationship Specialty Start Date End Date Name, MD Kevon [address] [place] [address] PCP - General Family Medicine 09/27/18 Maurizio Roberts FNP [address] [place] [address] Nurse Practitioner Family Medicine 08/31/23 documented as of this encounter
--- OUTSIDE RECORDS SUMMARY | 2025-07-27 11:25 | XMS_ITS | Encounter Summary ---
Author Organization [employer] Address [address] [place] [address] [address], [place] [address] Care Team Providers Care Burning Supervisor Name Role Phone Name, Kevon MICHAELS Primary Care Provider [phone] Maurizio Roberts Unavailable Unavailable Encounter Details Date Type Department Care Team ([facility] st Contact Info) Description 05/26/2023 Telephone [facility] [address] [place] [address] Name, MD Kevon [address] [place] [phone] Social History Tobacco Use Types Packs/Day Years [...] on filedocumented in this encounter Care Teams Burning Supervisor Relationship Specialty Start Date End Date NameKevon MD [address] [place] [address] PCP - General Family Medicine 09/27/18 Maurizio Roberts FNP [address] [place] [address] Nurse Practitioner Family Medicine 08/31/23 documented as of this encounter
== END 2025-07-27 11:06 | disposition home or self-care (01) ==
LOC: HO.HOS 10:09
PROVIDERS: PCP Internal Medicine Geriatric Medicine; Visit Provider Physical Medicine & Rehabilitation
DX: M79.604 Pain in right leg (principal); M79.605 Pain in left leg; M79.10 Myalgia, unspecified site; G89.29 Other chronic pain; U09.9 Post COVID-19 condition, unspecified
CPT/HCPCS: 99203

== ENCOUNTER 2025-07-27 10:08 | Outpatient (REF) | payer BC, MEDICAID, SELFPAY ==
--- NOTE | ~2025-07-27 | XR_ITS ---
EXAMINATION: XR FEMUR 2 VIEWS LEFT HISTORY: M79.604 - Pain in right leg COMPARISON: There are no prior studies available for comparison. FINDINGS: AP and lateral views of the left femur are submitted. Osseous mineralization is normal. There is no fracture or dislocation. The visualized hip and knee joint spaces are preserved. The soft tissues are unremarkable. XR/XR femur LT 2V IMPRESSION: Unremarkable examination of the left femur. Electronically signed by: Korey Quintero MD 07/27/2025 11:14 AM EDT
--- NOTE | ~2025-07-27 | XR_ITS ---
EXAMINATION: XR FEMUR 2 VIEWS RIGHT HISTORY: M79.604 - Pain in right leg COMPARISON: There are no prior studies available for comparison. FINDINGS: AP and lateral views of the right femur are submitted. Osseous mineralization is normal. There is no fracture or dislocation. There is mild narrowing of the hip joint. The visualized knee joint spaces are maintained. The soft tissues are unremarkable. XR/XR femur RT 2V IMPRESSION: Mild narrowing of the right hip joint. Otherwise unremarkable examination of the right femur. Electronically signed by: Korey Quintero MD 07/27/2025 11:13 AM EDT
== END 2025-07-27 10:09 | disposition home or self-care (01) ==
LOC: HO.HOSX 10:08
PROVIDERS: PCP Internal Medicine Geriatric Medicine; Visit Provider Physical Medicine & Rehabilitation
DX: M79.605 Pain in left leg (principal); M79.604 Pain in right leg; M79.10 Myalgia, unspecified site; U09.9 Post COVID-19 condition, unspecified; G89.29 Other chronic pain
CPT/HCPCS: 73552

== ENCOUNTER → 2025-07-27 10:57 | Outpatient (BNV) | payer BC, MEDICAID, SELFPAY | PROVIDERS: PCP Internal Medicine Geriatric Medicine; Visit Provider Radiology Diagnostic Radiology | DX: M79.604 Pain in right leg (principal); M79.605 Pain in left leg | CPT/HCPCS: 73552 ==

== ENCOUNTER 2025-07-27 11:10 | Outpatient (REF) | payer BC, MEDICAID, SELFPAY ==
[2025-07-27 13:01] LABS: Folate 11.3 ng/mL (> or = 4.0); Vitamin B12 289 pg/mL (200-900)
== END 2025-07-27 11:11 | disposition home or self-care (01) ==
LOC: HO.LAB 11:10
PROVIDERS: PCP Internal Medicine Geriatric Medicine; Visit Provider Physical Medicine & Rehabilitation
DX: M79.604 Pain in right leg (principal); M79.605 Pain in left leg; M79.10 Myalgia, unspecified site; U09.9 Post COVID-19 condition, unspecified; G89.29 Other chronic pain
CPT/HCPCS: 36415; 82306; 82607; 82746

== ENCOUNTER 2025-08-22 12:59 | Outpatient (REF) | payer BC, MEDICAID, SELFPAY ==
--- NOTE | 2025-08-22 13:02 | EMG_ITS ---
Chief complaint: Right dorsal wrist pain, denies numbness Reason for referral: Evaluate for neuropathy Referred by: Howard BELTRE Procedure done: Right upper extremity NCS/EMG Precautions and/or limitations: None The limb temperature was monitored continuously and remained between 32-36 degrees C during the performance of the NCS. Nerve Conduction Studies Anti Sensory Summary Table ?Stim Site NR Onset (ms) Norm Onset (ms) Peak (ms) Norm Peak (ms) O-P Amp (?V) Norm O-P Amp Site1 Site2 Delta-0 (ms) Dist (cm) Yoel (m/s) Norm Yoel (m/s) Right Median Anti Sensory (2nd Digit) Wrist ? 2.4 3.3 <3.6 55.7 >10 Wrist 2nd Digit 2.4 14.0 58 Right Radial Anti Sensory (Thumb) Forearm ? 1.7 2.2 <3.1 31.3 Forearm Thumb 1.7 0.0 Right Ulnar Anti Sensory (5th Digit) Wrist ? 2.0 2.8 <3.7 15.2 >15.0 Wrist 5th Digit 2.0 14.0 70 Motor Summary Table ?Stim Site NR Onset (ms) Norm Onset (ms) O-P Amp (mV) Norm O-P Amp iAmp (mV) Amp (1st) (%) Site1 Site2 Delta-0 (ms) Dist (cm) Yoel (m/s) Norm Yoel (m/s) Right Median Motor (Abd Poll Brev) Wrist ? 3.6 <3.9 10.3 >4.5 12.2 100.0 Elbow Wrist 3.5 18.5 53 >45 Elbow ? 7.1 8.3 10.1 80.6 Right Ulnar Motor (Abd Dig Minimi) Wrist ? 2.6 <3.0 9.0 >5 10.7 100.0 B Elbow Wrist 2.9 18.0 62 >45 B Elbow ? 5.5 7.6 9.6 84.4 A Elbow B Elbow 0.9 10.0 111 >45 A Elbow ? 6.4 7.3 9.3 81.1 EMG ?Side Muscle Nerve Root Ins Act Fibs Psw Amp Dur Poly Recrt Int Pat Comment Right 1stDorInt Ulnar C8-T1 Nml Nml Nml Nml Nml 0 Nml Complete Right FlexCarRad Median C6-7 Nml Nml Nml Nml Nml 0 Nml Complete Right Biceps Musculocut C5-6 Nml Nml Nml Nml Nml 0 Nml Complete Right Triceps Radial C6-7-8 Nml Nml Nml Nml Nml 0 Nml Complete Right Deltoid Axillary C5-6 Nml Nml Nml Nml Nml 0 Nml Complete FINDINGS: All motor and sensory nerves tested showed normal latencies, amplitudes and conduction velocities. Concentric needle EMG was performed in selected muscles of the right upper extremity. Study did not reveal signs of electric abnormalities as shown in the table above. IMPRESSION: 1. This is a normal study. 2. There is no electrodiagnostic evidence for median neuropathy, ulnar neuropathy, brachial plexopathy, or cervical radiculopathy. Thank you for your kind referral. Margie Muñoz MD, ROSANNA Board Certified, [place] Board of Physical Medicine and Rehabilitation (ABPMR) Board Certified, [place] Board of Electrodiagnostic Medicine (ABEM) CODIN 18455 x 1 extremity MTDD
--- OUTSIDE RECORDS SUMMARY | 2025-08-22 16:05 | XMS_ITS | Clinical Summary ---
Author Organization [employer] Address [address] [place] [address] 7 [place] [address] Care Team Providers Care Therapist Occupational Name Role Phone Name, Kevon MICHAELS Primary Care Provider [phone] Maurizio Roberts Unavailable Unavailable Allergies Active Allergy [...] puffs every 4 (four) hours. 1 Active Fluticasone-Salm eterol (Advair Diskus) 250-50 MCG/ACT aerosol powder Inhale 1 puff every 12 (twelve) hours. Active loratadine (Claritin) 10 MG tablet Take 1 tablet by mouth 1 (one) time each day. 0 Active fluticasone (Flonase) 50 MCG/ACT nasal sprayIndications :Seasonal allergic rhinitis due to other allergic trigger TAKE 1 SPRAY IN EACH NOSTRIL TWICE A DAY NEEDED 48 g 3 Active fexofenadine ([place]) 180 MG tabletIndication s:Rhinitis, unspecified type,Non-seasona l allergic rhinitis due to other allergic trigger Take 1 tablet (180 mg) by mouth if needed each day (Allergies). 90 tablet 4 Active Riboflavin 400 MG capsule Take 400 mg by mouth Once per day. 30 capsule 11 5 12/23/19 26 Active celecoxib (CeleBREX) 200 MG capsuleIndicatio ns:Chronic bilateral low back pain with sciatica, sciatica [...] 06/07/20 26 Active amitriptyline (Elavil) 10 MG tabletIndication s:Epigastric abdominal pain Take 1 tablet (10 mg) by mouth at bedtime. 30 tablet 2 5 09/11/20 25 Active omeprazole (PriLOSEC) [address] capsuleIndicatio ns:Epigastric abdominal pain Take 1 capsule (20 mg) by mouth before evening meal. 30 capsule 1 5 Active Active Problems Problem Noted Date Diagnosed [...] medication management. Any issues or concerns, contact [facility]. All her questions were answered [...] EDT): Progress Note: Carina is a 57-year-old, Maltese speaking female that was referred for a [...] information should questions or concerns arise. Plan: Carnia will continue to engage in effective coping mechanisms that better fit her. She will be referred to [facility] psychopharmacology Clinic for Med. Management. I provide her my contact information and encouraged her to reach out for support as needed, she agreed. Microscopic hematuria 09/08/2018 Overview (05/05/2023): History of hematuria and bilateral renal cyst followed by [facility]. Last consult appt Sep 2022, with [...] Department Care Team Description 07/27/2025 Orders Only [facility] External Provider, [facility] 06/13/2025 3:45 PM EDT Office Visit [facility] MEDICINE [address] [place] [address] Name, MD Kevon Epigastric abdominal pain (Primary Dx); Constipation, unspecified constipation type 06/13/2025 Travel 06/12/2025 Telephone [facility] MEDICINE [address] [place] [address] Jesenia Siu MA CHART PREP 06/07/2025 2:40 PM EDT Office Visit [facility] WALK-IN CENTER [address] [place] [address] Deedee Templeton DO Chronic bilateral low back [...] Years (1 of 2 - PCV) 1984 RSV Patients and Patients Aged 60 years or older (1 - Risk 50-74 years 1-dose series) 12/18/2015 Zoster Vaccines (1 of 2) 12/18/2015 COVID-19 Vaccine (1 - season) 2025 Influenza Vaccine (#1) 2025 07/20/2022, 2020 Mammogram 02/13/2026 02/13/2025, 05/2 , 02/13/2025, Additional history exists Alcohol/Substance Use Screening 06/13/2026 06/13/2025 Depression Screening 06/13/2026 06/13/2025, 06/13/20 25 Disability Screening 06/13/2026 06/13/2025 SDOH Screening 06/13/2026 06/13/2025 Tobacco Screening 06/13/2026 06/13/2025 Cervical Cancer Screening 07/09/2026 HPV/Cotest 07/09/2026 07/09/2021, 09/22/2018 Pap Smear 07/09/2026 07/09/2021 DTaP/Tdap/Td Vaccines (2 - Td or Tdap) 09/08/2026 09/08/2016 Colonoscopy 07/29/2028 07/29/2023 Colorectal Cancer Screening 07/29/2028 Hepatitis B Vaccines Completed 09/22/2018, 05/31/2009, 05/03/2009 [...] Procedure Name Priority Date/Time Associated Diagnosis Comments VITAMIN B12/FOLATE, SERUM PANEL Routine 07/27/2025 11:25 AM EDT VITAMIN D,25-OH,TOTAL,IA Routine 07/27/2025 11:25 AM EDT XR FEMUR 2+ VIEWS LEFT Routine 10:57 [...] Recently Relevant to Health Maintenance Results * (ABNORMAL) Vitamin D, 25-Hydroxy, Total, Immunoassay (07/27/2025 11:25 AM EDT) Vitamin D 25-OH Total 21.0(L) >30 ng/mL [facility] Comment: Health Based Reference Values*< 20 ng/mL Tdimawbfl83-11 ng/mL Insufficient> 30 ng/mL Sufficient*Betty CHINO. N [...] confirmed with another method such as LC-MS/MS. 07/27/2025 11:2 5 AM EDT 07/27/2025 11:25 AM EDT us Generic External Data Provider LAB BLOOD ORDERAB LES Final Result [facility] [address] [place] [phone] * Vitamin B12 (Cobalamin) and Folate Panel, Serum (07/27/2025 11:25 AM EDT) Vitamin B12 289 200 - 900 pg/mL [facility] Comment:NORMAL 200-900 PG/ML INDETERMINATE 160-199 PG/ML DEFICIENT < 160 PG/ML Folate 11.3 > or = 4.0 ng/mL [facility] Comment:Reference Values:> o r = 4.0 ng/mL< 4.0 ng/mL suggests folate deficiency Methotrexate, aminopterin and folinic acid(leucovorin) are chemotherapeutic agents whose molecularstructures are similar to folate; therefore, the Architectfolate assay cannot be used for patients using these drugs. 07/27/2025 11:2 5 AM EDT 07/27/2025 11:25 AM EDT us Generic External Data Provider LAB BLOOD ORDERAB LES Final Result Performing Organization Address City/State/[facility] Co de Phone Number [facility] [address] [place] [phone] * XR Femur 2+ Views Right (07/27/2025 10:57 AM EDT) Anatomical Region Laterality Modality Lower Extremities, Femur Right Radiogr aphic Imaging 07/27/2025 10:5 7 AM EDT Narrative 07/27/2025 11:16 AM EDT [facility] [address] [place] [address] XRay Report Signed Patient: Carina Petit MR#: [id number] : 1965 Acct:[id number] Age/Sex: 59 / F ADM Date: 07/27/25 Loc: AP Attending Dr: Margie Muñoz MD Ordering Physician: Margie Anderson Date of Service: 07/27/25 Procedure(s): XR femur RT 2V Accession Number(s): [id number] cc: Name,Kevon MICHAELS; Margie Anderson Reason for [...] 07/27/25 1113 DD/ 1057 TD/TT: 07/27/25 1106 Raw Stock Machine Loader: Procedure Note Donotuseinterpreter, Image - 07/27/2025 [facility] [address] [place] [address] [place] [address] XRay Report Signed Patient: Giselle Petit#: [id number] : 1965Acct:[id number] Age/Sex: 59 / FADM Date: 07/27/25 Loc: HOMAYEX Attending Dr: Margie Muñoz MD Ordering Physician: Margie Anderson Date of Service: 07/27/25 Procedure(s): XR femur RT 2V Accession Number(s): [id number] cc: Name,Kevon MICHAELS; Margie Anderson Reason for [...] 07/27/25 1113 DD/ 1057 TD/TT: 07/27/25 1106 Raw Stock Machine Loader: [facility] External Provider IMG XR PROCEDURES Final Result * XR Femur 2+ Views Left (07/27/2025 10:57 AM EDT) Anatomical Region Laterality Modality Lower Extremities, Femur Left Radiogr aphic Imaging 07/27/2025 10:5 7 AM EDT Narrative 07/27/2025 11:16 AM EDT [facility] [address] [place] [address] Drive [address] [place] [address] XRay Report Signed Patient: Carina Petit MR#: [id number] : 1965 Acct:[id number] Age/Sex: 59 / F ADM Date: 07/27/25 Loc: AP Attending Dr: Margie Muñoz MD Ordering Physician: Margie Anderson Date of Service: 07/27/25 Procedure(s): XR femur LT 2V Accession Number(s): [id number] cc: Name,Kevon MICHAELS; Margie Anderson Reason for [...] Quintero MD in OV> 07/27/25 1114 DD/ 56 TD/TT: 07/27/25 1106 Raw Stock Machine Loader: Procedure Note Donotuseinterpreter, Image - 07/27/2025 [facility] [address] [place] [address] XRay Report Signed Patient: Elinor PetitR#: [id number] : 1965Acct:[id number] Age/Sex: 59 / FADM Date: 07/27/25 Loc: HO.HOSX Attending Dr: Margie Muñoz MD Ordering Physician: Margie Anderson Date of Service: 07/27/25 Procedure(s): XR femur LT 2V Accession Number(s): [id number] cc: Name,Kevon MICHAELS; Margie Anderson Reason for [...] 07/27/25 1114 DD/ 1057 TD/TT: 07/27/25 1106 Raw Stock Machine Loader: [facility] External Provider IMG XR PROCEDURES Final Result * XR Lumbar Spine Complete 4+ Views (06/07/2025 4:25 PM EDT) Anatomical Region Laterality Modality Spine, L-spine Radiographic Breanna ging 06/07/2025 4:25 PM EDT Narrative 06/07/2025 5:03 PM EDT [facility] [address] [place] [address] XRay Report Signed Patient: Carina Petit MR#: [id number] : 1965 Acct:[id number] Age/Sex: 59 / F ADM Date: 06/07/25 Loc: SCOTTY Attending Dr: Deedee Templeton DO Ordering Physician: Deedee Templeton DO Date of Service: 06/07/25 Procedure(s): XR lumbar spine 4V min Accession Number(s): [id number] cc: Deedee Templeton DO Reason for Exam: [...] Ayesha Pina MD 06/07/2025 05:00 PM EDT Dictated By: Ayesha Pina MD Signed By: <Electronically signed by Ayesha Pina MD in OV> 06/07/25 1700 DD/ 1625 TD/TT: 06/07/25 1630 Raw Stock Machine Loader: Procedure Note Donotuseinterpreter, Image - 06/07/2025 [place] [address] XRay Report Signed Patient: Giselle Petit#: [id number] : 1965Acct:[id number] Age/Sex: 59 / FADM Date: 06/07/25 Loc: SCOTTY Attending Dr: Deedee Templeton DO Ordering Physician: Deedee Templeton DO Date of Service: 06/07/25 Procedure(s): XR lumbar spine 4V min Accession Number(s): [id number] cc: Deedee Templeton DO Reason for Exam: [...] Ayesha Pina MD 06/07/2025 05:00 PM EDT Dictated By: Ayesha Pina MD Signed By: <Electronically signed by Ayesha Pina MD in OV> 06/07/25 1700 DD/ 1625 TD/TT: 06/07/25 1630 Raw Stock Machine Loader: us Deedee Templeton DO IMG XR PROCEDURES Final Resu lt * BI Mammogram Diagnostic Tomosynthesis Left (02/13/2025 12:00 PM EDT) Anatomical Region Laterality Modality Breast Left Mammography 02/13/2025 12:0 0 PM EDT Narrative 02/13/2025 1:00 PM EDT [facility] [address] [place] [address] Mammography Report Signed Patient: Carina Petit MR#: [id number] : 1965 Acct:[id number] Age/Sex: 59 / F ADM Date: 02/13/25 Loc: KELLY Attending Dr: Kevon Sheffield MD Ordering Physician: Kevon Sheffield MD Results: 1Negative Date of Service: 02/13/25 Follow Up: 1 Year From [facility] ina Mammogram Procedure(s): MM tomosynthesis diagnostic LT Accession Number(s): [id number] cc: Kevon Sheffield MD EXAMINATION: MM DIAGNOSTIC [...] density (ACR BI-RADS breast composition Category b). [place] marker in the upper central left breast [...] 02/13/25 1257 DD/ 1200 TD/TT: 02/13/25 1221 Raw Stock Machine Loader: Procedure Note Donotuseinterpreter, Image - 02/13/2025 [facility] [address] [place] [address] Mammography Report Signed Patient: Vangie PetitnMMarya#: [id number] : 1965Acct:[id number] Age/Sex: 59 / FADM Date: 02/13/25 Loc: KELLY Attending Dr: Kevon Sheffield MD Ordering Physician: Kevon Sheffield MDResults: 1Negative Date of Service: 02/13/25Follow Up: 1 Year From Orig inal Mammogram Procedure(s): MM tomosynthesis diagnostic LT Accession Number(s): [id number] cc: Kevon Sheffield MD EXAMINATION: MM DIAGNOSTIC [...] density (ACR BI-RADS breast composition Category b). [place] marker in the upper central left breast [...] 02/13/25 1257 DD/ 1200 TD/TT: 02/13/25 1221 Raw Stock Machine Loader: us Kevon Sheffield MD IMG BI PROCEDURES Final Result * (ABNORMAL) Hm Colonoscopy (07/29/2023) Colonoscopy Abnormal(A ) Normal us Kevon Sheffield MD HEALTH MAINTENANCE Final Result * HEPATITIS C AB W/REFL TO HCV RNA, QN, PCR (05/01/2022 10:36 AM EDT) HEPATITIS C ANTIBODY NON-REACT OSIEL NON-REACT OSIEL [facility] INDEX 0.10 <1.00 [facility] Comment: HCV antibody was non-reactive. There is no laboratory evidence of HCV infection. In most cases, no further action is required. However, if recent HCV exposure is suspected, a test for HCV RNA (test code 04160) is suggested. For additional information please refer to http://education.Sales Rabbit/faq/FQN21l6 (This link is being provided for informational/ educational purposes only.) 05/01/2022 10:3 6 AM EDT Rossy Makjerald [employer] HISTORICAL/NON ORDERABLE LABS Final Result Performing Organization Address [facility] Co de Phone Number [facility] [address] [place] [address], * THINPREP PAP (07/09/2021 10:08 AM EDT) [...] along with historic and current clinical information. Die Tester : SEE COMMENT [facility] Comment: KF, CT(ASCP) CT screening location: [place] [address] Interpretation/R esult: Negative for intraepithelial lesion or malignancy. [facility] LMP: NONE [facility]IVEN [facility] Prev. BX: NONE GIVEN [facility] Prev. PAP: NIL/NEG 08/2018 [facility] SOURCE: None given [facility] Statement Of Adequacy: SEE COMMENT [facility] Comment: Satisfactory for evaluation. Endocervical/transformation zone component present. 07/09/2021 10:0 8 AM EDT Cher JASONM LAB PATHOLOGY ORDERABLES Final Result Performing Organization Address [facility] Co de Phone Number [facility] [address] [place] [address], * HPV mRNA E6/E7 (07/09/2021 10:08 AM EDT) HPV nRNA E6/E7 Not Detected Not Detected [facility] Comment: Methodology: Hand Ii Blocker-Mediated Amplification This assay detects E6/E7 viral messenger RNA (mRNA) from 14 high-risk HPV types (16,18,31,33,35,39,45,51,52,56,58,59,66,68). The analytical performance characteristics of this assay have been determined by [employer]. The modifications have not been cleared or approved by the FDA. This assay has been validated pursuant to the CLIA regulations and is used for clinical purposes. For additional information, please refer to http://education.Sales Rabbit/faq/AED689e7 (This link if provided for information/ educational purposes only.) 07/09/2021 10:0 8 AM EDT Cher JASON LAB BLOOD ORDERABLES Ava l Result [facility] [address] from Last 3 Months or Most Recently Relevant to Health Maintenance Insurance [facility] H[facility] Care Teams Therapist Occupational Relationship Specialty Start Date End Date Name, MD Kveon [address] [place] [address] PCP - General Family Medicine 09/27/18 Maurizio Roberts FNP [address] [place] [address] Nurse Practitioner Family Medicine 08/31/23
--- OUTSIDE RECORDS SUMMARY | 2025-08-22 16:05 | XMS_ITS | Encounter Summary ---
Author Organization [employer] Address [address] [place] [address] [address] [place] [address] Care Team Providers Care Director Of Planning Name Role Phone Name, Kevon MICHAELS Primary Care Provider [phone] Maurizio Roberts Unavailable Unavailable Reason for Visit * Reason Onset Date Comments Nurse Triage 02/16/2024 Encounter Details Date Type Department Care Team ([facility] st Contact Info) Description 02/16/2024 Telephone [facility] MEDICINE [address] [place] [address] Name, MD Kevon [address] [place] [address] Nurse Triage Social History Tobacco Use Types [...] AM EDT Triage call to patient with [employer] Hadoop Engineer [id number]. Patient reporting onset of nausea yesterdayafternoon and [...] accepted this outcome Please contact pt at [phone] (aerial photograph interpreter) documented in this encounter Plan of Treatment Not on file documented as of this encounter Visit Diagnoses Not on filedocumented in this encounter Additional Health Concerns Assessment Noted Time PHQ-9 Depression Total Score: 2 11/29/19 24 9:37 AM EST documented as of this encounter Care Teams Director Of Planning Relationship Specialty Start Date End Date Name, MD Kevon [address] [place] [address] PCP - General Family Medicine 09/27/18 Maurizio Roberts FNP [address] [place] [address] Nurse Practitioner Family Medicine 08/31/23 documented as of this encounter
--- OUTSIDE RECORDS SUMMARY | 2025-08-22 16:05 | XMS_ITS | Encounter Summary ---
Author Organization [employer] Address [address] [place] [address] [address] [address] Care Team Providers Care Corporate Paralegal Name Role Phone Name, Kevon MICHAELS Primary Care Provider [phone] Maurizio Roberts Unavailable Unavailable Encounter Details Date Type Department Care Team ([facility] st Contact Info) Description 05/26/2023 Telephone [facility] MEDICINE [address] [place] [address] Name, MD Kevon [address] [place] [address] Social History Tobacco Use Types Packs/Day Years [...] on filedocumented in this encounter Care Teams Corporate Paralegal Relationship Specialty Start Date End Date NameKevon MD [address] [place] [address] PCP - General Family Medicine 09/27/18 Maurizio Roberts FNP [address] [place] [address] Nurse Practitioner Family Medicine 08/31/23 documented as of this encounter
--- OUTSIDE RECORDS SUMMARY | 2025-08-22 16:05 | XMS_ITS | Encounter Summary ---
Author Organization [employer] Address [address] [place] [address] [address], [place] [address] Care Team Providers Care Homebound Teacher Name Role Phone Name, Kevon MICHAELS Primary Care Provider [phone] Maurizio Roberts Unavailable Unavailable Encounter Details Date Type Department Care Team (Late st Contact Info) Description 10/01/2022 Orders Only [facility] [address] [place] [address] Name, MD Kevon [address] [place] [address] Social History Tobacco Use Types Packs/Day Years [...] on filedocumented in this encounter Care Teams Homebound Teacher Relationship Specialty Start Date End Date Name, MD Kevon [address] [place] [address] PCP - General Family Medicine 09/27/18 Maurizio Roberts FNP [address] [place] [address] Nurse Practitioner Family Medicine 08/31/23 documented as of this encounter
--- OUTSIDE RECORDS SUMMARY | 2025-08-22 16:05 | XMS_ITS | Encounter Summary ---
Author Organization [employer] Address [address] [facility] [address] [place] [address] Care Team Providers Care Wireless Network Engineer Name Role Phone Name, Kevon MICHAELS Primary Care Provider [phone] Maurizio Roberts Unavailable Unavailable Encounter Details Date Type Department Care Team ([facility] st Contact Info) Description 11/02/2023 Abstract [facility] MEDICINE [address] [place] [address] Name, MD Kevon [address] [place] [address] Social History Tobacco Use Types Packs/Day Years [...] documented as of this encounter Care Teams Wireless Network Engineer Relationship Specialty Start Date End Date Name, MD Kevon [address] [place] [address] PCP - General Family Medicine 09/27/18 Maurizio Roberts FNP [address] [place] [address] Nurse Practitioner Family Medicine 08/31/23 documented as of this encounter
--- OUTSIDE RECORDS SUMMARY | 2025-08-22 16:05 | XMS_ITS | Encounter Summary ---
Author Organization [employer] Address [address] [place] [address] [place] [address] Care Team Providers Care Dairy Scientist Name Role Phone Name, Kevon MICHAELS Primary Care Provider Maurizio Roberts Unavailable Unavailable Reason for Visit * Reason Onset Date Comments Appointment Request 03/17/2024 Encounter Details Date Type Department Care Team ([facility] st Contact Info) Description 03/17/2024 Telephone [facility] MEDICINE [address] [place] [address] Name, MD Kevon [address] [place] [address] Appointment Request Social History Tobacco Use Types [...] the past 12 months, has t he [email or web address], oil or [employer] threatened to shut off services in your [...] was advised will receive a call from [place] to schedule a f/u with PCP. Please contact pt at [phone] documented in this encounter Plan of Treatment Not on file documented as of this encounter Visit Diagnoses Not on filedocumented in this encounter Additional Health Concerns Assessment Noted Time PHQ-9 Depression Total Score: 2 02/24/20 24 2:32 PM EDT documented as of this encounter Care Teams Dairy Scientist Relationship Specialty Start Date End Date Name, MD Kevon [address] [place] [address] PCP - General Family Medicine 09/27/18 Maurizio Roberts FNP [address] [place] [address] Nurse Practitioner Family Medicine 08/31/23 documented as of this encounter
== END 2025-08-22 13:00 | disposition home or self-care (01) ==
LOC: HO.NEURO 12:59
PROVIDERS: PCP Internal Medicine Geriatric Medicine
DX: R20.0 Anesthesia of skin (principal); R20.2 Paresthesia of skin; M25.531 Pain in right wrist
CPT/HCPCS: 95886; 95909

== ENCOUNTER → 2025-08-22 13:02 | Outpatient (BNV) | payer BC, MEDICAID, SELFPAY | PROVIDERS: PCP Internal Medicine Geriatric Medicine; Visit Provider Physical Medicine & Rehabilitation | DX: R20.0 Anesthesia of skin (principal) | CPT/HCPCS: 95886; 95909 ==

== ENCOUNTER 2025-08-27 14:00 | Outpatient (AMB) | payer BC, MEDICAID, SELFPAY ==
[2025-08-27 14:06] VITALS: BMI 23.8
--- NOTE | 2025-08-27 14:06 | A.OFFVIS_ITS ---
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 Patient complains of right hand numbness that is only bothering her occasionally. Patient states she is having more pain than numbness, on the dorsal aspect of her wrist, radiating to the elbow. She feels like her right hand becomes weak when she has these episodes. Patient also complains of a spot of swelling on the dorsal aspect of her right hand. She believes it fluctuates in size. She is not taking any pain medications at this time. She denies finger locking. She denies any injuries or surgeries to the right hand. IMPRESSION 08/22/25: 1. This is a normal study. 2. There is no electrodiagnostic evidence for median neuropathy, ulnar neuropathy, brachial plexopathy, or cervical radiculopathy. Early Childhood Educator Aide Required: Yes Early Childhood Educator Aide Language: Manager Commission Name: [id number] Allergies amoxicillin (AMOXICILLIN) Allergy (Intermediate, Verified 08/27/25 14:06) DIZZINESS morphine (MORPHINE) Allergy (Unknown, Verified 08/27/25 14:06) RASH baclofen (BACLOFEN) Adverse Reaction (Intermediate, Verified 08/27/25 14:06) NAUSEA & VOMITING HPI HPI MACHINES TECHNICIAN-EMG review right hand: Details: Taryn is a 59 year old right hand dominant female who presents today as a new patient for evaluation of Right Hand Pain & Numbness and Tingling. Patient complains of right hand numbness that is only bothering her occasionally. Patient states she is having more pain than numbness, on the dorsal aspect of her wrist, radiating to the elbow. She feels like her right hand becomes weak when she has these episodes. Patient also complains of a spot of swelling on the dorsal aspect of her right hand. She believes it fluctuates in size. She is not taking any pain medications at this time. She denies finger locking. She denies any injuries or surgeries to the right hand. IMPRESSION 08/22/25: 1. This is a normal study. 2. There is no electrodiagnostic evidence for median neuropathy, ulnar neuropathy, brachial plexopathy, or cervical radiculopathy. [facility] Medical History Thyroid nodule Epidermal cyst Renal cyst Hematuria Microscopic hematuria Headache, migraine Asthma Migraines COVID-19 Surgical History H/O colonoscopy History of surgery of uterus History of removal of cyst (~03/31/23) History of tubal ligation Family History Mother Colon cancer, Onset Age: 56 Social History (Updated 08/27/25 @ 14:10 by THERON Loomis) Alcohol intake: never Patient Tobacco Use Status: Former Tobacco user Tobacco use type: Cigarette Current occupational status: unemployed Current occupation: rt handed Review of Systems Const All systems reviewed & are unremarkable except as noted in HPI and below Physical Exam Vital Signs: BMI result Body Mass Index 23.8 Extrem Other: Patient is alert, oriented, and in no acute distress. Neuro: Normal sensation of the tips of all digits of the right hand at this time Vascular: Cap refill brisk Pain: No tenderness to palpation about dorsal aspect of the right hand No pain with range of motion of right hand Negative Cozen's of the right No tenderness to palpation of right lateral epicondyle ROM: Patient is able to flex, extend, pronate, supinate the right wrist fully and without difficulty Range of motion of the right elbow also full and intact Skin: No lacerations or abrasions. General: No ecchymosis, erythema, or evidence of infection. Psych: Appears grossly normal Affect normal Attitude cooperative Assessment & Plan Assessment & Plan (1) Extensor tendinitis of right hand: Code(s): M77.8 - Other enthesopathies, not elsewhere classified Category: Medical Plan 1. Extensor tendinitis of right wrist and hand Patient is educated about this condition Patient is educated about the typical recovery course Patient is provided with a Velcro wrist splint to wear when her wrist is particularly bothering her at this time OT referral also placed for range of motion and strengthening of the right hand and wrist Patient understands this and is amenable to this plan Activity as tolerated Follow-up as needed with any acute concerns Orders: Orders OT Evaluation and Treatment Today M77.8 - Other enthesopathies, not elsewhere classified Coding Level of Care Code New Pt Level 3 (32420) Diagnoses Extensor tendinitis of right hand M77.8
== END 2025-08-27 14:31 | disposition home or self-care (01) ==
LOC: HO.HOS 14:02
PROVIDERS: PCP Internal Medicine Geriatric Medicine
DX: M77.8 Other enthesopathies, not elsewhere classified (principal)
CPT/HCPCS: 99203